=== PATIENT | female | born 1955 | race Caucasian/White ===

== ENCOUNTER → 2023-10-23 06:46 | Outpatient (REF) | payer MEDICARE, OTHER, SELFPAY ==
[2023-10-23 07:15] VITALS: BP 118/76; BP_SYST 84
[2023-10-23 08:42] VITALS: BP 129/64
[2023-10-23 09:54] LABS: Body Fluid LDH < 90 U/L; Body Fluid Protein < 2.0 g/dl
[2023-10-23 10:42] LABS: Body Fluid Mononuclear 76.2 %; Body Fluid Polymorphonuclear 23.8 %; Body Fluid WBC 492 /CUMM
[2023-10-23 10:43] LABS: Body Fluid Mononuclear 65.8 %; Body Fluid Polymorphonuclear 34.2 %; Body Fluid WBC 82 /CUMM
[2023-10-23 11:02] LABS: Body Fluid Second Tech CF
[2023-10-23 11:03] LABS: Body Fluid Second Tech CF
== END ==
LOC: RADI 06:46
PROVIDERS: ATTENDING PHYSICIAN Internal Medicine Transplant Hepatology; FAMILY PHYSICIAN Internal Medicine
DX: R18.8 Other ascites (principal); J90 Pleural effusion, not elsewhere classified
CPT/HCPCS: 32555; 49083; 71045; 83615; 84157; 87015; 87070; 87205; 89051

== ENCOUNTER → 2023-10-29 06:52 | Outpatient (REF) | payer MEDICARE, OTHER, SELFPAY ==
[2023-10-29 07:25] VITALS: BP 144/72; BP_SYST 81
[2023-10-29 08:45] VITALS: BP 125/69; BP_SYST 74
[2023-10-29 09:11] VITALS: BP 113/65
[2023-10-29 09:34] LABS: Body Fluid LDH < 90 U/L; Body Fluid Protein < 2.0 g/dl
[2023-10-29 10:15] LABS: Body Fluid Mononuclear 75.4 %; Body Fluid Polymorphonuclear 24.6 %; Body Fluid WBC 313 /CUMM
[2023-10-29 10:16] LABS: Body Fluid WBC 78 /CUMM
[2023-10-29 10:17] LABS: Body Fluid Mononuclear 65.4 %; Body Fluid Polymorphonuclear 34.6 %
[2023-10-29 10:18] LABS: Body Fluid Second Tech EM
[2023-10-29 10:18] LABS: Body Fluid Second Tech EM
== END ==
LOC: RADI 06:52
PROVIDERS: ATTENDING PHYSICIAN Internal Medicine Transplant Hepatology; FAMILY PHYSICIAN Internal Medicine
DX: R18.8 Other ascites (principal); J90 Pleural effusion, not elsewhere classified
CPT/HCPCS: 32555; 49083; 71045; 83615; 84157; 87015; 87070; 87205; 89051

== ENCOUNTER 2023-10-29 09:18 | Outpatient (RCR) | payer MEDICARE, OTHER, SELFPAY ==
[2023-10-29] MEDS: FLEXBUMIN 100 IV ×2 (09:37→11:06)
[2023-10-29 09:47] VITALS: BP 121/65
[2023-10-29 12:30] VITALS: BP 124/61
== END 2023-11-15 23:59 | disposition home or self-care (01) ==
LOC: OID 09:18
PROVIDERS: ATTENDING PHYSICIAN Internal Medicine; PRIMARYCARE PHYSICIAN Internal Medicine
DX: K74.60 Unspecified cirrhosis of liver (principal); R18.8 Other ascites; K76.0 Fatty (change of) liver, not elsewhere classified; K31.84 Gastroparesis; I81 Portal vein thrombosis; Z98.84 Bariatric surgery status
CPT/HCPCS: 32555; 49083; 71045; 83615; 84157; 87015; 87070; 87205; 89051; 96365; 96366; P9047

== ENCOUNTER → 2023-11-01 06:34 | Outpatient (REF) | payer MEDICARE, OTHER, SELFPAY ==
[2023-11-01 07:15] VITALS: BP 142/68; BP_SYST 70
[2023-11-01 08:07] VITALS: BP 134/63; BP_SYST 66
[2023-11-01 08:51] LABS: Body Fluid Mononuclear 72 %; Body Fluid Polymorphonuclear 28 %; Body Fluid WBC 75 /CUMM
[2023-11-01 08:52] LABS: Body Fluid Second Tech SD
== END ==
LOC: RADI 06:34
PROVIDERS: ATTENDING PHYSICIAN Internal Medicine Transplant Hepatology; FAMILY PHYSICIAN Internal Medicine
DX: R18.8 Other ascites (principal)
CPT/HCPCS: 49083; 87015; 87070; 87205; 89051

== ENCOUNTER → 2023-11-05 06:44 | Outpatient (REF) | payer MEDICARE, OTHER, SELFPAY ==
[2023-11-05 07:30] VITALS: BP 134/59; BP_SYST 80
[2023-11-05 08:11] VITALS: BP 124/68; BP_SYST 64
[2023-11-05 10:26] LABS: Body Fluid Mononuclear 56.4 %; Body Fluid Polymorphonuclear 43.6 %; Body Fluid WBC 117 /CUMM
[2023-11-05 10:30] LABS: Body Fluid Second Tech SD
== END ==
LOC: RADI 06:44
PROVIDERS: ATTENDING PHYSICIAN Internal Medicine Transplant Hepatology
DX: R18.8 Other ascites (principal); J90 Pleural effusion, not elsewhere classified
CPT/HCPCS: 49083; 76604; 87015; 87070; 87205; 89051

== ENCOUNTER → 2023-11-08 07:21 | Outpatient (REF) | payer MEDICARE, OTHER, SELFPAY ==
[2023-11-08 07:50] VITALS: BP 150/64; BP_SYST 88
[2023-11-08 09:50] LABS: Body Fluid Mononuclear 70.7 %; Body Fluid Polymorphonuclear 29.3 %; Body Fluid WBC 75 /CUMM
[2023-11-08 10:06] LABS: Body Fluid Second Tech EF
== END ==
LOC: RADI 07:21
PROVIDERS: ATTENDING PHYSICIAN Internal Medicine Transplant Hepatology; FAMILY PHYSICIAN Internal Medicine
DX: R18.8 Other ascites (principal)
CPT/HCPCS: 49083; 87015; 87070; 87205; 89051

== ENCOUNTER 2023-11-11 15:14 | Inpatient (IN) | payer MEDICARE, OTHER, SELFPAY ==
[2023-11-11] VITALS (7 sets, daily range): BP systolic 114–153; BP diastolic 54–88; BMI 31.4
--- NOTE | 2023-11-11 12:06 | ED.GENMED ---
History of Present Illness
General
Chief Complaint: Abdominal Symptoms
Source: patient and records
Time Seen by Provider: 11/11/23 11:42
Travel History
Have you had any contact with someone who has COVID-19?: No
Do you have any symptoms of coronavirus? Fever > 100 degrees, chills, cough, shortness of breath, sore throat, loss of taste or smell, muscle aches, or headache?: No
History of Present Illness
History of Present Illness:
67-year-old female with past medical history of Henderson, end-stage liver disease, GERD, hypertension, hyperlipidemia, A-fib, noted to get biweekly paracentesis presenting to the emergency department for evaluation of increased abdominal pain in the
epigastrium, yesterday had a few episodes of vomiting and today still has some mild nausea and abdominal discomfort prompting her to come in for further evaluation. She has a scheduled appointment tomorrow for a paracentesis and thoracentesis as
well as seeing her liver specialist, Dr. Bradley as well as her GI team tomorrow. Patient denies any fevers, chills, rigors. She has been taking her lactulose as prescribed but still notes tremors that are more pronounced with her arms extended.
notes no change in mental status. There are no reported fevers, chills, rigors.
Past History
Past History
ED Past Medical History: Arrthythmia (Paroxysmal atrial fibrillation), Fibromyalgia, GERD, HTN, Hypercholesterolemia, NIDDM, Hypothyroidism, Psychiatric (Anxiety), Other (Gastroparesis, chronic gastritis, HENDERSON, esophageal dysmotility/achalasia,
Ulcerative colitis, Migraines, neck pain, IBS, anemia, Dizziness Hepatic encephalopathy. Cirrhosis of the liver, IBS, ) and Other (Portal vein thrombosis); Negative CAD
ED Past Surgical History: Appendectomy, Bowel resection, Cholecystectomy, Gynecological (Total Hysterectomy, Oophorectomy), Orthopedic (right wrist surgery, Left ankle surgery) and Other (Meckel's diverticulum, gastric bypass Jun 27, 2021,
cataracts,)
Patient has exhibited threatening behavior?: No
PSI?: No
Social History
Tobacco: Former smoker
Alcohol: None
Drug: None
Personal:
Living: with family
Employment: Retired
Family History
Family History: Other ([place])
Review of Systems
Review of Systems
All Other Systems: ROS reviewed and negative except as documented in HPI and ROS
Phy Exam
Physical Exam
Physical Exam:
GENERAL: Alert , in no apparent distress
EYE: Clear conjunctiva
NECK: Supple
ENT: o/p clr, mmm.
CARDIAC: Regular rate and rhythm .
LUNGS: Diminished lung sounds at the right base, no acute respiratory distress, no wheezes/rales/rhonchi
ABDOMEN: Soft, distended with ascites, hepatomegaly appreciated. There is small ecchymosis along the right lateral flank that appears older in nature, tenderness within the epigastrium, normoactive bowel sounds
NEUROLOGICAL: Alert and oriented, pronounced tremor with arms extended, asterixis noted to the wrists
SKIN: Warm and dry, skin intact.
MUSCULOSKELETAL: Trace ankle edema on the left, well perfused.
PSYCH: Normal and appropriate interaction.
Scores
Heart Failure Risk
Heart Failure Risk Score: Not Applicable
Heart Score for Chest Pain Patients
STEMI patient?: Not applicable
Withdrawal Assessment of Alcohol
Withdrawal Assessment Completed?: Not applicable
Course
Orders/Labs/Results
Orders:
Orders
11/11/23 11:47
Urinalysis Reflex To Culture Urgent
Famotidine [Pepcid] 20 mg IV NOW STA
Mag Hydrox/Al Hydrox/Simeth [Maalox] 30 ml Phenobarb/Hyoscy/Atropine/Scop [] 10 ml Viscous Lidocaine 2% [Xylocaine Viscous Cup] 10 ml PO NOW
Ondansetron Injectable [Zofran] 4 mg IV NOW STA
11/11/23 11:48
Electrocardiogram (*1) Urgent
Reason for Study: Abdominal Pain
EKG- Treatment ONCE
11/11/23 12:22
Phenobarb/Hyoscy/Atropine/Scop [] 10 ml .ROUTE .STK-MED ONE
11/11/23 12:23
Mag Hydrox/Al Hydrox/Simeth [Maalox] 30 ml .ROUTE .STK-MED ONE
Viscous Lidocaine 2% [Xylocaine Viscous Cup] 15 ml .ROUTE .STK-MED ONE
11/11/23 12:26
Ammonia Urgent
Complete Blood Count/With Diff Urgent
Comprehensive Metabolic Panel Urgent
Lipase Urgent
PTT Urgent
Prothrombin Time Urgent
Troponin I Urgent
Abnormal Lab Results
11/11/23
12:26
WBC 4.0 L 10^3/uL
(4.8-10.8)
RBC 2.89 L 10^6/uL
(4.20-5.40)
Hgb 9.4 L g/dL
(12.0-16.0)
Hct 26.4 L %
(37.0-47.0)
MCH 32.5 H pg
(27.0-31.0)
RDW 16.2 H %
(11.5-14.5)
Plt Count 63 L 10^3/uL
(130-400)
MPV 12.4 H fL
(7.4-10.4)
Absolute Lymphs (auto) 0.8 L 10^3/uL
(1.2-3.4)
Lymphocytes % 18.9 L %
(20.5-51.1)
Monocytes % 11.9 H %
(1.7-9.3)
PT 19.0 H Sec
(11.4-14.6)
Sodium 132 L mmol/L
(135-145)
BUN 21 H mg/dl
(7-17)
Creatinine 1.9 H mg/dL
(0.6-1.0)
Glucose 125 H mg/dl
(70-99)
Total Bilirubin 1.9 H mg/dl
(0.2-1.3)
AST 60 H U/L
(14-36)
Alkaline Phosphatase 137 H U/L
(38-126)
Ammonia 86 H umol/L
(9-30)
Total Protein 6.0 L g/dl
(6.3-8.2)
Albumin 2.7 L g/dl
(3.5-5.0)
11/11/23 12:26
11/11/23 12:26
Vital Signs
Initial and Last Documented VS:
Initial Vital Signs
Temp Pulse Resp BP Pulse Ox
98.6 F 96 16 150/87 98
11/11/23 11:08 11/11/23 11:08 11/11/23 11:08 11/11/23 11:08 11/11/23 11:08
Last Documented Vital Signs
Temp Pulse Resp BP Pulse Ox
98.6 F 96 16 150/87 98
11/11/23 11:08 11/11/23 11:08 11/11/23 11:08 11/11/23 11:08 11/11/23 11:08
MDM/Problems Addressed
Differential Diagnosis Includes:
Worsening liver failure, patient not exhibiting any signs of metabolic encephalopathy, no fevers or infectious symptoms to be consistent with SBP
MDM/Problems Addressed:
67-year-old female present emergency department for abdominal pain, nausea and vomiting yesterday, no further episodes of vomiting today but remains with the pain. Possible GERD, gastritis, pancreatitis. Will check labs. Treatment with Pepcid,
Zofran and green grabber. Reassessment following. Patient does have planned follow-up already arranged for tomorrow with interventional radiology and her liver specialist.
Chronic conditions affecting care: Other (Chronic liver disease)
Acute Exacerbation and/or Progression of Chronic Illness: Other (Ascites/liver failure)
*Pulse Oximetry
Patient hypoxic: no
*Critical Care Note
Total Time (30-74mins, 75-104mins- exclusive of procedures): Not Applicable
Data Reviewed
Review of Other/Old Records Reveals: Labs, Records and Testing
Source: patient and records
Patient Management
Discussion with other providers: Hospitalist and Retail Shift Supervisor
Escalation/DeEscalation of care consider admission/obs:
I spoke to patient's on-call GI physician, Dr. Delacruz, who states that patient unable to tolerate her lactulose she may require admission with concern for worsening of her liver disease. She is also requesting to have us reach out to interventional
radiology to see if paracentesis could be done today. I spoke to IR who had already left for the day given her leukocytosis where a little less concern for SBP but that if they needed to return today for any reason that patient would be taken to IR
for paracentesis as well. Their plan will be to perform paracentesis first thing tomorrow morning. Patients ammonia level is elevated past her baseline around 86. Combined with her chronic medical condition as well as today's presenting symptoms
I do feel it be best for patient to be admitted and monitored. Hospitalist is aware and accepts patient for continued evaluation and treatment
ED Attending Note
-
Portions of this chart may have been created with voice recognition software.� Occasional wrong word or��sound alike� substitutions may have occurred due to the inherent limitations of voice recognition software.
Discharge Plan
Departure
Patient Disposition: Admit
Date of Disposition: 11/11/23
Time of Disposition: 13:14
Presentation/result/management discussed w/ accepting MD/DO: Hospitalist
Discharge Problem:
Abdominal ascites, Chronic liver failure
Prescriptions:
No Action
atorvastatin 20 mg tablet
20 mg PO DAILY
levothyroxine 25 mcg tablet
25 mcg PO DAILY
Patient Comments:
08/28/2023, called patient's [facility] pharmacy ([facility] [address] [address]) to confirm this medication[address] [facility] states that patient last filled this medication in April of 2023 for a 90-day supply.
pantoprazole [Protonix] 40 mg Tablet,Delayed Release (Dr/Ec)
40 mg PO BID
prednisone 5 mg tablet
5 mg PO DAILY
Patient Comments:
08/28/2023, patient's spouse cannot remember whether patient takes this medication in the morning or in the evening every day. Patient only takes this medication once a day.
ondansetron HCl 8 mg tablet
8 mg PO TIDPRN PRN (Reason: nausea)
quetiapine [Seroquel] 25 mg Tablet
25 mg PO HS
hydroxyzine HCl 25 mg Tablet
25 mg PO HS PRN (Reason: panic attack)
buspirone 15 mg Tablet
15 mg PO TID
ferrous sulfate [FeroSul] 325 mg (65 mg iron) tablet
325 mg PO HS
lactulose 10 gram/15 mL Solution
20 g PO TID 30 Days Qty: 2700 0RF
zinc sulfate 50 mg zinc (220 mg) Tablet
50 mg PO DAILY
metoclopramide HCl 10 mg Tablet
10 mg PO ACHS
memantine 5 mg Tablet
5 mg PO BID
rifaximin 550 mg Tablet
550 mg PO BID
oxycodone 10 mg tablet
5 mg PO TIDPRN PRN (Reason: severe pain ) Qty: 0 0RF
Patient Comments:
10/01/2023: per PDMP, patient filled this medication on 08/27/2023 for 90 tablets.
sucralfate 1 gram Tablet
1 g PO ACHS
furosemide 20 mg Tablet
20 mg PO DAILY
spironolactone 50 mg Tablet
50 mg PO DAILY
Referrals:
Malu Wilson, DO [Family Provider] -
Interventions
Interventions:
ED- Fall Risk Assessment Last Done: 11/11/23 12:05
*ED COVID-19 Vaccine History Last Done: 11/11/23 11:08
WH-Dfrdly-Rwvokicfhm Assessment Last Done: 11/11/23 12:04
[2023-11-11] MEDS: MAALOX 50 PO (12:24)
[2023-11-11] MEDS: PEPCID 20 MG IV (12:28)
[2023-11-11] MEDS: ZOFRAN 4 MG IV ×2 (12:28→16:46)
[2023-11-11 12:34] LABS: % Basophils 0.7 % (0-2); % Immature Granulocytes 0.2 % (0-0.5); % Lymphocytes 18.9 % (20.5-51.1); % Monocytes 11.9 % (1.7-9.3); % Neutrophils 65.3 % (42.2-75.2); Absolute Eosinophils 0.1 10^3/uL (0-0.7); Absolute Lymphocytes 0.8 10^3/uL (1.2-3.4); Absolute Monocytes 0.5 10^3/uL (0.1-0.6); Absolute Neutrophils 2.6 10^3/uL (1.4-6.5); Hematocrit 26.4 % (37.0-47.0); Hemoglobin 9.4 g/dL (12.0-16.0); Mean Corp Hgb Conc. 35.6 g/dL (33.0-37.0); Mean Corpuscular Hgb 32.5 pg (27.0-31.0); Mean Corpuscular Volume 91.3 fL (81.0-99.0); Mean Platelet Volume 12.4 fL (7.4-10.4); Nucleated Red Blood Cells % 0 %; Platelet Count 63 10^3/uL (130-400); Red Blood Cell Count 2.89 10^6/uL (4.20-5.40); Red Cell Dist. Width 16.2 % (11.5-14.5)
[2023-11-11 12:44] LABS: INR 1.61
[2023-11-11 12:45] LABS: APTT 33.4 Sec (23.4-35.0)
[2023-11-11 12:47] LABS: ALT (SGPT) 32 U/L (0-35); AST (SGOT) 60 U/L (14-36); Albumin 2.7 g/dl (3.5-5.0); Alkaline Phosphatase 137 U/L (38-126); Blood Urea Nitrogen 21 mg/dl (7-17); Calcium 8.5 mg/dl (8.4-10.2); Carbon Dioxide 25 mmol/L (22-30); Chloride 106 mmol/L (98-107); Glucose 125 mg/dl (70-99); Lipase 77 U/L (23-300); Potassium 4.7 mmol/L (3.5-5.1); Sodium 132 mmol/L (135-145); Total Bilirubin 1.9 mg/dl (0.2-1.3); eGFR 28.76
[2023-11-11 12:48] LABS: Ammonia 86 umol/L (9-30)
[2023-11-11 12:59] LABS: Troponin I 0.018 ng/ml
--- NOTE | 2023-11-11 14:59 | HPS.HSE ---
Family Physician
-
Family Physician: Malu Wilson
Chief Complaint
-
Nausea and abdominal distention
History of Present Illness
Pleasant 67-year-old female with history of nonalcoholic liver cirrhosis, A-fib anticoagulated, mood disorder. Paracentesis every other week but not for the last 4-week because she did not need it. Presented to the hospital complaining of present
marginal distention of the abdomen associated with nausea and couple episodes of nonbloody vomiting, therefore she was not able to take her lactulose daily yesterday afternoon and this morning.
Denies any changes stool or urine color.
No fever or chills or cough or congestion.
Not have some generalized abdominal pain and discomfort for, worse when she goes around.
Also have worsening lower extremity edema.
Denies any headache or vision change or any weakness or numbness in extremities.
She takes lactulose 3 times a day but she moves her bowels 6-7 times daily she looks dry and dehydrated.
Workup in the ER show evidence of worsening ascites and worsening renal function.
She is awake, alert and oriented x 3 hold appropriate conversations.
GI and IR contacted by the ER physician, look like the collective decision has no need for urgent paracentesis
Medical History
Past Medical History
Past Medical History: Reports Other
Additional Past Medical History:
Past medical history reviewed:
Alcoholic liver cirrhosis
Mood disorder
For myalgia
Chronic disease stage II-III
Gastroparesis
Dyslipidemia
A-fib not anticoagulated because of the risks of bleeding and requiring recurrent paracentesis.
History of C. difficile infection
Hypothyroidism
Site of colitis
Chronic lower extremity edema
Hepatic encephalopathy
Panic attack.
Surgical history: Recurrent paracentesis
Thoracocentesis
Hysterectomy
Appendectomy
Cholecystectomy
Splenectomy
Right arm surgery
Deep line and port placement
Bowel resection
Maureen Y gastric bypass
Bilateral carotic surgery
ORIF left ankle
EGD
Social history: Lives with the family, does not smoke and quit alcohol in her 20s, otherwise she is independent.
Family history: Reviewed and noncontributory
Past Surgical History: Reports Other
Social History
Alcohol: Other
Family History
Family History: Other
Allergies / Home Medications
Allergies reflects when Allergies were last updated in [employer].
Home Medications with original date entered in [employer]
Allergy/Medication List:
Allergies
Allergy/AdvReac Type Severity Reaction Status Date / Time
adhesive Allergy Rash Verified 11/11/23 11:09
ampicillin Allergy Anaphylaxis Verified 11/11/23 11:09
bee pollen Allergy Swelling Verified 11/11/23 11:09
Cephalosporins Allergy Swelling Verified 11/11/23 11:09
diphenhydramine Allergy HYPERACTIVI Verified 11/11/23 11:09
[From Benadryl] TY
honey Allergy Swelling Verified 11/11/23 11:09
Iodinated Contrast Media Allergy FLUSHING Verified 11/11/23 11:09
latex Allergy HIVES AND Verified 11/11/23 11:09
SWELLS UP
penicillin G Allergy Anaphylaxis Verified 11/11/23 11:09
Penicillins Allergy Anaphylaxis Verified 11/11/23 11:09
prochlorperazine Allergy Unknown Verified 11/11/23 11:09
[From Compazine]
promethazine HCl Allergy THROAT Verified 11/11/23 11:09
[From Phenergan] SWELLING/PANIC
ATTACKS
Sulfa (Sulfonamide Allergy Swelling Verified 11/11/23 11:09
Antibiotics)
sulfisoxazole Allergy Swelling Verified 11/11/23 11:09
trimethobenzamide Allergy Unknown Verified 11/11/23 11:09
venom-honey bee Allergy BEE Verified 11/11/23 11:09
STING/SWELLING
Home Medications
atorvastatin 20 mg tablet 20 mg PO DAILY High cholesterol 06/14/22
levothyroxine 25 mcg tablet 25 mcg PO DAILY Thyroid 06/14/22
pantoprazole 40 mg tablet,delayed release (Protonix) 40 mg PO BID Gastrointestinal issue 12/09/22
prednisone 5 mg tablet 5 mg PO DAILY Anti-Inflammatory 06/05/23
ondansetron HCl 8 mg tablet 8 mg PO TIDPRN PRN nausea 06/25/23
quetiapine 25 mg tablet (Seroquel) 25 mg PO HS mental health/sleep 07/15/23
buspirone 15 mg tablet 15 mg PO TID Mental Health 08/28/23
ferrous sulfate 325 mg (65 mg iron) tablet (FeroSul) 325 mg PO HS Supplement 08/28/23
hydroxyzine HCl 25 mg tablet 25 mg PO HS PRN panic attack 08/28/23
lactulose 10 gram/15 mL oral solution 20 g (30 mL) PO TID Gastrointestinal Issue 30 days #2,700 mL 09/05/23
memantine 5 mg tablet 5 mg PO BID Neurological Condition 10/01/23
metoclopramide HCl 10 mg tablet 10 mg PO ACHS Gastrointestinal Issue 10/01/23
rifaximin 550 mg tablet 550 mg PO BID Gastrointestinal Issue 10/01/23
zinc sulfate 50 mg zinc (220 mg) tablet 50 mg PO DAILY supplement 10/01/23
oxycodone 10 mg tablet 5 mg PO TIDPRN PRN severe pain #0 tabs 10/03/23
furosemide 20 mg tablet 20 mg PO DAILY 10/23/23
spironolactone 50 mg tablet 50 mg PO DAILY 10/23/23
sucralfate 1 gram tablet 1 g PO ACHS 10/23/23
Review of Systems
-
A 12 point ROS was completed and negative except as noted: Yes
Physical Exam
Vital Signs
Vital Signs
Temp Pulse Resp BP Pulse Ox
98.6 F 94 18 153/63 98
11/11/23 11:08 11/11/23 13:51 11/11/23 13:51 11/11/23 13:51 11/11/23 13:51
physical exam:
General: Pale looking, awake, alert and oriented x3, not in distress and holds appropriate conversation.
HEENT: No active discharge, ecchymosis or bruising, moist lips, tongue and mucous membrane.
Eyes: No discharge or red conjunctiva, no nystagmus, pupils are reactive and equal
Neck:Supple, no JVD no bruit no goiter.
Respiratory: Normal AP contour and diameter, normal chest wall movement, normal respiratory effort, no respiratory distress, port in the right side of the chest
Lungs: Good air entry bilaterally, no wheezing or rhonchi, no rales or crackles,
Heart: S1, S2 regular, normal rate, no added sound., Moderate lower extremities edema
Gastrointestinal: Gross distention of the abdomen, with mild generalized tenderness without any guarding or rigidity this, positive bowel sounds, soft,
Musculoskeletal: , no chest wall abnormality or tenderness. All joints and extremities have good range of motion, no muscle tenderness or any joint swelling or tenderness.
Extremities: Moderate lower extremity pitting edema, good peripheral pulses, good range of motion
Skin: Warm and dry, no ulceration, normal color.
Neurological: Awake, alert and oriented x3, cranial nerve II-XII grossly intact, speech clear and comprehensive, good muscle tone, normal sensory and motor function
Psychiatric: Normal mood, normal thought and judgment, normal affect,
Physical Exam
General: Other
Laboratory Results
-
11/11/23 12:26
11/11/23 12:
Laboratory Results
PT 19.0 Sec (11.4-14.6) H 11/11/23 12:
INR 1.61 11/11/23 12:
APTT 33.4 Sec (23.4-35.0) 11/11/23 12:
Total Bilirubin 1.9 mg/dl (0.2-1.3) H 11/11/23 12:
AST 60 U/L (14-36) H 11/11/23 12:
ALT 32 U/L (0-35) 11/11/23 12:
Alkaline Phosphatase 137 U/L (38-126) H 11/11/23 12:
Troponin I 0.018 ng/ml 11/11/23 12:
Lipase 77 U/L (23-300) 11/11/23 12:
EKG showed normal sinus rhythm rate around 69, UT 128, QTc 437, slow progression of the or in anterior leads otherwise no acute abnormality
Data Reviewed
-
Medical Tests (Nuc Med, Echo, EKG etc): Image Personally Visualized and interpreted
Lab Data: Labs Reviewed by me and Discussed with Patient
Old Records: Reviewed
Impression/Plan
-
IMPRESSION:
Pleasant 67-year-old female with history of narcotic liver cirrhosis and gets paracentesis every other week, which she did have a drop for last 4 weeks she did not need it now she has been having recollection of the ascites and increased abdominal
girth and some tenderness, doubted subacute bacterial peritonitis at the pain is mild but is no fever and leukocytosis.
Recurrent ascites, secondary to alcoholic liver cirrhosis, did not do paracentesis in the last 4 weeks
Alcoholic liver cirrhosis
Acute on chronic renal failure
Hyponatremia
Dehydration
Mild to moderate protein caloric malnutrition
History of A-fib, in sinus rhythm on anticoagulation because of recurrent prostatitis with history of bleeding.
Hypothyroidism
PLAN:
The patient will follow, diet and advance as tolerated to the nausea
Give a dose of lactulose rectally
Then see if she could able to tolerate it orally from midnight if not we may try to do her rectally, may need to reduce the dose of the lactulose that she is if she moves her bowel protein is 6-7 times a day
GI consult
IR for paracentesis tomorrow
Hold oral oxycodone and add morphine as needed
Nausea medication
Hold her vitamin and statin for now.
Monitor vital sign.
Recheck lab
She looks dry we will give a bag of D5 Ringer's lactate for now on monitor electrolyte and renal function as her baseline creatinine around 1.3-1.4 today is 1.9.
Continue levothyroxine
All discussed with the patient in detail expressed understanding
CODE STATUS full code
DVT prophylaxis SCD
[2023-11-11] MEDS: CARAFATE 1 GRAM PO ×2 (16:45→22:40)
[2023-11-11] MEDS: BUSPAR 15 MG PO ×2 (16:45→22:40)
[2023-11-11] MEDS: MORPHINE SULFATE 2 MG IV ×2 (16:46→21:38)
[2023-11-11] MEDS: REGLAN 10 MG PO ×2 (16:46→21:17)
--- NOTE | 2023-11-11 17:05 | CON.GI ---
Consultation
-
Date/Time Consultation Requested: 11/11/23
Date/Time Consultation Performed: 11/11/23
Requesting Provider: ER
Performing Provider: Dr. Delacruz
Reason for Consultation: confusion, burning abdominal pain
Medical History
Chief Complaint / HPI
Chief Complaint: Hepatic encephalopathy, abdominal discomfort
History of Present Illness:
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
for recurrent pleural effusion� (follows with Dr. Bradley), renal insufficiency, Hepatic encephalopathy on Xifaxan/lactulose, hx of SBP on chronic ciprofloxacin(prior non compliance but recently taking as directed), PVT, paroxysmal afib (off AC due to
risk of bleeding), gastroparesis, esophageal dysmotility s/p RYGB, HLD, hypothyroidism, chronic GERD on PPI/H2B returns to ER with recurrent admission with cloudiness with slow speech and abdominal pain. � Pt admits she was last admitted to
[facility] at the end of August with fever + influenza A and confusion.� She was better on discharge but noted last few day fogginess. � On admission noted with ammonia 108 and asked to evaluate.� Other� labs notable for with hbg 9.4, platelets
63,000, INR 1.6, total bilirubin 1.9, albumin 2.7, creatinine 1.9 with a meld 3.0: 26 (11/11/23). Her renal function generally is around 1.2. She has been taking her Lasix and Aldactone.
Last scopes EGD 10/2022- bypass with small pouch healthy anastomosis bx chronic inflammation, 2018 colonoscopy with hemorrhoids, diverticulosis, TA, HP polyps.
Past Medical History
Past Medical History: Other (Arrhythmias (afib ), Fibromyalgia, HTN, Hypercholesterolemia and Other (ZAVALETA cirrhosis with ascites/HE on OLT list at [facility], CKD3, PVT not on AC, chronic anemia, esophageal dysmotility on chronic reglan, hx SBP on
prophylaxis with ciprofloxacin,pleural effusion with prior thoracentesis))
Past Surgical History: Other (Appendectomy, Bowel Resection (Meckel's diverticulum, LUMA with SB resection), Cholecystectomy, , Gynecological (SIMONA) and Other (Kevin-en-Y gastric bypass))
Social History
Tobacco: Former Smoker
Alcohol: None
Drug: None
Personal:
Family History
Family History: Other ((no family hx colon ca, liver issues or liver CA, granddaugher with lupus))
Allergies / Home Medications
Allergy/AdvReac Type Severity Reaction Status Date / Time
adhesive Allergy Rash Verified 11/11/23 11:09
ampicillin Allergy Anaphylaxis Verified 11/11/23 11:09
bee pollen Allergy Swelling Verified 11/11/23 11:09
Cephalosporins Allergy Swelling Verified 11/11/23 11:09
diphenhydramine Allergy HYPERACTIVI Verified 11/11/23 11:09
[From Benadryl] TY
honey Allergy Swelling Verified 11/11/23 11:09
Iodinated Contrast Media Allergy FLUSHING Verified 11/11/23 11:09
latex Allergy HIVES AND Verified 11/11/23 11:09
SWELLS UP
penicillin G Allergy Anaphylaxis Verified 11/11/23 11:09
Penicillins Allergy Anaphylaxis Verified 11/11/23 11:09
prochlorperazine Allergy Unknown Verified 11/11/23 11:09
[From Compazine]
promethazine HCl Allergy THROAT Verified 11/11/23 11:09
[From Phenergan] SWELLING/PANIC
ATTACKS
Sulfa (Sulfonamide Allergy Swelling Verified 11/11/23 11:09
Antibiotics)
sulfisoxazole Allergy Swelling Verified 11/11/23 11:09
trimethobenzamide Allergy Unknown Verified 11/11/23 11:09
venom-honey bee Allergy BEE Verified 11/11/23 11:09
STING/SWELLING
Medication Instructions Recorded
atorvastatin 20 mg tablet 20 mg PO DAILY High cholesterol 06/14/22
levothyroxine 25 mcg tablet 25 mcg PO DAILY Thyroid 06/14/22
pantoprazole 40 mg tablet,delayed 40 mg PO BID Gastrointestinal issue 12/09/22
release (Protonix)
prednisone 5 mg tablet 5 mg PO DAILY Anti-Inflammatory 06/05/23
ondansetron HCl 8 mg tablet 8 mg PO TIDPRN PRN nausea 06/25/23
quetiapine 25 mg tablet (Seroquel) 25 mg PO HS mental health/sleep 07/15/23
buspirone 15 mg tablet 15 mg PO TID Mental Health 08/28/23
ferrous sulfate 325 mg (65 mg 325 mg PO HS Supplement 08/28/23
iron) tablet (FeroSul)
hydroxyzine HCl 25 mg tablet 25 mg PO HS PRN panic attack 08/28/23
lactulose 10 gram/15 mL oral 20 g (30 mL) PO TID 09/05/23
solution Gastrointestinal Issue 30 days
#2,700 mL
memantine 5 mg tablet 5 mg PO BID Neurological Condition 10/01/23
metoclopramide HCl 10 mg tablet 10 mg PO ACHS Gastrointestinal 10/01/23
Issue
rifaximin 550 mg tablet 550 mg PO BID Gastrointestinal 10/01/23
Issue
zinc sulfate 50 mg zinc (220 mg) 50 mg PO DAILY supplement 10/01/23
tablet
oxycodone 10 mg tablet 5 mg PO TIDPRN PRN severe pain #0 10/03/23
tabs
furosemide 20 mg tablet 20 mg PO DAILY 10/23/23
spironolactone 50 mg tablet 50 mg PO DAILY 10/23/23
sucralfate 1 gram tablet 1 g PO ACHS 10/23/23
Review of Systems
-
History Source: Patient
Vital Signs
Temp Pulse Resp BP Pulse Ox
98.2 F 91 18 131/88 98
11/11/23 16:15 11/11/23 16:15 11/11/23 16:15 11/11/23 16:15 11/11/23 16:15
Physical Exam
Results
WBC 4.0 10^3/uL (4.8-10.8) L 11/11/23 12:
Hgb 9.4 g/dL (12.0-16.0) L 11/11/23 12:
Hct 26.4 % (37.0-47.0) L 11/11/23 12:
MCV 91.3 fL (81.0-99.0) 11/11/23 12:
Plt Count 63 10^3/uL (130-400) L 11/11/23 12:
Absolute Neuts (auto) 2.6 10^3/uL (1.4-6.5) 11/11/23 12:
PT 19.0 Sec (11.4-14.6) H 11/11/23 12:
INR 1.61 11/11/23 12:
APTT 33.4 Sec (23.4-35.0) 11/11/23 12:
Sodium 132 mmol/L (135-145) L 11/11/23 12:
Potassium 4.7 mmol/L (3.5-5.1) 11/11/23 12:
Chloride 106 mmol/L (98-107) 11/11/23 12:
Carbon Dioxide 25 mmol/L (22-30) 11/11/23 12:
BUN 21 mg/dl (7-17) H 11/11/23 12:
Creatinine 1.9 mg/dL (0.6-1.0) H 11/11/23 12:
Calcium 8.5 mg/dl (8.4-10.2) 11/11/23 12:
Total Bilirubin 1.9 mg/dl (0.2-1.3) H 11/11/23 12:
AST 60 U/L (14-36) H 11/11/23 12:
ALT 32 U/L (0-35) 11/11/23 12:26
Alkaline Phosphatase 137 U/L (38-126) H 11/11/23 12:26
Lipase 77 U/L (23-300) 11/11/23 12:26
Diagnostic Image Results:�
10/01 CXR pending
09/30 US abdomen pending
09/27 -CXR No pneumothorax post right thoracentesis.
08/28/23 HCT
There are no focal or acute intracranial abnormalities.
There is mild diffuse cortical and cerebellar atrophy.
08/24/23 US doppler
Markedly limited evaluation of the abdomen, as detailed above with prior cholecystectomy noted, particularly significantly limited evaluation of the liver, common bile duct, pancreas, IVC and abdominal aorta.
Mild splenomegaly.
Ascites.
Markedly limited abdominal Doppler with hepatic artery not visualized, possibly site of blood flow in the right and main portal veins as well as normal directional blood flow and velocity within the main portal vein.
08/14/23 �CT Abd/pel Without Iv Or Oral
Large amount of ascites, increased compared to the prior CT. No discrete mass or mass effect. Increased stranding in the peritoneum, consistent with metastatic disease.
No findings to suggest bowel obstruction. Moderate stool in the colon.
Increased bilateral pleural effusions right greater than left.
Prior GI Procedures:�
EGD:� 11/16/22 Dr. Bunny Foss: No gross lesions in the entire esophagus. Gastric bypass with a small-sized pouch and intact staple line. Gastrojejunal anastomosis characterized by healthy appearing mucosa. Normal examined jejunum. Biopsies were
taken with a cold forceps for evaluation of eosinophilic esophagitis. bx showing mild chronic inflammation, otherwise negative.
Colonoscopy:� 03/2018 - [facility]: Hemorrhoids found on perianal exam. Non-bleeding external and internal hemorrhoids. Erythematous mucosa in the rectum. Biopsied. Diverticulosis in the left colon. Four small polyps in the sigmoid colon, in the descending
colon and in the ascending colon, removed with a jumbo cold forceps. Resected and retrieved. Biopsies were taken with a cold forceps for histology in the sigmoid colon, in the descending colon and in the transverse colon. Path showing AC TA polyp,
DC hyperplastic polyp, SC hyperplastic polyp, random bx colon negative. Rectal bx showing colorectal mucosa with nodular submucosal lymphoid aggregate and mild crypt architectural distortion, negative for active colitis.
Assessment / Plan
-
#JEREMY cirrhosis, actively listed for transplant at [facility]
MELD 3.0 on today to 11/11/23: 26 -driven by renal function with a creatinine of 1.1 and total bilirubin 1.9 with a sodium of 132
-- She has an appointment tomorrow with Dr. Bradley in our office at 1 PM. It would be ideal if we could tune her up and get her to that appointment
-- Will need to discuss with Dr. Bradley if he wants her to update her colonoscopy since she is listed
#HE - grade 1; described as grade 2 in the emergency room with asterixis
--- 30 mL of lactulose 3 times daily
--- Possibly exacerbated by slight bump in creatinine
--- For paracentesis both diagnostic and therapeutic in the morning
--- Multiple hospitalizations for hepatic encephalopathy
#SARI -any slight bump in renal function in a cirrhotic is important
Stop diuretics
Give 50 g of albumin tonight especially since she will likely have a large-volume paracentesis tomorrow and will need albumin post paracentesis
# Ascites with history of SBP -was previously on Cipro for secondary prophylaxis
-- 2 g sodium diet, daily weights
-- Patient has been getting about 10 L off a week with twice weekly paracentesis -I reviewed her last 5+
# Burning epigastric pain -this is a different quality of pain for her. Possibly possibly from the abdominal wall considering how tight she is from the ascites
-- Already on a significant GI regimen with PPIs, sucralfate
# Nausea chronic -on Reglan
No vomiting
# Portal vein thrombosis -nonocclusive off anticoagulation -Doppler ultrasound done in August was limited 'The hepatic artery, left hepatic vein as well as right and left portal veins are not visualized. Pulsatile blood flow is seen in the right
and main hepatic veins. Normal directional blood flow is seen in the main portal vein with velocity greater than 15 cm/s.'
Data Reviewed
-
Radiology: Report Reviewed by me
Ultrasound: Report Reviewed by me
Old Records: Reviewed
-
-
Thank you for consultation and allowing me to participate in the patient's care. Please call the educational program director GI physician during the after hours with any questions or concerns.
[2023-11-11] MEDS: DUPHALAC/CHRONULAC 20 GRAMS PO ×2 (17:21→22:41)
[2023-11-11] MEDS: FLEXBUMIN 100 IV ×2 (18:11→19:54)
[2023-11-11] MEDS: FLUSH (NSS) 1 FLUSH IV ×2 (18:12→19:53)
[2023-11-11] MEDS: PROTONIX 40 MG PO (20:19)
[2023-11-11] MEDS: XIFAXAN 550 MG PO (20:19)
[2023-11-11] MEDS: NAMENDA 5 MG PO (20:20)
[2023-11-11] MEDS: SEROQUEL 25 MG PO (22:40)
[2023-11-12] VITALS (7 sets, daily range): BP systolic 65–141; BP diastolic 46–67; BMI 31.9
--- NOTE | 2023-11-12 03:17 | PTCARENOTE ---
2310: Pt walking halls- stating feels dizzy, assisted to bed. BP 129/78 HR 100-110 97 RA. House NETWORK SECURITY ARCHITECT notified, no new orders. Pt educated to ring for assistance.
0300: Pt assisted to bathroom- still states dizziness at times.
[2023-11-12 05:16] LABS: Hematocrit 22.9 % (37.0-47.0); Hemoglobin 7.9 g/dL (12.0-16.0); Mean Corp Hgb Conc. 34.5 g/dL (33.0-37.0); Mean Corpuscular Hgb 31.2 pg (27.0-31.0); Mean Corpuscular Volume 90.5 fL (81.0-99.0); Mean Platelet Volume 12.2 fL (7.4-10.4); Platelet Count 51 10^3/uL (130-400); Red Blood Cell Count 2.53 10^6/uL (4.20-5.40); Red Cell Dist. Width 15.9 % (11.5-14.5)
[2023-11-12 05:42] LABS: White Blood Cell Count 2.3 10^3/uL (4.8-10.8)
--- NOTE | 2023-11-12 05:45 | PTCARENOTE ---
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
[2023-11-12 05:49] LABS: Blood Urea Nitrogen 23 mg/dl (7-17); Calcium 8.8 mg/dl (8.4-10.2); Carbon Dioxide 28 mmol/L (22-30); Chloride 106 mmol/L (98-107); Estimated Creatinine Clearance 31 ml/min; Glucose 102 mg/dl (70-99); Magnesium 2.6 mg/dl (1.6-2.3); Potassium 4.6 mmol/L (3.5-5.1); Sodium 137 mmol/L (135-145); eGFR 30.69
[2023-11-12] MEDS: SYNTHROID 25 MCG PO (06:08)
--- NOTE | 2023-11-12 09:29 | W.PN.HOSP.TC ---
Today's Communication/Plan
-
Cleared by GI for discharge today
Assessment / Plan
Assessment / Plan
HPI: 67 yo female well known to our group with a complex PMH significant for decompensated ZAVALETA cirrhosis actively listed for transplant at [facility] with ascites and HE requiring twice weekly paracentesis and recently occasional thoracentesis for
recurrent pleural effusion� (follows with Dr. Bradley), renal insufficiency, Hepatic encephalopathy on Xifaxan/lactulose, hx of SBP on chronic ciprofloxacin(prior non compliance but recently taking as directed), PVT, paroxysmal afib (off AC due to risk
of bleeding), gastroparesis, esophageal dysmotility s/p RYGB, HLD, hypothyroidism, chronic GERD on PPI/H2B returns to ER with recurrent admission with cloudiness with slow speech and abdominal pain.�
Acute on Chronic Hepatic Encephalopathy
�-Resolving, ammonia is 33 today, improved from 86 upon admission
�-Continue current lactulose and Xifaxan
-Medically stable and cleared by GI for discharge
ZAVALETA Cirrhosis
Chronic Recurrent Ascites secondary to the above
�-Abdominal pain and decompensated encephalopathy without other clear trigger.� Mental status now back to baseline
�-Appreciate GI input, status post paracentesis 11/12 draining 4600 of clear yellow ascitic fluid, negative for SBP
-GI ordered albumin, can be discharged after she receives her albumin
-She is to keep her appointment with Dr. Bradley today at 2 PM for her liver transplant
Chronic Pancytopenia
�- Secondary to cirrhosis
CKD III
�- Stable.� Renal function is at / near known baseline.
�- Follow for any changes.
DM-II
�- History of DM, but most recent A1C was 5.5%.
Hypothyroidism
�- Stable.� Continue T4 supplementation.
GERD
Chronic Gastroparesis
�- Stable.� Continue acid-suppression with BID PPI for now.
�- Continue Reglan for motility.
Anxiety / Depression
�- Continue buspirone for now
Chronic Pain Syndrome / Opioid Dependence
�- Continue PRN oxycodone.
�- Certainly sedating meds have some contribution to her confusion.
DVT Prophylaxis:� SCDs
Code Status:� DNR
Physical Exam
General: No acute distress
HEENT: Normocephalic, Atraumatic, EOMI, MMM
Respiratory: Clear to Auscultation bilaterally
Cardiac: Normal S1/S2, Regular Rate and Rhythm
GI: Soft, distended, ascites noted, mildly tender
Anticipated Discharge: Today
Subjective/Interval History
-
Date of Service: November 12, 2023
Patient is oriented x 3. Confusion seems to improve dramatically. Has chronic abdominal pain.
Objective Data
-
Labs:
Laboratory Results
11/12/23
04:21
WBC 2.3 L*
Hgb 7.9 L
Hct 22.9 L
Plt Count 51 L
Sodium 137
Potassium 4.6
Chloride 106
Carbon Dioxide 28
BUN 23 H
Creatinine 1.8 H
Glucose 102 H
Calcium 8.8
Vital Signs:
Vital Signs
Temp Pulse Resp BP Pulse Ox
98.5 F 70 14 110/51 95
11/12/23 07:45 11/12/23 09:12 11/12/23 09:12 11/12/23 09:12 11/12/23 08:41
I&O
11/11/23 11/12/23 11/13/23
06:59 06:59 06:59
Intake Total 580 / 580
Balance 580 / 580
[2023-11-12 09:31] LABS: Body Fluid Albumin < 1.0 g/dl
--- NOTE | 2023-11-12 09:56 | W.PN.GI.CBS2 ---
Today's Communication / Plan
-
Await fluid cell count from para
Continue meds (Lactulose/Xifaxan to be given)
Infuse albumin
Assessment / Plan
-
#JEREMY cirrhosis, actively listed for transplant at [facility]
MELD 3.0 on 11/11/23: 26 -driven by renal function with a creatinine of 1.1 and total bilirubin 1.9 with a sodium of 132. Now BUN 1.8 and NA 137 today. LFTs not performed.
-- She has an appointment today 11/12/[address] Bradley in our office at 2 PM. It would be ideal if we could get her to that appointment
-- Will need to discuss with Dr. Bradley if he wants her to update her colonoscopy since she is listed
#HE - grade 1; described as grade 2 in the emergency room with asterixis
--- 30 mL of lactulose 3 times daily. Xifaxan BID. Patient is AAO x 3 at current time. Ammonia 33 (down from 86)
--- Possibly exacerbated by slight bump in creatinine
--- Patient s/p paracentesis this am. To get albumin 50 gm IV now.
--- Multiple hospitalizations for hepatic encephalopathy
#SARI -any slight bump in renal function in a cirrhotic is important
--Stop diuretics
--Patient given 50g of albumin on 11/11/23 evening. Now to have another 50 gm post paracentesis.
# Ascites with history of SBP -was previously on Cipro for secondary prophylaxis
-- 2 g sodium diet, daily weights
-- Patient has been getting about 10 L off a week with twice weekly paracentesis -I reviewed her last 5+
--Patient s/p paracentesis this am. Awaiting report for volume and cell count.
# Burning epigastric pain -this is a different quality of pain for her. Possibly possibly from the abdominal wall considering how tight she is from the ascites
-- Already on a significant GI regimen with PPIs, sucralfate. Continue. Improved post paracentesis.
# Nausea chronic -on Reglan
--No vomiting, wants to eat. Placed on 2gm Na diet.
# Portal vein thrombosis -nonocclusive off anticoagulation -Doppler ultrasound done in August was limited 'The hepatic artery, left hepatic vein as well as right and left portal veins are not visualized. Pulsatile blood flow is seen in the right
and main hepatic veins. Normal directional blood flow is seen in the main portal vein with velocity greater than 15 cm/s.'
Subjective
Subjective
Date of Service: November 12, 2023
Patient s/p paracentesis this am. Tolerated well. Patient to get albumin infusion now. Patient is AAA x 3. Patient on Lactulose TID and Xifaxan BID. She has appt with Dr. Bradley at our office today.
Objective
Data Reviewed
Laboratory Data:
Laboratory Results
11/12/23 04:21
11/12/23 04:21
Laboratory Results
PT 19.0 Sec (11.4-14.6) H 11/11/23 12:26
INR 1.61 11/11/23 12:26
APTT 33.4 Sec (23.4-35.0) 11/11/23 12:26
Magnesium 2.6 mg/dl (1.6-2.3) H 11/12/23 04:21
Total Bilirubin 1.9 mg/dl (0.2-1.3) H 11/11/23 12:26
AST 60 U/L (14-36) H 11/11/23 12:26
ALT 32 U/L (0-35) 11/11/23 12:26
Alkaline Phosphatase 137 U/L (38-126) H 11/11/23 12:26
Lipase 77 U/L (23-300) 11/11/23 12:26
Vital Signs and I&O:
Vital Signs
Temp Pulse Resp BP Pulse Ox
98.5 F 70 14 110/51 95
11/12/23 07:45 11/12/23 09:12 11/12/23 09:12 11/12/23 09:12 11/12/23 08:41
I&O
11/11/23 11/12/23 11/13/23
06:59 06:59 06:59
Intake Total 580 / 580
Balance 580 / 580
Physical Exam
Physical Exam
HEENT: Anicteric
Cardiology: Normal Sinus Rhythm
Pulmonary: Clear (anterior)
GI: Soft, Distended (slighly), Non Tender and Normal Bowel Sounds
Extremities: Edema (+1 B/L) and Other (no true asterixis)
Neuro: Non Focal (patient AAO x 3)
[2023-11-12] MEDS: REGLAN 10 MG PO (10:19)
[2023-11-12] MEDS: DUPHALAC/CHRONULAC 20 GRAMS PO (10:19)
[2023-11-12 10:20] LABS: Ammonia 33 umol/L (9-30)
[2023-11-12] MEDS: NAMENDA 5 MG PO (10:20)
[2023-11-12] MEDS: DELTASONE 5 MG PO (10:20)
[2023-11-12] MEDS: BUSPAR 15 MG PO (10:22)
[2023-11-12 10:23] LABS: Body Fluid Mononuclear 73.2 %; Body Fluid Polymorphonuclear 26.8 %; Body Fluid WBC 71 /CUMM
[2023-11-12] MEDS: CARAFATE 1 GRAM PO (10:23)
[2023-11-12] MEDS: FLEXBUMIN 100 IV ×2 (10:24→11:22)
[2023-11-12 10:32] LABS: Body Fluid Second Tech AMA
[2023-11-12] MEDS: XIFAXAN 550 MG PO (10:32)
[2023-11-12] MEDS: PROTONIX 40 MG PO (10:32)
--- NOTE | 2023-11-12 10:38 | CM ---
Addendum entered by Simran Barbour 11/12/23 10:43:
Hallie
[phone]

Original Note:
manager system reviewed patient's chart and met with patient and patient reports that she lives with her spouse and mother in law, in a 2 story home, patient is independent with adl's and ambulation, no dme, patient has a prescription plan and
patient uses [facility].
PCP; Malu Wilson
Plan; Home with [facility] visiting nurses. Referral sent to [facility].
--- NOTE | 2023-11-12 11:40 | W.DCSUMMARY ---
Discharge Summary
Discharge Data
Date of Admission: 11/11/23
Date of Discharge: 11/12/23
-
Pending Results: No
Hospital Course
Discharge diagnoses:
Acute on chronic encephalopathy
End-stage liver cirrhosis on the transplant list
Chronic ascites
Chronic pancytopenia
Stage III chronic kidney disease
Type 2 diabetes
Hypothyroidism
Gastroesophageal reflux disease
Anxiety/depression
Chronic pain syndrome with opioid dependency
Consults: GI
Hospital course:
67-year-old female with a past medical history of [place] cirrhosis, pancytopenia, CKD, diabetes mellitus, hypothyroidism, GERD, anxiety, depression, chronic pain syndrome, and opiate dependence was admitted for acute on chronic hepatic
encephalopathy.� Patient's ammonia level was greater than 86 on admission which later improved to 33 with lactulose and Xifaxan.� Patient also required paracentesis, and her studies did not show any signs of SBP. Patient is medically stable and
cleared by GI for discharge. She has been instructed to keep her appointment with Dr. Bradley on 11/12/2023 for her liver transplant. She has also been instructed to follow-up with her primary care doctor 1 week, as well as her usual GI doctor.
Disposition: Home self-care
Discharge planning: Required 35 minutes
Discharge Plan
-
Patient Disposition: Home (Routine Discharge)
Discharge Diagnosis/Procedures: Hepatic encephalopathy, decompensated liver cirrhosis, ascites requiring paracentesis, chronic kidney disease
Condition: Fair
Diet: Low Sodium and Restrict fluids to 48 oz
Activity: As tolerated
Driving Restrictions: As prior to admission
Activity Restrictions/Additional Instructions:
Please keep your appointment with Dr. Bradley at 2 PM today.
Follow-up with your primary care doctor in 1 week.
Referrals:
Malu Wilson, DO [Family Provider] - in one week
Prescriptions:
Continued
atorvastatin 20 mg tablet
20 mg PO DAILY
levothyroxine 25 mcg tablet
25 mcg PO DAILY
Patient Comments:
08/28/2023, called patient's [facility] pharmacy ([facility] [address] [address]) to confirm this medication. [facility] states that patient last filled this medication in April of 2023 for a 90-day supply.
pantoprazole [Protonix] 40 mg Tablet,Delayed Release (Dr/Ec)
40 mg PO BID
prednisone 5 mg tablet
5 mg PO DAILY
Patient Comments:
08/28/2023, patient's spouse cannot remember whether patient takes this medication in the morning or in the evening every day. Patient only takes this medication once a day.
ondansetron HCl 8 mg tablet
8 mg PO TIDPRN PRN (Reason: nausea)
quetiapine [Seroquel] 25 mg Tablet
25 mg PO HS
hydroxyzine HCl 25 mg Tablet
25 mg PO HS PRN (Reason: panic attack)
buspirone 15 mg Tablet
15 mg PO TID
ferrous sulfate [FeroSul] 325 mg (65 mg iron) tablet
325 mg PO HS
lactulose 10 gram/15 mL Solution
20 g PO TID 30 Days Qty: 2700 0RF
zinc sulfate 50 mg zinc (220 mg) Tablet
50 mg PO DAILY
metoclopramide HCl 10 mg Tablet
10 mg PO ACHS
memantine 5 mg Tablet
5 mg PO BID
rifaximin 550 mg Tablet
550 mg PO BID
oxycodone 10 mg tablet
5 mg PO TIDPRN PRN (Reason: severe pain ) Qty: 0 0RF
Patient Comments:
10/01/2023: per PDMP, patient filled this medication on 08/27/2023 for 90 tablets.
sucralfate 1 gram Tablet
1 g PO ACHS
furosemide 20 mg Tablet
20 mg PO DAILY
spironolactone 50 mg Tablet
50 mg PO DAILY
Discharge Orders:
Discharge Patient (As Directed); Ordered 11/12/23
Ordered By: Miguel Pa
Discharge Date and Time
Discharge Date/Time: 11/12/23 13:50
[2023-11-12] MEDS: CARAFATE PO (12:10)
[2023-11-12] MEDS: REGLAN PO (12:10)
== END 2023-11-12 13:50 | disposition home or self-care (01) | DRG 432 ==
LOC: 4 EAST ACU 15:14
PROVIDERS: Physician Assistant Medical; Radiology Vascular & Interventional Radiology; ADMITTING PHYSICIAN Internal Medicine; ATTENDING PHYSICIAN Family Medicine; CONSULT PHYSICIAN Internal Medicine; EMERGENCY PHYSICIAN Student in an Organized Health Care Education/Training Program; FAMILY PHYSICIAN Internal Medicine
PROC: 0W9G3ZX Drainage of Peritoneal Cavity, Percutaneous Approach, Diagnostic (ICD-10-PCS; 2023-11-12)
DX: K74.69 Other cirrhosis of liver (principal); I81 Portal vein thrombosis; E44.0 Moderate protein-calorie malnutrition; E87.1 Hypo-osmolality and hyponatremia; K51.90 Ulcerative colitis, unspecified, without complications; N17.9 Acute kidney failure, unspecified; J90 Pleural effusion, not elsewhere classified; R18.8 Other ascites; D61.818 Other pancytopenia; F11.20 Opioid dependence, uncomplicated; K75.81 Nonalcoholic steatohepatitis (NASH); K21.9 Gastro-esophageal reflux disease without esophagitis; I12.9 Hypertensive chronic kidney disease with stage 1 through stage 4 chronic kidney disease, or unspecified chronic kidney disease; E78.00 Pure hypercholesterolemia, unspecified; I48.0 Paroxysmal atrial fibrillation; F41.0 Panic disorder [episodic paroxysmal anxiety]; G43.909 Migraine, unspecified, not intractable, without status migrainosus; K22.4 Dyskinesia of esophagus; K31.84 Gastroparesis; M79.7 Fibromyalgia; N18.30 Chronic kidney disease, stage 3 unspecified; K29.50 Unspecified chronic gastritis without bleeding; E03.9 Hypothyroidism, unspecified; E11.22 Type 2 diabetes mellitus with diabetic chronic kidney disease; E11.36 Type 2 diabetes mellitus with diabetic cataract; E11.43 Type 2 diabetes mellitus with diabetic autonomic (poly)neuropathy; F32.A Depression, unspecified; E86.0 Dehydration; K76.82 Hepatic encephalopathy; G89.4 Chronic pain syndrome; K72.10 Chronic hepatic failure without coma; Z87.891 Personal history of nicotine dependence; Z79.890 Hormone replacement therapy; Z90.81 Acquired absence of spleen; Z88.0 Allergy status to penicillin; Z88.2 Allergy status to sulfonamides; Z88.1 Allergy status to other antibiotic agents; Z91.030 Bee allergy status; Z91.041 Radiographic dye allergy status; Z91.040 Latex allergy status; Z98.84 Bariatric surgery status; Z91.199 Patient's noncompliance with other medical treatment and regimen due to unspecified reason; Z76.82 Awaiting organ transplant status; Z66 Do not resuscitate
CPT/HCPCS: 49083; 80048; 80053; 82042; 82140; 83690; 83735; 84484; 85025; 85027; 85610; 85730; 87015; 87070; 87205; 89051; 93005; 96374; 96375; 99285; P9047

== ENCOUNTER → 2023-11-15 06:41 | Outpatient (REF) | payer MEDICARE, OTHER, SELFPAY ==
[2023-11-15 07:41] VITALS: BP 144/79; BP_SYST 83
[2023-11-15 08:24] VITALS: BP 142/82
[2023-11-15 09:09] LABS: Body Fluid Mononuclear 76 %; Body Fluid Polymorphonuclear 24 %; Body Fluid WBC 100 /CUMM
[2023-11-15 09:10] LABS: Body Fluid Second Tech SD
== END ==
LOC: RADI 06:41
PROVIDERS: ATTENDING PHYSICIAN Internal Medicine Transplant Hepatology; FAMILY PHYSICIAN Internal Medicine
DX: R18.8 Other ascites (principal)
CPT/HCPCS: 49083; 87015; 87070; 87205; 89051

== ENCOUNTER 2023-11-18 20:07 | Emergency (ER) | payer MEDICARE, OTHER, SELFPAY ==
[2023-11-18 20:10] VITALS: BP 152/80
--- NOTE | 2023-11-18 22:02 | ED.GENMED ---
History of Present Illness
General
Chief Complaint: Swelling
Source: patient
Exam Limitations: none
Time Seen by Provider: 11/18/23 21:11
Travel History
Have you had any contact with someone who has COVID-19?: No
Do you have any symptoms of coronavirus? Fever > 100 degrees, chills, cough, shortness of breath, sore throat, loss of taste or smell, muscle aches, or headache?: No
History of Present Illness
History of Present Illness:
This is a 68 year old female that comes in with c/o feet swelling and tonight she felt like her toes were turning purple. States that he legs started to swell yesterday and today she felt that her toes were purple tonight. States that she has been
taking Lasix and Spironolactone and this is not working. States that she has a low grade fever of 99.0. States that she has abd pain, nausea, diarrhea. Denies any chills chest pain, SOB, vomiting, headache, dizziness, urinary burning.
Past History
Past History
ED Past Medical History: Arrthythmia (Paroxysmal atrial fibrillation), Fibromyalgia, GERD, HTN, Hypercholesterolemia, NIDDM, Hypothyroidism, Psychiatric (Anxiety), Other (Gastroparesis, chronic gastritis, ZAVALETA, esophageal dysmotility/achalasia,
Ulcerative colitis, Migraines, neck pain, IBS, anemia, Dizziness Hepatic encephalopathy. Cirrhosis of the liver, IBS, ) and Other (Portal vein thrombosis); Negative CAD
ED Past Surgical History: Appendectomy, Bowel resection, Cholecystectomy, Gynecological (Total Hysterectomy, Oophorectomy), Orthopedic (right wrist surgery, Left ankle surgery) and Other (Meckel's diverticulum, gastric bypass Jun 27, 2021,
cataracts,)
Patient has exhibited threatening behavior?: No
PSI?: No
Social History
Tobacco: Former smoker
Alcohol: None
Drug: None
Personal:
Living: with family
Employment: Retired
Family History
Family History: Other ([place])
Review of Systems
Review of Systems
All Other Systems: ROS reviewed and negative except as documented in HPI and ROS
Constitutional: Reports fever (lOW GRADE)
EENT: Reports no symptoms
Respiratory: Denies cough or trouble breathing
Cardiac: Reports no symptoms; Denies chest pain
ABD/GI: Reports abdominal pain, nausea and diarrhea; Denies vomiting
: Reports no symptoms; Denies dysuria, frequency or urgency
Musculoskeletal: Reports no symptoms
Skin: Reports no symptoms
Neurological: Reports no symptoms; Denies dizzy or headache
Psychiatric: Reports no symptoms
Phy Exam
General Physical Exam
General Presentation: no apparent distress
General age: appears stated age
General Skin: warm and dry
General Habitus: elderly
General Mental: alert
General Hydration: appears well hydrated
ENT Exam
ENT Exam: TM's normal, pharynx normal and neck supple
Eye Exam
Eye Exam: EOMI
Cardiovascular Exam
Cardiovascular Exam: regular rate/rhythm and normal peripheral pulses
Pulmonary Exam
Pulmonary Exam: lungs clear, no respiratory distress, no rales, chest non tender, no crackles, no rhonchi, no wheezing and no cough
Gastrointestinal Exam
Gastrointestinal Exam: normal bowel sounds, soft, no organomegaly, no pulsatile mass, ascites and tender (Generalized tenderness with palpation)
Musculoskeletal Exam
Musculoskeletal Exam: full ROM and edema (Pitting edema of lower legs. L>R, Contusion noted on the base of the right second and third toe and the left 5th toes. Brisk capillary refill. warm to touch)
Skin Exam
Skin Exam: normal color, warm/dry, no rash and no petechia
Psychiatric Exam
Psychiatric Exam: normal mood/affect
Scores
Heart Failure Risk
Heart Failure Risk Score: Not Applicable
Course
Orders/Labs/Results
Orders:
Orders
11/18/23 21:23
US Abdomen Limited Urgent
Comment:
Reason For Exam: Ascites check
11/18/23 22:38
CMP [Comprehensive Metabolic Panel] Urgent
Complete Blood Count/With Diff Urgent
NT-proBNP Urgent
Prothrombin Time Urgent
Troponin I Urgent
Abnormal Lab Results
11/18/23
22:38
WBC 4.1 L 10^3/uL
(4.8-10.8)
RBC 2.75 L 10^6/uL
(4.20-5.40)
Hgb 8.7 L g/dL
(12.0-16.0)
Hct 24.6 L %
(37.0-47.0)
MCH 31.6 H pg
(27.0-31.0)
RDW 16.3 H %
(11.5-14.5)
Plt Count 69 L D 10^3/uL
(130-400)
MPV 11.6 H fL
(7.4-10.4)
Absolute Lymphs (auto) 0.8 L 10^3/uL
(1.2-3.4)
Absolute Monos (auto) 0.7 H 10^3/uL
(0.1-0.6)
Lymphocytes % 19.3 L %
(20.5-51.1)
Monocytes % 16.6 H %
(1.7-9.3)
PT 20.8 H Sec
(11.4-14.6)
Sodium 134 L mmol/L
(135-145)
Chloride 109 H mmol/L
(98-107)
BUN 20 H mg/dl
(7-17)
Creatinine 1.7 H mg/dL
(0.6-1.0)
Total Bilirubin 1.8 H mg/dl
(0.2-1.3)
AST 50 H U/L
(14-36)
Alkaline Phosphatase 145 H U/L
(38-126)
Total Protein 5.9 L g/dl
(6.3-8.2)
Albumin 2.9 L g/dl
(3.5-5.0)
11/18/23 22:38
11/18/23 22:38
WBC slightly low. H/H low but consistent with prior labs, Thrombocytopenia, PT 20.8 with INR 1.81, Troponin 0.012, Pro-BNP 506, Chloride slightly elevated. Chronic renal insufficiency, Total yenny elevation Chronic, AST elevation. Alk phos elevation.
Total protein slightly low. Albumin low.
Vital Signs
Initial and Last Documented VS:
Initial Vital Signs
Temp Pulse Resp BP Pulse Ox
99 F 74 24 152/80 100
11/18/23 20:10 11/18/23 20:10 11/18/23 20:10 11/18/23 20:10 11/18/23 20:10
Last Documented Vital Signs
Temp Pulse Resp BP Pulse Ox
99 F 88 15 123/72 100
11/18/23 20:10 11/18/23 23:00 11/18/23 23:00 11/18/23 23:00 11/18/23 20:10
MDM/Problems Addressed
Differential Diagnosis Includes:
Ascites, Contusion on toes,
MDM/Problems Addressed:
This is a 68 year old female that comes in with c/o swelling in her legs and feels that her toes are turning purple. States that the swelling has gotten worse and the purple color just started tonight.
Will get labs and US abd. Explained to patient that this looks more like a bruise on the toes then discoloration. There is brisk refill and good pulses.
Back into see patient. Explained that her US shows moderate amount os ascites. Patient is due to have a Paracentesis tomorrow. Labs consistent with prior labs. Explained that this looks more like a bruise on her feet then discoloration. Will
discharge patient home.
Chronic conditions affecting care: Other (Cirrhosis, ZAVALETA, )
Acute Exacerbation and/or Progression of Chronic Illness:
Ascites,
*Radiology
Radiology exam reviewed: radiology read reviewed (US-Moderate abdominal ascites. Mildly progressed from previous exam)
*Pulse Oximetry
Patient hypoxic: no
*EKG
Interpreted by ED Provider?: NA
Rate: EKG- N/A
*Chief Dog License Inspector Interpretation
Rate: Chief Dog License Inspector- N/A
*Critical Care Note
Total Time (30-74mins, 75-104mins- exclusive of procedures): Not Applicable
ED Attending Note
-
Portions of this chart may have been created with voice recognition software.� Occasional wrong word or��sound alike� substitutions may have occurred due to the inherent limitations of voice recognition software.
Discharge Plan
Departure
Patient Disposition: Home (Routine Discharge)
Date of Disposition: 11/18/23
Time of Disposition: 23:48
Patient with high blood pressure during this ER visit?: Yes
Condition: Good
Covid-19: Not Applicable
Discharge Problem:
Contusion, Leg edema
Instructions: Dependent Edema (DC), Contusion (DC)
Prescriptions:
No Action
atorvastatin 20 mg tablet
20 mg PO DAILY
levothyroxine 25 mcg tablet
25 mcg PO DAILY
Patient Comments:
08/28/2023, called patient's [facility] pharmacy ([facility] [address] [place] [id number]) to confirm this medication. [facility] states that patient last filled this medication in April of 2023 for a 90-day supply.
pantoprazole [Protonix] 40 mg Tablet,Delayed Release (Dr/Ec)
40 mg PO BID
prednisone 5 mg tablet
5 mg PO DAILY
Patient Comments:
08/28/2023, patient's spouse cannot remember whether patient takes this medication in the morning or in the evening every day. Patient only takes this medication once a day.
ondansetron HCl 8 mg tablet
8 mg PO TIDPRN PRN (Reason: nausea)
quetiapine [Seroquel] 25 mg Tablet
25 mg PO HS
hydroxyzine HCl 25 mg Tablet
25 mg PO HS PRN (Reason: panic attack)
buspirone 15 mg Tablet
15 mg PO TID
ferrous sulfate [FeroSul] 325 mg (65 mg iron) tablet
325 mg PO HS
lactulose 10 gram/15 mL Solution
20 g PO TID 30 Days Qty: 2700 0RF
zinc sulfate 50 mg zinc (220 mg) Tablet
50 mg PO DAILY
metoclopramide HCl 10 mg Tablet
10 mg PO ACHS
memantine 5 mg Tablet
5 mg PO BID
rifaximin 550 mg Tablet
550 mg PO BID
oxycodone 10 mg tablet
5 mg PO TIDPRN PRN (Reason: severe pain ) Qty: 0 0RF
Patient Comments:
10/01/2023: per PDMP, patient filled this medication on 08/27/2023 for 90 tablets.
sucralfate 1 gram Tablet
1 g PO ACHS
Referrals:
Malu Wilson, DO [Family Provider] - Follow up in 2-3 days
Activity Restrictions/Additional Instructions:
As discussed, your blood work shows that your Hgb is low but this is consistent with prior labs. Your Plt are also low but improved from prior labs. Your Pro-BNP which is a marker for fluid over load is low. Please follow up for your Paracentesis
tomorrow and doctor can adjust your diuretics as needed. IF YOU HAVE ANY OTHER CONCERNS PLEASE RETURN TO THE EMERGENCY ROOM.
Interventions
Interventions:
*Risk Screen - Suicide Last Done: 11/18/23 20:10
*General Assessment Last Done: 11/18/23 22:25
*Neglect/Abuse Screening Last Done: 11/18/23 20:10
*ED COVID-19 Vaccine History Last Done: 11/18/23 22:22
ED- Cardiac Assessment Last Done: 11/18/23 22:27
ED- Pulmonary Assessment Last Done: 11/18/23 22:27
ED-Skin Assessment Last Done: 11/18/23 22:27
[2023-11-18 22:23] VITALS: BMI 32.9
[2023-11-18 22:26] VITALS: BP 144/63
[2023-11-18 22:57] LABS: % Basophils 0.7 % (0-2); % Eosinophils 2.4 % (0-6); % Immature Granulocytes 0.5 % (0-0.5); % Lymphocytes 19.3 % (20.5-51.1); % Monocytes 16.6 % (1.7-9.3); % Neutrophils 60.5 % (42.2-75.2); Absolute Eosinophils 0.1 10^3/uL (0-0.7); Absolute Lymphocytes 0.8 10^3/uL (1.2-3.4); Absolute Monocytes 0.7 10^3/uL (0.1-0.6); Absolute Neutrophils 2.5 10^3/uL (1.4-6.5); Hematocrit 24.6 % (37.0-47.0); Hemoglobin 8.7 g/dL (12.0-16.0); Mean Corp Hgb Conc. 35.4 g/dL (33.0-37.0); Mean Corpuscular Hgb 31.6 pg (27.0-31.0); Mean Corpuscular Volume 89.5 fL (81.0-99.0); Mean Platelet Volume 11.6 fL (7.4-10.4); Nucleated Red Blood Cells % 0 %; Platelet Count 69 10^3/uL (130-400); Red Blood Cell Count 2.75 10^6/uL (4.20-5.40); Red Cell Dist. Width 16.3 % (11.5-14.5); White Blood Cell Count 4.1 10^3/uL (4.8-10.8)
[2023-11-18 23:00] VITALS: BP 123/72
[2023-11-18 23:02] LABS: INR 1.81; PT 20.8 Sec (11.4-14.6)
[2023-11-18 23:10] LABS: ALT (SGPT) 26 U/L (0-35); AST (SGOT) 50 U/L (14-36); Albumin 2.9 g/dl (3.5-5.0); Alkaline Phosphatase 145 U/L (38-126); Blood Urea Nitrogen 20 mg/dl (7-17); Calcium 8.4 mg/dl (8.4-10.2); Carbon Dioxide 22 mmol/L (22-30); Chloride 109 mmol/L (98-107); Estimated Creatinine Clearance 33 ml/min; Glucose 95 mg/dl (70-99); Potassium 3.7 mmol/L (3.5-5.1); Sodium 134 mmol/L (135-145); Total Bilirubin 1.8 mg/dl (0.2-1.3); Total Protein 5.9 g/dl (6.3-8.2); eGFR 32.66
[2023-11-18 23:19] LABS: NT-proBNP 506 pg/ml; Troponin I 0.012 ng/ml
--- NOTE | 2023-11-18 23:38 | EDRN ---
B Ayesha CLAIMS ANALYST said pt will be discharged home - VAT called to de-access port
--- NOTE | 2023-11-18 23:59 | EDRN ---
Pt given discharge instructions. Waiting for VAT member to de-access pt's port
== END 2023-11-19 00:11 | disposition home or self-care (01) ==
LOC: EMR 20:07
PROVIDERS: Clinical Nurse Specialist Family Health; Emergency Medicine; EMERGENCY PHYSICIAN Emergency Medicine; FAMILY PHYSICIAN Internal Medicine
DX: R22.43 Localized swelling, mass and lump, lower limb, bilateral (principal); S90.121A Contusion of right lesser toe(s) without damage to nail, initial encounter; S90.122A Contusion of left lesser toe(s) without damage to nail, initial encounter; X58.XXXA Exposure to other specified factors, initial encounter; K74.60 Unspecified cirrhosis of liver; I10 Essential (primary) hypertension; Z87.891 Personal history of nicotine dependence
CPT/HCPCS: 99284; 76705; 80053; 83880; 84484; 85025; 85610

== ENCOUNTER → 2023-11-19 06:57 | Outpatient (REF) | payer MEDICARE, OTHER, SELFPAY ==
[2023-11-19 07:24] VITALS: BP 138/63; BP_SYST 81
[2023-11-19 08:28] VITALS: BP 142/71
[2023-11-19 12:55] LABS: Body Fluid WBC 113 /CUMM
[2023-11-19 13:33] LABS: Body Fluid Second Tech EM
== END ==
LOC: RADI 06:57
PROVIDERS: ATTENDING PHYSICIAN Internal Medicine Transplant Hepatology; FAMILY PHYSICIAN Internal Medicine
DX: R18.8 Other ascites (principal); J90 Pleural effusion, not elsewhere classified
CPT/HCPCS: 49083; 76604; 87015; 87070; 87205; 89051

== ENCOUNTER 2023-11-20 20:28 | Observation (INO) | payer MEDICARE, OTHER, SELFPAY ==
[2023-11-20] VITALS (11 sets, daily range): BP systolic 103–139; BP diastolic 60–99; BMI 31.2
[2023-11-20 15:09] LABS: Glucose - Point of Care 149 mg/dl (70-99)
--- NOTE | 2023-11-20 15:27 | ED.GENMED ---
History of Present Illness
General
Chief Complaint: Fainting/Passed Out
Source: patient
Exam Limitations: none
Time Seen by Provider: 11/20/23 15:13
Nursing documentation reviewed up to this point in time: agreed with
Travel History
Have you had any contact with someone who has COVID-19?: No
Do you have any symptoms of coronavirus? Fever > 100 degrees, chills, cough, shortness of breath, sore throat, loss of taste or smell, muscle aches, or headache?: No
History of Present Illness
History of Present Illness:
68-year-old female presents the emergency department after a syncope episode. She has had nausea vomiting and diarrhea for the past 2 days, and had a paracentesis 2 days ago for her cirrhosis. She was at the GI waiting area, and went to tell them
that she was not feeling well. She then passed out and fell on the ground. She complains of head pain neck pain.
Past History
Past History
ED Past Medical History: Arrthythmia (Paroxysmal atrial fibrillation), Fibromyalgia, GERD, HTN, Hypercholesterolemia, NIDDM, Hypothyroidism, Psychiatric (Anxiety), Other (Gastroparesis, chronic gastritis, ZAVALETA, esophageal dysmotility/achalasia,
Ulcerative colitis, Migraines, neck pain, IBS, anemia, Dizziness Hepatic encephalopathy. Cirrhosis of the liver, IBS, ) and Other (Portal vein thrombosis); Negative CAD
ED Past Surgical History: Appendectomy, Bowel resection, Cholecystectomy, Gynecological (Total Hysterectomy, Oophorectomy), Orthopedic (right wrist surgery, Left ankle surgery) and Other (Meckel's diverticulum, gastric bypass Jun 27, 2021,
cataracts,)
Patient has exhibited threatening behavior?: No
PSI?: No
Social History
Tobacco: Former smoker
Alcohol: None
Drug: None
Personal:
Living: with family
Employment: Retired
Family History
Family History: Other ([place])
Review of Systems
Review of Systems
Allergies reviewed?: Yes
All Other Systems: Not applicable
Constitutional: Reports no symptoms
EENT: Reports no symptoms
Respiratory: Reports no symptoms
Cardiac: Reports syncope
ABD/GI: Reports nausea, vomiting and diarrhea; Denies abdominal pain
: Reports no symptoms
Musculoskeletal: Reports neck pain and back pain
Skin: Reports no symptoms
Neurological: Reports headache
Endocrine: Reports no symptoms
Hematologic/Lymphatic: Reports no symptoms
Psychiatric: Reports no symptoms
Phy Exam
Physical Exam
Physical Exam:
Physical Exam
General: no apparent distress, not acutely ill
Neck: supple. no meningeal signs. normal posterior pharynx
Heart: s1/s2 regular rate and rhythm, no murmur. equal radial
pulses.
HEENT: Pupils equal round reactive to light, EOMI
Lungs: no acute respiratory distress. clear bilaterally
Abdomen: normal bowel sounds. not tender. no CVAT, right lower abdominal lateral paracentesis puncture wound with glue over it, no drainage or tenderness
Neuro: alert and oriented. no focal neurological deficits cranial nerves II through XII intact
Skin: no rash
Psychiatric: well kept. interactive and cooperative
Extremities: no edema. no calf tenderness. negative homans. good distal pulses
Course
Orders/Labs/Results
Orders:
Orders
11/20/23 Lunch
Sodium, 2 Gram
At Your Request: Full Participation
11/20/23 15:13
Electrocardiogram (*1) Urgent
Reason for Study: Syncope
EKG- Treatment ONCE
11/20/23 15:26
CT Cervical Spine W/o Iv Contr Urgent
Comment:
Reason For Exam: syncope, fall, neck pain
CT Head W/o Iv Contrast Urgent
Comment:
Reason For Exam: syncope, fall
IV Insert/Care/Rem.- Treatment PRN
11/20/23 15:27
Complete Blood Count/With Diff Urgent
Comprehensive Metabolic Panel Urgent
PTT Urgent
Prothrombin Time Urgent
11/20/23 16:21
Oxycodone [Roxicodone] 5 mg PO NOW STA
11/20/23 16:58
Ondansetron Injectable [Zofran] 4 mg IV NOW STA
11/20/23 19:31
Admit/Transfer Patient As Directed
Co-Sign Provider:
Level of Care: Observation services
Assign to:: Telemetry
Physician / Group: Gabby Cottrell
Diagnosis: Syncope likely vasovagal
Reason for Telemetry: Syncope
Date to Stop Telemetry: 11/22/23
Time to Stop Telemetry: 11:00
11/20/23 19:40
Code Status As Directed
Resuscitation Status: Full Code
11/20/23 22:00
Acetaminophen [Tylenol] 650 mg PO Q6HPRN PRN
Buspirone [BuSPAR] 15 mg PO TID
Famotidine [Pepcid] 20 mg PO HS
Ferrous Sulfate [Feosol] 325 mg PO HS
HydrOXYZINE [Atarax] 25 mg PO Q4HPRN PRN
Lactulose [Duphalac/Chronulac] 20 grams PO TID
Memantine HCl [Namenda] 5 mg PO BID
Metoclopramide [Reglan] 10 mg PO ACHS
Pantoprazole [Protonix] 40 mg PO BID
Quetiapine Fumarate [Seroquel] 25 mg PO HS
Rifaximin [Xifaxan] 550 mg PO BID
Sucralfate [Carafate] 1 gram PO ACHS
11/20/23 22:00
Echo 2D MMode Color/Doppler Routine
Reason for Study: systolic murmur syncope
Activity As Directed
Activity Level: With Assistance
Intake/ Output As Directed
Frequency: Per unit guidelines
Pneumatic Compression Sleeves As Directed
Type: Knee high
Precautions As Directed
Type of Precautions: Other
Comment: Fall Precautions
Vital Signs As Directed
Frequency: Per unit guidelines
Weight As Directed
Frequency: Daily
DX Deep Vein Thrombosis Video Routine
11/20/23 22:19
Ondansetron HCl [Zofran] 8 mg PO TIDPRN PRN
11/20/23 22:29
Oxycodone [Roxicodone] 5 mg PO TIDPRN PRN
11/21/23 06:00
Complete Blood Count/No Diff IN AM
Comprehensive Metabolic Panel IN AM
Magnesium IN AM
Phos [Phosphorus] IN AM
TSH Reflex To Free T4 IN AM
11/21/23 07:00
Levothyroxine [Synthroid] 25 mcg PO DAILY AT 0700
11/21/23 08:00
Atorvastatin [Lipitor] 20 mg PO DAILY
Ciprofloxacin HCl [Cipro] 500 mg PO DAILY
Furosemide [Lasix] 20 mg PO DAILY
Prednisone [Deltasone] 5 mg PO DAILY
Spironolactone [Aldactone] 25 mg PO DAILY
Zinc Sulfate 220 mg PO DAILY
11/21/23 10:00
Orthostatic Vital Signs DAILY
Orthostatic VS Frequency: Daily
11/22/23 06:00
Complete Blood Count/No Diff IN AM
Comprehensive Metabolic Panel IN AM
Magnesium IN AM
Phos [Phosphorus] IN AM
11/22/23 11:00
DC Protocol for Telemetry ONCE
11/23/23 06:00
Complete Blood Count/No Diff IN AM
Comprehensive Metabolic Panel IN AM
Magnesium IN AM
Phos [Phosphorus] IN AM
11/24/23 06:00
Complete Blood Count/No Diff IN AM
Comprehensive Metabolic Panel IN AM
Magnesium IN AM
Phos [Phosphorus] IN AM
11/25/23 06:00
Complete Blood Count/No Diff IN AM
Comprehensive Metabolic Panel IN AM
Magnesium IN AM
Phos [Phosphorus] IN AM
11/26/23 06:00
Complete Blood Count/No Diff IN AM
Comprehensive Metabolic Panel IN AM
Magnesium IN AM
Phos [Phosphorus] IN AM
11/27/23 06:00
Complete Blood Count/No Diff IN AM
Comprehensive Metabolic Panel IN AM
Magnesium IN AM
Phos [Phosphorus] IN AM
Abnormal Lab Results
11/20/23 11/20/23
15:07 15:27
WBC 3.1 L 10^3/uL
(4.8-10.8)
RBC 2.97 L 10^6/uL
(4.20-5.40)
Hgb 9.2 L g/dL
(12.0-16.0)
Hct 26.2 L %
(37.0-47.0)
RDW 16.2 H %
(11.5-14.5)
Plt Count 79 L 10^3/uL
(130-400)
MPV 11.6 H fL
(7.4-10.4)
Absolute Lymphs (auto) 0.6 L 10^3/uL
(1.2-3.4)
Lymphocytes % 19.4 L %
(20.5-51.1)
Monocytes % 12.6 H %
(1.7-9.3)
PT 21.1 H Sec
(11.4-14.6)
APTT 78.5 H Sec
(23.4-35.0)
Sodium 134 L mmol/L
(135-145)
BUN 21 H mg/dl
(7-17)
Creatinine 1.3 H mg/dL
(0.6-1.0)
Glucose 155 H mg/dl
(70-99)
Total Bilirubin 2.7 H mg/dl
(0.2-1.3)
AST 57 H U/L
(14-36)
Total Protein 5.8 L g/dl
(6.3-8.2)
Albumin 2.8 L g/dl
(3.5-5.0)
POC Glucose 149 H mg/dl
(70-99)
11/20/23 15:27
11/20/23 15:27
Vital Signs
Initial and Last Documented VS:
Initial Vital Signs
Temp Pulse Resp BP Pulse Ox
99 F 81 18 139/90 99
11/20/23 15:05 11/20/23 15:05 11/20/23 15:05 11/20/23 15:05 11/20/23 15:05
Last Documented Vital Signs
Temp Pulse Resp BP Pulse Ox
98.4 F 90 18 131/99 98
11/20/23 22:11 11/20/23 22:11 11/20/23 22:11 11/20/23 22:11 11/20/23 22:11
MDM/Problems Addressed
Differential Diagnosis Includes:
Syncope, dysrhythmia
MDM/Problems Addressed:
68-year-old female with syncope episode, cirrhosis and liver failure. Admit to hospitalist.
Chronic conditions affecting care: Other (Cirrhosis)
Acute Exacerbation and/or Progression of Chronic Illness: Other (Cirrhosis)
*Radiology
Radiology exam reviewed: radiology read reviewed (CT head and cervical spine no acute findings)
*Pulse Oximetry
Patient hypoxic: no
*EKG
Interpreted by ED Provider?: Yes
EKG Intrepretation Date: 11/20/23
EKG Intrepretation Time: 15:17
Interpretation: abnormal
Comparison EKG: no changes
Heart Rate: 68
Rate: normal
Rhythm: sinus and sinus arrhythmia
[employer]: normal axis
Interval: normal interval
QRS Pattern: normal QRS
Ischemia: no ischemia
*Strategic Manager Interpretation
Rate: normal
Interpretation: normal
Heart Rate: 90
Rhythm: sinus
*Critical Care Note
Total Time (30-74mins, 75-104mins- exclusive of procedures): Not Applicable
Data Reviewed
Review of Other/Old Records Reveals: Labs
Patient Management
Social determinants of health affecting care: Living situation
Discussion with other providers: Hospitalist
Escalation/DeEscalation of care consider admission/obs:
Admit indicated
ED Attending Note
-
Portions of this chart may have been created with voice recognition software.� Occasional wrong word or��sound alike� substitutions may have occurred due to the inherent limitations of voice recognition software.
Discharge Plan
Departure
Patient Disposition: Admit
Date of Disposition: 11/20/23
Time of Disposition: 16:51
Admit to: Telemetry
Presentation/result/management discussed w/ accepting MD/DO: Hospitalist
Patient with high blood pressure during this ER visit?: Yes
Condition: Fair
Discharge Problem:
Syncope, Vomiting, Liver cirrhosis secondary to ZAVALETA (nonalcoholic steatohepatitis), Chronic liver failure, Thrombocytopenia
Interventions
Interventions:
*Risk Screen - Suicide Last Done: 11/20/23 15:05
*General Assessment Last Done: 11/20/23 15:05
*Neglect/Abuse Screening Last Done: 11/20/23 15:05
ED- Fall Risk Assessment Last Done: 11/20/23 15:14
*ED COVID-19 Vaccine History Last Done: 11/20/23 15:14
*Nursing Disposition Last Done: 11/20/23 21:50
ED- Cardiac Assessment Last Done: 11/20/23 15:14
ED- Neurological Assessment Last Done: 11/20/23 15:14
Discharge Date and Time
Discharge Date/Time: 11/20/23 22:00
[2023-11-20 15:41] LABS: % Basophils 1.3 % (0-2); % Eosinophils 1.6 % (0-6); % Immature Granulocytes 0.3 % (0-0.5); % Lymphocytes 19.4 % (20.5-51.1); % Monocytes 12.6 % (1.7-9.3); % Neutrophils 64.8 % (42.2-75.2); Absolute Eosinophils 0.1 10^3/uL (0-0.7); Absolute Lymphocytes 0.6 10^3/uL (1.2-3.4); Absolute Monocytes 0.4 10^3/uL (0.1-0.6); Hematocrit 26.2 % (37.0-47.0); Hemoglobin 9.2 g/dL (12.0-16.0); Mean Corp Hgb Conc. 35.1 g/dL (33.0-37.0); Mean Corpuscular Volume 88.2 fL (81.0-99.0); Mean Platelet Volume 11.6 fL (7.4-10.4); Nucleated Red Blood Cells % 0 %; Platelet Count 79 10^3/uL (130-400); Red Blood Cell Count 2.97 10^6/uL (4.20-5.40); Red Cell Dist. Width 16.2 % (11.5-14.5); White Blood Cell Count 3.1 10^3/uL (4.8-10.8)
[2023-11-20 15:51] LABS: INR 1.84; PT 21.1 Sec (11.4-14.6)
[2023-11-20 15:53] LABS: APTT 78.5 Sec (23.4-35.0)
[2023-11-20] MEDS: ROXICODONE 5 MG PO ×2 (16:24→22:39)
[2023-11-20 16:39] LABS: ALT (SGPT) 25 U/L (0-35); AST (SGOT) 57 U/L (14-36); Albumin 2.8 g/dl (3.5-5.0); Alkaline Phosphatase 110 U/L (38-126); Blood Urea Nitrogen 21 mg/dl (7-17); Calcium 8.8 mg/dl (8.4-10.2); Carbon Dioxide 22 mmol/L (22-30); Chloride 106 mmol/L (98-107); Glucose 155 mg/dl (70-99); Sodium 134 mmol/L (135-145); Total Bilirubin 2.7 mg/dl (0.2-1.3); Total Protein 5.8 g/dl (6.3-8.2); eGFR 45.07
--- NOTE | 2023-11-20 16:56 | HPS.HSE ---
Family Physician
-
Family Physician: Malu Wilson
Chief Complaint
-
Syncope
History of Present Illness
68F ext PMHx including ZAVALETA cirrhosis ([facility] transplant candidate) ascites requiring twice weekly paracentesis CKD Hepatic Encephalopathy on Xifaxan/lactulose, chronic ciprofloxacin SBP ppx, PVT, paroxysmal afib (off AC due to risk of bleeding),
gastroparesis, esophageal dysmotility s/p RYGB, HLD, Hypothyroidism, chronic GERD on PPI/H2B presents with syncope following past few days nausea vomiting recent routine paracentesis resulted in fainting at GI clinic waiting area (patient had gone
to discuss her symptoms, general malaise). CT head/neck noted no acute abn's. VSS at rest. Labs relatively unremarkable, chronic pancytopenia CKD mild transaminitis stable in comparison to previous values. Physical exam notable for systolic
heart murmur patient notes present since she was 17. Patient also notes leg swelling lower ext's past few days despite compression stockings.
Medical History
Past Medical History
Past Medical History: Reports Other (as above)
Past Surgical History: Reports Other (as above)
Social History
Tobacco: Non-smoker
Alcohol: None
Drug: None
Personal:
Living: With Family
Family History
Family History: Not pertinent (reviewed)
Allergies / Home Medications
Allergies reflects when Allergies were last updated in [facility].
Home Medications with original date entered in [facility]
Allergy/Medication List:
Allergies
Allergy/AdvReac Type Severity Reaction Status Date / Time
adhesive Allergy Rash Verified 11/18/23 20:12
ampicillin Allergy Anaphylaxis Verified 11/18/23 20:12
bee pollen Allergy Swelling Verified 11/18/23 20:12
Cephalosporins Allergy Swelling Verified 11/18/23 20:12
diphenhydramine Allergy HYPERACTIVI Verified 11/18/23 20:12
[From Benadryl] TY
honey Allergy Swelling Verified 11/18/23 20:12
Iodinated Contrast Media Allergy FLUSHING Verified 11/18/23 20:12
latex Allergy HIVES AND Verified 11/18/23 20:12
SWELLS UP
penicillin G Allergy Anaphylaxis Verified 11/18/23 20:12
Penicillins Allergy Anaphylaxis Verified 11/18/23 20:12
prochlorperazine Allergy Unknown Verified 11/18/23 20:12
[From Compazine]
promethazine HCl Allergy THROAT Verified 11/18/23 20:12
[From Phenergan] SWELLING/PANIC
ATTACKS
Sulfa (Sulfonamide Allergy Swelling Verified 11/18/23 20:12
Antibiotics)
sulfisoxazole Allergy Swelling Verified 11/18/23 20:12
trimethobenzamide Allergy Unknown Verified 11/18/23 20:12
venom-honey bee Allergy BEE Verified 11/18/23 20:12
STING/SWELLING
Home Medications
atorvastatin 20 mg tablet 20 mg PO DAILY High cholesterol 06/14/22
levothyroxine 25 mcg tablet 25 mcg PO DAILY Thyroid 06/14/22
pantoprazole 40 mg tablet,delayed release (Protonix) 40 mg PO BID Gastrointestinal issue 12/09/22
prednisone 5 mg tablet 5 mg PO DAILY Anti-Inflammatory 06/05/23
ondansetron HCl 8 mg tablet 8 mg PO TIDPRN PRN nausea 06/25/23
quetiapine 25 mg tablet (Seroquel) 25 mg PO HS mental health/sleep 07/15/23
buspirone 15 mg tablet 15 mg PO TID Mental Health 08/28/23
ferrous sulfate 325 mg (65 mg iron) tablet (FeroSul) 325 mg PO HS Supplement 08/28/23
hydroxyzine HCl 25 mg tablet 25 mg PO Q4HPRN PRN panic attack 08/28/23
lactulose 10 gram/15 mL oral solution 20 g (30 mL) PO TID Gastrointestinal Issue 30 days #2,700 mL 09/05/23
memantine 5 mg tablet 5 mg PO BID Neurological Condition 10/01/23
metoclopramide HCl 10 mg tablet 10 mg PO ACHS Gastrointestinal Issue 10/01/23
rifaximin 550 mg tablet 550 mg PO BID Gastrointestinal Issue 10/01/23
zinc sulfate 50 mg zinc (220 mg) tablet 50 mg PO DAILY supplement 10/01/23
oxycodone 10 mg tablet 5 mg PO TIDPRN PRN severe pain #0 tabs 10/03/23
sucralfate 1 gram tablet 1 g PO ACHS Gastrointestinal Issue 10/23/23
furosemide 20 mg tablet 20 mg PO DAILY 11/19/23
spironolactone 50 mg tablet 25 mg PO DAILY 11/19/23
ciprofloxacin HCl 500 mg tablet 500 mg PO DAILY skilled nursing 11/20/23
famotidine 40 mg tablet (Pepcid) 40 mg PO HS 11/20/23
Review of Systems
-
A 12 point ROS was completed and negative except as noted: Yes
Constitutional: Reports Other (as below)
Physical Exam
Vital Signs
Vital Signs
Temp Pulse Resp BP Pulse Ox
99 F 75 15 123/63 70
11/20/23 15:05 11/20/23 16:30 11/20/23 16:30 11/20/23 16:06 11/20/23 15:34
Physical Exam
General: Other (as below)
Laboratory Results
-
11/20/23 15:27
11/20/23 15:27
Laboratory Results
PT 21.1 Sec (11.4-14.6) H 11/20/23 15:27
INR 1.84 11/20/23 15:27
APTT 78.5 Sec (23.4-35.0) H 11/20/23 15:27
Total Bilirubin 2.7 mg/dl (0.2-1.3) H 11/20/23 15:27
AST 57 U/L (14-36) H 11/20/23 15:27
ALT 25 U/L (0-35) 11/20/23 15:27
Alkaline Phosphatase 110 U/L (38-126) 11/20/23 15:27
Impression/Plan
-
ROS
General: Denies fever chills night sweats unexpected weight loss reports general malaise
Neuro: Denies seizure shaking reports loss of consciousness lightheadedness
Psych: denies depression hallucinations confusion manic episodes
Endocrine: Denies polyuria polydipsia polyphagia heat/cold intolerance
HEENT: Denies blindness visual disturbances epistaxis
Pulmonary: denies coughing hemoptysis sneezing sob dyspnea on exertion
Cardiovascular: denies chest pain palpitations leg swelling
Hematology: denies signs symptoms of anemia easy bruising/bleeding
Gastrointestinal: reports intermittent nausea vomiting
Genito-Urinary: denies retention incontinence dysuria
Musculoskeletal: denies joint pain weakness
Dermatology: denies rash laceration bruising
Physical Exam
General: No pallor, cyanosis, or jaundice.
HEENT: Throat clear. PERRLA Normocephalic atraumatic
NECK: Supple. No JVD Carotid Bruits
RESPIRATORY: Lungs clear to auscultation. No crackles wheezes stridor
CVS: S1, S2 normal. RRR. Systolic murmur 3/6
ABDOMEN: Soft, non-tender. Distended. BS+/normal.
EXTREMITIES: No peripheral cyanosis, swollen lower ext's compression stockings in place
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
IMPRESSION:
68F ext PMHx including ZAVALETA cirrhosis ([place] transplant candidate) ascites requiring twice weekly paracentesis CKD Hepatic Encephalopathy on Xifaxan/lactulose, chronic ciprofloxacin SBP ppx, PVT, paroxysmal afib (off AC due to risk of bleeding),
gastroparesis, esophageal dysmotility s/p RYGB, HLD, Hypothyroidism, chronic GERD on PPI/H2B presents with syncope following past few days nausea vomiting recent routine paracentesis resulted in fainting at GI clinic waiting area (patient had gone
to discuss her symptoms, general malaise). CT head/neck noted no acute abn's. VSS at rest. Labs relatively unremarkable, chronic pancytopenia CKD mild transaminitis stable in comparison to previous values. Physical exam notable for systolic
heart murmur patient notes present since she was 17. Patient also notes leg swelling lower ext's past few days despite compression stockings.
PLAN:
Syncope likely vasovagal hypovolemia
-obs telemetry
-resume diet sodium restricted
-Check ECHO
-monitor orthostatic vitals
ZAVALETA Cirrhosis
Chronic Recurrent Ascites secondary to the above
Hx Hepatic Encephalopathy
-cont rifaximin Lactulose
-cont routine twice a week paracentesis
-cont home spironolactone with holding parameters
Chronic Pancytopenia
- Secondary to cirrhosis
-stable WBC Hgb Plt in comparison with past values
CKD III
�- Stable.� Renal function baseline
�- monitor
Hx DM-II since resolved Prediabetes
-no need for routine FS at this time
Hypothyroidism
�- cont home synthroid
-follow up TSH reflex T4 in AM
GERD
Chronic Gastroparesis
�- Continue home PPI Reglan Sucralfate
Anxiety / Depression
�- Continue home buspirone seroquel, prn hydroxyzine
Chronic Pain Syndrome / Opioid Dependence
�- Continue PRN oxycodone.
DVT Prophylaxis:� SCDs
Code Status:� Full Code
I spent a total of 78 minutes with the patient or on the floor. More than 50% of this time involved counseling and coordination of care.
[2023-11-20] MEDS: ZOFRAN 4 MG IV (17:01)
[2023-11-20] MEDS: PEPCID 20 MG PO (22:38)
[2023-11-20] MEDS: FEOSOL 325 MG PO (22:38)
[2023-11-20] MEDS: REGLAN 10 MG PO (22:38)
[2023-11-20] MEDS: PROTONIX 40 MG PO (22:38)
[2023-11-20] MEDS: NAMENDA 5 MG PO (22:38)
[2023-11-20] MEDS: CARAFATE 1 GRAM PO (22:38)
[2023-11-20] MEDS: SEROQUEL 25 MG PO (22:38)
[2023-11-20] MEDS: ZOFRAN 8 MG PO (22:39)
[2023-11-20] MEDS: DUPHALAC/CHRONULAC 20 GRAMS PO (22:39)
[2023-11-20] MEDS: XIFAXAN 550 MG PO (22:39)
--- NOTE | 2023-11-20 22:50 | PTCARENOTE ---
Patient received in bed from ED @ 2200. AAOx3, Pt ambulated from stretcher to bed. Pt complains of back pain and nausea, PRN medications given. Oriented to room and call lay.
[2023-11-21] VITALS (12 sets, daily range): BP systolic 68–149; BP diastolic 61–81; PULSE 77–98; BMI 30.6
[2023-11-21] MEDS: SYNTHROID 25 MCG PO (05:32)
[2023-11-21 06:11] LABS: Hematocrit 23.5 % (37.0-47.0); Hemoglobin 8.3 g/dL (12.0-16.0); Mean Corp Hgb Conc. 35.3 g/dL (33.0-37.0); Mean Corpuscular Hgb 31.2 pg (27.0-31.0); Mean Corpuscular Volume 88.3 fL (81.0-99.0); Mean Platelet Volume 12.1 fL (7.4-10.4); Platelet Count 64 10^3/uL (130-400); Red Blood Cell Count 2.66 10^6/uL (4.20-5.40); Red Cell Dist. Width 16.1 % (11.5-14.5); White Blood Cell Count 2.5 10^3/uL (4.8-10.8)
[2023-11-21 06:18] LABS: ALT (SGPT) 24 U/L (0-35); AST (SGOT) 51 U/L (14-36); Albumin 2.4 g/dl (3.5-5.0); Alkaline Phosphatase 103 U/L (38-126); Blood Urea Nitrogen 21 mg/dl (7-17); Calcium 8.1 mg/dl (8.4-10.2); Carbon Dioxide 22 mmol/L (22-30); Chloride 111 mmol/L (98-107); Estimated Creatinine Clearance 39 ml/min; Glucose 93 mg/dl (70-99); Magnesium 2.2 mg/dl (1.6-2.3); Phosphorus 3.7 mg/dl (2.5-4.5); Potassium 3.5 mmol/L (3.5-5.1); Sodium 135 mmol/L (135-145); Total Bilirubin 1.7 mg/dl (0.2-1.3); Total Protein 5.3 g/dl (6.3-8.2); eGFR 41.24
[2023-11-21 06:49] LABS: TSH Reflex To Free T4 3.81 uIU/ml (0.47-4.68)
--- NOTE | 2023-11-21 08:07 | W.PN.HOSP.TC ---
Today's Communication/Plan
-
Diet Albumin infusion as per GI
planned for inpt colonoscopy Sunday
cont rifaximin lactulose
pain control
antiemetic prn
Assessment / Plan
Assessment / Plan
Physical Exam
General: No pallor, cyanosis, or jaundice.
HEENT: Throat clear. PERRLA Normocephalic atraumatic
NECK: Supple. No JVD Carotid Bruits
RESPIRATORY: Lungs clear to auscultation. No crackles wheezes stridor
CVS: S1, S2 normal. RRR.� Systolic murmur 3/6 (given ECHO results likely d/t anemia)
ABDOMEN: Soft, mild tenderness. Distended. BS+/normal.
EXTREMITIES: No peripheral cyanosis, swollen lower ext's compression stockings in place
FILER FINISH: AOx3
IMPRESSION:
68F ext PMHx including ZAVALETA cirrhosis ([facility] transplant candidate) ascites requiring twice weekly paracentesis CKD Hepatic Encephalopathy on Xifaxan/lactulose, chronic ciprofloxacin SBP ppx, PVT, paroxysmal afib (off AC due to risk of bleeding),
gastroparesis, esophageal dysmotility s/p RYGB, HLD, Hypothyroidism, chronic GERD on PPI/H2B presents with syncope following past few days nausea vomiting recent routine paracentesis resulted in fainting at GI clinic waiting area (patient had gone
to discuss her symptoms, general malaise).� CT head/neck noted no acute abn's.� VSS at rest.� Labs relatively unremarkable, chronic pancytopenia CKD mild transaminitis stable in comparison to previous values.� Physical exam notable for systolic
heart murmur patient notes present since she was 17.� Patient also notes leg swelling lower ext's past few days despite compression stockings.
PLAN:
Syncope likely vasovagal hypovolemia
-cont diet sodium restricted
-ECHO appreciated preserved EF no acute changes from prior ECHO 2020
-negative orthostatic vitals
ZAVALETA Cirrhosis [facility] Transplant Candidate
Chronic Recurrent Ascites secondary to the above, on routine twice a week paracentesis outpatient
Hx Hepatic Encephalopathy
-cont rifaximin Lactulose
-cont home spironolactone with holding parameters
-symptomatic discomfort distended IR eval appreciated paracentesis performed 11/20 4-5L removed, albumin infusion provided as per GI
-GI eval appreciated planned �ongoing anemia and report of some rectal bleeding pt is due for colonoscopy which will be difficulty as OP as multiple issues with nausea, gastroparesis, planned for inpt Colonoscopy Wednesday 11/22 Clear Liquid diet bowel
prep 11/21
Chronic Pancytopenia
- Secondary to cirrhosis
-stable WBC Hgb Plt in comparison with past values
-cont to monitor
CKD III
�- Stable.� Renal function baseline
�- monitor
Hx DM-II since resolved Prediabetes
-no need for routine FS at this time
Hypothyroidism
�- cont home synthroid
�-follow up TSH reflex T4 in AM
GERD
Chronic Gastroparesis
�- Continue home PPI Reglan Sucralfate
Anxiety / Depression
�- Continue home buspirone seroquel, prn hydroxyzine
Chronic Pain Syndrome / Opioid Dependence
�- Continue PRN oxycodone.
DVT Prophylaxis:� SCDs
Code Status:� Full Code
I spent a total of � 55 � minutes with the patient or on the floor. More than 50% of this time involved counseling and coordination of care.
Anticipated Discharge: > 48 hours
Subjective/Interval History
-
Date of Service: November 21, 2023
no acute distress resting comfortably in bed. Reports abd discomfort distension nausea vomiting.
Objective Data
-
Labs:
Laboratory Results
11/21/23
05:35
WBC 2.5 L
Hgb 8.3 L
Hct 23.5 L
Plt Count 64 L
Sodium 135
Potassium 3.5
Chloride 111 H
Carbon Dioxide 22
BUN 21 H
Creatinine 1.4 H
Glucose 93
Calcium 8.1 L
Total Bilirubin 1.7 H D
AST 51 H
ALT 24
Alkaline Phosphatase 103
Vital Signs:
Vital Signs
Temp Pulse Resp BP Pulse Ox
98 F 89 22 145/78 97
11/21/23 04:51 11/21/23 04:51 11/21/23 04:51 11/21/23 04:51 11/21/23 04:51
I&O
11/20/23 11/21/23 11/22/23
06:59 06:59 06:59
Intake Total 480 / 480
Balance 480 / 480
[2023-11-21] MEDS: LASIX 20 MG PO (08:44)
[2023-11-21] MEDS: ZINC SULFATE 220 MG PO (08:45)
[2023-11-21] MEDS: CIPRO 500 MG PO (08:45)
[2023-11-21] MEDS: XIFAXAN 550 MG PO ×2 (08:45→19:48)
[2023-11-21] MEDS: NAMENDA 5 MG PO ×2 (08:45→19:48)
[2023-11-21] MEDS: REGLAN 10 MG PO ×4 (08:47→21:44)
[2023-11-21] MEDS: PROTONIX 40 MG PO ×2 (08:47→19:48)
[2023-11-21] MEDS: LIPITOR 20 MG PO (08:47)
[2023-11-21] MEDS: CARAFATE 1 GRAM PO ×4 (08:48→21:43)
[2023-11-21] MEDS: ALDACTONE 25 MG PO (08:48)
[2023-11-21] MEDS: DELTASONE 5 MG PO (08:48)
[2023-11-21] MEDS: DUPHALAC/CHRONULAC PO (08:49)
[2023-11-21] MEDS: ROXICODONE 5 MG PO ×2 (10:28→19:48)
--- NOTE | 2023-11-21 12:15 | CON.GI ---
Addendum entered and electronically signed by Archana Yanez MD 11/21/23 15:50:
I saw and examined the patient.
The EXECUTIVE COMMUNICATIONS MANAGER's note was reviewed and I agree with the note.
Comment: This is a 67-year-old female who has a history of MASH cirrhosis with recurrent refractory ascites currently getting paracenteses twice a week sees Dr. Greenfield and Dr. Delacruz. History of SBP on chronic prophylaxis ciprofloxacin 500 mg daily who
had a syncopal episode in GI office yesterday and was sent to the emergency room and it was thought to be related to hypovolemia from paracenteses. She currently feels well and denies any dizziness no abdominal pain no fevers or chills.
Assessment and plan 1 MASH cirrhosis decompensated with prior history of HE continue lactulose and Xifaxan, recurrent refractory ascites getting biweekly paracenteses and on lasix and aldactone, SBP on ciprofloxacin 500 mg daily for prophylaxis and
listed for transplant at [place] and sees Dr. Greenfield and Dr. Delacruz. 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
2 syncope most likely related to dehydration on diuretics and biweekly paracenteses receiving albumin now
3. GERD and gastroparesis is on Reglan and PPI, status post Kevin-en-Y gastric bypass
4. History of colon polyps and has chronic anemia and intermittent rectal bleeding given her multiple comorbidities especially with underlying gastroparesis, gastric bypass and chronic nausea will be difficult to prep her as outpatient so will be
scheduled for colonoscopy as inpatient on Sunday with bowel prep tomorrow.
Original Note:
Consultation
-
Date/Time Consultation Requested: 11/21/23 1015
Date/Time Consultation Performed: 11/21/23 1215
Requesting Provider: Nadege lee MD
Performing Provider: DIALLO Pineda, Archana Yanez MD
Reason for Consultation: cirrhosis , fall
Medical History
Chief Complaint / HPI
Chief Complaint: weakness
History of Present Illness:
Pt is a 67 yo female well known to our group with a complex PMH significant for decompensated ZAVALETA cirrhosis actively listed for transplant at [place] with ascites and HE requiring twice weekly paracentesis and thoracentesis for recurrent pleural
effusion� (follows with Dr. Greenfield), renal insufficiency, Hepatic encephalopathy on Xifaxan/lactulose, hx of SBP on chronic ciprofloxacin(prior non compliance but recently taking as directed), PVT, paroxysmal afib (off AC due to risk of bleeding),
gastroparesis, esophageal dysmotility s/p RYGB, HLD, hypothyroidism, chronic GERD on PPI/H2B returns to ER after syncopal episode in GI office when due to routine follow up with concern for hypovolemia with recent change to para to twice weekly. On
admission she was noted with stable labs with chronic thrombocytopenia platelets 79, creat 1.3, bili 2.7, AST 57, ALT 25, alk phos 110, INR 1,84. BP was stable 130-150's. Pt states she was also in ER within last week with increase fluid in lower
extremities with restart of diuretics.
Pt current admits to continued chronic issues with GERD, nausea, vomiting, abdominal pain on chronic narcotics, diarrhea and occasional rectal bleeding but pt states symptoms are worsening over time.
Last scopes EGD 10/2022- bypass with small pouch healthy anastomosis bx chronic inflammation, 2018 colonoscopy with hemorrhoids, diverticulosis, TA, HP polyps.
Past Medical History
Past Medical History: Other (Arrhythmias (afib ), Fibromyalgia, HTN, Hypercholesterolemia and Other (ZAVALETA cirrhosis with ascites/HE on OLT list at [place], CKD3, PVT not on AC, chronic anemia, esophageal dysmotility on chronic reglan, hx SBP on
prophylaxis with ciprofloxacin,pleural effusion with prior thoracentesis))
Past Surgical History: Other (Appendectomy, Bowel Resection (Meckel's diverticulum, LUMA with SB resection), Cholecystectomy, , Gynecological ([facility]) and Other (Kevin-en-Y gastric bypass))
Social History
Tobacco: Former Smoker
Alcohol: None
Drug: None
Personal:
Living: With Family
Employment: Retired
Family History
Family History: Other ((no family hx colon ca, liver issues or liver CA, granddaugher with lupus ,mother wtih breast Ca, grandmother with ulcerative colitis)
Allergies / Home Medications
Allergy/AdvReac Type Severity Reaction Status Date / Time
adhesive Allergy Rash Verified 11/18/23 20:12
ampicillin Allergy Anaphylaxis Verified 11/18/23 20:12
bee pollen Allergy Swelling Verified 11/18/23 20:12
Cephalosporins Allergy Swelling Verified 11/18/23 20:12
diphenhydramine Allergy HYPERACTIVI Verified 11/18/23 20:12
[From Benadryl] TY
honey Allergy Swelling Verified 11/18/23 20:12
Iodinated Contrast Media Allergy FLUSHING Verified 11/18/23 20:12
latex Allergy HIVES AND Verified 11/18/23 20:12
SWELLS UP
penicillin G Allergy Anaphylaxis Verified 11/18/23 20:12
Penicillins Allergy Anaphylaxis Verified 11/18/23 20:12
prochlorperazine Allergy Unknown Verified 11/18/23 20:12
[From Compazine]
promethazine HCl Allergy THROAT Verified 11/18/23 20:12
[From Phenergan] SWELLING/PANIC
ATTACKS
Sulfa (Sulfonamide Allergy Swelling Verified 11/18/23 20:12
Antibiotics)
sulfisoxazole Allergy Swelling Verified 11/18/23 20:12
trimethobenzamide Allergy Unknown Verified 11/18/23 20:12
venom-honey bee Allergy BEE Verified 11/18/23 20:12
STING/SWELLING
Medication Instructions Recorded
atorvastatin 20 mg tablet 20 mg PO DAILY High cholesterol 06/14/22
levothyroxine 25 mcg tablet 25 mcg PO DAILY Thyroid 06/14/22
pantoprazole 40 mg tablet,delayed 40 mg PO BID Gastrointestinal issue 12/09/22
release (Protonix)
prednisone 5 mg tablet 5 mg PO DAILY Anti-Inflammatory 06/05/23
ondansetron HCl 8 mg tablet 8 mg PO TIDPRN PRN nausea 06/25/23
quetiapine 25 mg tablet (Seroquel) 25 mg PO HS mental health/sleep 07/15/23
buspirone 15 mg tablet 15 mg PO TID Mental Health 08/28/23
ferrous sulfate 325 mg (65 mg 325 mg PO HS Supplement 08/28/23
iron) tablet (FeroSul)
hydroxyzine HCl 25 mg tablet 25 mg PO Q4HPRN PRN panic attack 08/28/23
lactulose 10 gram/15 mL oral 20 g (30 mL) PO TID 09/05/23
solution Gastrointestinal Issue 30 days
#2,700 mL
memantine 5 mg tablet 5 mg PO BID Neurological Condition 10/01/23
metoclopramide HCl 10 mg tablet 10 mg PO ACHS Gastrointestinal 10/01/23
Issue
rifaximin 550 mg tablet 550 mg PO BID Gastrointestinal 10/01/23
Issue
zinc sulfate 50 mg zinc (220 mg) 50 mg PO DAILY supplement 10/01/23
tablet
oxycodone 10 mg tablet 5 mg PO TIDPRN PRN severe pain #0 10/03/23
tabs
sucralfate 1 gram tablet 1 g PO ACHS Gastrointestinal Issue 10/23/23
furosemide 20 mg tablet 20 mg PO DAILY Fluid 11/19/23
Retention/Swelling
spironolactone 50 mg tablet 25 mg PO DAILY Fluid 11/19/23
Retention/Swelling
ciprofloxacin HCl 500 mg tablet 500 mg PO DAILY intermission coordinator 11/20/23
famotidine 40 mg tablet (Pepcid) 40 mg PO HS Gastrointestinal Issue 11/20/23
Review of Systems
-
History Source: Patient
Constitutional: Reports Other (weight up and down with fluid retention )
EENT: Reports No Symptoms
Respiratory: Reports No Symptoms
Cardiac: Reports No Symptoms
Abdomen/GI: Reports Abdominal Pain, Nausea, Vomiting, Diarrhea and Bloody Stools
: Reports No Symptoms
Musculoskeletal: Reports No Symptoms
Neurological: Reports Dizzy and Weakness
Endocrine: Reports No Symptoms
Hematologic/Lymphatic: Reports Bleeding
Vital Signs
Temp Pulse Resp BP Pulse Ox
98.2 F 68 16 117/81 100
11/21/23 10:50 11/21/23 11:56 11/21/23 11:56 11/21/23 11:56 11/21/23 11:56
Physical Exam
Exam
General: Well Developed, Well Nourished, No Apparent Distress and Other (slight jaundice )
HEENT: Normocephalic and Anicteric
Respiratory: Clear
Cardiac: Regular Rhythm
GI: Soft, Tender (mild ) and Distended (diffuse mild)
Genito-urinary: No Costovertebral Tender
Musculoskeletal: No Clubbing and No Cyanosis
Skin: Warm and Dry
Neuro: Awake, Alert and AO x 3
Psych: Calm
Results
WBC 2.5 10^3/uL (4.8-10.8) L 11/21/23 05:35
Hgb 8.3 g/dL (12.0-16.0) L 11/21/23 05:35
Hct 23.5 % (37.0-47.0) L 11/21/23 05:35
MCV 88.3 fL (81.0-99.0) 11/21/23 05:35
Plt Count 64 10^3/uL (130-400) L 11/21/23 05:35
Absolute Neuts (auto) 2.0 10^3/uL (1.4-6.5) 11/20/23 15:27
PT 21.1 Sec (11.4-14.6) H 11/20/23 15:27
INR 1.84 11/20/23 15:27
APTT 78.5 Sec (23.4-35.0) H 11/20/23 15:27
Sodium 135 mmol/L (135-145) 11/21/23 05:35
Potassium 3.5 mmol/L (3.5-5.1) 11/21/23 05:35
Chloride 111 mmol/L (98-107) H 11/21/23 05:35
Carbon Dioxide 22 mmol/L (22-30) 11/21/23 05:35
BUN 21 mg/dl (7-17) H 11/21/23 05:35
Creatinine 1.4 mg/dL (0.6-1.0) H 11/21/23 05:35
Calcium 8.1 mg/dl (8.4-10.2) L 11/21/23 05:35
Total Bilirubin 1.7 mg/dl (0.2-1.3) H D 11/21/23 05:35
AST 51 U/L (14-36) H 11/21/23 05:35
ALT 24 U/L (0-35) 11/21/23 05:35
Alkaline Phosphatase 103 U/L (38-126) 11/21/23 05:35
Diagnostic Image Results:
11/20 para 4700
11/19 HCT no acute intracranial abnormality
11/19 cervical spine no fx Degenerative changes
11/18 para 4800
11/[address] small amount fluid
06/26/23 US abdomen
IMPRESSION: Approximate moderate volume ascites.No demonstrable blood flow in the main portal vein.Prior cholecystectomy.Mild splenomegaly.Majority of pancreas as well as abdominal aorta and IVC significantly obscured, most likely by overlying bowel
gas.
Prior GI Procedures:
Last scopes EGD 10/2022- bypass with small pouch healthy anastomosis bx chronic inflammation, 2018 colonoscopy with hemorrhoids, diverticulosis, TA, HP polyps.
Assessment / Plan
-
Pt is a 67 yo female well known to our group with a complex PMH significant for decompensated ZAVALETA cirrhosis actively listed for transplant at [place] with ascites and HE requiring twice weekly paracentesis and thoracentesis for recurrent pleural
effusion� (follows with Dr. Mirna), renal insufficiency, Hepatic encephalopathy on Xifaxan/lactulose, hx of SBP on chronic ciprofloxacin(prior non compliance but recently taking as directed), PVT, paroxysmal afib (off AC due to risk of bleeding),
gastroparesis, esophageal dysmotility s/p RYGB, HLD, hypothyroidism, chronic GERD on PPI/H2B returns to ER after syncopal episode in GI office when due to routine follow up with concern for hypovolemia with recent change to para to twice weekly. On
admission she was noted with stable labs with chronic thrombocytopenia platelets 79, creat 1.3, bili 2.7, AST 57, ALT 25, alk phos 110, INR 1,84. BP was stable in ER.
-syncope
-decompensated MASH cirrhosis with HE/ascites on OLT list at [place]- MELD 3.0 23 based on 11/19 admission labs
-chronic renal insufficiency
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
-intractable ascites with biweekly paracentesis
-hx SBP February 2023, on chronic ciprofloxacin outpatient
-chronic abdominal pain on Oxycodone
-chronic pancytopenia 2/2 cirrhosis
-coagulopathy with chronic liver disease
-gastroparesis
-RYGB for esophageal dysmotility
-flu with [facility] admission in August
Plan:
Etiology fall with concern for hypovolemia with now on twice weekly tap without albumin needed due to volume and restart of diuretics, vs chronic narcotic use with liver disease, vs other etiology
pt also noted with chronic anemia and reports some small amount of rectal bleeding
s/p para completed today will give albumin replacement with concern for hypovolemia leading to syncope
pt currently on Lasix 20mg and Aldactone 25mg prior to admission
cont lactulose TID and Xifaxan BID with hx HE
cont cipro with hx prior SBP
hbg 8.2 today drop from 9.2 on admission with baseline 7-9
MELD 3.0 23 on admission 23
s/p para 10/01 for 2200ml neg SBP
cont 2 gram na diet
reviewed with Dr. Delacruz(OP GI )with ongoing anemia and report of some rectal bleeding pt is due for colonoscopy which will be difficulty as OP as multiple issues with nausea, gastroparesis may be beneficial to complete inpatient -- pt agreeable to
proceed
will add miralax dose today then clears in AM
pt continued to remain on transplant list and follow with Dr. greenfield at [place]
will need reschedule follow up with Dr. Delacruz as missed appt yesterday
-
-
Thank you for consultation and allowing me to participate in the patient's care. Please call the quality control microbiology supervisor GI physician during the after hours with any questions or concerns.
[2023-11-21 12:32] LABS: Body Fluid Polymorphonuclear 15.1 %; Body Fluid WBC 53 /CUMM
[2023-11-21 12:33] LABS: Body Fluid Mononuclear 84.9 %
[2023-11-21 12:39] LABS: Body Fluid Second Tech SD
[2023-11-21 12:59] LABS: Body Fluid Albumin < 1.0 g/dl; Body Fluid Amylase < 30 U/L; Body Fluid LDH < 90 U/L; Body Fluid Protein < 2.0 g/dl
[2023-11-21] MEDS: FLEXBUMIN 100 IV (14:01)
--- NOTE | 2023-11-21 15:30 | CM ---
Patient seen bedside, initial assessment completed. Patient reports she lives with her spouse and mother in law in a multiple story home, one step to enter. Patient reports her mother in law has dementia and she is the caregiver for her. Patient
denies DME, reports history with [facility], denies DME. Patient confirms PCP Dr. Wilosn, [facility]. [facility] letter reviewed, signed, placed in patients chart. CM will continue to follow for discharge planning needs.
Plan; home no needs vs home with [facility] restart of care when stable.
[2023-11-21] MEDS: DUPHALAC/CHRONULAC 20 GRAMS PO ×2 (15:31→21:44)
[2023-11-21] MEDS: FLUSH (NSS) 1 FLUSH IV (15:36)
[2023-11-21] MEDS: MEPHYTON 10 MG PO (16:25)
[2023-11-21] MEDS: SEROQUEL 25 MG PO (21:44)
[2023-11-21] MEDS: FEOSOL 325 MG PO (21:44)
[2023-11-21] MEDS: PEPCID 20 MG PO (21:44)
[2023-11-22 03:47] VITALS: BP 130/63
[2023-11-22] MEDS: SYNTHROID 25 MCG PO (05:37)
[2023-11-22 05:43] VITALS: BMI 29.0
[2023-11-22 06:39] LABS: INR 1.89; PT 21.9 Sec (11.4-14.6)
[2023-11-22 06:44] LABS: Hemoglobin 8.2 g/dL (12.0-16.0); Mean Corp Hgb Conc. 35.7 g/dL (33.0-37.0); Mean Corpuscular Hgb 31.4 pg (27.0-31.0); Mean Corpuscular Volume 88.1 fL (81.0-99.0); Platelet Count 61 10^3/uL (130-400); Red Blood Cell Count 2.61 10^6/uL (4.20-5.40); Red Cell Dist. Width 16.1 % (11.5-14.5)
[2023-11-22 06:47] LABS: White Blood Cell Count 2.2 10^3/uL (4.8-10.8)
[2023-11-22 07:00] VITALS: BP 125/58
[2023-11-22 07:03] LABS: ALT (SGPT) 21 U/L (0-35); AST (SGOT) 46 U/L (14-36); Albumin 2.6 g/dl (3.5-5.0); Alkaline Phosphatase 91 U/L (38-126); Blood Urea Nitrogen 23 mg/dl (7-17); Calcium 8.4 mg/dl (8.4-10.2); Carbon Dioxide 22 mmol/L (22-30); Chloride 106 mmol/L (98-107); Estimated Creatinine Clearance 38 ml/min; Glucose 96 mg/dl (70-99); Magnesium 2.2 mg/dl (1.6-2.3); Phosphorus 3.4 mg/dl (2.5-4.5); Potassium 3.6 mmol/L (3.5-5.1); Sodium 135 mmol/L (135-145); Total Bilirubin 2.1 mg/dl (0.2-1.3); Total Protein 5.4 g/dl (6.3-8.2); eGFR 41.24
--- NOTE | 2023-11-22 07:15 | W.PN.HOSP.TC ---
Today's Communication/Plan
-
Diet Bowel Prep as per GI
EGD Colonoscopy tomorrow Sunday
cont rifaximin lactulose
pain control
antiemetic prn
Assessment / Plan
Assessment / Plan
Physical Exam
General: No pallor, cyanosis, or jaundice.
HEENT: Throat clear. PERRLA Normocephalic atraumatic
NECK: Supple. No JVD Carotid Bruits
RESPIRATORY: Lungs clear to auscultation. No crackles wheezes stridor
CVS: S1, S2 normal. RRR.� Systolic murmur / (given ECHO results likely d/t anemia)
ABDOMEN: Soft, mild tenderness. Distended. BS+/normal.
EXTREMITIES: No peripheral cyanosis, swollen lower ext's compression stockings in place
BUDGET CLERK: AOx3
IMPRESSION:
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
gastroparesis, esophageal dysmotility s/p RYGB, HLD, Hypothyroidism, chronic GERD on PPI/H2B presents with syncope following past few days nausea vomiting recent routine paracentesis resulted in fainting at GI clinic waiting area (patient had gone
to discuss her symptoms, general malaise).� CT head/neck noted no acute abn's.� VSS at rest.� Labs relatively unremarkable, chronic pancytopenia CKD mild transaminitis stable in comparison to previous values.� Physical exam notable for systolic
heart murmur patient notes present since she was 17.� Patient also notes leg swelling lower ext's past few days despite compression stockings.
PLAN:
Syncope likely vasovagal hypovolemia resolved
-cont diet sodium restricted
-ECHO appreciated preserved EF no acute changes from prior ECHO 2020
-negative orthostatic vitals
ZAVALETA Cirrhosis [place] Transplant Candidate
Chronic Recurrent Ascites secondary to the above, on routine twice a week paracentesis outpatient
Hx Hepatic Encephalopathy
-cont rifaximin Lactulose
-cont home spironolactone with holding parameters
-symptomatic discomfort distended IR eval appreciated paracentesis performed 11/20 4-5L removed, albumin infusion provided as per GI
-GI eval appreciated ongoing anemia and report of some rectal bleeding pt is due for EGD/colonoscopy which will be difficulty as OP, multiple issues with nausea, gastroparesis
-Clear Liquid diet bowel prep 11/21 npo after midnight for egd colonoscopy 11/22 as per GI
Chronic Pancytopenia
- Secondary to cirrhosis
-stable WBC Hgb Plt in comparison with past values
-cont to monitor
CKD III
�- Stable.� Renal function baseline
�- monitor
Hx DM-II since resolved Prediabetes
-no need for routine FS at this time
Hypothyroidism
�- cont home synthroid
�-TSH wnl
GERD
Chronic Gastroparesis
�- Continue home PPI Reglan Sucralfate
Anxiety / Depression
�- Continue home buspirone seroquel, prn hydroxyzine
Chronic Pain Syndrome / Opioid Dependence
�- Continue PRN oxycodone.
DVT Prophylaxis:� SCDs
Code Status:� Full Code
I spent a total of � 54 � minutes with the patient or on the floor. More than 50% of this time involved counseling and coordination of care.
Anticipated Discharge: 24 - 48 hours
Subjective/Interval History
-
Date of Service: November 22, 2023
Appears well at this time, denies vomiting this morning. sitting up comfortably in bed, watching [place] movie on personal electronic device, no acute distress.
Objective Data
-
Labs:
Laboratory Results
11/22/23
05:57
WBC 2.2 L*
Hgb 8.2 L
Hct 23.0 L
Plt Count 61 L
PT 21.9 H
INR 1.89
Sodium 135
Potassium 3.6
Chloride 106
Carbon Dioxide 22
BUN 23 H
Creatinine 1.4 H
Glucose 96
Calcium 8.4
Total Bilirubin 2.1 H
AST 46 H
ALT 21
Alkaline Phosphatase 91
Vital Signs:
Vital Signs
Temp Pulse Resp BP Pulse Ox
98.4 F 68 16 130/63 98
11/22/23 03:47 11/22/23 03:47 11/22/23 03:47 11/22/23 03:47 11/22/23 03:47
I&O
11/21/23 11/22/23 11/23/23
06:59 06:59 06:59
Intake Total 480 / 480 1740 / 1740
Balance 480 / 480 1740 / 1740
[2023-11-22] MEDS: CIPRO 500 MG PO (08:31)
[2023-11-22] MEDS: XIFAXAN 550 MG PO ×2 (08:31→19:33)
[2023-11-22] MEDS: CARAFATE 1 GRAM PO ×4 (08:31→21:49)
[2023-11-22] MEDS: PROTONIX 40 MG PO ×2 (08:32→19:33)
[2023-11-22] MEDS: LASIX 20 MG PO (08:32)
[2023-11-22] MEDS: ZINC SULFATE 220 MG PO (08:32)
[2023-11-22] MEDS: DELTASONE 5 MG PO (08:33)
[2023-11-22] MEDS: ALDACTONE 25 MG PO (08:34)
[2023-11-22] MEDS: NAMENDA 5 MG PO ×2 (08:34→19:33)
[2023-11-22] MEDS: DUPHALAC/CHRONULAC 20 GRAMS PO ×2 (08:35→22:17)
[2023-11-22] MEDS: LIPITOR 20 MG PO (08:35)
[2023-11-22] MEDS: REGLAN 10 MG PO ×4 (08:35→21:49)
[2023-11-22] MEDS: MIRALAX 34 GRAMS PO (08:36)
--- NOTE | 2023-11-22 12:27 | W.PN.GI.CBS2 ---
Addendum entered and electronically signed by DIALLO Hwang 11/22/23 12:59:
reviewed with Dr. Delacruz(OP GI) with anemia and recurrent HE pt is also due for follow up EGD for variceal screening will add to colon tomorrow
Original Note:
Today's Communication / Plan
-
colo in AM
Assessment / Plan
-
Pt is a 67 yo female well known to our group with a complex PMH significant for decompensated ZAVALETA cirrhosis actively listed for transplant at [facility] with ascites and HE requiring twice weekly paracentesis and thoracentesis for recurrent pleural
effusion� (follows with Dr. Greenfield), renal insufficiency, Hepatic encephalopathy on Xifaxan/lactulose, hx of SBP on chronic ciprofloxacin(prior non compliance but recently taking as directed), PVT, paroxysmal afib (off AC due to risk of bleeding),
gastroparesis, esophageal dysmotility s/p RYGB, HLD, hypothyroidism, chronic GERD on PPI/H2B returns to ER after syncopal episode in GI office when due to routine follow up with concern for hypovolemia with recent change to para to twice weekly. On
admission she was noted with stable labs with chronic thrombocytopenia platelets 79, creat 1.3, bili 2.7, AST 57, ALT 25, alk phos 110, INR 1,84. BP was stable in ER.
-syncope
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
-chronic renal insufficiency
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
-intractable ascites with biweekly paracentesis
-hx SBP February 2023, on chronic ciprofloxacin outpatient
-chronic abdominal pain on Oxycodone
-chronic pancytopenia 2/2 cirrhosis
-coagulopathy with chronic liver disease
-gastroparesis
-RYGB for esophageal dysmotility
-flu with [facility] admission in August
Plan:
Etiology fall with concern for hypovolemia with now on twice weekly tap without albumin needed due to volume and restart of diuretics, vs chronic narcotic use with liver disease, vs other etiology
pt also noted with chronic anemia and reports some small amount of rectal bleeding
s/p para 3/6 with albumin replacement with concern for hypovolemia leading to syncope
pt currently on Lasix 20mg and Aldactone 25mg prior to admission
cont lactulose TID and Xifaxan BID with hx HE
cont cipro with hx prior SBP
hbg 8.2 today drop from 9.2 on admission with baseline 7-9
MELD 3.0 23 on admission 23
s/p para 10/01 for 2200ml neg SBP
cont 2 gram na diet
reviewed with Dr. Delacruz(OP GI )with ongoing anemia and report of some rectal bleeding pt is due for colonoscopy which will be difficulty as OP as multiple issues with nausea, gastroparesis may be beneficial to complete inpatient -- pt agreeable to
proceed
Patient does not think she will be able to drink GoLytely given her gastroparesis and gastric bypass will give her a MiraLAX bowel prep with Dulcolax. Her prior endoscopy in 2022 did not reveal any evidence of esophageal varices.
pt continued to remain on transplant list and follow with Dr. greenfield at [facility]
will need reschedule follow up with Dr. Delacruz as missed appt 11/19
Subjective
Subjective
Date of Service: November 22, 2023
Patient looks comfortable no rectal bleeding or melena no nausea or vomiting.
Objective
Data Reviewed
Laboratory Data:
Laboratory Results
11/22/23 05:57
11/22/23 05:57
Laboratory Results
PT 21.9 Sec (11.4-14.6) H 11/22/23 05:57
INR 1.89 11/22/23 05:57
APTT 78.5 Sec (23.4-35.0) H 11/20/23 15:27
Phosphorus 3.4 mg/dl (2.5-4.5) 11/22/23 05:57
Magnesium 2.2 mg/dl (1.6-2.3) 11/22/23 05:57
Total Bilirubin 2.1 mg/dl (0.2-1.3) H 11/22/23 05:57
AST 46 U/L (14-36) H 11/22/23 05:57
ALT 21 U/L (0-35) 11/22/23 05:57
Alkaline Phosphatase 91 U/L (38-126) 11/22/23 05:57
Vital Signs and I&O:
Vital Signs
Temp Pulse Resp BP Pulse Ox
98.2 F 70 18 125/58 98
11/22/23 07:00 11/22/23 07:00 11/22/23 07:00 11/22/23 07:00 11/22/23 07:00
I&O
11/21/23 11/22/23 11/23/23
06:59 06:59 06:59
Intake Total 480 / 480 1740 / 1740
Balance 480 / 480 1740 / 1740
Physical Exam
Physical Exam
Cardiology: Normal Sinus Rhythm
Pulmonary: Clear
GI: Soft, Distended, Non Tender and Normal Bowel Sounds
[2023-11-22] MEDS: ROXICODONE 5 MG PO ×2 (12:53→19:37)
[2023-11-22] MEDS: DULCOLAX 10 MG PO (12:53)
[2023-11-22 15:00] VITALS: BP 132/68
[2023-11-22] MEDS: GAVILAX 238 GM PO (15:22)
[2023-11-22] MEDS: DUPHALAC/CHRONULAC PO ×2 (16:04→21:52)
[2023-11-22 19:15] VITALS: BP 145/82
[2023-11-22] MEDS: SEROQUEL 25 MG PO (21:49)
[2023-11-22] MEDS: PEPCID 20 MG PO (21:49)
[2023-11-22] MEDS: FEOSOL 325 MG PO (21:49)
[2023-11-22 22:51] VITALS: BP 167/72
[2023-11-23] VITALS (8 sets, daily range): BP systolic 65–154; BP diastolic 62–85; BMI 29.2
[2023-11-23] MEDS: SYNTHROID 25 MCG PO (05:36)
[2023-11-23 06:28] LABS: Hematocrit 27.5 % (37.0-47.0); Hemoglobin 9.8 g/dL (12.0-16.0); Mean Corp Hgb Conc. 35.6 g/dL (33.0-37.0); Mean Corpuscular Hgb 31.5 pg (27.0-31.0); Mean Corpuscular Volume 88.4 fL (81.0-99.0); Mean Platelet Volume 11.9 fL (7.4-10.4); Platelet Count 83 10^3/uL (130-400); Red Blood Cell Count 3.11 10^6/uL (4.20-5.40); White Blood Cell Count 4.4 10^3/uL (4.8-10.8)
[2023-11-23 06:55] LABS: ALT (SGPT) 25 U/L (0-35); AST (SGOT) 47 U/L (14-36); Alkaline Phosphatase 111 U/L (38-126); Blood Urea Nitrogen 19 mg/dl (7-17); Calcium 8.8 mg/dl (8.4-10.2); Carbon Dioxide 21 mmol/L (22-30); Chloride 106 mmol/L (98-107); Estimated Creatinine Clearance 38 ml/min; Glucose 97 mg/dl (70-99); Magnesium 2.1 mg/dl (1.6-2.3); Phosphorus 3.6 mg/dl (2.5-4.5); Potassium 3.4 mmol/L (3.5-5.1); Sodium 136 mmol/L (135-145); Total Bilirubin 2.4 mg/dl (0.2-1.3); Total Protein 6.1 g/dl (6.3-8.2); eGFR 41.24
--- NOTE | 2023-11-23 07:15 | W.PN.HOSP.TC ---
Today's Communication/Plan
-
cont rifaximin lactulose
pain control
antiemetic prn
likely discharge tomorrow if remains stable/continues to improve
Assessment / Plan
Assessment / Plan
Physical Exam
General: No pallor, cyanosis, or jaundice.
HEENT: Throat clear. PERRLA Normocephalic atraumatic
NECK: Supple. No JVD Carotid Bruits
RESPIRATORY: Lungs clear to auscultation. No crackles wheezes stridor
CVS: S1, S2 normal. RRR.� Systolic murmur 3/6 (given ECHO results likely d/t anemia)
ABDOMEN: Soft, mild tenderness. Distended. BS+/normal.
EXTREMITIES: No peripheral cyanosis, swollen lower ext's compression stockings in place
CONSTRUCTION COORDINATOR: AOx3
IMPRESSION:
68F ext PMHx including ZAVALETA cirrhosis ([place] transplant candidate) ascites requiring twice weekly paracentesis CKD Hepatic Encephalopathy on Xifaxan/lactulose, chronic ciprofloxacin SBP ppx, PVT, paroxysmal afib (off AC due to risk of bleeding),
gastroparesis, esophageal dysmotility s/p RYGB, HLD, Hypothyroidism, chronic GERD on PPI/H2B presents with syncope following past few days nausea vomiting recent routine paracentesis resulted in fainting at GI clinic waiting area (patient had gone
to discuss her symptoms, general malaise).� CT head/neck noted no acute abn's.� VSS at rest.� Labs relatively unremarkable, chronic pancytopenia CKD mild transaminitis stable in comparison to previous values.� Physical exam notable for systolic
heart murmur patient notes present since she was 17.� Patient also notes leg swelling lower ext's past few days despite compression stockings.
PLAN:
Syncope likely vasovagal hypovolemia resolved
-cont diet sodium restricted
-ECHO appreciated preserved EF no acute changes from prior ECHO 2020
-negative orthostatic vitals
ZAVALETA Cirrhosis [place] Transplant Candidate
Chronic Recurrent Ascites secondary to the above, on routine twice a week paracentesis outpatient
Hx Hepatic Encephalopathy
-cont rifaximin Lactulose
-cont home spironolactone with holding parameters
-symptomatic discomfort distended IR eval appreciated paracentesis performed 11/20 4-5L removed, albumin infusion provided as per GI
-GI eval appreciated ongoing anemia and report of some rectal bleeding pt is due for EGD/colonoscopy which will be difficulty as OP, multiple issues with nausea, gastroparesis
-Clear Liquid diet bowel prep 11/21 egd/colonoscopy performed 11/22 as per GI
-repeat therapeutic paracentesis performed 11/23 3-4L removed, albumin infusion provided
EGD Appreciated
-no acute abn's, no biopsies collected, follow up repeat in 1-2y recommended
Colonoscopy Appreciated
-hemorrhoids, diverticulosis, erythema descending transverse colon biopsied, internal hemorrhoids
-High fiber diet recommended
Chronic Pancytopenia
- Secondary to cirrhosis
-stable WBC Hgb Plt in comparison with past values
-cont to monitor
CKD III
�- Stable.� Renal function baseline
�- monitor
Hx DM-II since resolved Prediabetes
-no need for routine FS at this time
Hypothyroidism
�- cont home synthroid
�-TSH wnl
GERD
Chronic Gastroparesis
�- Continue home PPI Reglan Sucralfate
Anxiety / Depression
�- Continue home buspirone seroquel, prn hydroxyzine
Chronic Pain Syndrome / Opioid Dependence
�- Continue PRN oxycodone.
DVT Prophylaxis:� SCDs
Code Status:� Full Code
I spent a total of � 52 � minutes with the patient or on the floor. More than 50% of this time involved counseling and coordination of care.
Anticipated Discharge: Within 24 hours
Subjective/Interval History
-
Date of Service: November 23, 2023
No acute distress. reports significant abd distension discomfort was associate nausea.
Objective Data
-
Labs:
Laboratory Results
11/23/23
06:06
WBC 4.4 L
Hgb 9.8 L
Hct 27.5 L
Plt Count 83 L D
Sodium 136
Potassium 3.4 L
Chloride 106
Carbon Dioxide 21 L
BUN 19 H
Creatinine 1.4 H
Glucose 97
Calcium 8.8
Total Bilirubin 2.4 H
AST 47 H
ALT 25
Alkaline Phosphatase 111
Vital Signs:
Vital Signs
Temp Pulse Resp BP Pulse Ox
97.9 F 74 16 117/69 100
11/23/23 02:29 11/23/23 02:29 11/23/23 02:29 11/23/23 02:29 11/23/23 02:29
I&O
11/22/23 11/23/23 11/24/23
06:59 06:59 06:59
Intake Total 1740 / 1740
Balance 1740 / 1740
[2023-11-23] MEDS: ROXICODONE 5 MG PO ×3 (10:40→23:38)
[2023-11-23] MEDS: NAMENDA 5 MG PO ×2 (10:41→21:38)
[2023-11-23] MEDS: DELTASONE 5 MG PO (10:41)
[2023-11-23] MEDS: PROTONIX 40 MG PO ×2 (10:41→21:33)
[2023-11-23] MEDS: REGLAN 10 MG PO ×3 (10:41→21:34)
[2023-11-23] MEDS: LASIX 20 MG PO (10:42)
[2023-11-23] MEDS: XIFAXAN 550 MG PO ×2 (10:43→21:40)
[2023-11-23] MEDS: CARAFATE 1 GRAM PO ×3 (10:43→21:33)
[2023-11-23] MEDS: ZINC SULFATE 220 MG PO (10:43)
[2023-11-23] MEDS: LIPITOR 20 MG PO (10:43)
[2023-11-23] MEDS: CIPRO 500 MG PO (10:43)
[2023-11-23] MEDS: ALDACTONE 25 MG PO (10:43)
[2023-11-23] MEDS: MIRALAX PO (10:44)
[2023-11-23] MEDS: DUPHALAC/CHRONULAC PO (10:44)
[2023-11-23] MEDS: CARAFATE PO (11:04)
[2023-11-23] MEDS: REGLAN PO (11:04)
[2023-11-23] MEDS: KCL ELIXIR 40 MEQ PO (11:07)
[2023-11-23 14:13] LABS: Body Fluid Mononuclear 78.4 %; Body Fluid Polymorphonuclear 21.6 %; Body Fluid WBC 60 /CUMM
[2023-11-23 14:16] LABS: Body Fluid Second Tech AMA
--- NOTE | 2023-11-23 15:20 | CM ---
CM reviewed chart. Patient for EGD colonoscopy today. CM updated Marika from [facility] on patients discharge status. CM will continue to follow for discharge planning needs.
Plan; home with [facility].
[2023-11-23] MEDS: FLEXBUMIN 100 IV (15:50)
[2023-11-23] MEDS: DUPHALAC/CHRONULAC 20 GRAMS PO ×2 (15:52→21:33)
[2023-11-23] MEDS: FEOSOL 325 MG PO (21:33)
[2023-11-23] MEDS: SEROQUEL 25 MG PO (21:34)
[2023-11-23] MEDS: PEPCID 20 MG PO (21:34)
[2023-11-24 03:00] VITALS: BP 103/49
[2023-11-24] MEDS: SYNTHROID 25 MCG PO (05:01)
[2023-11-24 05:44] VITALS: BMI 28.0
--- NOTE | 2023-11-24 08:00 | W.PN.HOSP.TC ---
Today's Communication/Plan
-
discharge
Assessment / Plan
Assessment / Plan
Physical Exam
General: No pallor, cyanosis, or jaundice.
HEENT: Throat clear. PERRLA Normocephalic atraumatic
NECK: Supple. No JVD Carotid Bruits
RESPIRATORY: Lungs clear to auscultation. No crackles wheezes stridor
CVS: S1, S2 normal. RRR.� Systolic murmur 3/6 (given ECHO results likely d/t anemia)
ABDOMEN: Soft, mild tenderness. Distended. BS+/normal.
EXTREMITIES: No peripheral cyanosis, swollen lower ext's compression stockings in place
CORE CLEANER: AOx3
IMPRESSION:
68F ext PMHx including ZAVALETA cirrhosis ([place] transplant candidate) ascites requiring twice weekly paracentesis CKD Hepatic Encephalopathy on Xifaxan/lactulose, chronic ciprofloxacin SBP ppx, PVT, paroxysmal afib (off AC due to risk of bleeding),
gastroparesis, esophageal dysmotility s/p RYGB, HLD, Hypothyroidism, chronic GERD on PPI/H2B presents with syncope following past few days nausea vomiting recent routine paracentesis resulted in fainting at GI clinic waiting area (patient had gone
to discuss her symptoms, general malaise).� CT head/neck noted no acute abn's.� VSS at rest.� Labs relatively unremarkable, chronic pancytopenia CKD mild transaminitis stable in comparison to previous values.� Physical exam notable for systolic
heart murmur patient notes present since she was 17.� Patient also notes leg swelling lower ext's past few days despite compression stockings.
PLAN:
Syncope likely vasovagal hypovolemia resolved
-cont diet sodium restricted
-ECHO appreciated preserved EF no acute changes from prior ECHO 2020
-negative orthostatic vitals
ZAVALETA Cirrhosis [facility] Transplant Candidate
Chronic Recurrent Ascites secondary to the above, on routine twice a week paracentesis outpatient
Hx Hepatic Encephalopathy
-cont rifaximin Lactulose
-cont home spironolactone with holding parameters
-symptomatic discomfort distended IR eval appreciated paracentesis performed 11/20 4-5L removed, albumin infusion provided as per GI
-GI eval appreciated ongoing anemia and report of some rectal bleeding pt is due for EGD/colonoscopy which will be difficulty as OP, multiple issues with nausea, gastroparesis
-Clear Liquid diet bowel prep 11/21 egd/colonoscopy performed 11/22 as per GI
-repeat therapeutic paracentesis performed 11/23 3-4L removed, albumin infusion provided
EGD Appreciated
-no acute abn's, no biopsies collected, follow up repeat in 1-2y recommended
Colonoscopy Appreciated
-hemorrhoids, diverticulosis, erythema descending transverse colon biopsied, internal hemorrhoids
-High fiber diet recommended
Chronic Pancytopenia
- Secondary to cirrhosis
-stable WBC Hgb Plt in comparison with past values
-cont to monitor
CKD III
�- Stable.� Renal function baseline
�- monitor
Hx DM-II since resolved Prediabetes
-no need for routine FS at this time
Hypothyroidism
�- cont home synthroid
�-TSH wnl
GERD
Chronic Gastroparesis
�- Continue home PPI Reglan Sucralfate
Anxiety / Depression
�- Continue home buspirone seroquel, prn hydroxyzine
Chronic Pain Syndrome / Opioid Dependence
�- Continue PRN oxycodone.
DVT Prophylaxis:� SCDs
Code Status:� Full Code
Medically stable for discharge home with home services and outpatient follow up recommendations
I spent a total of 45 minutes with the patient or on the floor. More than 50% of this time involved counseling and coordination of care.
Anticipated Discharge: Today
Subjective/Interval History
-
Date of Service: November 24, 2023
no acute distress reports feeling well. eager to go home.
Objective Data
-
Vital Signs:
Vital Signs
Temp Pulse Resp BP Pulse Ox
97.9 F 63 16 103/49 98
03/09/24 03:00 11/24/23 03:00 11/24/23 03:00 11/24/23 03:00 11/24/23 03:00
I&O
11/23/23 11/24/23 11/25/23
06:59 06:59 07:59
Intake Total 360 / 360
Balance 360 / 360
[2023-11-24 08:06] VITALS: BP 130/85
[2023-11-24] MEDS: ZINC SULFATE 220 MG PO (08:23)
[2023-11-24] MEDS: DUPHALAC/CHRONULAC 20 GRAMS PO (08:23)
[2023-11-24] MEDS: XIFAXAN 550 MG PO (08:23)
[2023-11-24] MEDS: DELTASONE 5 MG PO (08:24)
[2023-11-24] MEDS: NAMENDA 5 MG PO (08:24)
[2023-11-24] MEDS: ALDACTONE 25 MG PO (08:24)
[2023-11-24] MEDS: CARAFATE 1 GRAM PO ×2 (08:24→11:33)
[2023-11-24] MEDS: REGLAN 10 MG PO ×2 (08:24→11:33)
[2023-11-24] MEDS: CIPRO 500 MG PO (08:25)
[2023-11-24] MEDS: LIPITOR 20 MG PO (08:25)
[2023-11-24] MEDS: MIRALAX PO (08:25)
[2023-11-24] MEDS: PROTONIX 40 MG PO (08:25)
[2023-11-24] MEDS: LASIX 20 MG PO (08:25)
[2023-11-24 11:41] VITALS: BP 128/68
--- NOTE | 2023-11-24 13:08 | W.DCSUMMARY ---
Discharge Summary
Discharge Data
Date of Admission: 11/20/23
Date of Discharge: 11/24/23
-
Pending Results: Yes
Additional Pending Results:
pathology results
Hospital Course
68F ext PMHx including ZAVALETA cirrhosis ([place] transplant candidate) ascites requiring twice weekly paracentesis CKD Hepatic Encephalopathy on Xifaxan/lactulose, chronic ciprofloxacin SBP ppx, PVT, paroxysmal afib (off AC due to risk of bleeding),
gastroparesis, esophageal dysmotility s/p RYGB, HLD, Hypothyroidism, chronic GERD on PPI/H2B presents with syncope following past few days nausea vomiting recent routine paracentesis resulted in fainting at GI clinic waiting area (patient had gone
to discuss her symptoms, general malaise).� CT head/neck noted no acute abn's.� VSS at rest.� Labs relatively unremarkable, chronic pancytopenia CKD mild transaminitis stable in comparison to previous values.� Physical exam notable for systolic
heart murmur patient notes present since she was 17.� Patient also noted leg swelling lower ext's past few days despite compression stockings. Syncope likely vasovagal hypovolemia resolved, sodium restricted diet continued. ECHO appreciated
preserved EF no acute changes from prior ECHO 2020, negative orthostatic vitals. ZAVALETA Cirrhosis [place] Transplant Candidate, Chronic Recurrent Ascites secondary to the above, on routine twice a week paracentesis outpatient, Hx Hepatic
Encephalopathy, home rifaximin and Lactulose were continued. Home spironolactone was continued with holding parameters. Symptomatic discomfort distended IR eval appreciated paracentesis performed 11/20 4-5L removed, albumin infusion provided as
per GI. GI eval appreciated ongoing anemia and report of some rectal bleeding. Pt due for EGD/colonoscopy which would be difficult as OP, multiple issues with nausea, gastroparesis. Clear Liquid diet bowel prep 11/21 egd/colonoscopy performed
11/22 as per GI. Repeat therapeutic paracentesis performed 11/23 3-4L removed, albumin infusion provided. EGD Appreciated, no acute abn's, no biopsies collected, follow up repeat in 1-2y recommended. Colonoscopy appreciated hemorrhoids,
diverticulosis, erythema descending transverse colon biopsied, internal hemorrhoids, high fiber diet recommended. Chronic Pancytopenia, Secondary to cirrhosis, stable WBC Hgb Plt in comparison with past values. CKD III stable, renal function
baseline. Medically stabilized, patient was discharged home with outpatient follow up recommendations.
Discharge Plan
-
Patient Disposition: Home with Home Care
Discharge Diagnosis/Procedures: Syncope likely vasovagal hypovolemia resolved
ZAVALETA Cirrhosis [facility] Transplant Candidate
Chronic Recurrent Ascites
History Hepatic Encephalopathy
esophagogastroduodenoscopy performed
Colonoscopy Performed
hemorrhoids, diverticulosis, internal hemorrhoids
Chronic Pancytopenia Secondary to cirrhosis
Chronic Kidney Disease Stage III
Prediabetes
Hypothyroidism
GERD
Chronic Gastroparesis
Anxiety / Depression
Chronic Pain Syndrome / Opioid Dependence
Condition: Fair
Diet: 2 Gram Sodium
Activity: As tolerated
Driving Restrictions: Not until seen by your Dr
Bathing Restrictions: None
Other Services: VN
Activity Restrictions/Additional Instructions:
Please follow up with your primary care provider in 1 week of discharge and continue with your prior arranged follow up with other healthcare providers involved in your care, including GI.
Please follow up with vascular in two weeks of discharge regarding concerns possible peripheral vascular disease.
Referrals:
Malu Wilson DO [Family Provider] - in one week
Chris Soliman MD [Active] - in two weeks
Prescriptions:
Continued
atorvastatin 20 mg tablet
20 mg PO DAILY
levothyroxine 25 mcg tablet
25 mcg PO DAILY
Patient Comments:
08/28/2023, called patient's [facility] pharmacy ([facility] [address] [address]) to confirm this medication. [facility] states that patient last filled this medication in April of 2023 for a 90-day supply.
pantoprazole [Protonix] 40 mg Tablet,Delayed Release (Dr/Ec)
40 mg PO BID
prednisone 5 mg tablet
5 mg PO DAILY
Patient Comments:
08/28/2023, patient's spouse cannot remember whether patient takes this medication in the morning or in the evening every day. Patient only takes this medication once a day.
ondansetron HCl 8 mg tablet
8 mg PO TIDPRN PRN (Reason: nausea)
quetiapine [Seroquel] 25 mg Tablet
25 mg PO HS
hydroxyzine HCl 25 mg Tablet
25 mg PO Q4HPRN PRN (Reason: panic attack)
buspirone 15 mg Tablet
15 mg PO TID
ferrous sulfate [FeroSul] 325 mg (65 mg iron) tablet
325 mg PO HS
lactulose 10 gram/15 mL Solution
20 g PO TID 30 Days Qty: 2700 0RF
zinc sulfate 50 mg zinc (220 mg) Tablet
50 mg PO DAILY
metoclopramide HCl 10 mg Tablet
10 mg PO ACHS
memantine 5 mg Tablet
5 mg PO BID
rifaximin 550 mg Tablet
550 mg PO BID
oxycodone 10 mg tablet
5 mg PO TIDPRN PRN (Reason: severe pain ) Qty: 0 0RF
Patient Comments:
10/01/2023: per PDMP, patient filled this medication on 08/27/2023 for 90 tablets.
sucralfate 1 gram Tablet
1 g PO ACHS
furosemide 20 mg Tablet
20 mg PO DAILY
spironolactone 50 mg Tablet
25 mg PO DAILY
famotidine [Pepcid] 40 mg Tablet
40 mg PO HS
ciprofloxacin HCl 500 mg Tablet
500 mg PO DAILY
Discharge Orders:
Discharge Patient (As Directed); Ordered 11/24/23
Ordered By: Gabby Cottrell
Discharge Date and Time
Discharge Date/Time: 11/24/23 14:08
--- NOTE | 2023-11-24 13:18 | CM ---
Pt for dc to home today.
Referral sent to [facility] for VN services.
No further needs identified.
--- NOTE | 2023-11-24 13:21 | W.PN.GI.CBS2 ---
Today's Communication / Plan
-
ok for d/c home
Assessment / Plan
-
Pt is a 67 yo female well known to our group with a complex PMH significant for decompensated ZAVALETA cirrhosis actively listed for transplant at [facility] with ascites and HE requiring twice weekly paracentesis and thoracentesis for recurrent pleural
effusion� (follows with Dr. Bradley), renal insufficiency, Hepatic encephalopathy on Xifaxan/lactulose, hx of SBP on chronic ciprofloxacin(prior non compliance but recently taking as directed), PVT, paroxysmal afib (off AC due to risk of bleeding),
gastroparesis, esophageal dysmotility s/p RYGB, HLD, hypothyroidism, chronic GERD on PPI/H2B returns to ER after syncopal episode in GI office when due to routine follow up with concern for hypovolemia with recent change to para to twice weekly. On
admission she was noted with stable labs with chronic thrombocytopenia platelets 79, creat 1.3, bili 2.7, AST 57, ALT 25, alk phos 110, INR 1,84. BP was stable in ER.
EGD/colonoscopy performed, no EV or marginal ulcer seen on EGD, colonoscopy showed scattered erythema (bx) and diverticulosis, otherwise unremarkable. Pt ok for d/c today.
Total Time Spent with Patient (in minutes): 35
Subjective
Subjective
Date of Service: November 24, 2023
No events o/n.
Objective
Data Reviewed
Laboratory Data:
Laboratory Results
11/23/23 06:06
11/23/23 06:06
Laboratory Results
PT 21.9 Sec (11.4-14.6) H 11/22/23 05:57
INR 1.89 11/22/23 05:57
APTT 78.5 Sec (23.4-35.0) H 11/20/23 15:27
Phosphorus 3.6 mg/dl (2.5-4.5) 11/23/23 06:06
Magnesium 2.1 mg/dl (1.6-2.3) 11/23/23 06:06
Total Bilirubin 2.4 mg/dl (0.2-1.3) H 11/23/23 06:06
AST 47 U/L (14-36) H 11/23/23 06:06
ALT 25 U/L (0-35) 11/23/23 06:06
Alkaline Phosphatase 111 U/L (38-126) 11/23/23 06:06
Vital Signs and I&O:
Vital Signs
Temp Pulse Resp BP Pulse Ox
97.9 F 77 18 128/68 100
11/24/23 11:41 11/24/23 11:41 11/24/23 08:06 11/24/23 11:41 11/24/23 11:41
I&O
11/23/23 11/24/23 11/25/23
06:59 06:59 07:59
Intake Total 360 / 360
Balance 360 / 360
== END 2023-11-24 14:08 | disposition home health service (06) ==
LOC: 4 WEST ACU 20:28
PROVIDERS: Emergency Medicine; Nurse Practitioner Adult Health; Radiology Vascular & Interventional Radiology; ADMITTING PHYSICIAN Internal Medicine; CONSULT PHYSICIAN Internal Medicine Gastroenterology; EMERGENCY PHYSICIAN Emergency Medicine; FAMILY PHYSICIAN Internal Medicine
DX: R55 Syncope and collapse (principal); R18.8 Other ascites; I48.0 Paroxysmal atrial fibrillation; M79.7 Fibromyalgia; E11.22 Type 2 diabetes mellitus with diabetic chronic kidney disease; K21.9 Gastro-esophageal reflux disease without esophagitis; I12.9 Hypertensive chronic kidney disease with stage 1 through stage 4 chronic kidney disease, or unspecified chronic kidney disease; D61.818 Other pancytopenia; E78.00 Pure hypercholesterolemia, unspecified; E03.9 Hypothyroidism, unspecified; F41.9 Anxiety disorder, unspecified; E11.43 Type 2 diabetes mellitus with diabetic autonomic (poly)neuropathy; R01.1 Cardiac murmur, unspecified; N18.30 Chronic kidney disease, stage 3 unspecified; K31.84 Gastroparesis; K29.50 Unspecified chronic gastritis without bleeding; K75.81 Nonalcoholic steatohepatitis (NASH); K74.60 Unspecified cirrhosis of liver; K51.90 Ulcerative colitis, unspecified, without complications; F32.A Depression, unspecified; F11.20 Opioid dependence, uncomplicated; G89.4 Chronic pain syndrome; K64.8 Other hemorrhoids; I85.10 Secondary esophageal varices without bleeding; K57.30 Diverticulosis of large intestine without perforation or abscess without bleeding; D50.9 Iron deficiency anemia, unspecified; Z79.52 Long term (current) use of systemic steroids; Z79.899 Other long term (current) drug therapy; Z86.010 Personal history of colon polyps; Z87.891 Personal history of nicotine dependence; Z90.49 Acquired absence of other specified parts of digestive tract; Z98.84 Bariatric surgery status
CPT/HCPCS: 45378; 43235; 88305; 49083; 70450; 72125; 80053; 82042; 82150; 82962; 83615; 83735; 84100; 84157; 84443; 85025; 85027; 85610; 85730; 87015; 87070; 87205; 88112; 88341; 88342; 89051; 93005; 93306; 96374; 99285; G0378; P9047

== ENCOUNTER → 2023-11-26 06:53 | Outpatient (REF) | payer MEDICARE, OTHER, SELFPAY ==
[2023-11-26 07:25] VITALS: BP 145/68; BP_SYST 90
[2023-11-26 08:24] VITALS: BP 142/73
[2023-11-26 09:03] LABS: Body Fluid Mononuclear 66.1 %; Body Fluid Polymorphonuclear 33.9 %; Body Fluid WBC 106 /CUMM
[2023-11-26 09:06] LABS: Body Fluid Second Tech SD
== END ==
LOC: RADI 06:53
PROVIDERS: ATTENDING PHYSICIAN Internal Medicine; REFERRING PHYSICIAN Internal Medicine Transplant Hepatology
DX: R18.8 Other ascites (principal); J90 Pleural effusion, not elsewhere classified
CPT/HCPCS: 49083; 76604; 87015; 87070; 87205; 89051

== ENCOUNTER → 2023-11-30 08:59 | Outpatient (REF) | payer MEDICARE, OTHER, SELFPAY ==
[2023-11-30 09:10] VITALS: BP 151/59; BP_SYST 77
[2023-11-30 10:00] VITALS: BP 138/69; BP_SYST 77
[2023-11-30 10:27] VITALS: BP 138/69
[2023-11-30 12:33] LABS: Body Fluid Mononuclear 66.7 %; Body Fluid Polymorphonuclear 33.3 %; Body Fluid WBC 156 /CUMM
[2023-11-30 12:34] LABS: Body Fluid Second Tech LD
== END ==
LOC: RADI 08:59
PROVIDERS: ATTENDING PHYSICIAN Internal Medicine; REFERRING PHYSICIAN Internal Medicine Transplant Hepatology
DX: R18.8 Other ascites (principal)
CPT/HCPCS: 49083; 87015; 87070; 87205; 89051

== ENCOUNTER → 2023-12-10 06:45 | Outpatient (REF) | payer MEDICARE, OTHER, SELFPAY ==
[2023-12-10 07:15] VITALS: BP 157/70; BP_SYST 68
[2023-12-10 11:09] LABS: Body Fluid WBC 75 /CUMM
[2023-12-10 11:10] LABS: Body Fluid Second Tech EM
== END ==
LOC: RADI 06:45
PROVIDERS: ATTENDING PHYSICIAN Internal Medicine Transplant Hepatology; REFERRING PHYSICIAN Internal Medicine
DX: R18.8 Other ascites (principal)
CPT/HCPCS: 49083; 89051

== ENCOUNTER → 2023-12-13 07:01 | Outpatient (REF) | payer MEDICARE, OTHER, SELFPAY ==
[2023-12-13 07:21] VITALS: BP 135/68; BP_SYST 77
[2023-12-13 08:37] LABS: Body Fluid Mononuclear 66.7 %; Body Fluid Polymorphonuclear 33.3 %; Body Fluid WBC 72 /CUMM
[2023-12-13 08:45] LABS: Body Fluid Second Tech SS
== END ==
LOC: RADI 07:01
PROVIDERS: ATTENDING PHYSICIAN Internal Medicine; FAMILY PHYSICIAN Internal Medicine
DX: R18.8 Other ascites (principal)
CPT/HCPCS: 49083; 87015; 87070; 87205; 89051

== ENCOUNTER 2023-12-13 08:10 | Outpatient (RCR) | payer MEDICARE, OTHER, SELFPAY ==
[2023-11-24 09:03] VITALS: BP 142/61
[2023-11-26] MEDS: FLEXBUMIN 50 IV (09:05)
[2023-11-26 09:12] VITALS: BP 142/61
[2023-11-26 10:00] VITALS: BP 138/61
[2023-11-30] MEDS: FLEXBUMIN 50 IV (11:30)
[2023-11-30 11:31] VITALS: BP 141/57
[2023-11-30 12:20] VITALS: BP 129/50
[2023-12-10 10:00] VITALS: BP 130/62
[2023-12-10] MEDS: FLEXBUMIN 50 IV (10:21)
[2023-12-10 10:23] VITALS: BP 130/62
[2023-12-10 11:12] VITALS: BP 130/62
[2023-12-13] MEDS: FLEXBUMIN 50 IV (08:30)
[2023-12-13 08:32] VITALS: BP 144/63
[2023-12-13 09:17] VITALS: BP 115/66
== END 2023-12-14 09:23 | disposition home or self-care (01) ==
LOC: OID 08:10
PROVIDERS: ATTENDING PHYSICIAN Internal Medicine; PRIMARYCARE PHYSICIAN Internal Medicine
DX: K74.60 Unspecified cirrhosis of liver (principal); R18.8 Other ascites; K76.0 Fatty (change of) liver, not elsewhere classified; K31.84 Gastroparesis; I81 Portal vein thrombosis; Z98.84 Bariatric surgery status
CPT/HCPCS: 49083; 76604; 87015; 87070; 87205; 89051; 96365; P9047

== ENCOUNTER → 2023-12-17 06:50 | Outpatient (REF) | payer MEDICARE, OTHER, SELFPAY ==
[2023-12-17 07:30] VITALS: BP 123/57; BP_SYST 76
[2023-12-17 08:12] VITALS: BP 128/59
[2023-12-17 09:27] LABS: Body Fluid Mononuclear 69.2 %; Body Fluid Polymorphonuclear 30.8 %; Body Fluid WBC 81 /CUMM
[2023-12-17 09:28] LABS: Body Fluid Second Tech EM
== END ==
LOC: RADI 06:50
PROVIDERS: ATTENDING PHYSICIAN Internal Medicine
DX: R18.8 Other ascites (principal)
CPT/HCPCS: 49083; 87015; 87070; 87205; 89051

== ENCOUNTER → 2023-12-20 08:50 | Outpatient (REF) | payer MEDICARE, OTHER, SELFPAY ==
[2023-12-20 09:00] VITALS: BP 118/75; BP_SYST 88
[2023-12-20 10:08] LABS: Body Fluid Polymorphonuclear 36.9 %; Body Fluid WBC 76 /CUMM
[2023-12-20 10:09] LABS: Body Fluid Mononuclear 63.1 %
[2023-12-20 10:18] LABS: Body Fluid Second Tech SS
[2023-12-20 10:20] VITALS: BP 113/74
== END ==
LOC: RADI 08:50
PROVIDERS: ATTENDING PHYSICIAN Internal Medicine; FAMILY PHYSICIAN Internal Medicine
DX: R18.8 Other ascites (principal)
CPT/HCPCS: 49083; 89051

== ENCOUNTER → 2023-12-24 06:36 | Outpatient (REF) | payer MEDICARE, OTHER, SELFPAY ==
[2023-12-24 07:20] VITALS: BP 153/74; BP_SYST 80
[2023-12-24 08:20] VITALS: BP 141/72; BP_SYST 76
[2023-12-24 08:30] VITALS: BP 141/72
[2023-12-24 10:00] LABS: Body Fluid Mononuclear 46.7 %; Body Fluid Polymorphonuclear 53.3 %; Body Fluid WBC 122 /CUMM
[2023-12-24 10:22] LABS: Body Fluid Second Tech EM
== END ==
LOC: RADI 06:36
PROVIDERS: ATTENDING PHYSICIAN Internal Medicine; FAMILY PHYSICIAN Internal Medicine
DX: R18.8 Other ascites (principal)
CPT/HCPCS: 49083; 89051

== ENCOUNTER 2023-12-26 06:06 | Emergency (ER) | payer MEDICARE, OTHER, SELFPAY ==
[2023-12-26 06:09] VITALS: BP 145/71
--- NOTE | 2023-12-26 07:17 | ED.GENMED ---
History of Present Illness
General
Chief Complaint: Change in Mental Status
Source: patient
Exam Limitations: none
Time Seen by Provider: 12/26/23 07:05
Nursing documentation reviewed up to this point in time: agreed with
Travel History
Have you had any contact with someone who has COVID-19?: No
Do you have any symptoms of coronavirus? Fever > 100 degrees, chills, cough, shortness of breath, sore throat, loss of taste or smell, muscle aches, or headache?: No
History of Present Illness
History of Present Illness:
68-year-old female past medical history of cirrhosis/end-stage liver failure, renal failure diabetes hypothyroidism A-fib hypertension hyperlipidemia chronic pancytopenia secondary to cirrhosis, history of hepatic encephalopathy chronic kidney
disease stage IIIb prediabetes GERD gastroparesis chronic pain syndrome .patient is a ZAVALETA cirrhosis Bobby transplant candidate presents to the ER for evaluation of confusion. Patient reports that she noticed that she was feeling confused
starting yesterday. Patient is on rifaximin and lactulose she does report she took an extra lactulose. She describes this as having some confusion doing simple tasks such as walking her phone. She denies any associated fever chills abdominal
pain. She does get paracentesis done twice a week Tuesdays and did go yesterday. She is followed by Dr Delacruz and Dr Bradley.
Past History
Past History
ED Past Medical History: Arrthythmia (Paroxysmal atrial fibrillation), Fibromyalgia, GERD, HTN, Hypercholesterolemia, NIDDM, Hypothyroidism, Psychiatric (Anxiety), Other (Gastroparesis, chronic gastritis, ZAVALETA, esophageal dysmotility/achalasia,
Ulcerative colitis, Migraines, neck pain, IBS, anemia, Dizziness Hepatic encephalopathy. Cirrhosis of the liver, IBS, ) and Other (Portal vein thrombosis); Negative CAD
ED Past Surgical History: Appendectomy, Bowel resection, Cholecystectomy, Gynecological (Total Hysterectomy, Oophorectomy), Orthopedic (right wrist surgery, Left ankle surgery) and Other (Meckel's diverticulum, gastric bypass Jun 27, 2021,
cataracts,)
Patient has exhibited threatening behavior?: No
PSI?: No
Social History
Tobacco: Former smoker
Alcohol: None
Drug: None
Personal:
Living: with family
Employment: Retired
Family History
Family History: Other ([place])
Review of Systems
Review of Systems
Allergies reviewed?: Yes
All Other Systems: ROS reviewed and negative except as documented in HPI and ROS
Constitutional: Reports no symptoms; Denies fever, fatigue or chills
Respiratory: Reports no symptoms
Cardiac: Reports no symptoms
ABD/GI: Reports no symptoms
Musculoskeletal: Reports no symptoms
Skin: Reports no symptoms
Neurological: Reports other (confusion)
Psychiatric: Reports no symptoms
Phy Exam
General Physical Exam
General Presentation: no apparent distress
General age: appears stated age
General Skin: warm and dry
General Habitus: normal
General Mental: alert
General Hydration: appears well hydrated
Cardiovascular Exam
Cardiovascular Exam: regular rate/rhythm, normal peripheral pulses and systolic murmur
Pulmonary Exam
Pulmonary Exam: lungs clear and no respiratory distress
Gastrointestinal Exam
Gastrointestinal Exam: non tender, soft and other (brown stool heme neg )
Neurological Exam
Neurological Exam: alert and oriented x3
Musculoskeletal Exam
Musculoskeletal Exam: full ROM
Skin Exam
Skin Exam: normal color and warm/dry
Psychiatric Exam
Psychiatric Exam: normal mood/affect
Course
Orders/Labs/Results
Orders:
Orders
12/26/23 07:17
Cardiac Monitoring- Treatment ONCE
IV Insert/Care/Rem.- Treatment PRN
12/26/23 07:18
Electrocardiogram (*1) Stat
Reason for Study: Abdominal Pain
EKG- Treatment ONCE
12/26/23 08:02
Ammonia Urgent
Complete Blood Count/With Diff Urgent
Comprehensive Metabolic Panel Urgent
Lipase Urgent
PTT Urgent
Prothrombin Time Urgent
12/26/23 08:23
Venous Doppler Lwr Ext Left [US Periph Venous LOWER Ext LT] Urgent
Comment:
Reason For Exam: lle swelling
12/26/23 08:50
CT Head W/o Iv Contrast Urgent
Comment:
Reason For Exam: change in ms
12/26/23 09:53
Consult Interventional Radiology [IRAD CONSULT] Urgent
Consulting Provider: Cuauhtemoc Beck
Was physician already notified: Yes
Reason for consult: paracentesis
12/26/23 10:30
Urinalysis Reflex To Culture Urgent
Date Specimen was Collected: 12/26/23
Time Specimen was Collected: 09:56
Urine Microscopic Reflex Cult Urgent
Urine Culture Urgent
SHAUNA Source: U
Specimen Description:
Date Specimen was Collected: 12/26/23
Time Specimen was Collected: 09:56
12/26/23 11:47
Cell Count (Body Fluid) [Body Fluid Cell Count] Routine
What is the Body Fluid: peritoneal
Date Specimen was Collected: 12/26/23
Time Specimen was Collected: 11:30
Fluid Culture with Gram Stain Routine
SHAUNA Source: Peritoneal Fluid
Specimen Description:
Date Specimen was Collected: 12/26/23
Time Specimen was Collected: 11:30
Abnormal Lab Results
12/26/23 12/26/23
08:02 10:30
WBC 2.4 L* 10^3/uL
(4.8-10.8)
RBC 2.56 L 10^6/uL
(4.20-5.40)
Hgb 7.9 L g/dL
(12.0-16.0)
Hct 23.0 L %
(37.0-47.0)
RDW 19.0 H %
(11.5-14.5)
Plt Count 65 L 10^3/uL
(130-400)
MPV 11.7 H fL
(7.4-10.4)
Absolute Lymphs (auto) 0.6 L 10^3/uL
(1.2-3.4)
Monocytes % 15.7 H %
(1.7-9.3)
PT 21.7 H Sec
(11.4-14.6)
APTT 39.2 H Sec
(23.4-35.0)
Sodium 134 L mmol/L
(135-145)
BUN 23 H mg/dl
(7-17)
Creatinine 1.9 H mg/dL
(0.6-1.0)
Glucose 106 H mg/dl
(70-99)
Total Bilirubin 2.5 H mg/dl
(0.2-1.3)
AST 41 H U/L
(14-36)
Total Protein 5.6 L g/dl
(6.3-8.2)
Albumin 2.9 L g/dl
(3.5-5.0)
Urine Ketones Trace A
(Negative)
Leukocyte Esterase Rfl 1+ A
(Negative)
Urine Bacteria (Reflex) Few A
(Negative)
12/26/23 08:02
12/26/23 08:02
Vital Signs
Initial and Last Documented VS:
Initial Vital Signs
Temp Pulse Resp BP Pulse Ox
97.9 F 93 19 145/71 99
12/26/23 06:09 12/26/23 06:09 12/26/23 06:09 12/26/23 06:09 12/26/23 06:09
Last Documented Vital Signs
Temp Pulse Resp BP Pulse Ox
97.9 F 93 19 145/71 99
12/26/23 06:09 12/26/23 06:09 12/26/23 06:09 12/26/23 06:09 12/26/23 06:09
Operations Systems Specialist consulted with Physician
Operations Systems Specialist consulted with physician?: Yes
Name of Physician Consulted: gale
MDM/Problems Addressed
Differential Diagnosis Includes:
Not limited to encephalopathy, elevated ammonia, less likely intracranial hemorrhage, infection
MDM/Problems Addressed:
Patient is a 68-year-old female with end-stage liver disease requiring chronic paracentesis twice weekly on transplant list presents to the ER with increasing confusion. She does report she took an extra lactulose. She denies any recent fever or
chills. She presents afebrile with a low white count. Patient has chronic pancytopenia. Her white count today is 2.4 anemic with a hemoglobin of 7.9 and platelets of 65,000. denies black/dark stools. REctal exam heme neg Patient has chronic
renal disease and her creatinine today is 1.9 however has been elevated this high in the past. Her ammonia today is nml at 26. On exam patient has slight left lower extremity swelling ultrasound is done and negative. CT head negative.
Patient is awake alert oriented here. She is answering questions she does not appear to be confused. She drove herself to the ER she is very well-kept.
Patient was sent for paracentesis for 850 mL of peritoneal fluid fluid white blood cells and fluid 164. Patient continues to be well-appearing
As discussed above patient increase her lactulose as previously recommended as needed. She is to follow-up with her GI specialist. Discharge
Chronic conditions affecting care:
End-stage liver disease
*Radiology
Radiology exam reviewed: radiology read reviewed
*Critical Care Note
Total Time (30-74mins, 75-104mins- exclusive of procedures): Not Applicable
ED Attending Note
-
Portions of this chart may have been created with voice recognition software.� Occasional wrong word or��sound alike� substitutions may have occurred due to the inherent limitations of voice recognition software.
Discharge Plan
Departure
Patient Disposition: Home (Routine Discharge)
Date of Disposition: 12/26/23
Time of Disposition: 13:14
Patient with high blood pressure during this ER visit?: Yes
Covid-19: Not Applicable
Discharge Problem:
End-stage liver disease, ZAVALETA (nonalcoholic steatohepatitis)
Instructions: BLOOD PRESSURE
Prescriptions:
No Action
atorvastatin 20 mg tablet
20 mg PO DAILY
levothyroxine 25 mcg tablet
12.5 mcg PO DAILY
Patient Comments:
12/26/2023, called patient's [facility] pharmacy ([facility] [address] [place] [id number]) to confirm this medication. [facility] states that patient last filled this medication in April of 2023 for a 90-day supply.
pantoprazole [Protonix] 40 mg Tablet,Delayed Release (Dr/Ec)
40 mg PO BID
prednisone 5 mg tablet
5 mg PO DAILY
ondansetron HCl 8 mg tablet
8 mg PO TIDPRN PRN (Reason: nausea)
quetiapine [Seroquel] 25 mg Tablet
25 mg PO HS
buspirone 15 mg Tablet
15 mg PO TID
lactulose 10 gram/15 mL Solution
20 g PO TID 30 Days Qty: 2700 0RF
zinc sulfate 50 mg zinc (220 mg) Tablet
50 mg PO DAILY
metoclopramide HCl 10 mg Tablet
10 mg PO ACHS
rifaximin 550 mg Tablet
550 mg PO BID
Patient Comments:
12-26-2023-buying from [facility]
oxycodone 10 mg tablet
5 mg PO TIDPRN PRN (Reason: severe pain ) Qty: 0 0RF
Patient Comments:
10/01/2023: per PDMP, patient filled this medication on 08/27/2023 for 90 tablets.
sucralfate 1 gram Tablet
1 g PO ACHS
furosemide 20 mg Tablet
20 mg PO DAILY
spironolactone 50 mg Tablet
50 mg PO DAILY
famotidine [Pepcid] 40 mg Tablet
40 mg PO HS
memantine 5 mg Tablet
5 mg PO HS
Referrals:
Malu Wilson DO [Family Provider] -
Dilia Delarcuz DO [Active] -
Activity Restrictions/Additional Instructions:
As discussed you were seen for increased confusion. You may increase your lactulose as previously recommended. Follow-up with your GI specialist as discussed return if any worsening of symptoms.
Interventions
Interventions:
*Risk Screen - Suicide Last Done: 12/26/23 06:09
*General Assessment Last Done: 12/26/23 06:09
*Neglect/Abuse Screening Last Done: 12/26/23 06:09
*ED COVID-19 Vaccine History Last Done: 12/26/23 06:09
Discharge Date and Time
Print Language: TURKISH
[2023-12-26 08:00] VITALS: BP 119/63
[2023-12-26 08:18] LABS: % Basophils 1.2 % (0-2); % Eosinophils 2.5 % (0-6); % Immature Granulocytes 0.4 % (0-0.5); % Monocytes 15.7 % (1.7-9.3); % Neutrophils 56.2 % (42.2-75.2); Absolute Eosinophils 0.1 10^3/uL (0-0.7); Absolute Lymphocytes 0.6 10^3/uL (1.2-3.4); Absolute Monocytes 0.4 10^3/uL (0.1-0.6); Absolute Neutrophils 1.4 10^3/uL (1.4-6.5); Hemoglobin 7.9 g/dL (12.0-16.0); Mean Corp Hgb Conc. 34.3 g/dL (33.0-37.0); Mean Corpuscular Hgb 30.9 pg (27.0-31.0); Mean Corpuscular Volume 89.8 fL (81.0-99.0); Mean Platelet Volume 11.7 fL (7.4-10.4); Nucleated Red Blood Cells % 0 %; Platelet Count 65 10^3/uL (130-400); Red Blood Cell Count 2.56 10^6/uL (4.20-5.40)
[2023-12-26 08:20] LABS: White Blood Cell Count 2.4 10^3/uL (4.8-10.8)
[2023-12-26 08:29] LABS: APTT 39.2 Sec (23.4-35.0); Ammonia 26 umol/L (9-30); INR 1.87; PT 21.7 Sec (11.4-14.6)
[2023-12-26 08:30] LABS: ALT (SGPT) 21 U/L (0-35); AST (SGOT) 41 U/L (14-36); Albumin 2.9 g/dl (3.5-5.0); Alkaline Phosphatase 97 U/L (38-126); Blood Urea Nitrogen 23 mg/dl (7-17); Calcium 8.9 mg/dl (8.4-10.2); Carbon Dioxide 24 mmol/L (22-30); Chloride 107 mmol/L (98-107); Glucose 106 mg/dl (70-99); Lipase 50 U/L (23-300); Potassium 4.4 mmol/L (3.5-5.1); Sodium 134 mmol/L (135-145); Total Bilirubin 2.5 mg/dl (0.2-1.3); Total Protein 5.6 g/dl (6.3-8.2); eGFR 28.58
[2023-12-26 10:00] VITALS: BP 137/77
[2023-12-26 10:46] LABS: Urine Albumin Negative (Neg - Trace); Urine Bilirubin Negative (Negative); Urine Character Clear (Clear); Urine Color Yellow; Urine Glucose Negative (Negative); Urine Ketone Trace (Negative); Urine Leukocyte 1+ (Negative); Urine Nitrite Negative (Negative); Urine Occult Blood Negative (Negative); Urine Urobilinogen Negative (Neg - 1+)
[2023-12-26 11:14] LABS: Urine Squamous Cell >30 /LPF (Few)
[2023-12-26 11:15] LABS: Urine Bacteria Few (Negative); Urine Red Blood Cell 0-2 /HPF (0-2)
[2023-12-26 12:07] LABS: Body Fluid Mononuclear 81.1 %; Body Fluid Polymorphonuclear 18.9 %; Body Fluid WBC 164 /CUMM
[2023-12-26 12:30] VITALS: BP 129/85
[2023-12-26 13:14] LABS: Body Fluid Second Tech BP
[2023-12-26 14:05] VITALS: BP 157/73
== END 2023-12-26 14:15 | disposition home or self-care (01) ==
LOC: EMR 06:06
PROVIDERS: Nurse Practitioner; CONSULT PHYSICIAN Radiology Diagnostic Radiology; EMERGENCY PHYSICIAN Emergency Medicine; FAMILY PHYSICIAN Internal Medicine
DX: K75.81 Nonalcoholic steatohepatitis (NASH) (principal); N18.6 End stage renal disease; R22.42 Localized swelling, mass and lump, left lower limb; Z87.891 Personal history of nicotine dependence; E11.22 Type 2 diabetes mellitus with diabetic chronic kidney disease; E03.9 Hypothyroidism, unspecified; I12.0 Hypertensive chronic kidney disease with stage 5 chronic kidney disease or end stage renal disease; K21.9 Gastro-esophageal reflux disease without esophagitis; K31.84 Gastroparesis
CPT/HCPCS: 99285; 49083; 70450; 80053; 81003; 81015; 82140; 83690; 85025; 85610; 85730; 87015; 87070; 87086; 87205; 89051; 93005; 93971

== ENCOUNTER → 2024-01-03 06:54 | Outpatient (REF) | payer MEDICARE, OTHER, SELFPAY ==
[2024-01-03 07:20] VITALS: BP 143/67; BP_SYST 101
[2024-01-03 08:09] VITALS: BP 128/59
[2024-01-03 08:46] LABS: Body Fluid WBC 176 /CUMM
[2024-01-03 08:48] LABS: Body Fluid Second Tech LD
== END ==
LOC: RADI 06:54
PROVIDERS: ATTENDING PHYSICIAN Internal Medicine
DX: R18.8 Other ascites (principal)
CPT/HCPCS: 49083; 87015; 87070; 87205; 89051

== ENCOUNTER 2024-01-03 08:27 | Outpatient (RCR) | payer MEDICARE, OTHER, SELFPAY ==
[2023-12-17] MEDS: FLEXBUMIN 50 IV (08:49)
[2023-12-17 08:50] VITALS: BP 131/63
[2023-12-17 09:36] VITALS: BP 123/61
[2023-12-17] MEDS: FLEXBUMIN 100 IV (09:36)
[2023-12-17 11:06] VITALS: BP 126/60
[2023-12-20] MEDS: FLEXBUMIN 50 IV (10:38)
[2023-12-20 10:43] VITALS: BP 147/77
[2023-12-20 10:44] VITALS: BP 147/77
[2023-12-20] MEDS: FLEXBUMIN 100 IV (11:26)
[2023-12-20 11:29] VITALS: BP 117/65
[2023-12-20 12:54] VITALS: BP 123/59
[2023-12-24 08:40] VITALS: BP 136/56
[2023-12-24 08:41] VITALS: BP 136/56
[2023-12-24] MEDS: FLEXBUMIN 100 IV (08:41)
[2024-01-03 08:30] VITALS: BP 134/69
[2024-01-03] MEDS: FLEXBUMIN 50 IV (08:50)
[2024-01-03 08:54] VITALS: BP 134/69
[2024-01-03 09:39] VITALS: BP 132/69
[2024-01-03] MEDS: FLEXBUMIN 100 IV (09:39)
[2024-01-03 11:04] VITALS: BP 119/48
== END 2024-01-14 08:20 | disposition home or self-care (01) ==
LOC: OID 08:27
PROVIDERS: ATTENDING PHYSICIAN Internal Medicine; PRIMARYCARE PHYSICIAN Internal Medicine
DX: K74.60 Unspecified cirrhosis of liver (principal); R18.8 Other ascites; K76.0 Fatty (change of) liver, not elsewhere classified; K31.84 Gastroparesis; I81 Portal vein thrombosis; Z98.84 Bariatric surgery status
CPT/HCPCS: 96365; 96366; P9047

== ENCOUNTER → 2024-01-11 09:59 | Outpatient (REF) | payer MEDICARE, OTHER, SELFPAY ==
[2024-01-11 11:46] LABS: ALT (SGPT) 31 U/L (0-35); AST (SGOT) 66 U/L (14-36); Albumin 3.2 g/dl (3.5-5.0); Alkaline Phosphatase 135 U/L (38-126); Blood Urea Nitrogen 25 mg/dl (7-17); Carbon Dioxide 23 mmol/L (22-30); Chloride 103 mmol/L (98-107); Glucose 218 mg/dl (70-99); Sodium 131 mmol/L (135-145); Total Bilirubin 1.5 mg/dl (0.2-1.3); Total Protein 6.4 g/dl (6.3-8.2); eGFR 26.88
== END ==
LOC: REG 09:59
PROVIDERS: ATTENDING PHYSICIAN Internal Medicine; FAMILY PHYSICIAN Internal Medicine
DX: K75.81 Nonalcoholic steatohepatitis (NASH) (principal)
CPT/HCPCS: 36415; 80053

== ENCOUNTER 2024-01-21 14:08 | Inpatient (IN) | payer MEDICARE, OTHER, SELFPAY ==
[2024-01-21] VITALS (8 sets, daily range): BP systolic 101–158; BP diastolic 42–99; BMI 31.8
[2024-01-21] MEDS: NSS 500 IV (09:29)
[2024-01-21 09:34] LABS: % Basophils 0.9 % (0-2); % Eosinophils 2.1 % (0-6); % Immature Granulocytes 0.6 % (0-0.5); % Monocytes 10.4 % (1.7-9.3); Absolute Eosinophils 0.1 10^3/uL (0-0.7); Absolute Lymphocytes 0.4 10^3/uL (1.2-3.4); Absolute Monocytes 0.3 10^3/uL (0.1-0.6); Absolute Neutrophils 2.4 10^3/uL (1.4-6.5); Hematocrit 24.1 % (37.0-47.0); Hemoglobin 8.5 g/dL (12.0-16.0); Mean Corp Hgb Conc. 35.3 g/dL (33.0-37.0); Mean Corpuscular Hgb 31.3 pg (27.0-31.0); Mean Corpuscular Volume 88.6 fL (81.0-99.0); Mean Platelet Volume 12.2 fL (7.4-10.4); Nucleated Red Blood Cells % 0 %; Platelet Count 59 10^3/uL (130-400); Red Blood Cell Count 2.72 10^6/uL (4.20-5.40); Red Cell Dist. Width 19.2 % (11.5-14.5); White Blood Cell Count 3.3 10^3/uL (4.8-10.8)
[2024-01-21 09:47] LABS: Ammonia 343 umol/L (9-30)
[2024-01-21 09:55] LABS: ALT (SGPT) 42 U/L (0-35); AST (SGOT) 65 U/L (14-36); Albumin 2.8 g/dl (3.5-5.0); Alkaline Phosphatase 148 U/L (38-126); Blood Urea Nitrogen 36 mg/dl (7-17); Calcium 8.7 mg/dl (8.4-10.2); Carbon Dioxide 20 mmol/L (22-30); Chloride 111 mmol/L (98-107); Glucose 171 mg/dl (70-99); Potassium 5.8 mmol/L (3.5-5.1); Sodium 132 mmol/L (135-145); Total Bilirubin 1.5 mg/dl (0.2-1.3); Total Protein 6.1 g/dl (6.3-8.2); eGFR 26.88
--- NOTE | 2024-01-21 10:43 | ED.GENMED ---
History of Present Illness
<Jennifer Aguilar EVENT SALES REPRESENTATIVE - Last Filed: 01/22/24 08:09>
General
Chief Complaint: Change in Mental Status
Source: patient and spouse
Exam Limitations: none
Time Seen by Provider: 01/21/24 09:11
Nursing documentation reviewed up to this point in time: agreed with
Travel History
Have you had any contact with someone who has COVID-19?: No
Do you have any symptoms of coronavirus? Fever > 100 degrees, chills, cough, shortness of breath, sore throat, loss of taste or smell, muscle aches, or headache?: No
History of Present Illness
History of Present Illness:
68 yo female w h/o NIDDM, HTN, HLD, CKD, ZAVALETA on liver transplant list presents with change in mental state (more confused) from IR where she had ascites 3400 fluid drained.
She admits to feeling confused, agrees and states she gets like this when her ammonia level is high. Pt denies CP, SOB, headache, visual disturbance. Has chronic abd pain, nothing new.
Past History
<Jennifer Aguilar EVENT SALES REPRESENTATIVE - Last Filed: 01/22/24 08:09>
Past History
ED Past Medical History: Arrthythmia (Paroxysmal atrial fibrillation), Fibromyalgia, GERD, HTN, Hypercholesterolemia, NIDDM, Hypothyroidism, Psychiatric (Anxiety), Other (Gastroparesis, chronic gastritis, ZAVALETA, esophageal dysmotility/achalasia,
Ulcerative colitis, Migraines, neck pain, IBS, anemia, Dizziness Hepatic encephalopathy. Cirrhosis of the liver, IBS, ) and Other (Portal vein thrombosis); Negative CAD
ED Past Surgical History: Appendectomy, Bowel resection, Cholecystectomy, Gynecological (Total Hysterectomy, Oophorectomy), Orthopedic (right wrist surgery, Left ankle surgery) and Other (Meckel's diverticulum, gastric bypass Jun 27, 2021,
cataracts,)
Patient has exhibited threatening behavior?: No
PSI?: No
Social History
Tobacco: Former smoker
Alcohol: None
Drug: None
Personal:
Living: with family
Employment: Retired
Family History
Family History: Other ([place])
Review of Systems
<Jennifer Aguilar EVENT SALES REPRESENTATIVE - Last Filed: 01/22/24 08:09>
Review of Systems
Allergies reviewed?: Yes
All Other Systems: ROS reviewed and negative except as documented in HPI and ROS
Constitutional: Reports fatigue; Denies fever
Respiratory: Denies trouble breathing
Cardiac: Denies chest pain or syncope
ABD/GI: Reports abdominal pain (chronic) and diarrhea (due to Lactulose); Denies nausea, vomiting, bloody stools, black stools or anorexia
: Denies dysuria or difficulty voiding
Musculoskeletal: Reports edema (chronic, mild presently)
Skin: Reports no symptoms
Neurological: Denies dizzy or headache
Phy Exam
<Jennifer Aguilar, EVENT SALES REPRESENTATIVE - Last Filed: 01/22/24 08:09>
Physical Exam
Physical Exam:
GENERAL: No acute distress. Unable to state where she is or that she is in the hospital, states 'I do not know.' 'I am confused.'
CONSTITUTIONAL: Afebrile.
EYES: PERRL, conjunctivae normal
Neck: Supple
ENMT: moist mucus membranes, Pharynx nl
RESPIRATORY: Regular respirations, nonlabored, lungs clear.
CARDIOVASCULAR: Regular rate and rhythm, no murmurs, no rubs.
GI: Soft, mildly generally tender,, normal BS
MUSCULOSKELETAL: Moves with ease. Well perfused.
SKIN: Warm, dry, pink
PSYCH: Depressed mood and affect. Well kept, interactive and appropriate
NEUROLOGIC: Awake, alert oriented to name, follows commands, speech is clear but she is unable to answer questions stating frequently 'I do not know.'. Chronic generalized tremors.
Course
<Jennifer V. Day, EVENT SALES REPRESENTATIVE - Last Filed: 01/22/24 08:09>
Orders/Labs/Results
Orders:
Orders
01/21/24 Breakfast
2000 calorie (17 carb) Diabetic
At Your Request: Full Participation
Fluid Restriction: 1200 mL/day (40 oz)
Diabetic Diet: Potassium, 2 Gram
01/21/24 09:18
0.9% Sodium Chloride 1000 ml [Nss] 1,000 ml IV BOLUS
01/21/24 09:19
0.9% Sodium Chloride 500 ml [Nss] 500 ml IV BOLUS
01/21/24 09:24
Ammonia Urgent
Complete Blood Count/With Diff Urgent
Comprehensive Metabolic Panel Urgent
01/21/24 11:21
Lactulose [Duphalac/Chronulac] 20 grams PO NOW STA
01/21/24 11:37
CT Head W/o Iv Contrast Urgent
Comment:
Reason For Exam: change in ms
01/21/24 12:00
Lactic Acid Q4H
Comment: CANCEL 2nd LACTIC ACID IF 1st LACTIC ACID IS LESS THAN 2
PTT Urgent
Prothrombin Time Urgent
Blood Culture Q30M
SHAUNA Source: Blood/Venous
Specimen Description:
Blood Culture Q30M
SHAUNA Source: Blood/Venous
Specimen Description:
01/21/24 12:21
Rifaximin [Xifaxan] 550 mg PO NOW STA
01/21/24 12:22
Urinalysis Reflex To Culture Urgent
Date Specimen was Collected: 01/21/24
Time Specimen was Collected: 12:04
01/21/24 12:[address] Non Medication Order As Directed
Physician Order: please don't admit upstairs until head CT results
Above order entered?: Yes
01/21/24 12:46
Furosemide [Lasix] 20 mg IV NOW STA
01/21/24 12:47
CR Chest - 2 Views Urgent
Comment:
Reason For Exam: hepatic encephalopathy, JVP on exam
01/21/24 12:48
EKG [Electrocardiogram (*1)] Urgent
Reason for Study: Heart Failure, Left
01/21/24 12:49
Admit/Transfer Patient As Directed
Co-Sign Provider:
Level of Care: Inpatient admission
Assign to:: Telemetry
Physician / Group: bronwyn colin
Diagnosis: hepatic encephalopathy
Reason for Telemetry: Other
Other Reason for Telemetry: confusion
Date to Stop Telemetry: 01/23/24
Time to Stop Telemetry: 11:00
Reason for Hospitalization: hepatic encephalopathy
Expected length of stay greater than two midnights?: Yes
ELOS- Estimated Length of Stay in days: 3
I certify the patient meets the requirements for IP care: Yes
01/21/24 12:52
Code Status As Directed
Resuscitation Status: Full Code
01/21/24 13:32
Miscellaneous Order As Directed
Miscellaneous order: please do not admit upstairs until head ct results
01/21/24 14:17
Bisacodyl [Dulcolax] 10 mg RECTAL [id number] PRN
Dextrose 50%-Water [Dextrose 50% Syringe] 12.5 grams IV [id number] PRN
Docusate W/Senna [Senokot-S] 1 tablet PO BIDPRN PRN
Glucagon [GlucaGen] 1 mg IM PRN PRN
Polyethylene Glycol Powder [Miralax] 17 grams PO DAILYPRN PRN
01/21/24 14:17
GASTROINTESTINAL CONSULT Routine
Consulting Provider: Mattie Echevarria
Was physician already notified: Yes
Activity As Directed
Activity Level: As Tolerated
Bedside Glucose Monitoring As Directed
Frequency: AC&HS
Additional Instructions:: Change to q6h if pt on TPN, tube feeding or not eating
Vital Signs As Directed
Frequency: Per unit guidelines
DX Deep Vein Thrombosis Video Routine
01/21/24 16:00
Buspirone [Buspar] 15 mg PO TID
Lactulose [Duphalac/Chronulac] 30 grams PO Q2
01/21/24 16:02
COVID-19 Antigen Stat
Source: Nasal Swab
Potassium Routine
Troponin I Q6H
01/21/24 16:30
Insulin Aspart Corrective Low [Novolog Flexpen-Low Resistance] See Protocol SC AC
Metoclopramide [Reglan] 10 mg PO ACHS
Sucralfate [Carafate] 1 gram PO ACHS
01/21/24 18:00
Atorvastatin [Lipitor] 20 mg PO QPM
01/21/24 20:00
Heparin 5,000 units SC Q12
Rifaximin [Xifaxan] 550 mg PO BID
01/21/24 21:59
Troponin I Q6H
01/21/24 22:00
Famotidine [Pepcid] 40 mg PO HS
Memantine HCl [Namenda] 5 mg PO HS
Quetiapine Fumarate [Seroquel] 12.5 mg PO HS
01/22/24 00:39
Troponin I Q6H
01/22/24 05:53
Ammonia IN AM
Complete Blood Count/No Diff IN AM
Comprehensive Metabolic Panel IN AM
Glycohemoglobin (HgbA1c) IN AM
01/22/24 06:00
Levothyroxine [Synthroid] 12.5 mcg PO DAILY @ 0600
01/22/24 08:00
Furosemide [Lasix] 20 mg PO DAILY
Pantoprazole [Protonix] 40 mg PO DAILY
Prednisone [Deltasone] 5 mg PO DAILY
Spironolactone [Aldactone] 50 mg PO DAILY
01/22/24 12:00
Ciprofloxacin HCl [Cipro] 500 mg PO DAILY@1200
01/23/24 06:00
Ammonia IN AM
Complete Blood Count/No Diff IN AM
Comprehensive Metabolic Panel IN AM
01/23/24 11:00
DC Protocol for Telemetry ONCE
01/24/24 06:00
Ammonia IN AM
Complete Blood Count/No Diff IN AM
Comprehensive Metabolic Panel IN AM
01/25/24 06:00
Complete Blood Count/No Diff IN AM
Comprehensive Metabolic Panel IN AM
01/26/24 06:00
Complete Blood Count/No Diff IN AM
Comprehensive Metabolic Panel IN AM
Abnormal Lab Results
01/21/24 01/21/24
12:00
WBC 3.3 L 10^3/uL
(4.8-10.8)
RBC 2.72 L 10^6/uL
(4.20-5.40)
Hgb 8.5 L g/dL
(12.0-16.0)
Hct 24.1 L %
(37.0-47.0)
MCH 31.3 H pg
(27.0-31.0)
RDW 19.2 H %
(11.5-14.5)
Plt Count 59 L 10^3/uL
(130-400)
MPV 12.2 H fL
(7.4-10.4)
Absolute Lymphs (auto) 0.4 L 10^3/uL
(1.2-3.4)
Immature Gran % 0.6 H %
(0-0.5)
Lymphocytes % 11.0 L %
(20.5-51.1)
Monocytes % 10.4 H %
(1.7-9.3)
PT 19.2 H Sec
(11.4-14.6)
Sodium 132 L mmol/L
(135-145)
Potassium 5.8 H mmol/L
(3.5-5.1)
Chloride 111 H mmol/L
(98-107)
Carbon Dioxide 20 L mmol/L
(22-30)
BUN 36 H mg/dl
(7-17)
Creatinine 2.0 H mg/dL
(0.6-1.0)
Glucose 171 H mg/dl
(70-99)
Total Bilirubin 1.5 H mg/dl
(0.2-1.3)
AST 65 H U/L
(14-36)
ALT 42 H U/L
(0-35)
Alkaline Phosphatase 148 H U/L
(38-126)
Ammonia 343 H umol/L
(9-30)
Total Protein 6.1 L g/dl
(6.3-8.2)
Albumin 2.8 L g/dl
(3.5-5.0)
01/21/24 09:24
01/21/24 14:00
Vital Signs
Initial and Last Documented VS:
Initial Vital Signs
Temp Pulse BP Pulse Ox
97.9 F 88 140/69 99
01/21/24 09:01 01/21/24 09:01 01/21/24 09:01 01/21/24 09:01
Last Documented Vital Signs
Temp Pulse Resp BP Pulse Ox
98.6 F 51 18 128/56 98
01/22/24 07:00 01/22/24 07:00 01/22/24 07:00 01/22/24 07:00 01/22/24 07:00
<Lavonne Harrison MD - Last Filed: 01/21/24 11:01>
Orders/Labs/Results
Orders:
Orders
01/21/24 Breakfast
2000 calorie (17 carb) Diabetic
At Your Request: Full Participation
Fluid Restriction: 1200 mL/day (40 oz)
Diabetic Diet: Potassium, 2 Gram
01/21/24 09:18
0.9% Sodium Chloride 1000 ml [Nss] 1,000 ml IV BOLUS
01/21/24 09:19
0.9% Sodium Chloride 500 ml [Nss] 500 ml IV BOLUS
01/21/24 09:24
Ammonia Urgent
Complete Blood Count/With Diff Urgent
Comprehensive Metabolic Panel Urgent
01/21/24 11:21
Lactulose [Duphalac/Chronulac] 20 grams PO NOW STA
01/21/24 11:37
CT Head W/o Iv Contrast Urgent
Comment:
Reason For Exam: change in ms
01/21/24 12:00
Lactic Acid Q4H
Comment: CANCEL 2nd LACTIC ACID IF 1st LACTIC ACID IS LESS THAN 2
PTT Urgent
Prothrombin Time Urgent
Blood Culture Q30M
SHAUNA Source: Blood/Venous
Specimen Description:
Blood Culture Q30M
SHAUNA Source: Blood/Venous
Specimen Description:
01/21/24 12:21
Rifaximin [Xifaxan] 550 mg PO NOW STA
01/21/24 12:22
Urinalysis Reflex To Culture Urgent
Date Specimen was Collected: 01/21/24
Time Specimen was Collected: 12:04
01/21/24 12:[address] Non Medication Order As Directed
Physician Order: please don't admit upstairs until head CT results
Above order entered?: Yes
01/21/24 12:46
Furosemide [Lasix] 20 mg IV NOW STA
01/21/24 12:47
CR Chest - 2 Views Urgent
Comment:
Reason For Exam: hepatic encephalopathy, JVP on exam
01/21/24 12:48
EKG [Electrocardiogram (*1)] Urgent
Reason for Study: Heart Failure, Left
01/21/24 12:49
Admit/Transfer Patient As Directed
Co-Sign Provider:
Level of Care: Inpatient admission
Assign to:: Telemetry
Physician / Group: bronwyn colin
Diagnosis: hepatic encephalopathy
Reason for Telemetry: Other
Other Reason for Telemetry: confusion
Date to Stop Telemetry: 01/23/24
Time to Stop Telemetry: 11:00
Reason for Hospitalization: hepatic encephalopathy
Expected length of stay greater than two midnights?: Yes
ELOS- Estimated Length of Stay in days: 3
I certify the patient meets the requirements for IP care: Yes
01/21/24 12:52
Code Status As Directed
Resuscitation Status: Full Code
01/21/24 13:32
Miscellaneous Order As Directed
Miscellaneous order: please do not admit upstairs until head ct results
01/21/24 14:17
Bisacodyl [Dulcolax] 10 mg RECTAL [id number] PRN
Dextrose 50%-Water [Dextrose 50% Syringe] 12.5 grams IV [id number] PRN
Docusate W/Senna [Senokot-S] 1 tablet PO BIDPRN PRN
Glucagon [GlucaGen] 1 mg IM PRN PRN
Polyethylene Glycol Powder [Miralax] 17 grams PO DAILYPRN PRN
01/21/24 14:17
GASTROINTESTINAL CONSULT Routine
Consulting Provider: Mattie Echevarria
Was physician already notified: Yes
Activity As Directed
Activity Level: As Tolerated
Bedside Glucose Monitoring As Directed
Frequency: AC&HS
Additional Instructions:: Change to q6h if pt on TPN, tube feeding or not eating
Vital Signs As Directed
Frequency: Per unit guidelines
DX Deep Vein Thrombosis Video Routine
01/21/24 16:00
Buspirone [Buspar] 15 mg PO TID
Lactulose [Duphalac/Chronulac] 30 grams PO Q2
01/21/24 16:02
COVID-19 Antigen Stat
Source: Nasal Swab
Potassium Routine
Troponin I Q6H
01/21/24 16:30
Insulin Aspart Corrective Low [Novolog Flexpen-Low Resistance] See Protocol SC AC
Metoclopramide [Reglan] 10 mg PO ACHS
Sucralfate [Carafate] 1 gram PO ACHS
01/21/24 18:00
Atorvastatin [Lipitor] 20 mg PO QPM
01/21/24 20:00
Heparin 5,000 units SC Q12
Rifaximin [Xifaxan] 550 mg PO BID
01/21/24 21:59
Troponin I Q6H
01/21/24 22:00
Famotidine [Pepcid] 40 mg PO HS
Memantine HCl [Namenda] 5 mg PO HS
Quetiapine Fumarate [Seroquel] 12.5 mg PO HS
01/22/24 00:39
Troponin I Q6H
01/22/24 05:53
Ammonia IN AM
Complete Blood Count/No Diff IN AM
Comprehensive Metabolic Panel IN AM
Glycohemoglobin (HgbA1c) IN AM
01/22/24 06:00
Levothyroxine [Synthroid] 12.5 mcg PO DAILY @ 0600
01/22/24 08:00
Furosemide [Lasix] 20 mg PO DAILY
Pantoprazole [Protonix] 40 mg PO DAILY
Prednisone [Deltasone] 5 mg PO DAILY
Spironolactone [Aldactone] 50 mg PO DAILY
01/22/24 12:00
Ciprofloxacin HCl [Cipro] 500 mg PO DAILY@1200
01/23/24 06:00
Ammonia IN AM
Complete Blood Count/No Diff IN AM
Comprehensive Metabolic Panel IN AM
01/23/24 11:00
DC Protocol for Telemetry ONCE
01/24/24 06:00
Ammonia IN AM
Complete Blood Count/No Diff IN AM
Comprehensive Metabolic Panel IN AM
01/25/24 06:00
Complete Blood Count/No Diff IN AM
Comprehensive Metabolic Panel IN AM
01/26/24 06:00
Complete Blood Count/No Diff IN AM
Comprehensive Metabolic Panel IN AM
Abnormal Lab Results
01/21/24 01/21/24
12:00
WBC 3.3 L 10^3/uL
(4.8-10.8)
RBC 2.72 L 10^6/uL
(4.20-5.40)
Hgb 8.5 L g/dL
(12.0-16.0)
Hct 24.1 L %
(37.0-47.0)
MCH 31.3 H pg
(27.0-31.0)
RDW 19.2 H %
(11.5-14.5)
Plt Count 59 L 10^3/uL
(130-400)
MPV 12.2 H fL
(7.4-10.4)
Absolute Lymphs (auto) 0.4 L 10^3/uL
(1.2-3.4)
Immature Gran % 0.6 H %
(0-0.5)
Lymphocytes % 11.0 L %
(20.5-51.1)
Monocytes % 10.4 H %
(1.7-9.3)
PT 19.2 H Sec
(11.4-14.6)
Sodium 132 L mmol/L
(135-145)
Potassium 5.8 H mmol/L
(3.5-5.1)
Chloride 111 H mmol/L
(98-107)
Carbon Dioxide 20 L mmol/L
(22-30)
BUN 36 H mg/dl
(7-17)
Creatinine 2.0 H mg/dL
(0.6-1.0)
Glucose 171 H mg/dl
(70-99)
Total Bilirubin 1.5 H mg/dl
(0.2-1.3)
AST 65 H U/L
(14-36)
ALT 42 H U/L
(0-35)
Alkaline Phosphatase 148 H U/L
(38-126)
Ammonia 343 H umol/L
(9-30)
Total Protein 6.1 L g/dl
(6.3-8.2)
Albumin 2.8 L g/dl
(3.5-5.0)
01/21/24 09:24
01/21/24 14:00
Vital Signs
Initial and Last Documented VS:
Initial Vital Signs
Temp Pulse BP Pulse Ox
97.9 F 88 140/69 99
01/21/24 09:01 01/21/24 09:01 01/21/24 09:01 01/21/24 09:01
Last Documented Vital Signs
Temp Pulse Resp BP Pulse Ox
98.6 F 51 18 128/56 98
01/22/24 07:00 01/22/24 07:00 01/22/24 07:00 01/22/24 07:00 01/22/24 07:00
<Jennifer Aguilar, EVENT SALES REPRESENTATIVE - Last Filed: 01/22/24 08:09>
MDM/Problems Addressed
Differential Diagnosis Includes:
hepatic encephalopathy, hyperammonemia, GI bleed, hypoglycemia, renal failure, infection/peritonitis
MDM/Problems Addressed:
68 yo female w h/o NIDDM, HTN, HLD, CKD, ZAVALETA on liver transplant list presents with change in mental state (more confused) from IR where she had ascites 3400 fluid drained.
She admits to feeling confused, agrees and states she gets like this when her ammonia level is high. Pt denies CP, SOB, headache, visual disturbance. Has chronic abd pain, nothing new.
10:15 AM
CBC with no clinically significant abnormality, at her baseline anemia
CMP: Mild hyperkalemia with potassium 5.8
Ammonia level elevated at 343
11:[address] Harrison and to evaluate patient.
Patient's daily lactulose and rifaximin order
Hospitalist notified of admission.
Chronic conditions affecting care: DM, Arrhythmia, Neurological disorder and Other (ZAVALETA, liver failure, on liver transplant list)
<Jennifer Aguilar EVENT SALES REPRESENTATIVE - Last Filed: 01/22/24 08:09>
*Critical Care Note
Total Time (30-74mins, 75-104mins- exclusive of procedures): Not Applicable
<Jennifer Aguilar EVENT SALES REPRESENTATIVE - Last Filed: 01/22/24 08:09>
Patient Management
Social determinants of health affecting care: Strong social support
ED Attending Note
<Jennifer Aguilar EVENT SALES REPRESENTATIVE - Last Filed: 01/22/24 08:09>
-
Portions of this chart may have been created with voice recognition software.� Occasional wrong word or��sound alike� substitutions may have occurred due to the inherent limitations of voice recognition software.
<Lavonne Harrison MD - Last Filed: 01/21/24 11:01>
ED Attending Note
Patient seen and examined by attending physician: Yes
ED Attending Note:
68-year-old female who recently was at [facility] due to hepatic encephalopathy had her lactulose dose increased which she has been doing at home. She is also taking rifaximin as directed. Patient has been overall very tired and
increasing in her sleep as per who is bedside. She had a paracentesis today and when she rang her to be picked up he noted that she seemed particularly 'weak and confused' which prompted her visit here. Patient noted to have an
ammonia level that is markedly elevated. Labs otherwise at baseline. Patient on exam is extremely drowsy, maintaining airway appropriately, no new focal neurological findings noted. Will discuss with GI regarding enhance management here.
Discharge Plan
Departure
Patient Disposition: Admit
Date of Disposition: 01/21/24
Time of Disposition: 11:30
Admit to: Telemetry
Presentation/result/management discussed w/ accepting MD/DO: Hospitalist
Condition: Serious
Discharge Problem:
Acute hepatic encephalopathy
Interventions
Interventions:
*Risk Screen - Suicide Last Done: 01/21/24 09:21
*General Assessment Last Done: 01/21/24 09:21
*Neglect/Abuse Screening Last Done: 01/21/24 09:21
ED- Fall Risk Assessment Last Done: 01/21/24 17:38
*ED COVID-19 Vaccine History Last Done: 01/21/24 09:04
*Nursing Disposition Last Done: 01/21/24 17:38
ED- Neurological Assessment Last Done: 01/21/24 09:21
ED Swallowing Screen Last Done: 01/21/24 09:23
Discharge Date and Time
Discharge Date/Time: 01/21/24 17:30
--- NOTE | 2024-01-21 12:14 | HPS.HSE ---
Family Physician
-
Family Physician: Malu Wilson
Chief Complaint
-
confusion
History of Present Illness
68 yo female w h/o NIDDM, HTN, HLD, CKD, ZAVALETA on liver transplant list presents with change in mental state from IR where she had ascites 3400 fluid drained. Patient is very confused not able to provide any history. History obtained from .
Over the weekend she was sleeping more than usual. Patient gets drained twice a week. Her drove her to the IR to get drained. States she slept on her way to the IR. Lavonne was noted confused after getting drained. As per , she
gets confused when her ammonia level is high. patient gets paracentesis twice a week. Pt denies CP, SOB, headache, dizzy or syncopal episode. Patient denied dysuria hematuria.
Upon arrival her ammonia level was high. Received a dose of lactulose and rifaximin. Admitting for further management.
Medical History
Past Medical History
Past Medical History: Reports Other
Additional Past Medical History:
Nonalcoholic steatohepatitis
Ascites of liver
Paroxysmal A-fib
Gastroparesis
Hypothyroidism
Hyperlipidemia
Type 2 diabetes
Stage III chronic disease
Hypertension
Fibromyalgia
History of SBP
Past Surgical History: Reports Other
Additional Past Surgical History:
ORIF
Hysterectomy
Appendectomy
Cholecystectomy
Right arm surgery
Bowel resection
Right wrist fracture with plate insertion
Gastric bypass
Bilateral cataract surgery
Social History
Tobacco: Former Smoker
Alcohol: None
Drug: None
Personal:
Living: With Family
Family History
Family History: Not pertinent
Allergies / Home Medications
Allergies reflects when Allergies were last updated in [facility].
Home Medications with original date entered in [facility]
Allergy/Medication List:
Allergies
Allergy/AdvReac Type Severity Reaction Status Date / Time
adhesive Allergy Rash Verified 01/21/24 09:06
ampicillin Allergy Anaphylaxis Verified 01/21/24 09:06
bee pollen Allergy Swelling Verified 01/21/24 09:06
Cephalosporins Allergy Swelling Verified 01/21/24 09:06
diphenhydramine Allergy HYPERACTIVI Verified 01/21/24 09:06
[From Benadryl] TY
honey Allergy Swelling Verified 01/21/24 09:06
Iodinated Contrast Media Allergy FLUSHING Verified 01/21/24 09:06
latex Allergy HIVES AND Verified 01/21/24 09:06
SWELLS UP
penicillin G Allergy Anaphylaxis Verified 01/21/24 09:06
Penicillins Allergy Anaphylaxis Verified 01/21/24 09:06
prochlorperazine Allergy Unknown Verified 01/21/24 09:06
[From Compazine]
promethazine HCl Allergy THROAT Verified 01/21/24 09:06
[From Phenergan] SWELLING/PANIC
ATTACKS
Sulfa (Sulfonamide Allergy Swelling Verified 01/21/24 09:06
Antibiotics)
sulfisoxazole Allergy Swelling Verified 01/21/24 09:06
trimethobenzamide Allergy Unknown Verified 01/21/24 09:06
venom-honey bee Allergy BEE Verified 01/21/24 09:06
STING/SWELLING
Home Medications
atorvastatin 20 mg tablet 20 mg PO QPM High cholesterol 06/14/22
levothyroxine 25 mcg tablet 12.5 mcg PO DAILY Thyroid 06/14/22
pantoprazole 40 mg tablet,delayed release (Protonix) 40 mg PO DAILY Gastrointestinal issue 12/09/22
prednisone 5 mg tablet 5 mg PO DAILY Anti-Inflammatory 06/05/23
ondansetron HCl 8 mg tablet 8 mg PO TIDPRN PRN nausea 06/25/23
quetiapine 25 mg tablet (Seroquel) 25 mg PO HS mental health/sleep 07/15/23
buspirone 15 mg tablet 15 mg PO TID Mental Health 08/28/23
metoclopramide HCl 10 mg tablet 10 mg PO ACHS Gastrointestinal Issue 10/01/23
rifaximin 550 mg tablet 550 mg PO BID Gastrointestinal Issue 10/01/23
sucralfate 1 gram tablet 1 g PO ACHS Gastrointestinal Issue 10/23/23
furosemide 20 mg tablet 20 mg PO DAILY Fluid Retention/Swelling 11/19/23
spironolactone 50 mg tablet 50 mg PO DAILY Fluid Retention/Swelling 11/19/23
famotidine 40 mg tablet (Pepcid) 40 mg PO HS Gastrointestinal Issue 11/20/23
memantine 5 mg tablet 5 mg PO HS 12/26/23
ciprofloxacin HCl 500 mg tablet (Cipro) 500 mg PO DAILY@1200 01/21/24
lactulose 10 gram/15 mL oral solution 30 g PO TID Gastrointestinal Issue 01/21/24
oxycodone 10 mg tablet 10 mg PO TIDPRN PRN severe pain 01/21/24
Review of Systems
-
Constitutional: Reports No Symptoms
EENT: Reports No Symptoms
Respiratory: Reports No Symptoms
Cardiac: Reports No Symptoms
Abdomen/GI: Reports Abdominal Pain
: Reports No Symptoms
Musculoskeletal: Reports No Symptoms
Skin: Reports No Symptoms
Neurological: Reports No Symptoms
Endocrine: Reports No Symptoms
Hematologic/Lymphatic: Reports No Symptoms
Psych: Reports No Symptoms
Physical Exam
Vital Signs
Vital Signs
Temp Pulse Resp BP Pulse Ox
97.9 F 77 16 158/62 99
01/21/24 09:01 01/21/24 10:00 01/21/24 10:00 01/21/24 10:00 01/21/24 10:00
Physical Exam
General: Well Developed, Well Nourished and No Apparent Distress
HEENT: NormoCephalic, Moist mucous membranes and Atraumatic
Respiratory: Clear
Cardiac: S1/S2 and Regular Rhythm; No Murmur or Rub
GI: Soft, Non Tender, Normal Bowel Sounds and Distended; No Organomegaly
Rectal: Deferred by Provider
Musculoskeletal: No Clubbing, No Cyanosis and No Edema
Skin: No Rash
Neuro: AO x 3 and Nonfocal/grossly intact
Psych: Calm
Laboratory Results
-
01/21/24 09:24
01/21/24 09:24
Laboratory Results
Total Bilirubin 1.5 mg/dl (0.2-1.3) H 01/21/24 09:24
AST 65 U/L (14-36) H 01/21/24 09:24
ALT 42 U/L (0-35) H 01/21/24 09:24
Alkaline Phosphatase 148 U/L (38-126) H 01/21/24 09:24
Data Reviewed
-
Lab Data: Labs Reviewed by me
Impression/Plan
-
#hepatic encephalopathy/history of hepatic failure
# ZAVALETA cirrhosis
# History of SBP
-Ammonia 353
-Patient is on liver transplant
-IR drained 3400ml today, gets para twice a week.
-Patient received a dose of rifaximin and lactulose
-Lactulose and rifaximin continued
-Obtain CT of head
-Obtain blood cultures
-obtain chest x ray , covid
-Cipro continued prophylactically
-Lasix and spironolactone continued
-received a dose of Lasix in ER
-lactulose 30gram qid
-GI consulted
Chronic Pancytopenia
- Secondary to cirrhosis
-WBC 3.3, hemoglobin 8.5, platelets 59
-cont to monitor
CKD III/hyponatremia likely from diuretics/hyperkalemia
-Sodium 132, potassium 5.8, creatinine 2.0
�- Stable.� Renal function baseline
--received 1500ml in ER
�- monitor
#Hx DM-II since resolved Prediabetes
-Blood sugar 100s
-Sliding scale
-Carb controlled diet
# Hyperlipidemia
-Statin
#Hypothyroidism
�- cont home Synthroid
�-TSH wnl
#GERD
#Chronic Gastroparesis
�- Continue home PPI Reglan Sucralfate
#Anxiety / Depression
�- Continue home buspirone
-Seroquel 12.5at hs, hold for sedation
#Chronic Pain Syndrome / Opioid Dependence
�-hold oxy due to sedation
#DVT Prophylaxis:� SCDs
#Code Status:� Full Code
[2024-01-21 12:23] LABS: Lactic Acid 1.3 mmol/L (0.7-2.0)
[2024-01-21 12:26] LABS: INR 1.64; PT 19.2 Sec (11.4-14.6)
[2024-01-21 12:27] LABS: APTT 32.2 Sec (23.4-35.0)
[2024-01-21 12:29] LABS: Urine Albumin Negative (Neg - Trace); Urine Bilirubin Negative (Negative); Urine Character Clear (Clear); Urine Color Straw; Urine Glucose Negative (Negative); Urine Ketone Negative (Negative); Urine Leukocyte Negative (Negative); Urine Nitrite Negative (Negative); Urine Occult Blood Negative (Negative); Urine Urobilinogen Negative (Neg - 1+)
--- NOTE | 2024-01-21 12:52 | W.PN.UPDATE ---
Addendum entered and electronically signed by Beckie Leahy MD 01/21/24 13:07:
increase lactulose to q 2 hours while treating encephalopathy
-GI consult
Original Note:
Update Note
Progress Note Update
This is an addendum to H&P written by FIELD AGRONOMIST Apolonia Quijano
I saw and examined the patient.
The FIELD AGRONOMIST's note was reviewed and I agree with the note.
Comment:
Ms. Lavonne Sanchez is a 68 yo woman with hx paroxysmal afib (not on AC 2/2 bleeding risk), ZAVALETA with decompensated cirrhosis on transplant list ,ascites receiving paracentesis 2x/week, hepatic encephalopathy on Rifaximin/Lactulose, HLD,
Hypothyroidism, chronic GERD sent to ER from IR for confusion. Patient received scheduled paracentesis today with 3400mL fluid removed. Patient unable to provide history, per she has been more lethargic over weekend. She has been taking
Lactulose and going multiple times.
Triage VS: T 97.9, P 88, BP 140/69, SpO2 99%
LABS: WBC 3.3, Hg 8.5, PLT 59, Na 132, K+ 5.8, CO2 20, Cr 2.0 (baseline). T. Bili 1.5, AST 65, ALT 42, Alk Phos 148
Ammonia 343
UA: clear
On exam patient is confused, not oriented, + asterixis. She has abdominal distention and JVP. No LE swelling.
Hepatic Encephalopathy
Confusion
-no current e/o infection, cultures and covid testing pending
-obtain CXR
-continue lactulose - increase to QID
-continue PROGRESS CLERK Rifaximin
-hold sedating medications
Heart Failure preserved EF, acute exacerbation
-TTE 11/21/23 - EF 60%; mild MR and mild TR
-patient overloaded on exam, elevated JVP
-give lasix 20mg IV x 1 now and observe response
Hyperkalemia
-lasix as above - repeat at 4PM
Remainder of plan per H&P
[2024-01-21] MEDS: LASIX 20 MG IV (14:33)
[2024-01-21] MEDS: XIFAXAN 550 MG PO (14:34)
--- NOTE | 2024-01-21 15:09 | CON.GI ---
Addendum entered and electronically signed by DIALLO Ibanez 01/21/24 17:15:
Left message for patient Liver network coordinator at [facility] Kaamla Jackson [phone]. Discussed with patient as well who also called. Left my cell number and will also call again tomorrow.
Addendum entered and electronically signed by Aj Steve MD 01/21/24 16:57:
Patient seen and examined, agree with nurse practitioner. 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
transplant at [facility]. She has persistent ascites and pleural effusion requiring regular paracentesis and albumin. She has a history of encephalopathy in the past as well, now presents with confusion after paracentesis. She was found to have an
ammonia level greater than 300. Currently she is perseverating, does not answer questions. On exam she has mild ascites without any obvious focal pain or tenderness, no edema, no reports of melena. She has been taking prophylactic Cipro more
recently given history of SBP in the past. Paracentesis today was negative for SBP, though she did not get albumin yet given her change in mental status and transferred to the ER. There is a question of heart failure given JVD on exam though her
chest x-ray is negative, lungs are clear. It is unclear what caused her worsening encephalopathy, no signs of SBP on paracentesis, no signs of bleeding, no fever, and was reportedly taking medications as prescribed.
At this point we will administer her post-para albumin given her renal sufficiency which is slightly higher than her baseline. She is ordered for lactulose enemas, and if able to take oral then would continue lactulose p.o. and rifaximin. Will
continue to trend labs including creatinine, and if continues to increase then we will check urine sodium. Will hold Lasix Aldactone for now. Her MELD score is 23, the transplant team at [facility] will be updated.
Addendum entered and electronically signed by DIALLO Ibanez 01/21/24 16:45:
Patient did not have her albumin after paracentesis today. Will give Albumin(25%) 25grams IV now.
Original Note:
Consultation
-
Date/Time Consultation Requested: 01/21/241416
Date/Time Consultation Performed: 01/21/24 1445
Requesting Provider: Dr. Leahy
Performing Provider: Dr. Echevarria/DIALLO Izaguirre
Reason for Consultation: hepatic encephalopathy
Medical History
Chief Complaint / HPI
Chief Complaint: confusion
History of Present Illness:
68 yo female well known to our group with a complex PMH significant for decompensated [facility] cirrhosis actively listed for transplant at [facility] with ascites and HE requiring twice weekly paracentesis and thoracentesis for recurrent pleural
effusion�(follows with Dr. Bradley), renal insufficiency, Hepatic encephalopathy on Xifaxan/lactulose, hx of SBP on chronic ciprofloxacin(prior non compliance but recently taking as directed), PVT, paroxysmal afib (off AC due to risk of bleeding),
gastroparesis, esophageal dysmotility s/p RYGB, HLD, hypothyroidism, chronic GERD on PPI/H2B returns to ER after having outpatient paracentesis this morning with change in mental status. Per records states that she has been more lethrgic.
Currently at this time patient keeps repeating the same phrase over again. She is not oriented to person, place or time. She is awake and alert. She can follow some commands but is not completely cooperative.
Past Medical History
Past Medical History: Other (Arrhythmias (afib ), Fibromyalgia, HTN, Hypercholesterolemia and Other (ZAVALETA cirrhosis with ascites/HE on OLT list at [facility], CKD3, PVT not on AC, chronic anemia, esophageal dysmotility on chronic reglan, hx SBP on
prophylaxis with ciprofloxacin,pleural effusion with prior thoracentesis))
Past Surgical History: Other (Appendectomy, Bowel Resection (Meckel's diverticulum, LUMA with SB resection), Cholecystectomy, , Gynecological (SIMONA) and Other (Kevin-en-Y gastric bypass))
Social History
Tobacco: Former Smoker
Alcohol: None
Drug: None
Personal:
Living: With Family
Employment: Retired
Family History
Family History: Other ((no family hx colon ca, liver issues or liver CA, granddaugher with lupus ,mother wtih breast Ca, grandmother with ulcerative colitis)
Allergies / Home Medications
Allergy/AdvReac Type Severity Reaction Status Date / Time
adhesive Allergy Rash Verified 01/21/24 09:06
ampicillin Allergy Anaphylaxis Verified 01/21/24 09:06
bee pollen Allergy Swelling Verified 01/21/24 09:06
Cephalosporins Allergy Swelling Verified 01/21/24 09:06
diphenhydramine Allergy HYPERACTIVI Verified 01/21/24 09:06
[From Benadryl] TY
honey Allergy Swelling Verified 01/21/24 09:06
Iodinated Contrast Media Allergy FLUSHING Verified 01/21/24 09:06
latex Allergy HIVES AND Verified 01/21/24 09:06
SWELLS UP
penicillin G Allergy Anaphylaxis Verified 01/21/24 09:06
Penicillins Allergy Anaphylaxis Verified 01/21/24 09:06
prochlorperazine Allergy Unknown Verified 01/21/24 09:06
[From Compazine]
promethazine HCl Allergy THROAT Verified 01/21/24 09:06
[From Phenergan] SWELLING/PANIC
ATTACKS
Sulfa (Sulfonamide Allergy Swelling Verified 01/21/24 09:06
Antibiotics)
sulfisoxazole Allergy Swelling Verified 01/21/24 09:06
trimethobenzamide Allergy Unknown Verified 01/21/24 09:06
venom-honey bee Allergy BEE Verified 01/21/24 09:06
STING/SWELLING
�Medication �Instructions �Recorded
atorvastatin 20 mg tablet 20 mg PO QPM High cholesterol 06/14/22
levothyroxine 25 mcg tablet 12.5 mcg PO DAILY Thyroid 06/14/22
pantoprazole 40 mg tablet,delayed 40 mg PO DAILY Gastrointestinal 12/09/22
release (Protonix) issue
prednisone 5 mg tablet 5 mg PO DAILY Anti-Inflammatory 06/05/23
ondansetron HCl 8 mg tablet 8 mg PO TIDPRN PRN nausea 06/25/23
quetiapine 25 mg tablet (Seroquel) 25 mg PO HS mental health/sleep 07/15/23
buspirone 15 mg tablet 15 mg PO TID Mental Health 08/28/23
metoclopramide HCl 10 mg tablet 10 mg PO ACHS Gastrointestinal 10/01/23
Issue
rifaximin 550 mg tablet 550 mg PO BID Gastrointestinal 10/01/23
Issue
sucralfate 1 gram tablet 1 g PO ACHS Gastrointestinal Issue 10/23/23
furosemide 20 mg tablet 20 mg PO DAILY Fluid 11/19/23
Retention/Swelling
spironolactone 50 mg tablet 50 mg PO DAILY Fluid 11/19/23
Retention/Swelling
famotidine 40 mg tablet (Pepcid) 40 mg PO HS Gastrointestinal Issue 11/20/23
memantine 5 mg tablet 5 mg PO HS 12/26/23
ciprofloxacin HCl 500 mg tablet 500 mg PO DAILY@1200 01/21/24
(Cipro)
lactulose 10 gram/15 mL oral 30 g PO TID Gastrointestinal Issue 01/21/24
solution
oxycodone 10 mg tablet 10 mg PO TIDPRN PRN severe pain 01/21/24
Review of Systems
-
Unable to obtain full review of systems at this time due to: Other (Patient encephalopathic)
Vital Signs
Temp Pulse Resp BP Pulse Ox
97.9 F 94 15 147/60 98
01/21/24 09:01 01/21/24 12:45 01/21/24 12:45 01/21/24 12:03 01/21/24 12:45
Physical Exam
Exam
General: Well Nourished
HEENT: Anicteric
Respiratory: Clear (Anterior)
Cardiac: Regular Rhythm
GI: Soft, Non Tender, Normal Bowel Sounds and Distended (Slightly distended)
Musculoskeletal: No Edema
Skin: Warm and Dry
Neuro: Awake, Alert and Other (Patient confused, jerking movements)
Psych: Confused
Results
WBC 3.3 10^3/uL (4.8-10.8) L 01/21/24:24
Hgb 8.5 g/dL (12.0-16.0) L 01/21/24:
Hct 24.1 % (37.0-47.0) L 01/21/24:
MCV 88.6 fL (81.0-99.0) 01/21/24:
Plt Count 59 10^3/uL (130-400) L 01/21/24:
Absolute Neuts (auto) 2.4 10^3/uL (1.4-6.5) 01/21/24:
PT 19.2 Sec (11.4-14.6) H 01/21/24 12:00
INR 1.64 01/21/24 12:00
APTT 32.2 Sec (23.4-35.0) 01/21/24 12:00
Sodium 132 mmol/L (135-145) L 01/21/24:24
Potassium Cancelled 01/21/24 14:00
Chloride 111 mmol/L (98-107) H 01/21/24:
Carbon Dioxide 20 mmol/L (22-30) L 01/21/24:24
BUN 36 mg/dl (7-17) H 01/21/24:24
Creatinine 2.0 mg/dL (0.6-1.0) H 01/21/24:
Calcium 8.7 mg/dl (8.4-10.2) 01/21/24:
Total Bilirubin 1.5 mg/dl (0.2-1.3) H 01/21/24:
AST 65 U/L (14-36) H 05/06/24 09:24
ALT 42 U/L (0-35) H 01/21/24 09:24
Alkaline Phosphatase 148 U/L (38-126) H 01/21/24 09:24
Diagnostic Image Results:
Paracentesis 01/21/24: IMPRESSION: Successful ultrasound-guided paracentesis, yielding 3400 milliliters of ascitic fluid. Fluid was sent for laboratory analysis.
Head CT 01/21/24: No acute intracranial abnormality noted.
CXR 01/21/24: No acute disease of the chest.
Prior GI Procedures:�
EGD:� 11/16/22 Dr. Bunny Foss: No gross lesions in the entire esophagus. Gastric bypass with a small-sized pouch and intact staple line. Gastrojejunal anastomosis characterized by healthy appearing mucosa. Normal examined jejunum. Biopsies were
taken with a cold forceps for evaluation of eosinophilic esophagitis. bx showing mild chronic inflammation, otherwise negative.
Colonoscopy:� 03/2018 - [facility]: Hemorrhoids found on perianal exam. Non-bleeding external and internal hemorrhoids. Erythematous mucosa in the rectum. Biopsied. Diverticulosis in the left colon. Four small polyps in the sigmoid colon, in the descending
colon and in the ascending colon, removed with a jumbo cold forceps. Resected and retrieved. Biopsies were taken with a cold forceps for histology in the sigmoid colon, in the descending colon and in the transverse colon. Path showing AC TA polyp,
DC hyperplastic polyp, SC hyperplastic polyp, random bx colon negative. Rectal bx showing colorectal mucosa with nodular submucosal lymphoid aggregate and mild crypt architectural distortion, negative for active colitis.
Assessment / Plan
-
68 yo female well known to our group with a complex PMH significant for decompensated MASH cirrhosis actively listed for transplant at [facility] with ascites and HE requiring twice weekly paracentesis and thoracentesis for recurrent pleural
effusion�(follows with Dr. Bradley), renal insufficiency, Hepatic encephalopathy on Xifaxan/lactulose, hx of SBP on chronic ciprofloxacin(prior non compliance but recently taking as directed), PVT, paroxysmal afib (off AC due to risk of bleeding),
gastroparesis, esophageal dysmotility s/p RYGB, HLD, hypothyroidism, chronic GERD on PPI/H2B returns to ER after having outpatient paracentesis this morning with change in mental status. Per records states that she has been more lethrgic.
Currently at this time patient keeps repeating the same phrase over again. She is not oriented to person, place or time. She is awake and alert. She can follow some commands but is not completely cooperative. WBC 3.3, hemoglobin 8.5, hematocrit
24.1, platelets 59, PTT 32.2, sodium 132, potassium 5.8, chloride 111, CO2 20, BUN 36, creatinine 2.0, glucose 171, lactic acid 1.3, total bilirubin 1.5, AST 65, ALT 42, alk phos 148, ammonia 343, albumin 2.8, MELD 23
Impression:
-Hepatic Encephalopathy
-decompensated MASH cirrhosis with HE/ascites on OLT list at [facility]-MELD 23
-chronic renal insufficiency
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
-intractable ascites with biweekly paracentesis, last one today with 3400 out, fluid sent off.
-hx SBP February 2023, on chronic ciprofloxacin outpatient
-chronic abdominal pain on Oxycodone
-chronic pancytopenia 2/2 cirrhosis
-coagulopathy with chronic liver disease
-gastroparesis
-RYGB for esophageal dysmotility
Plan:
-Start lactulose enema
-Try lactulose orally every 2 hours until encephalopathy improves. If patient not able to take an oral will need restraints and NG tube with administration
-Await fluid studies from paracentesis this morning, check for SBP. Patient is currently on Cipro for prophylaxis.
-Await cultures, rule out infection
-Patient was given IV Lasix for JVD on presentation
-Trend labs, CBC, BMP, LFTs, PT/INR, ammonia
-Will reach out to patient's network coordinator to update.
-If with further decompensation consider [facility]
-If can still take oral medications give Xifaxan 550 p.o. twice daily
-Further recommendations to be forthcoming
Data Reviewed
-
Radiology: Report Reviewed by me
Old Records: Reviewed
-
-
Thank you for consultation and allowing me to participate in the patient's care. Please call the activities concierge GI physician during the after hours with any questions or concerns.
[2024-01-21 16:34] LABS: COVID-19 Antigen Negative (Negative)
[2024-01-21 16:36] LABS: Potassium 5.4 mmol/L (3.5-5.1)
[2024-01-21 16:48] LABS: Troponin I 0.018 ng/ml
[2024-01-21] MEDS: LACTULOSE ENEMA 300 ML RECTAL ×2 (17:03→22:12)
[2024-01-21] MEDS: DUPHALAC/CHRONULAC PO ×5 (17:06→23:33)
[2024-01-21] MEDS: BUSPAR PO ×2 (17:06→22:40)
[2024-01-21] MEDS: FLEXBUMIN 100 IV (18:11)
[2024-01-21 18:28] LABS: Glucose - Point of Care 165 mg/dl (70-99)
--- NOTE | 2024-01-21 18:30 | PTCARENOTE ---
Pt arrived on unit from ED screaming out and uncooperative. Unable to take anything by mouth. Dr. Leahy notified via TT. Pt to be moved to private room. Will continue to monitor.
[2024-01-21] MEDS: REGLAN PO ×2 (19:09→22:41)
[2024-01-21] MEDS: CARAFATE PO ×2 (19:09→22:40)
[2024-01-21] MEDS: NOVOLOG FLEXPEN-LOW RESISTANCE SC (19:09)
[2024-01-21] MEDS: LIPITOR PO (19:10)
[2024-01-21 21:59] LABS: Glucose - Point of Care 132 mg/dl (70-99)
[2024-01-21] MEDS: HEPARIN 5000 UNITS SC (22:38)
[2024-01-21] MEDS: XIFAXAN PO (22:40)
[2024-01-21] MEDS: SEROQUEL PO (22:41)
[2024-01-21] MEDS: NAMENDA PO (22:41)
--- NOTE | 2024-01-21 23:00 | PTCARENOTE ---
Troponin increased from 0.018 to 0.030. No complaints of pain. VEGETABLE LOADER MACHINE OPERATOR made aware, no new orders provided, see MAR. Will continue to monitor.
[2024-01-22] MEDS: LACTULOSE ENEMA 300 ML RECTAL ×2 (01:04→04:39)
[2024-01-22] MEDS: DUPHALAC/CHRONULAC PO ×2 (01:04→03:40)
[2024-01-22 01:27] LABS: Troponin I 0.036 ng/ml
--- NOTE | 2024-01-22 01:31 | PTCARENOTE ---
Lab informed this RN of critical troponin result, result=0.036. No complaints of pain. Pt resting comfortably in bed. MANAGER INPATIENT made aware, no new orders provided. Will continue to monitor.
[2024-01-22 02:54] VITALS: BP 144/110
[2024-01-22 03:51] VITALS: BMI 29.5
[2024-01-22 05:43] LABS: Glucose - Point of Care 111 mg/dl (70-99)
[2024-01-22] MEDS: SYNTHROID 12.5 MCG PO (05:47)
[2024-01-22] MEDS: DUPHALAC/CHRONULAC 30 GRAMS PO ×4 (05:49→22:19)
[2024-01-22] MEDS: CARAFATE 1 GRAM PO ×3 (05:50→21:26)
[2024-01-22 06:10] LABS: Hematocrit 25.2 % (37.0-47.0); Hemoglobin 8.7 g/dL (12.0-16.0); Mean Corp Hgb Conc. 34.5 g/dL (33.0-37.0); Mean Corpuscular Hgb 30.9 pg (27.0-31.0); Mean Corpuscular Volume 89.4 fL (81.0-99.0); Platelet Count 67 10^3/uL (130-400); Red Blood Cell Count 2.82 10^6/uL (4.20-5.40); White Blood Cell Count 4.2 10^3/uL (4.8-10.8)
[2024-01-22 06:15] LABS: PT 19.8 Sec (11.4-14.6)
[2024-01-22 06:21] LABS: Ammonia 36 umol/L (9-30)
[2024-01-22 06:44] LABS: ALT (SGPT) 37 U/L (0-35); AST (SGOT) 60 U/L (14-36); Albumin 2.7 g/dl (3.5-5.0); Alkaline Phosphatase 114 U/L (38-126); Blood Urea Nitrogen 37 mg/dl (7-17); Calcium 8.9 mg/dl (8.4-10.2); Carbon Dioxide 19 mmol/L (22-30); Chloride 115 mmol/L (98-107); Direct Bilirubin 0.6 mg/dl (0.0-0.4); Estimated Creatinine Clearance 27 ml/min; Glucose 94 mg/dl (70-99); Potassium 4.1 mmol/L (3.5-5.1); Sodium 137 mmol/L (135-145); Total Bilirubin 2.7 mg/dl (0.2-1.3); Total Protein 5.8 g/dl (6.3-8.2); eGFR 26.88
[2024-01-22 07:00] VITALS: BP 128/56
[2024-01-22 07:53] LABS: Glucose - Point of Care 110 mg/dl (70-99)
[2024-01-22 08:44] LABS: Glycohemoglobin (HgbA1c) 6.3 % (4.0-5.6)
[2024-01-22] MEDS: NOVOLOG FLEXPEN-LOW RESISTANCE SC ×3 (09:07→17:29)
[2024-01-22] MEDS: DELTASONE 5 MG PO (09:08)
[2024-01-22] MEDS: PROTONIX 40 MG PO (09:09)
[2024-01-22] MEDS: HEPARIN 5000 UNITS SC ×2 (09:10→21:26)
[2024-01-22] MEDS: BUSPAR 15 MG PO ×3 (09:11→21:26)
[2024-01-22] MEDS: XIFAXAN 550 MG PO ×2 (09:12→21:07)
[2024-01-22] MEDS: REGLAN 10 MG PO (09:18)
[2024-01-22] MEDS: LACTULOSE ENEMA RECTAL (09:37)
--- NOTE | 2024-01-22 09:52 | W.PN.GI.CBS2 ---
Addendum entered and electronically signed by Diane Murillo DO 01/22/24 11:27:
I saw and examined the patient.
The APICULTURIST or PA's note was reviewed and I agree with the note.
Comment: Lavonne is a 68 y.o. female w/ pmhx decompensated MASH cirrhosis c/b recurrent ascites and pleural effusions (receives twice weekly para/thoras), hx of SBP (on daily cipro for secondary prophylaxis), thrombocytopenia and hepatic
encephalopathy admitted with acute encephalopathy. She had multiple loose bowel movements overnight after lactulose enemas were administered. Encephalopathy is mildly improved, she was oriented to person only on exam today. rn mds coordinator
at [facility] was called, message left notifying them of patient's admission and clinical status. Dr. Bradley also alerted and will update him once he is available.
I suspect polypharmacy is playing a role in current decompensation. Her renal function remains unchcanged, and upon review of her labs over the last few months, this could be her new baseline vs. type 2 HRS. MELD 3.0 = 25.
-Continue to hold lasix/aldactone.
-Agree with PO lactulose TID, titrating to at least 3 loose BMs daily, Xifaxin BID.
-Avoid narcotics, sedating medications and anticholinergics.
-Abdominal US w/ dopplers pending giving rise in LFTs
-Additional recommendations pending discussion with [facility]/Dr. Bradley.
Original Note:
Today's Communication / Plan
-
US Abd dopplers
Trend labs
Assessment / Plan
-
68 yo female well known to our group with a complex PMH significant for decompensated MASH cirrhosis actively listed for transplant at [facility] with ascites and HE requiring twice weekly paracentesis and thoracentesis for recurrent pleural
effusion�(follows with Dr. Bradley), renal insufficiency, Hepatic encephalopathy on Xifaxan/lactulose, hx of SBP on chronic ciprofloxacin(prior non compliance but recently taking as directed), PVT, paroxysmal afib (off AC due to risk of bleeding),
gastroparesis, esophageal dysmotility s/p RYGB, HLD, hypothyroidism, chronic GERD on PPI/H2B returns to ER after having outpatient paracentesis this morning with change in mental status. Per records states that she has been more lethrgic.
Currently at this time patient keeps repeating the same phrase over again. She is not oriented to person, place or time. She is awake and alert. She can follow some commands but is not completely cooperative. WBC 3.3, hemoglobin 8.5, hematocrit
24.1, platelets 59, PTT 32.2, sodium 132, potassium 5.8, chloride 111, CO2 20, BUN 36, creatinine 2.0, glucose 171, lactic acid 1.3, total bilirubin 1.5, AST 65, ALT 42, alk phos 148, ammonia 343, albumin 2.8, MELD 23. 01/22/24: WBC (4.2-> normal for
her), no signs of bleeding, Hgb stable 8.7, PLT stable 67, INR slightly increased 1.7 (1.64), Creat 2.0 (stable), T Bili increasing 2.7 (1.5), direct 0.6, AST 60 (65), ALT 37 (42), Alk Phos 114 (148), Ammonia 32 (343), Trop 0.36 (0.30, 0.18), Alb
2.7, UA (WNL), Paracentesis fluid WBC 123, PMN 38.2. Negative covid. Weight is 75 kg down from 81 kg yesterday.
Impression:
-Hepatic Encephalopathy
-decompensated MASH cirrhosis with HE/ascites on OLT list at [facility]-MELD 25 (23 on 01/21/24)
-chronic renal insufficiency-> Creat 2.0 now
-hx R hydrothorax with hx multiple prior thoracentesis, CXR clear yesterday
-intractable ascites with biweekly paracentesis, last one today with 3400 out, fluid sent off no SBP
-hx SBP February 2023, on chronic ciprofloxacin outpatient
-chronic abdominal pain on Oxycodone
-chronic pancytopenia 2/2 cirrhosis
-coagulopathy with chronic liver disease
-gastroparesis-> Reglan dose reduced secondary to creat clearance now
-RYGB for esophageal dysmotility
Plan:
-Able to reduce Lactulose oral to TID now
-Continue Xifaxan BID
-Check US Abdomen with dopplers with new bili rise/HE r/o PVT
-Continue Cipro for SBP prophylaxis.
-Await blood cultures, rule out infection
-Patient was given IV Lasix for JVD on presentation. Hold Lasix and Aldactone for now
-May consider Renal consultation
-Monitor daily weights, currently 75 kg (down from 81 kg on arrival)
-Trend labs, CBC, BMP, LFTs, PT/INR, ammonia
-Will reach out to patient's documentation coordinator to update, have called x 2, left my cell. Sent text to , he is n procedures and will call me back shortly.
-If with further decompensation consider transfer to [facility]
-Further recommendations to be forthcoming
Subjective
Subjective
Date of Service: January 22, 2024
Patient with improved mentation although still not back to her baseline. Ammonia is 32. She is oriented to person, slow to respond, knows she is in the hospital. States that her liver doctor is 'Dr. Bradley'. Still with asterixis. States that she has
abdominal bloating. She did get Lactulose enemas q 4 hours with good results, now taking oral lactulose as she did not take oral meds last evening and she required this. Blood cultures x 2 pending. CXR WNL, WBC (4.2-> normal for her), no signs of
bleeding, Hgb stable 8.7, PLT stable 67, INR slightly increased 1.7 (1.64), Creat 2.0 (stable), T Bili increasing 2.7 (1.5), direct 0.6, AST 60 (65), ALT 37 (42), Alk Phos 114 (148), Ammonia 32 (343), Trop 0.36 (0.30, 0.18), Alb 2.7, UA (WNL),
Paracentesis fluid WBC 123, PMN 38.2. Negative covid. Weight is 75 kg down from 81 kg yesterday. Lasix and Aldactone on hold currently. Call placed again to patient Liver rn mds coordinator Kamala Jackson (patient is listed for Liver transplant)
[phone]. She is away today at conference per her voicemail, therefore I will reach out to Dr. Bradley to update him.
Objective
Data Reviewed
Laboratory Data:
Laboratory Results
01/22/24 05:53
01/22/24 05:53
Laboratory Results
PT 19.8 Sec (11.4-14.6) H 01/22/24 05:53
INR 1.70 01/22/24 05:53
APTT 32.2 Sec (23.4-35.0) 01/21/24 12:00
Total Bilirubin 2.7 mg/dl (0.2-1.3) H D 01/22/24 05:53
AST 60 U/L (14-36) H 01/22/24 05:53
ALT 37 U/L (0-35) H 01/22/24 05:53
Alkaline Phosphatase 114 U/L (38-126) 01/22/24 05:53
Vital Signs and I&O:
Vital Signs
Temp Pulse Resp BP Pulse Ox
98.6 F 51 18 128/56 98
01/22/24 07:00 01/22/24 07:00 01/22/24 07:00 01/22/24 07:00 01/22/24 07:00
I&O
01/21/24 01/22/24 01/23/24
06:59 06:59 06:59
Intake Total 50 / 50
Balance 50 / 50
Physical Exam
Physical Exam
HEENT: Anicteric
Cardiology: Normal Sinus Rhythm
Pulmonary: Clear
GI: Soft, Distended, Non Tender and Normal Bowel Sounds
Extremities: No Edema
Neuro: Other (AAO to person, hospital. Knows the name of her Liver doctor (Dr. Bradley ) and GI (Dr. Delacruz), still not at baseline, + asterixis)
--- NOTE | 2024-01-22 10:21 | W.PN.HOSP.TC ---
Addendum entered and electronically signed by Beckie Leahy MD 01/24/24 18:42:
Chronic HFpEF
-diuretics held while monitoring renal function
Original Note:
Today's Communication/Plan
-
see plan
Assessment / Plan
Assessment / Plan
Ms. Lavonne Sanchez is a 68 yo woman with hx paroxysmal afib (not on AC 2/2 bleeding risk), ZAVALETA with decompensated cirrhosis on transplant list ,ascites receiving paracentesis 2x/week, hepatic encephalopathy on Rifaximin/Lactulose, HLD,
Hypothyroidism, chronic GERD sent to ER from IR for confusion. Patient received scheduled paracentesis today with 3400mL fluid removed. Patient unable to provide history, per she has been more lethargic over weekend. She has been taking
Lactulose and going multiple times. She was found to have elevated ammonia levels, admitted for treatment hepatic encephalopathy.
Hepatic Encephalopathy
Confusion
-no current e/o infection; ascites fluid without e/o SBP, covid negative; cultures thus far negative
-CXR without e/o PNA
-s/p lactulose enema, now can take PO - continue
-appreciate GI consult
-continue [employer] Rifaximin
-hold sedating medications
-abdominal US with doppler per GI
Heart Failure preserved EF
-TTE 11/21/23 - EF 60%; mild MR and mild TR
-concern patient overloaded on exam on admission s/p IV lasix
-discussed with GI - hold further diuretics with creatinine at 2 - top-end of her normal j
Acute on chronic kidney disease
-creatinine baseline 1.4 in November; up to 1.9-2.0 December; now at 2
-holding diuretics per GI
-s/p albumin on 01/20
-daily BMP, may need renal consult based on BMP tomorrow
-renal US as above
Hyperkalemia
-resolved
Chronic Pancytopenia
- Secondary to cirrhosis
Hx DM-II since resolved Prediabetes
-Blood sugar 100s
-Sliding scale
-Carb controlled diet
# Hyperlipidemia
-Statin
#Hypothyroidism
�- cont home Synthroid
�-TSH wnl
#GERD
#Chronic Gastroparesis
�- Continue home PPI Reglan Sucralfate
#Anxiety / Depression
�- Continue home buspirone
-Seroquel 12.5hs hold for sedation
#Chronic Pain Syndrome / Opioid Dependence
�-hold oxy due to sedation
#DVT Prophylaxis:� SCDs
#Code Status:� Full Code
Anticipated Discharge: > 48 hours
Subjective/Interval History
-
Date of Service: January 22, 2024
less confused this morning
was eating breakfast
Objective Data
-
Labs:
Laboratory Results
01/22/24
05:53
WBC 4.2 L
Hgb 8.7 L
Hct 25.2 L
Plt Count 67 L
PT 19.8 H
INR 1.70
Sodium 137
Potassium 4.1
Chloride 115 H
Carbon Dioxide 19 L
BUN 37 H
Creatinine 2.0 H
Glucose 94
Calcium 8.9
Total Bilirubin 2.7 H D
AST 60 H
ALT 37 H
Alkaline Phosphatase 114
Vital Signs:
Vital Signs
Temp Pulse Resp BP Pulse Ox
98.6 F 51 18 128/56 98
01/22/24 07:00 01/22/24 07:00 01/22/24 07:00 01/22/24 07:00 01/22/24 07:00
I&O
01/21/24 01/22/24 01/23/24
06:59 06:59 06:59
Intake Total 50 / 50
Balance 50 / 50
Review of Systems
-
History Source: Patient
All other systems: Reviewed and negative
Physical Exam
-
General: No Apparent Distress and Other (appears mildly confused )
HEENT: PERRLA
Respiratory: Clear to Auscultation; Negative Wheezes
Cardiac: S1/S2 and JVD
GI: Distended
Musculoskeletal: Other (trace b/l edema )
Skin: Warm and Dry; Negative Rash
Neuro: Awake, Alert, Oriented (x2; thought she was in [facility] ) and Other (+ tremors, asterixis )
Psych: Confused
Data Reviewed
-
Diagnostic Radiology: Report Reviewed by me
Labs: Labs Reviewed by me
[2024-01-22 10:50] VITALS: BP 101/64
[2024-01-22 11:29] LABS: Glucose - Point of Care 226 mg/dl (70-99)
[2024-01-22] MEDS: REGLAN PO (14:22)
[2024-01-22] MEDS: CIPRO 500 MG PO (14:22)
[2024-01-22] MEDS: CARAFATE PO (14:23)
[2024-01-22 15:00] VITALS: BP 148/70
--- NOTE | 2024-01-22 15:11 | CM ---
Met with pt at bedside
Pt lives with her in a 2 story home
Independent with adl's, some assist around home
DME - rolling walker, cane, shower chair, commode
SNF - denies past hx
HH - [facility] in past
Will have ride at d/c
PCP - [facility]
Pharm - [facility]
PT/OT eval pending
Plan - anticipate home no needs vs with HH
[2024-01-22 16:55] LABS: Glucose - Point of Care 139 mg/dl (70-99)
[2024-01-22] MEDS: REGLAN 5 MG PO ×2 (17:15→21:27)
[2024-01-22] MEDS: LIPITOR 20 MG PO (17:15)
[2024-01-22 19:15] VITALS: BP 110/52
[2024-01-22] MEDS: SEROQUEL 12.5 MG PO (21:27)
[2024-01-22] MEDS: NAMENDA 5 MG PO (21:27)
[2024-01-22] MEDS: PEPCID 10 MG PO (21:27)
[2024-01-22 21:44] LABS: Glucose - Point of Care 101 mg/dl (70-99)
[2024-01-22 23:35] VITALS: BP 127/51
[2024-01-23] VITALS (8 sets, daily range): BP systolic 119–143; BP diastolic 54–63; BMI 29.5
[2024-01-23 04:59] LABS: Hematocrit 23.8 % (37.0-47.0); Hemoglobin 8.2 g/dL (12.0-16.0); Mean Corp Hgb Conc. 34.5 g/dL (33.0-37.0); Mean Corpuscular Hgb 31.3 pg (27.0-31.0); Mean Corpuscular Volume 90.8 fL (81.0-99.0); Mean Platelet Volume 12.8 fL (7.4-10.4); Platelet Count 67 10^3/uL (130-400); Red Blood Cell Count 2.62 10^6/uL (4.20-5.40); Red Cell Dist. Width 19.4 % (11.5-14.5); White Blood Cell Count 3.9 10^3/uL (4.8-10.8)
[2024-01-23 05:09] LABS: Ammonia 47 umol/L (9-30)
[2024-01-23 05:10] LABS: INR 1.78; PT 20.6 Sec (11.4-14.6)
[2024-01-23 05:26] LABS: ALT (SGPT) 29 U/L (0-35); AST (SGOT) 52 U/L (14-36); Albumin 2.4 g/dl (3.5-5.0); Alkaline Phosphatase 108 U/L (38-126); Blood Urea Nitrogen 39 mg/dl (7-17); Calcium 8.7 mg/dl (8.4-10.2); Carbon Dioxide 19 mmol/L (22-30); Chloride 114 mmol/L (98-107); Direct Bilirubin 0.6 mg/dl (0.0-0.4); Estimated Creatinine Clearance 25 ml/min; Glucose 105 mg/dl (70-99); Sodium 139 mmol/L (135-145); Total Bilirubin 2.1 mg/dl (0.2-1.3); Total Protein 5.3 g/dl (6.3-8.2); eGFR 25.35
[2024-01-23] MEDS: SYNTHROID 12.5 MCG PO (05:54)
--- NOTE | 2024-01-23 08:22 | W.PN.GI.CBS2 ---
Addendum entered and electronically signed by Diane Murillo DO 01/23/24 09:54:
The patient was seen and examined by me independently in collaboration with the nurse practitioner.
Past medical history/social history/medications/allergies/family history reviewed.
Lab data and imaging data reviewed.
Lavonne seen in follow-up today, mentation significantly improved, AAOx3 on exam. Asterban is very difficult to assess due to her known EPS 2/2 chronic Reglan use, however, she does have tongue fasciculations.
Cr. slightly increased this morning to 2.1-- her abdomen is distended, but nontender to palpation, due for regular paracentesis tomorrow. Her volume status is difficult to assess. No urine lytes collected as of yet, I spoke with nurse who will
collect today. Hopefully, this will provide some objective information with respect to volume status and how to best proceed, i.e. diuretics vs. albumin challenge. MELD 3.0 = 25.
Abdominal US w/ dopplers demonstrates elevated restrictive index in the hepatic artery-- she is not on a beta christelle, however, she is somewhat bradycardic, and I am not sure she will be able to tolerate this. Additionally, would avoid starting at
this time at risk of precipitating HRS while her kidney function is somewhat labile.
I spoke with Dr. Freeman yesterday from [facility], at this time, given improvement in mental status, will defer transfer for now unless worsening clinical status.
Original Note:
Today's Communication / Plan
-
Trend labs, as per plan
Assessment / Plan
-
68 yo female well known to our group with a complex PMH significant for decompensated MASH cirrhosis actively listed for transplant at [facility] with ascites and HE requiring twice weekly paracentesis and thoracentesis for recurrent pleural
effusion�(follows with Dr. Bradley), renal insufficiency, Hepatic encephalopathy on Xifaxan/lactulose, hx of SBP on chronic ciprofloxacin(prior non compliance but recently taking as directed), PVT, paroxysmal afib (off AC due to risk of bleeding),
gastroparesis, esophageal dysmotility s/p RYGB, HLD, hypothyroidism, chronic GERD on PPI/H2B returns to ER after having outpatient paracentesis this morning with change in mental status. Per records states that she has been more lethrgic.
Currently at this time patient keeps repeating the same phrase over again. She is not oriented to person, place or time. She is awake and alert. She can follow some commands but is not completely cooperative. WBC 3.3, hemoglobin 8.5, hematocrit
24.1, platelets 59, PTT 32.2, sodium 132, potassium 5.8, chloride 111, CO2 20, BUN 36, creatinine 2.0, glucose 171, lactic acid 1.3, total bilirubin 1.5, AST 65, ALT 42, alk phos 148, ammonia 343on arrival, albumin 2.8, MELD 23. 01/22/24: WBC (4.2->
normal for her), no signs of bleeding, Hgb stable 8.7, PLT stable 67, INR slightly increased 1.7 (1.64), Creat 2.0 (stable), T Bili increasing 2.7 (1.5), direct 0.6, AST 60 (65), ALT 37 (42), Alk Phos 114 (148), Ammonia 32 (343), Trop 0.36 (0.30,
0.18), Alb 2.7, UA (WNL), Paracentesis fluid WBC 123, PMN 38.2. Negative covid. Weight is 75 kg down from 81 kg yesterday. 01/23/24:ammonia is 47 (from 36) after changing from lactulose enemas and q 2 hr oral Lactulose to TID Lactulose for the past 24
hrs and Xifaxan BID. Asterixis is improving as well. Creat is slightly increased at 2.1 from 2.0. Bili improving and is 2.1 from 2.7, AST 52 from 60 and ALT is 29 from 37. Alk Phos 108 from 114.INR 1.78 from 1.70. MELD 3.0 today is 25. Same as
yesterday.
Us Abd with dopplers 01/22/24:
IMPRESSION: On duplex evaluation, normal appearance of the main portal vein as well as the right, middle, and left hepatic veins.
High resistive index of the hepatic artery, measuring 0.80.
Status post cholecystectomy with no significant dilation of the common bile duct.
Liver has a nodular external contour and increased echogenicity compatible with cirrhosis. No sonographic evidence for a focal hepatic mass lesion, with relatively limited visualization.
Moderate ascites in the right upper quadrant adjacent to the liver.
Splenomegaly.
The pancreas, upper abdominal aorta, and upper abdominal IVC are unable to be adequately visualized.
Impression:
-Hepatic Encephalopathy
-decompensated [facility] cirrhosis with HE/ascites on OLT list at [facility]-MELD3.0->25 (25 on 01/22/24, 23 on 01/21/24)
-chronic renal insufficiency-> Creat 2.1 now, slight increase (baseline since Oct has been around 1.4-1.9)
-hx R hydrothorax with hx multiple prior thoracentesis, CXR clear 01/21/24, lungs still clear. Last thoracentesis November.
-intractable ascites with biweekly paracentesis, last one 01/21/24 with 3400 out, fluid sent off no SBP
-hx SBP February 2023, on chronic ciprofloxacin outpatient
-chronic abdominal pain on Oxycodone, would reduce as polypharmacy likely playing role in HE
-chronic pancytopenia 2/2 cirrhosis
-coagulopathy with chronic liver disease -> stable
-gastroparesis-> Reglan dose reduced secondary to creat clearance now, currently 5 mg (reduced from 10 mg)
-RYGB for esophageal dysmotility
Plan:
-Able to reduce Lactulose oral to TID now, currently stable on that dose. Outpatient regimen was BID.
-Continue Xifaxan BID
-Continue Cipro for SBP prophylaxis.
-Await blood cultures, rule out infection, no growth in 24 hrs
-Patient was given IV Lasix for JVD on presentation. Currently holding patient Lasix and Aldactone.
-Patient usually has twice week paracentesis (Last one was 01/21/24) always with albumin to follow.
-May consider Renal consultation
-Monitor daily weights, currently 75.4 kg (75.5) (down from 81 kg on arrival, may be from ER scale and diuresis)
-Trend labs, CBC, BMP, LFTs, PT/INR
-Continue 2 gm Na diet
-Dr. Murillo spoke to [facility] Dr. Lowe to update.
-If with decompensation consider transfer to [facility], patient currently stable.
-Further recommendations to be forthcoming
Subjective
Subjective
Date of Service: January 23, 2024
Patient AAO to person and place. Cannot recall year or month. States she still feels 'cloudy'. She can recall the name of both her liver doctor ('Mirna') and GI ('N[facility]ia'). She does seem clearer today as she states that her abdomen is distended and
she thinks this is because of her 'ascites' which she could not elaborate yesterday. Weight is 75.41 from 75.5, no diuretics on board. She is on 2 gm Na diet. She is tolerating this well. She is having multiple loose brown BM and ammonia is 47 (from
36) after changing from lactulose enemas and q 2 hr oral Lactulose to TID Lactulose for the past 24 hrs and Xifaxan BID. Asterixis is improving as well. Creat is slightly increased at 2.1 from 2.0. Bili improving and is 2.1 from 2.7, AST 52 from 60
and ALT is 29 from 37. Alk Phos 108 from 114.INR 1.78 from 1.70. MELD 3.0 today is 25. Same as yesterday. US Abd with dopplers performed without any PVT.
Objective
Data Reviewed
Laboratory Data:
Laboratory Results
01/23/24 04:35
01/23/24 04:35
Laboratory Results
PT 20.6 Sec (11.4-14.6) H 01/23/24 04:35
INR 1.78 01/23/24 04:35
APTT 32.2 Sec (23.4-35.0) 01/21/24 12:00
Total Bilirubin 2.1 mg/dl (0.2-1.3) H 01/23/24 04:35
AST 52 U/L (14-36) H 01/23/24 04:35
ALT 29 U/L (0-35) 01/23/24 04:35
Alkaline Phosphatase 108 U/L (38-126) 01/23/24 04:35
Vital Signs and I&O:
Vital Signs
Temp Pulse Resp BP Pulse Ox
98.4 F 56 18 132/58 96
01/23/24 07:00 01/23/24 07:00 01/23/24 07:00 01/23/24 07:00 01/23/24 07:00
I&O
01/22/24 01/23/24 01/24/24
06:59 06:59 06:59
Intake Total 50 / 50 1050 / 1050
Balance 50 / 50 1050 / 1050
Physical Exam
Physical Exam
HEENT: Anicteric
Cardiology: Normal Sinus Rhythm
Pulmonary: Clear
GI: Soft, Distended (softly), Fluid Wave and Normal Bowel Sounds
Extremities: No Edema
Neuro: Other (AAO to person and place, She can recall the name of both her liver doctor ('Mirna') and GI ('Walp'), improved from yesterday, mild asterixis)
[2024-01-23 08:33] LABS: Glucose - Point of Care 111 mg/dl (70-99)
--- NOTE | 2024-01-23 09:01 | PN.CDI ---
CDI
- -
CDI:
Physician Documentation Request
Admit Date: 01/21/24 14:08
Dear Doctor Armond,
Please review the following and provide your response in the progress notes.
Clinical Indicators:
- 5/6 H&P 'Heart Failure preserved EF, acute exacerbation'
- 5/ PN 'Heart Failure preserved EF'
- 'hold further diuretics with creatinine at 2 - top-end of her normal'
- IV Lasix x 1
Please provide further specificity regarding the most likely acuity of CHF you are evaluating, treating or monitoring.
Acute on chronic HFpEF
Chronic HFpEF
Other
Use of terms such as suspected, likely, concern for, or probable (associated with a specific diagnosis that is being evaluated, monitored, or treated as if it exists) are acceptable and can be coded in the inpatient setting, when documented at the
time of discharge.
Thank you,
Krupa Sarabia RN
CDI Specialist
Please use your independent medical judgment in providing your response.
[2024-01-23] MEDS: REGLAN 5 MG PO ×4 (09:03→22:11)
[2024-01-23] MEDS: DUPHALAC/CHRONULAC 30 GRAMS PO ×3 (09:03→22:08)
[2024-01-23] MEDS: PROTONIX 40 MG PO (09:03)
[2024-01-23] MEDS: XIFAXAN 550 MG PO ×2 (09:03→19:41)
[2024-01-23] MEDS: HEPARIN 5000 UNITS SC ×2 (09:04→19:41)
[2024-01-23] MEDS: DELTASONE 5 MG PO (09:04)
[2024-01-23] MEDS: BUSPAR 15 MG PO ×3 (09:04→22:09)
[2024-01-23] MEDS: CARAFATE 1 GRAM PO ×4 (09:04→22:10)
[2024-01-23] MEDS: NOVOLOG FLEXPEN-LOW RESISTANCE SC ×2 (09:05→17:37)
[2024-01-23 11:34] LABS: Urine Sodium 22 mmol/L (30-90)
[2024-01-23 11:55] LABS: Glucose - Point of Care 162 mg/dl (70-99)
[2024-01-23] MEDS: CIPRO PO (12:32)
[2024-01-23] MEDS: NOVOLOG FLEXPEN-LOW RESISTANCE 1 UNITS SC (13:18)
[2024-01-23] MEDS: FLEXBUMIN 100 IV ×2 (15:02→16:51)
[2024-01-23] MEDS: LASIX 40 MG IV (15:07)
--- NOTE | 2024-01-23 16:12 | W.PN.HOSP.TC ---
Today's Communication/Plan
-
All discussed with the patient and the nurse
Assessment / Plan
Assessment / Plan
Physical exam:
General: Pale looking, awake, alert and oriented x3, not in distress and holds appropriate conversation.
HEENT: No active discharge, ecchymosis or bruising, moist lips, tongue and mucous membrane.
Eyes: No discharge or red conjunctiva, no nystagmus, pupils are reactive and equal
Neck:Supple, no JVD no bruit no goiter.
Respiratory: Normal AP contour and diameter, normal chest wall movement, normal respiratory effort, no respiratory distress,
Lungs: Good air entry bilaterally, no wheezing or rhonchi, no rales or crackles
Heart: S1, S2 regular, normal rate, no added sound.
Gastrointestinal: Increased abdominal distention and ascites palpable, positive bowel sounds, soft, nontender, no guarding or rigidity or organomegaly
Musculoskeletal: , no chest wall abnormality or tenderness. All joints and extremities have good range of motion, no muscle tenderness or any joint swelling or tenderness.
Extremities: Moderate lower EXTR pitting edema, good peripheral pulses, good range of motion
Skin: Warm and dry, no ulceration, normal color.
Neurological: Awake, alert and oriented x3, speech clear and comprehensive, good muscle tone, normal sensory and motor function
Psychiatric: Normal mood, normal thought and judgment, normal affect,
Ms. Lavonne Sanchez is a 68 yo woman with hx paroxysmal afib (not on AC 2/2 bleeding risk), ZAVALETA with decompensated cirrhosis on transplant list ,ascites receiving paracentesis 2x/week, hepatic encephalopathy on Rifaximin/Lactulose, HLD,
Hypothyroidism, chronic GERD sent to ER from IR for confusion. Patient received scheduled paracentesis today with 3400mL fluid removed. Patient unable to provide history, per she has been more lethargic over weekend. She has been taking
Lactulose and going multiple times. She was found to have elevated ammonia levels, admitted for treatment hepatic encephalopathy.
Hepatic Encephalopathy
Confusion
Mentation clearing up, awake and alert.
-no current e/o infection; ascites fluid without e/o SBP, covid negative; cultures thus far negative
-CXR without e/o PNA
-Lactulose oral- continue
-appreciate GI consult
-continue [employer] Rifaximin
-hold sedating medications
-abdominal US with doppler per GI
With worsening ascites is usually gets scheduled Sunday and so we will ask IR to evaluate for ascites today for next
Heart Failure preserved EF
-TTE 11/21/23 - EF 60%; mild MR and mild TR
-concern patient overloaded on exam on admission s/p IV lasix
-discussed with GI - hold further diuretics with creatinine at 2 - top-end of her normal j
Acute on chronic kidney disease
-creatinine baseline 1.4 in November; up to 1.9-2.0 December; now at 2
Concern for hepatorenal syndrome.
-holding diuretics per GI
-s/p albumin on 01/20
-daily BMP, may need renal consult based on BMP tomorrow
-renal US as above
Hyperkalemia
-resolved
Chronic Pancytopenia
- Secondary to cirrhosis, no evidence of bleed
Hx DM-II since resolved Prediabetes
-Blood sugar 100s
-Sliding scale
-Carb controlled diet
# Hyperlipidemia
-Statin
#Hypothyroidism
�- cont home Synthroid
�-TSH wnl
#GERD
#Chronic Gastroparesis
�- Continue home PPI Reglan Sucralfate
#Anxiety / Depression
�- Continue home buspirone
-Seroquel 12.5hs hold for sedation
#Chronic Pain Syndrome / Opioid Dependence
�-hold oxy due to sedation
#DVT Prophylaxis:� SCDs
#Code Status:� Full Code
Anticipated Discharge: 24 - 48 hours
Subjective/Interval History
-
Date of Service: January 23, 2024
Seen and examined, awake and alert, complaining of the worsening abdominal distention she gets paracentesis every Mondays and schedule, and continue to get worse according to the patient and asking for paracentesis to be done today, no
fever or chill or cough or congestion no headache or vision change, no nausea or vomiting.
Objective Data
-
Labs:
Laboratory Results
01/23/24
04:35
WBC 3.9 L
Hgb 8.2 L
Hct 23.8 L
Plt Count 67 L
PT 20.6 H
INR 1.78
Sodium 139
Potassium 4.0
Chloride 114 H
Carbon Dioxide 19 L
BUN 39 H
Creatinine 2.1 H
Glucose 105 H
Calcium 8.7
Total Bilirubin 2.1 H
AST 52 H
ALT 29
Alkaline Phosphatase 108
Vital Signs:
Vital Signs
Temp Pulse Resp BP Pulse Ox
98.0 F 63 16 125/57 96
01/23/24 15:36 01/23/24 15:36 01/23/24 15:36 01/23/24 15:36 01/23/24 15:36
I&O
01/22/24 01/23/24 01/24/24
07:59 07:59 07:59
Intake Total 50 / 50 1050 / 1050
Balance 50 / 50 1050 / 1050
Review of Systems
-
All other systems: Reviewed and negative
[2024-01-23 17:11] LABS: Glucose - Point of Care 118 mg/dl (70-99)
[2024-01-23 17:31] LABS: Blood Urea Nitrogen 40 mg/dl (7-17); Calcium 8.9 mg/dl (8.4-10.2); Carbon Dioxide 21 mmol/L (22-30); Chloride 112 mmol/L (98-107); Estimated Creatinine Clearance 25 ml/min; Glucose 109 mg/dl (70-99); Magnesium 2.4 mg/dl (1.6-2.3); Potassium 4.4 mmol/L (3.5-5.1); Sodium 138 mmol/L (135-145); eGFR 25.35
[2024-01-23] MEDS: LIPITOR 20 MG PO (17:59)
[2024-01-23] MEDS: FLEXBUMIN 50 IV (19:38)
[2024-01-23] MEDS: CIPRO 500 MG PO ×2 (19:41→22:09)
[2024-01-23 21:11] LABS: Glucose - Point of Care 101 mg/dl (70-99)
[2024-01-23] MEDS: SEROQUEL 12.5 MG PO (22:10)
[2024-01-23] MEDS: PEPCID 10 MG PO (22:10)
[2024-01-23] MEDS: NAMENDA 5 MG PO (22:10)
[2024-01-24] VITALS (11 sets, daily range): BP systolic 111–130; BP diastolic 50–77; BMI 29.0
[2024-01-24 04:37] LABS: Mean Corp Hgb Conc. 34.3 g/dL (33.0-37.0); Mean Corpuscular Hgb 31.4 pg (27.0-31.0); Mean Corpuscular Volume 91.5 fL (81.0-99.0); Mean Platelet Volume 12.6 fL (7.4-10.4); Platelet Count 52 10^3/uL (130-400); Red Blood Cell Count 2.23 10^6/uL (4.20-5.40); Red Cell Dist. Width 19.2 % (11.5-14.5); White Blood Cell Count 2.6 10^3/uL (4.8-10.8)
[2024-01-24 04:45] LABS: INR 1.85; PT 21.5 Sec (11.4-14.6)
[2024-01-24 04:57] LABS: Ammonia 84 umol/L (9-30)
[2024-01-24 05:01] LABS: ALT (SGPT) 25 U/L (0-35); AST (SGOT) 40 U/L (14-36); Albumin 2.7 g/dl (3.5-5.0); Alkaline Phosphatase 82 U/L (38-126); Blood Urea Nitrogen 42 mg/dl (7-17); Calcium 8.7 mg/dl (8.4-10.2); Carbon Dioxide 23 mmol/L (22-30); Chloride 113 mmol/L (98-107); Direct Bilirubin 0.4 mg/dl (0.0-0.4); Estimated Creatinine Clearance 28 ml/min; Glucose 110 mg/dl (70-99); Sodium 139 mmol/L (135-145); Total Bilirubin 1.6 mg/dl (0.2-1.3); Total Protein 5.3 g/dl (6.3-8.2); eGFR 28.58
[2024-01-24] MEDS: SYNTHROID 12.5 MCG PO (05:24)
[2024-01-24 07:51] LABS: Glucose - Point of Care 123 mg/dl (70-99)
[2024-01-24] MEDS: NOVOLOG FLEXPEN-LOW RESISTANCE SC (08:37)
[2024-01-24] MEDS: DUPHALAC/CHRONULAC 30 GRAMS PO ×3 (09:31→20:44)
[2024-01-24] MEDS: BUSPAR 15 MG PO ×3 (09:32→20:51)
[2024-01-24] MEDS: XIFAXAN 550 MG PO ×2 (09:32→20:48)
[2024-01-24] MEDS: PROTONIX 40 MG PO (09:32)
[2024-01-24] MEDS: DELTASONE 5 MG PO (09:32)
[2024-01-24] MEDS: REGLAN 5 MG PO ×4 (09:33→20:49)
[2024-01-24] MEDS: CARAFATE 1 GRAM PO ×4 (09:33→20:48)
[2024-01-24] MEDS: HEPARIN 5000 UNITS SC (09:33)
[2024-01-24 09:44] LABS: Body Fluid Polymorphonuclear 38.2 %; Body Fluid WBC 102 /CUMM
[2024-01-24 09:45] LABS: Body Fluid Mononuclear 61.8 %
[2024-01-24 09:58] LABS: Body Fluid Second Tech AMA
[2024-01-24 11:41] LABS: Glucose - Point of Care 163 mg/dl (70-99)
--- NOTE | 2024-01-24 12:08 | W.PN.GI.CBS2 ---
Addendum entered and electronically signed by Diane Murillo DO 01/24/24 13:49:
I saw and examined the patient.
The MAPPING SPECIALIST or PA's note was reviewed and I agree with the note.
Comment: Patient seen in follow-up today. Mentation has returned to baseline. Received 40mg IV lasix yesterday with great response, Cr. 1.9 today. She had a paracentesis this morning with removal of 3.1 L fluid, will receive albumin replacement.
Will resume diuretics and monitor kidney function, electrolytes and volume status for another day. If continues to improve, anticipate d/c tomorrow, if cleared by PT/OT. Telehealth appointment arranged with Dr. Bradley tomorrow.
Original Note:
Today's Communication / Plan
-
As per plan
Assessment / Plan
-
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
effusion�(follows with Dr. Bradley), renal insufficiency, Hepatic encephalopathy on Xifaxan/lactulose, hx of SBP on chronic ciprofloxacin(prior non compliance but recently taking as directed), PVT, paroxysmal afib (off AC due to risk of bleeding),
gastroparesis, esophageal dysmotility s/p RYGB, HLD, hypothyroidism, chronic GERD on PPI/H2B returns to ER after having outpatient paracentesis this morning with change in mental status. Per records states that she has been more lethrgic.
Currently at this time patient keeps repeating the same phrase over again. She is not oriented to person, place or time. She is awake and alert. She can follow some commands but is not completely cooperative. WBC 3.3, hemoglobin 8.5, hematocrit
24.1, platelets 59, PTT 32.2, sodium 132, potassium 5.8, chloride 111, CO2 20, BUN 36, creatinine 2.0, glucose 171, lactic acid 1.3, total bilirubin 1.5, AST 65, ALT 42, alk phos 148, ammonia 343on arrival, albumin 2.8, MELD 23. 01/22/24: WBC (4.2->
normal for her), no signs of bleeding, Hgb stable 8.7, PLT stable 67, INR slightly increased 1.7 (1.64), Creat 2.0 (stable), T Bili increasing 2.7 (1.5), direct 0.6, AST 60 (65), ALT 37 (42), Alk Phos 114 (148), Ammonia 32 (343), Trop 0.36 (0.30,
0.18), Alb 2.7, UA (WNL), Paracentesis fluid WBC 123, PMN 38.2. Negative covid. Weight is 75 kg down from 81 kg yesterday. 01/23/24:ammonia is 47 (from 36) after changing from lactulose enemas and q 2 hr oral Lactulose to TID Lactulose for the past 24
hrs and Xifaxan BID. Asterixis is improving as well. Creat is slightly increased at 2.1 from 2.0. Bili improving and is 2.1 from 2.7, AST 52 from 60 and ALT is 29 from 37. Alk Phos 108 from 114.INR 1.78 from 1.70. MELD 3.0 today is 25. Same as
yesterday. 01/24/24: MELD improved today 23, given Lasix 40 mg IV challenge yesterday with improved creatinine down to 1.9. Continues to follow 2 g sodium diet. Had paracentesis this morning with 3100 cc removed.
Us Abd with dopplers 01/22/24:
IMPRESSION: On duplex evaluation, normal appearance of the main portal vein as well as the right, middle, and left hepatic veins.
High resistive index of the hepatic artery, measuring 0.80.
Status post cholecystectomy with no significant dilation of the common bile duct.
Liver has a nodular external contour and increased echogenicity compatible with cirrhosis. No sonographic evidence for a focal hepatic mass lesion, with relatively limited visualization.
Moderate ascites in the right upper quadrant adjacent to the liver.
Splenomegaly.
The pancreas, upper abdominal aorta, and upper abdominal IVC are unable to be adequately visualized.
Impression:
-Hepatic Encephalopathy
-decompensated [facility] cirrhosis with HE/ascites on OLT list at [facility]-MELD3.0->23 (25 on01/23/24, 25-> 01/22/24, 23 on 01/21/24)
-chronic renal insufficiency-> Creat 1.9 (baseline since Oct has been around 1.4-1.9)
-hx R hydrothorax with hx multiple prior thoracentesis, CXR clear 01/21/24, lungs still clear. Last thoracentesis November.
-intractable ascites with biweekly paracentesis, last one 01/23/24 with 3100 out, fluid sent off , prior para without SBP.
-hx SBP February 2023, on chronic ciprofloxacin outpatient
-chronic abdominal pain on Oxycodone, would reduce as polypharmacy likely playing role in HE, stopped.
-chronic pancytopenia 2/2 cirrhosis
-coagulopathy with chronic liver disease -> stable
-gastroparesis-> Reglan dose reduced secondary to creat clearance now, currently 5 mg (reduced from 10 mg)
-RYGB for esophageal dysmotility
Plan:
-Continue Lactulose TID
-Continue Xifaxan BID
-Continue Cipro for SBP prophylaxis.
-Resume outpatient diuretic regimen -> Lasix 20 mg po daily and Aldactone 50 mg po daily. Will recheck CMP in the am.
-Give Albumin 25 gm now. Patient had paracentesis this am. Will then start above Lasix and Aldactone.
-Monitor daily weights, currently 74.1 ->75.4 kg ->75.5 (down from 81 kg on arrival, may be from ER scale and diuresis)
-CBC, CMP, PT/INR in am
-Continue 2 gm Na diet
-Patient has appt with Dr. Bradley tomorrow at noon, we will have her connect via telehealth. Discussed with Dr. Bradley.
-Recommend PT/OT to get patient up and ambulating.
-Further recommendations to be forthcoming
Subjective
Subjective
Date of Service: January 24, 2024
Patient is feeling little weak after having paracentesis this am. She had 3100 cc removed. She will require albumin now. MELD this morning is 23. She did have a trial of Lasix 40 mg IV yesterday with good results. Creatinine is 1.9 down from
2.1. Her weight currently today is 74.1 kg down from 75.41 kg. She continues on lactulose 3 times daily. Her mentation is back to baseline. Her hemoglobin is 7.0 however she is having yellow bowel movements. Patient is tolerating 2 g sodium
diet.
Objective
Data Reviewed
Laboratory Data:
Laboratory Results
01/24/24 04:26
01/24/24 04:26
Laboratory Results
PT 21.5 Sec (11.4-14.6) H 01/24/24 04:26
INR 1.85 01/24/24 04:26
APTT 32.2 Sec (23.4-35.0) 01/21/24 12:00
Magnesium 2.4 mg/dl (1.6-2.3) H 01/23/24 16:53
Total Bilirubin 1.6 mg/dl (0.2-1.3) H 01/24/24 04:26
AST 40 U/L (14-36) H 01/24/24 04:26
ALT 25 U/L (0-35) 01/24/24 04:26
Alkaline Phosphatase 82 U/L (38-126) 01/24/24 04:26
Vital Signs and I&O:
Vital Signs
Temp Pulse Resp BP Pulse Ox
97.8 F 60 17 130/54 99
01/24/24 11:31 01/24/24 11:31 01/24/24 11:31 01/24/24 11:31 01/24/24 11:31
I&O
01/23/24 01/24/24 01/25/24
06:59 06:59 06:59
Intake Total 1050 / 1050 780 / 780
Balance 1050 / 1050 780 / 780
Physical Exam
Physical Exam
HEENT: Anicteric
Cardiology: Normal Sinus Rhythm
Pulmonary: Clear
GI: Soft, Distended (Softly), Non Tender and Normal Bowel Sounds
Extremities: No Edema
Neuro: Non Focal (Patient awake alert and oriented x 3, back to baseline, no true asterixis but baseline extrapyramidal movements)
[2024-01-24] MEDS: NOVOLOG FLEXPEN-LOW RESISTANCE 1 UNITS SC ×2 (13:19→17:29)
[2024-01-24] MEDS: FLEXBUMIN 100 IV (14:14)
--- NOTE | 2024-01-24 14:42 | W.PN.HOSP.TC ---
Today's Communication/Plan
-
All discussed with the patient she says she update her family
Discussed with the nurse
Discussed with GI
Assessment / Plan
Assessment / Plan
Physical exam:
General: Pale looking, lethargic but oriented x3, not in distress and holds appropriate conversation.
HEENT: No active discharge, ecchymosis or bruising, moist lips, tongue and mucous membrane.
Eyes: No discharge or red conjunctiva, no nystagmus, pupils are reactive and equal
Neck:Supple, no JVD no bruit no goiter.
Respiratory: Normal AP contour and diameter, normal chest wall movement, normal respiratory effort, no respiratory distress,
Lungs: Good air entry bilaterally, no wheezing or rhonchi, no rales or crackles
Heart: S1, S2 regular, normal rate, no added sound.
Gastrointestinal: Improved abdominal distention and ascites palpable, positive bowel sounds, soft, nontender, no guarding or rigidity or organomegaly
Musculoskeletal: , no chest wall abnormality or tenderness. All joints and extremities have good range of motion, no muscle tenderness or any joint swelling or tenderness.
Extremities: Moderate lower EXTR pitting edema, good peripheral pulses, good range of motion
Skin: Warm and dry, no ulceration, normal color.
Ms. Lavonne Sanchez is a 68 yo woman with hx paroxysmal afib (not on AC 2/2 bleeding risk), ZAVALETA with decompensated cirrhosis on transplant list ,ascites receiving paracentesis 2x/week, hepatic encephalopathy on Rifaximin/Lactulose, HLD,
Hypothyroidism, chronic GERD sent to ER from IR for confusion. Patient received scheduled paracentesis today with 3400mL fluid removed. Patient unable to provide history, per she has been more lethargic over weekend. She has been taking
Lactulose and going multiple times. She was found to have elevated ammonia levels, admitted for treatment hepatic encephalopathy.
Hepatic Encephalopathy
Confusion
Mentation clearing up, awake and alert.
Improving status post paracentesis this morning 3100 cc removed
GI input appreciated
-no current e/o infection; ascites fluid without e/o SBP, covid negative; cultures thus far negative
-CXR without e/o PNA
-Lactulose oral- continue
-appreciate GI consult and discussed with GI and from the point of view to keep for another day or 2 and reassess
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
-hold sedating medications
-abdominal US with doppler per GI
-With worsening ascites is usually gets scheduled Sunday and so we will ask IR to evaluate for ascites today
Pancytopenia:
Likely secondary to longstanding liver cirrhosis, white cell count around 2.6 hemoglobin is 7 today and platelets 52
Will hold blood transfusion and check CBC later today and tomorrow
Discussed with GI.
No evidence of bleeding
Heart Failure preserved EF
-TTE 11/21/23 - EF 60%; mild MR and mild TR
-concern patient overloaded on exam on admission s/p IV Lasix
-discussed with GI - hold further diuretics with creatinine at 2 - top-end of her normal j
Acute on chronic kidney disease
-creatinine baseline 1.4 in November; up to 1.9-2.0 December; yesterday was 2.1 today is back down to 1.9
Concern for hepatorenal syndrome.
-holding diuretics per GI
-s/p albumin on 01/20 and 01/22
-daily BMP, may need renal consult based on BMP tomorrow
-renal US as above
Hyperkalemia
-resolved
Hx DM-II since resolved Prediabetes
-Blood sugar good range continue to monitor
-Sliding scale
-Carb controlled diet
# Hyperlipidemia
-Statin
#Hypothyroidism
�- cont home Synthroid
�-TSH wnl
#GERD
#Chronic Gastroparesis
�- Continue home PPI Reglan Sucralfate
#Anxiety / Depression
�- Continue home buspirone
-Seroquel 12.5hs hold for sedation
#Chronic Pain Syndrome / Opioid Dependence
�-hold oxy due to sedation
#DVT Prophylaxis:� SCDs
#Code Status:� Full Code
Anticipated Discharge: 24 - 48 hours
Subjective/Interval History
-
Date of Service: January 24, 2024
Seen and examined, after paracentesis is a 3100 cc removed, feels lousy and lethargic and tired and pressure on the low normal side, admits anytime after paracentesis she feels the same way, denies any fever or chill or cough or congestion or any
chest pain or shortness of breath. No headache or vision change.
Objective Data
-
Labs:
Laboratory Results
01/24/24
04:26
WBC 2.6 L
Hgb 7.0 L
Hct 21.0 L
Plt Count 52 L D
PT 21.5 H
INR 1.85
Sodium 139
Potassium 4.0
Chloride 113 H
Carbon Dioxide 23
BUN 42 H
Creatinine 1.9 H
Glucose 110 H
Calcium 8.7
Total Bilirubin 1.6 H
AST 40 H
ALT 25
Alkaline Phosphatase 82
Vital Signs:
Vital Signs
Temp Pulse Resp BP Pulse Ox
98.4 F 56 16 124/54 100
01/24/24 14:14 01/24/24 14:14 01/24/24 14:14 01/24/24 14:14 01/24/24 14:14
I&O
01/23/24 01/24/24 01/25/24
07:59 07:59 07:59
Intake Total 1050 / 1050 780 / 780
Balance 1050 / 1050 780 / 780
Review of Systems
-
All other systems: Reviewed and negative
--- NOTE | 2024-01-24 14:43 | CM ---
Case management following for discharge planning
Chart reviewed
Improved mental status
Had paracentesis today
PT/OT recs pending
CM will continue to follow
Plan - anticipate home no needs vs HH
[2024-01-24] MEDS: ALDACTONE 50 MG PO (16:19)
[2024-01-24] MEDS: LASIX 20 MG PO (16:19)
[2024-01-24 16:46] LABS: Glucose - Point of Care 155 mg/dl (70-99)
[2024-01-24] MEDS: LIPITOR 20 MG PO (17:29)
[2024-01-24 19:11] LABS: Hematocrit 23.3 % (37.0-47.0); Hemoglobin 7.9 g/dL (12.0-16.0); Mean Corp Hgb Conc. 33.9 g/dL (33.0-37.0); Mean Corpuscular Hgb 30.7 pg (27.0-31.0); Mean Corpuscular Volume 90.7 fL (81.0-99.0); Platelet Count 54 10^3/uL (130-400); Red Blood Cell Count 2.57 10^6/uL (4.20-5.40); Red Cell Dist. Width 19.3 % (11.5-14.5); White Blood Cell Count 2.5 10^3/uL (4.8-10.8)
[2024-01-24] MEDS: NAMENDA 5 MG PO (20:46)
[2024-01-24] MEDS: PEPCID 10 MG PO (20:46)
[2024-01-24] MEDS: SEROQUEL 12.5 MG PO (20:47)
[2024-01-24 21:04] LABS: Glucose - Point of Care 125 mg/dl (70-99)
--- NOTE | 2024-01-24 22:00 | PTCARENOTE ---
Patient c/o 04/26 diffuse abdominal pain. Patient takes Oxycodone 10mg PRN at home, put on hold r/t patient's CMS, Ammonia 343 on admission. Ammonia 84 today, AAOx3. DIALLO Calderon notified of patients pain. Oxycodone 5mg ordered. See MAR.
Care ongoing.
[2024-01-24] MEDS: ROXICODONE 5 MG PO (22:28)
[2024-01-25 03:38] VITALS: BP 132/54
[2024-01-25] MEDS: SYNTHROID 12.5 MCG PO (05:29)
[2024-01-25 06:00] VITALS: BMI 28.0
[2024-01-25 06:28] LABS: % Basophils 0.9 % (0-2); % Lymphocytes 31.3 % (20.5-51.1); % Monocytes 11.6 % (1.7-9.3); % Neutrophils 52.2 % (42.2-75.2); Absolute Eosinophils 0.1 10^3/uL (0-0.7); Absolute Lymphocytes 0.7 10^3/uL (1.2-3.4); Absolute Monocytes 0.3 10^3/uL (0.1-0.6); Absolute Neutrophils 1.2 10^3/uL (1.4-6.5); Hematocrit 22.2 % (37.0-47.0); Hemoglobin 7.5 g/dL (12.0-16.0); Mean Corp Hgb Conc. 33.8 g/dL (33.0-37.0); Mean Corpuscular Volume 91.7 fL (81.0-99.0); Mean Platelet Volume 12.4 fL (7.4-10.4); Nucleated Red Blood Cells % 0 %; Platelet Count 51 10^3/uL (130-400); Red Blood Cell Count 2.42 10^6/uL (4.20-5.40); Red Cell Dist. Width 19.2 % (11.5-14.5)
[2024-01-25 06:31] LABS: White Blood Cell Count 2.2 10^3/uL (4.8-10.8)
[2024-01-25 06:38] LABS: INR 1.79; PT 20.9 Sec (11.4-14.6)
[2024-01-25 06:40] LABS: ALT (SGPT) 24 U/L (0-35); AST (SGOT) 41 U/L (14-36); Alkaline Phosphatase 82 U/L (38-126); Blood Urea Nitrogen 38 mg/dl (7-17); Calcium 9.2 mg/dl (8.4-10.2); Carbon Dioxide 20 mmol/L (22-30); Chloride 113 mmol/L (98-107); Direct Bilirubin 0.6 mg/dl (0.0-0.4); Estimated Creatinine Clearance 30 ml/min; Glucose 100 mg/dl (70-99); Magnesium 2.3 mg/dl (1.6-2.3); Phosphorus 3.7 mg/dl (2.5-4.5); Potassium 4.8 mmol/L (3.5-5.1); Sodium 139 mmol/L (135-145); Total Bilirubin 1.8 mg/dl (0.2-1.3); Total Protein 5.6 g/dl (6.3-8.2); eGFR 32.66
[2024-01-25 07:32] VITALS: BP 125/51
[2024-01-25 07:40] LABS: Glucose - Point of Care 114 mg/dl (70-99)
[2024-01-25] MEDS: NOVOLOG FLEXPEN-LOW RESISTANCE SC ×2 (07:44→11:45)
--- NOTE | 2024-01-25 08:07 | PN.CDI ---
CDI
- -
CDI:
Physician Documentation Request
Admit Date: 01/21/24 14:08
Dear Doctor Natali,
Please review the following and provide your response in the progress notes.
Clinical Indicators:
- 01/23 PN 'Acute on chronic kidney disease'
- 'creatinine baseline 1.4 in November; up to 1.9-2.0
- 01/21 GI 'chronic renal insufficiency-> Creat 2.0 now'
- ''Her renal function remains unchcanged, and upon review of her labs over the last few months, this could be her new baseline'
Laboratory Tests
01/21/24 01/22/24 01/23/24
09:24 05:53 04:35
Creatinine 2.0 H 2.0 H 2.1 H
eGFR 26.88 26.88 25.35
01/23/24 01/24/24 01/25/24
16:53 04:26 06:14
Creatinine 2.1 H 1.9 H 1.7 H
eGFR 25.35 28.58 32.66
Please clarify which of the following accurately represents the patient's renal status:
CKD 4
SARI on CKD 3
Other
Criteria for SARI*
1 Increase in serum creatinine by > or = to 0.3 mg/dL (> or = to 26.5 micromol/L) within 48 hours, OR
2 Increase in serum creatinine to > or = to 1.5 times baseline, which is known or presumed to have occurred within 7 days, OR
3 Urine volume < 0.5 nL/kg/hour for six hours
Stages of Chronic Kidney Disease*
Level Description GFR
G1 Normal or High >90
G2 Mildly decreased 60-89
G3a Mildly to moderately decreased 45-59
G3b Moderately to severely decreased 30-44
G4 Severely decreased 15-29
G5 Kidney failure <15
Use of terms such as suspected, likely, concern for, or probable (associated with a specific diagnosis that is being evaluated, monitored, or treated as if it exists) are acceptable and can be coded in the inpatient setting, when documented at the
time of discharge.
Thank you,
Krupa Sarabia RN
CDI Specialist
Please use your independent medical judgment in providing your response.
*Source: Kidney Disease: Improving Global Outcomes (KDIGO) 2012
[2024-01-25] MEDS: DUPHALAC/CHRONULAC 30 GRAMS PO ×2 (08:26→16:16)
[2024-01-25] MEDS: BUSPAR 15 MG PO ×2 (08:26→16:16)
[2024-01-25] MEDS: PROTONIX 40 MG PO (08:26)
[2024-01-25] MEDS: REGLAN 5 MG PO ×3 (08:26→16:17)
[2024-01-25] MEDS: CARAFATE 1 GRAM PO ×3 (08:26→16:16)
[2024-01-25] MEDS: LASIX 20 MG PO (08:27)
[2024-01-25] MEDS: DELTASONE 5 MG PO (08:27)
[2024-01-25] MEDS: ALDACTONE 50 MG PO (08:27)
[2024-01-25] MEDS: XIFAXAN 550 MG PO (08:27)
[2024-01-25 11:00] VITALS: BP 144/69
[2024-01-25 11:37] LABS: Glucose - Point of Care 135 mg/dl (70-99)
[2024-01-25] MEDS: CARAFATE PO (11:44)
--- NOTE | 2024-01-25 12:20 | W.PN.HOSP.TC ---
Addendum entered and electronically signed by Rolo Hurst MD 01/25/24 17:51:
SARI on CKD stage 3
Original Note:
Today's Communication/Plan
-
Discharge if OK with PT OT
Assessment / Plan
Assessment / Plan
Ms. Lavonne Sanchez is a 68 yo woman with hx paroxysmal afib (not on AC 2/2 bleeding risk), ZAVALETA with decompensated cirrhosis on transplant list ,ascites receiving paracentesis 2x/week, hepatic encephalopathy on Rifaximin/Lactulose, HLD,
Hypothyroidism, chronic GERD sent to ER from IR for confusion. Patient received scheduled paracentesis today with 3400mL fluid removed. Patient unable to provide history, per she has been more lethargic over weekend. She has been taking
Lactulose and going multiple times. She was found to have elevated ammonia levels, admitted for treatment hepatic encephalopathy.
Feels OKAY. No pain.
Awake and alert.
She had a tele appt with today
CVS: S1-S2 normal
Chest: CTA B/L
Abdomen: Soft, NT , Mild distension, Bowel sounds present
Extremities: No edema, normal pulses
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
#Hepatic Encephalopathy
TME due to above
Mentation clearing up, awake and alert.
Improving status post paracentesis 01/24/24 with 3100 ml removed
-No current e/o infection; ascites fluid without e/o SBP, Covid negative, Cultures thus far negative
-CXR without e/o PNA
-Lactulose oral- continue
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
-Hold sedating medications
-Abdominal US with Doppler -normal-appearing portal vein and hepatic veins. Hide assistance index with hepatic artery
-With worsening ascites is usually gets scheduled Mondays and
-Patient is on transplant list at [place]. Follows with Dr. Bradley
#History of SBP on chronic ciprofloxacin-with prior noncompliance but now taking
#Pancytopenia:
-Likely secondary to longstanding liver cirrhosis, white cell count around 2.6 hemoglobin is 7.5 today and platelets 52
-No evidence of bleeding
#Heart Failure preserved EF
-TTE 11/21/23 - EF 60%; mild MR and mild TR
-Concern patient overloaded on exam on admission s/p IV Lasix
-Lasix and Aldactone started
#Acute on chronic kidney disease
-Creatinine baseline 1.4 in November; up to 1.9-2.0 December; yesterday was 2.1 today is back down to 1.7
-Concern for hepatorenal syndrome.
-Diuretics restarted
-S/P albumin on 01/20 and 01/22
-Renal US as above
#Hyperkalemia
-Resolved
#Hx DM-II since resolved Prediabetes
-Blood sugar good range continue to monitor
-Sliding scale
-Carb controlled diet
#Hyperlipidemia
-Statin
#Paroxysmal atrial fibrillation-Not seem to be on AC or rate controlling agents
#Hypothyroidism
�-Cont home Synthroid
�-TSH wnl
#GERD
#Chronic Gastroparesis
-Follows with Dr. Willis at [facility]
-Continue home PPI Reglan Sucralfate
-Also has a history of achalasia versus narrowing from a fundoplication wrap with history of EGD in dilatations
-History of robotic Heller cardiomyotomy, Sharif fundoplication and pyloroplasty at [facility] in 2017
-History of balloon dilatation of the wrap December 2018
#History of portal vein thrombosis -Not on Eliquis anymore
#CKD stage III
#Anxiety / Depression/panic attacks
�-Continue home buspirone
-Seroquel 12.5hs hold for sedation
#Chronic Pain Syndrome-Fibromyalgia / Opioid Dependence
�-Hold oxy for discharge
#History Meckel's diverticulum resection
#R Pleural effusion with hx multiple prior thoracentesis
#Obesity
#History of C. difficile
#Ex-smoker
#DVT Prophylaxis:� SCDs
#Code Status:� Full Code
D/W GI
D/W
D/W RN
will give script for labs sunday.
She is also due to para sunday
is aware re stopping narcs
Discharge if OK with PT OT
Discharge time 38 min
Anticipated Discharge: Today
Subjective/Interval History
-
Date of Service: January 25, 2024
Objective Data
-
Labs:
Laboratory Results
01/25/24
06:14
WBC 2.2 L*
Hgb 7.5 L
Hct 22.2 L
Plt Count 51 L
PT 20.9 H
INR 1.79
Sodium 139
Potassium 4.8
Chloride 113 H
Carbon Dioxide 20 L
BUN 38 H
Creatinine 1.7 H
Glucose 100 H
Calcium 9.2
Total Bilirubin 1.8 H
AST 41 H
ALT 24
Alkaline Phosphatase 82
Vital Signs:
Vital Signs
Temp Pulse Resp BP Pulse Ox
98.1 F 60 17 125/51 99
01/25/24 07:32 01/25/24 07:32 01/25/24 07:32 01/25/24 07:32 01/25/24 07:32
I&O
01/24/24 01/25/24 01/26/24
06:59 06:59 06:59
Intake Total 780 / 780 580 / 580
Balance 780 / 780 580 / 580
--- NOTE | 2024-01-25 12:21 | W.PN.GI.CBS2 ---
Today's Communication / Plan
-
Recommend PT/OT evaluation prior to discharge.
Assessment / Plan
-
68 yo female well known to our group with a complex PMH significant for decompensated MASH cirrhosis actively listed for transplant at [facility] with ascites and HE requiring twice weekly paracentesis and thoracentesis for recurrent pleural
effusion�(follows with Dr. Bradley), renal insufficiency, Hepatic encephalopathy on Xifaxan/lactulose, hx of SBP on chronic ciprofloxacin(prior non compliance but recently taking as directed), PVT, paroxysmal afib (off AC due to risk of bleeding),
gastroparesis, esophageal dysmotility s/p RYGB, HLD, hypothyroidism, chronic GERD on PPI/H2B returned to ER after having outpatient paracentesis on 01/22 due to encephalopathy, felt to be 2/2 polypharmacy.
Us Abd with dopplers 01/22/24:
IMPRESSION: On duplex evaluation, normal appearance of the main portal vein as well as the right, middle, and left hepatic veins.
High resistive index of the hepatic artery, measuring 0.80.
Status post cholecystectomy with no significant dilation of the common bile duct.
Liver has a nodular external contour and increased echogenicity compatible with cirrhosis. No sonographic evidence for a focal hepatic mass lesion, with relatively limited visualization.
Moderate ascites in the right upper quadrant adjacent to the liver.
Splenomegaly.
The pancreas, upper abdominal aorta, and upper abdominal IVC are unable to be adequately visualized.
Impression:
-Hepatic Encephalopathy
-decompensated MASH cirrhosis with HE/ascites on OLT list at [facility]-MELD3.0->23 (25 on01/23/24, 25-> 01/22/24, 23 on 01/21/24)
-chronic renal insufficiency-> Creat 1.9 (baseline since Oct has been around 1.4-1.9)
-hx R hydrothorax with hx multiple prior thoracentesis, CXR clear 01/21/24, lungs still clear. Last thoracentesis November.
-intractable ascites with biweekly paracentesis, last one 01/23/24 with 3100 out, fluid neg. for SBP
-hx SBP February 2023, on chronic ciprofloxacin outpatient
-chronic abdominal pain on Oxycodone, would reduce as polypharmacy likely playing role in HE, stopped. --> unclear who is prescribing this??
-chronic pancytopenia 2/2 cirrhosis
-coagulopathy with chronic liver disease -> stable
-gastroparesis-> Reglan dose reduced secondary to creat clearance now, currently 5 mg (reduced from 10 mg)
-RYGB for esophageal dysmotility
Plan:
-Continue Lactulose TID
-Continue Xifaxan BID
-Continue Cipro for SBP prophylaxis.
-Continue outpatient diuretic regimen -> Lasix 20 mg po daily and Aldactone 50 mg po daily. Cr. improved to 1.7 from 1.9 yesterday, which is the lowest it has been since 11/2023
-CBC, CMP, PT/INR in am
-Continue 2 gm Na diet
-Patient has appt with Dr. Bradley today (telehealth) --> will update plan if any changes in management
-Recommend PT/OT to get patient up and ambulating --> if cleared, okay for discharge from a GI perspective
Subjective
Subjective
Date of Service: January 25, 2024
Patient seen in follow-up today. Cr. improved to 1.7 following reinitiation of home diuretics. She reports feeling well, offers no complaints. Appointment with her state auditor, Dr. Bradley, was able to be converted to telehealth today.
Objective
Data Reviewed
Laboratory Data:
Laboratory Results
01/25/24 06:14
01/25/24 06:14
Laboratory Results
PT 20.9 Sec (11.4-14.6) H 01/25/24 06:14
INR 1.79 01/25/24 06:14
APTT 32.2 Sec (23.4-35.0) 01/21/24 12:00
Phosphorus 3.7 mg/dl (2.5-4.5) 01/25/24 06:14
Magnesium 2.3 mg/dl (1.6-2.3) 01/25/24 06:14
Total Bilirubin 1.8 mg/dl (0.2-1.3) H 01/25/24 06:14
AST 41 U/L (14-36) H 01/25/24 06:14
ALT 24 U/L (0-35) 01/25/24 06:14
Alkaline Phosphatase 82 U/L (38-126) 01/25/24 06:14
Vital Signs and I&O:
Vital Signs
Temp Pulse Resp BP Pulse Ox
98.1 F 60 17 125/51 99
01/25/24 07:32 01/25/24 07:32 01/25/24 07:32 01/25/24 07:32 01/25/24 07:32
I&O
01/24/24 01/25/24 01/26/24
06:59 06:59 06:59
Intake Total 780 / 780 580 / 580
Balance 780 / 780 580 / 580
Physical Exam
Physical Exam
HEENT: Anicteric
Cardiology: Normal Sinus Rhythm
Pulmonary: Clear
GI: Soft, Distended (Softly), Non Tender and Normal Bowel Sounds
Extremities: No Edema
Neuro: Non Focal (Patient awake alert and oriented x 3, back to baseline, no true asterixis but baseline extrapyramidal movements)
--- NOTE | 2024-01-25 14:21 | W.DS.TRANS ---
Addendum entered and electronically signed by Rolo Hurst MD 01/25/24 16:21:
Dictation- [id number]
Original Note:
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
-
Discharge Instructions:
Discharge Diagnosis/Procedures Hepatic encephalopathy,ZAVALETA, ascites, history of
SBP, pancytopenia, chronic heart failure,
chronic kidney disease, diabetes, high
cholesterol, atrial fibrillation, hypothyroidism
, GERD, anxiety and depression
Diet 2 Gram Sodium,Restrict fluids to 48 oz
Activity As tolerated,With assistance
Driving Restrictions No driving
Blood Work cbc with diff , bmp sunday
Other Services VN
Instructions:
Stand-Alone Forms:
Changes to Home Medications: Yes
Discharge Medications:
DC Medications w/original date entered in [facility]
atorvastatin 20 mg tablet 20 mg PO QPM High cholesterol 06/14/22
levothyroxine 25 mcg tablet 12.5 mcg PO DAILY Thyroid 06/14/22
pantoprazole 40 mg tablet,delayed release (Protonix) 40 mg PO DAILY Gastrointestinal issue 12/09/22
prednisone 5 mg tablet 5 mg PO DAILY Anti-Inflammatory 06/05/23
ondansetron HCl 8 mg tablet 8 mg PO TIDPRN PRN nausea 06/25/23
quetiapine 25 mg tablet (Seroquel) 25 mg PO HS mental health/sleep 07/15/23
buspirone 15 mg tablet 15 mg PO TID Mental Health 08/28/23
rifaximin 550 mg tablet 550 mg PO BID Liver Issues 10/01/23
sucralfate 1 gram tablet 1 g PO ACHS Gastrointestinal Issue 10/23/23
furosemide 20 mg tablet 20 mg PO DAILY Fluid Retention/Swelling 11/19/23
spironolactone 50 mg tablet 50 mg PO DAILY Fluid Retention/Swelling 11/19/23
memantine 5 mg tablet 5 mg PO HS dementia 12/26/23
ciprofloxacin HCl 500 mg tablet (Cipro) 500 mg PO DAILY@1200 Liver Issues 01/21/24
lactulose 10 gram/15 mL oral solution 30 g PO TID Liver Issues 01/21/24
famotidine 20 mg tablet 10 mg (1/2 x 20 mg) PO HS Gastrointestinal issue #30 tabs 01/25/24
metoclopramide HCl 10 mg tablet 5 mg (1/2 x 10 mg) PO ACHS Gastrointestinal Issue #0 tabs 01/25/24
Home Medication Changes
pepscid and reglan dose changed
Pending Results: No
--- NOTE | 2024-01-25 14:41 | CM ---
Pt for d/c today
Has ride home with
Discussed IMM
VN requested by physician - pt requested [facility]
Referral sent in [facility]
Plan - home with [facility]ie
F - [phone]
[2024-01-25 14:48] VITALS: BP 130/68; PULSE 67; O2SAT 100
[2024-01-25 14:50] VITALS: BP 130/68; PULSE 67; O2SAT 99
[2024-01-25 15:46] VITALS: BP 124/63
[2024-01-25 16:44] LABS: Glucose - Point of Care 174 mg/dl (70-99)
[2024-01-25] MEDS: NOVOLOG FLEXPEN-LOW RESISTANCE 1 UNITS SC (16:50)
== END 2024-01-25 18:05 | disposition home health service (06) | DRG 441 ==
LOC: 3 WEST ACU 14:08
PROVIDERS: Internal Medicine; Nurse Practitioner; Radiology Vascular & Interventional Radiology; Registered Nurse; ADMITTING PHYSICIAN Student in an Organized Health Care Education/Training Program; ATTENDING PHYSICIAN Hospitalist; EMERGENCY PHYSICIAN Emergency Medicine; FAMILY PHYSICIAN Internal Medicine; OTHER PHYSICIAN Internal Medicine Gastroenterology
PROC: 0W9G3ZZ Drainage of Peritoneal Cavity, Percutaneous Approach (ICD-10-PCS; 2024-01-24)
DX: K76.82 Hepatic encephalopathy (principal); G92.8 Other toxic encephalopathy; I81 Portal vein thrombosis; D61.818 Other pancytopenia; K51.90 Ulcerative colitis, unspecified, without complications; I13.0 Hypertensive heart and chronic kidney disease with heart failure and stage 1 through stage 4 chronic kidney disease, or unspecified chronic kidney disease; F11.20 Opioid dependence, uncomplicated; D68.9 Coagulation defect, unspecified; I50.32 Chronic diastolic (congestive) heart failure; R18.8 Other ascites; J90 Pleural effusion, not elsewhere classified; N17.9 Acute kidney failure, unspecified; K74.60 Unspecified cirrhosis of liver; N18.30 Chronic kidney disease, stage 3 unspecified; E78.00 Pure hypercholesterolemia, unspecified; K75.81 Nonalcoholic steatohepatitis (NASH); F41.9 Anxiety disorder, unspecified; K21.9 Gastro-esophageal reflux disease without esophagitis; K31.84 Gastroparesis; I48.0 Paroxysmal atrial fibrillation; M79.7 Fibromyalgia; R73.03 Prediabetes; G62.9 Polyneuropathy, unspecified; F32.A Depression, unspecified; G89.4 Chronic pain syndrome; E87.5 Hyperkalemia; K72.90 Hepatic failure, unspecified without coma; D69.6 Thrombocytopenia, unspecified; E03.9 Hypothyroidism, unspecified; Z76.82 Awaiting organ transplant status; Z87.891 Personal history of nicotine dependence; Z98.84 Bariatric surgery status; Q43.0 Meckel's diverticulum (displaced) (hypertrophic); Z88.1 Allergy status to other antibiotic agents; Z91.041 Radiographic dye allergy status; Z91.040 Latex allergy status; Z88.0 Allergy status to penicillin; Z88.2 Allergy status to sulfonamides; Z88.8 Allergy status to other drugs, medicaments and biological substances; Z91.018 Allergy to other foods; Z91.048 Other nonmedicinal substance allergy status; Z79.890 Hormone replacement therapy; Z79.52 Long term (current) use of systemic steroids; Z79.2 Long term (current) use of antibiotics; Z11.52 Encounter for screening for COVID-19; Z90.49 Acquired absence of other specified parts of digestive tract
CPT/HCPCS: 49083; 70450; 71046; 76700; 80048; 80053; 81003; 82140; 82248; 82570; 82962; 83036; 83605; 83735; 84100; 84132; 84300; 84484; 85025; 85027; 85610; 85730; 87040; 87811; 89051; 93005; 93975; 96360; 96361; 97162; 97166; 99285; P9047

== ENCOUNTER → 2024-01-28 07:03 | Outpatient (REF) | payer MEDICARE, OTHER, SELFPAY ==
[2024-01-28 07:25] VITALS: BP 140/58; BP_SYST 76
[2024-01-28 08:45] VITALS: BP 121/55
[2024-01-28 09:43] LABS: Body Fluid Mononuclear 64.7 %; Body Fluid Polymorphonuclear 35.3 %; Body Fluid WBC 136 /CUMM
[2024-01-28 10:05] LABS: Body Fluid Second Tech ASW
== END ==
LOC: RADI 07:03
PROVIDERS: ATTENDING PHYSICIAN Internal Medicine; FAMILY PHYSICIAN Internal Medicine
DX: R18.8 Other ascites (principal)
CPT/HCPCS: 49083; 87015; 87070; 87205; 89051

== ENCOUNTER → 2024-01-31 07:16 | Outpatient (REF) | payer MEDICARE, OTHER, SELFPAY ==
[2024-01-31 07:40] VITALS: BP 139/65; BP_SYST 85
[2024-01-31 08:55] VITALS: BP 126/64
[2024-01-31 10:41] LABS: Body Fluid WBC 112 /CUMM
[2024-01-31 11:07] LABS: Body Fluid Second Tech JKH
== END ==
LOC: RADI 07:16
PROVIDERS: ATTENDING PHYSICIAN Internal Medicine; FAMILY PHYSICIAN Internal Medicine
DX: R18.8 Other ascites (principal)
CPT/HCPCS: 49083; 89051

== ENCOUNTER → 2024-02-04 06:46 | Outpatient (REF) | payer MEDICARE, OTHER, SELFPAY ==
[2024-02-04 07:28] VITALS: BP 129/57; BP_SYST 80
[2024-02-04 08:18] VITALS: BP 129/68
[2024-02-04 09:24] LABS: Body Fluid Mononuclear 52.2 %; Body Fluid Polymorphonuclear 47.8 %; Body Fluid WBC 111 /CUMM
[2024-02-04 10:07] LABS: Body Fluid Second Tech AMA
== END ==
LOC: RADI 06:46
PROVIDERS: ATTENDING PHYSICIAN Internal Medicine; FAMILY PHYSICIAN Internal Medicine
DX: R18.8 Other ascites (principal)
CPT/HCPCS: 49083; 89051

== ENCOUNTER 2024-02-14 09:41 | Outpatient (RCR) | payer MEDICARE, OTHER, SELFPAY ==
[2024-01-28] MEDS: FLEXBUMIN 100 IV (09:07)
[2024-01-28 09:08] VITALS: BP 154/60
[2024-01-28 10:34] VITALS: BP 133/62
[2024-01-31] MEDS: FLEXBUMIN 100 IV (09:12)
[2024-01-31 09:13] VITALS: BP 140/45
[2024-01-31 10:35] VITALS: BP 126/43
[2024-02-04 08:41] VITALS: BP 128/50
[2024-02-04] MEDS: FLEXBUMIN 100 IV (08:57)
[2024-02-04 08:59] VITALS: BP 128/50
[2024-02-04 09:45] VITALS: BP 134/59
[2024-02-04 10:40] VITALS: BP 136/52
[2024-02-07 08:30] VITALS: BP 140/62
[2024-02-07] MEDS: FLEXBUMIN 100 IV (08:44)
[2024-02-07 08:46] VITALS: BP 140/62
[2024-02-07 10:20] VITALS: BP 127/48
[2024-02-14 10:39] VITALS: BP 120/51
[2024-02-14] MEDS: FLEXBUMIN 50 IV (10:39)
[2024-02-14 11:24] VITALS: BP 110/48
[2024-02-14 11:25] VITALS: BP 110/48
== END 2024-02-15 23:59 | disposition home or self-care (01) ==
LOC: OID 09:41
PROVIDERS: ATTENDING PHYSICIAN Internal Medicine; PRIMARYCARE PHYSICIAN Internal Medicine
DX: K74.60 Unspecified cirrhosis of liver (principal); R18.8 Other ascites; K76.0 Fatty (change of) liver, not elsewhere classified; K31.84 Gastroparesis; I81 Portal vein thrombosis; Z92.89 Personal history of other medical treatment; Z98.84 Bariatric surgery status
CPT/HCPCS: 49083; 87015; 87070; 87205; 89051; 96365; 96366; P9047

== ENCOUNTER 2024-04-18 20:02 | Inpatient (IN) | payer MEDICARE, OTHER, SELFPAY ==
[2024-04-18] VITALS (10 sets, daily range): BP systolic 78–152; BP diastolic 52–78; BMI 31.3; BMI 28.7
--- NOTE | 2024-04-18 13:53 | ED.GENMED ---
History of Present Illness
General
Chief Complaint: Abdominal Symptoms
Time Seen by Provider: 04/18/24 13:24
History of Present Illness
History of Present Illness:
Patient is with history of cirrhosis, ZAVALETA followed by Mitch, diabetes, hypertension presenting to the room with vomiting and weakness patient states for the past 3 days she has been having vomiting. Is nonbloody nonbilious. No fevers. Slight
abdominal pain. Paracentesis completed 2 days ago without any issues. It was not tested. Normal bowel movements. She is on lactulose. She has not been drinking alcohol. She does feel more confused similar to when she has an elevated ammonia
level. She does have history of SBP
Past History
Past History
ED Past Medical History: Arrthythmia (Paroxysmal atrial fibrillation), Fibromyalgia, GERD, HTN, Hypercholesterolemia, NIDDM, Hypothyroidism, Psychiatric (Anxiety), Other (Gastroparesis, chronic gastritis, ZAVALETA, esophageal dysmotility/achalasia,
Ulcerative colitis, Migraines, neck pain, IBS, anemia, Dizziness Hepatic encephalopathy. Cirrhosis of the liver, IBS, ) and Other (Portal vein thrombosis); Negative CAD
ED Past Surgical History: Appendectomy, Bowel resection, Cholecystectomy, Gynecological (Total Hysterectomy, Oophorectomy), Orthopedic (right wrist surgery, Left ankle surgery) and Other (Meckel's diverticulum, gastric bypass Jun 27, 2021,
cataracts,)
Patient has exhibited threatening behavior?: No
PSI?: No
Social History
Tobacco: Former smoker
Alcohol: None
Drug: None
Personal:
Living: with family
Employment: Retired
Family History
Family History: Other ([place])
Phy Exam
Physical Exam
Physical Exam:
GENERAL: in no acute distress
HEENT: normocephalic, extraocular movements intact, dry oral mucosa
NECK: normal inspection
RESPIRATORY: no respiratory distress, clear to auscultation bilaterally
CARDIOVASCULAR: regular rate and rhythm
ABDOMEN/: soft, distended, diffusely tender, no rebound or guarding
EXTREMITIES: non-tender, no edema/swelling
NEUROLOGIC: awake and alert, moves all extremities
SKIN: warm
Course
Orders/Labs/Results
Orders:
Orders
04/18/24 13:52
CT Abd/pelvis Wo Iv Cont Urgent
Reason For Exam: abdominal pain
Urinalysis Reflex To Culture Urgent
04/18/24 13:59
Electrocardiogram (*1) Urgent
Reason for Study: Abdominal Pain
EKG- Treatment ONCE
04/18/24 14:11
Consult Interventional Radiology [IRAD CONSULT] Urgent
Consulting Provider: Celina Moe
Was physician already notified: Yes
Reason for Consult/Procedure: r/o sbp
Acknowledgement that appropriate orders are entered: N/A
04/18/24 14:46
Ammonia Urgent
Complete Blood Count/No Diff Urgent
Comprehensive Metabolic Panel Urgent
04/18/24 15:17
Body Fluid Albumin Routine
Fluid Source: Peritoneal (Ascites)
Date Specimen was Collected: 04/18/24
Time Specimen was Collected: 15:07
Body Fluid Amylase Routine
Fluid Source: Peritoneal (Ascites)
Date Specimen was Collected: 04/18/24
Time Specimen was Collected: 15:07
Body Fluid Cell Count Routine
What is the Body Fluid: peritoneal fluid
Date Specimen was Collected: 04/18/24
Time Specimen was Collected: 15:07
Comment: post procedure
Body Fluid LDH Routine
Fluid Source: Peritoneal (Ascites)
Date Specimen was Collected: 04/18/24
Time Specimen was Collected: 15:07
Body Fluid Protein Routine
Fluid Source: Peritoneal (Ascites)
Date Specimen was Collected: 04/18/24
Time Specimen was Collected: 15:07
Fluid Culture with Gram Stain Routine
SHAUNA Source: Peritoneal Fluid
Specimen Description:
Date Specimen was Collected: 04/18/24
Time Specimen was Collected: 15:07
Comment: Post Procedure
04/18/24 16:29
PT/INR [Prothrombin Time] Routine
04/18/24 17:00
Giardia/Cryptosporidium Ag Routine
SHAUNA Source: Feces/Stool
Specimen Description:
Norovirus by PCR Routine
SHAUNA Source: Feces/Stool
Specimen Description:
STOOL [C difficile Antigen & Toxins] Routine
SHAUNA Source: Feces/Stool
Specimen Description:
Stool Culture Routine
SHAUNA Source: Feces/Stool
Specimen Description:
Stool For WBC Routine
SHAUNA Source: Feces/Stool
Specimen Description:
04/18/24 17:15
Albumin Human 25% 100 ml [Flexbumin] 25 grams in 100 ml IV TODAY
04/18/24 17:29
Consult Infectious Disease [INFECTIOUS DISEASE CONSULT] Routine
Consulting Provider: Monty Solomon
Was physician already notified: Yes
Reason for consult: +SBP (multiple allergies), pancolitis on CT
04/18/24 17:38
Blood Culture Stat
SHAUNA Source: Blood/Venous
Specimen Description:
04/18/24 17:45
Albumin Human 25% 100 ml [Flexbumin] 25 grams in 100 ml IV Q100M
Abnormal Lab Results
04/18/24 04/18/24
14:46 16:29
RBC 3.15 L 10^6/uL
(4.20-5.40)
Hgb 9.8 L g/dL
(12.0-16.0)
Hct 27.8 L %
(37.0-47.0)
MCH 31.1 H pg
(27.0-31.0)
RDW 17.2 H %
(11.5-14.5)
Plt Count 114 L 10^3/uL
(130-400)
MPV 12.3 H fL
(7.4-10.4)
PT 20.9 H Sec
(11.4-14.6)
Sodium 132 L mmol/L
(135-145)
BUN 27 H mg/dl
(7-17)
Creatinine 1.7 H mg/dL
(0.6-1.0)
Glucose 155 H mg/dl
(70-99)
Total Bilirubin 2.8 H mg/dl
(0.2-1.3)
AST 43 H U/L
(14-36)
Alkaline Phosphatase 151 H U/L
(38-126)
Total Protein 5.7 L g/dl
(6.3-8.2)
Albumin 2.6 L g/dl
(3.5-5.0)
04/18/24 14:46
04/18/24 14:46
Vital Signs
Initial and Last Documented VS:
Initial Vital Signs
Temp Pulse Resp BP Pulse Ox
98.7 F 84 16 152/78 99
04/18/24 11:32 04/18/24 11:32 04/18/24 11:32 04/18/24 11:32 04/18/24 11:32
Last Documented Vital Signs
Temp Pulse Resp BP Pulse Ox
98.1 F 79 14 114/52 99
04/18/24 16:12 04/18/24 18:00 04/18/24 18:00 04/18/24 18:00 04/18/24 18:00
MDM/Problems Addressed
Differential Diagnosis Includes:
68-year-old woman with history of cirrhosis, history of hepatic encephalopathy presenting to the emergency department with vomiting and weakness. Vitals are unremarkable and exam does show abdomen that is distended and diffusely tender. Exam is
sent with worsening ascites though patient states it is at baseline. Concern for gastroenteritis versus obstruction versus SBP versus infection. Less likely to be obstruction as she has been having normal bowel movement and abdomen is somewhat
similar to her prior examinations. Will obtain blood work urine EKG and CT scan. Will complete paracentesis
*Critical Care Note
Total Time (30-74mins, 75-104mins- exclusive of procedures): Not Applicable
Update Note
Update Note:
Blood work is notable for slightly elevated total bilirubin and alk phos. Paracentesis is consistent with SBP. GI did evaluate patient and ID consult pending at this time given patient's multiple allergies. CT scan does show pancolitis. She will
need admission for further monitoring and IV antibiotics. Discussed with hospitalist who is amenable to admission
ED Attending Note
-
Portions of this chart may have been created with voice recognition software.� Occasional wrong word or��sound alike� substitutions may have occurred due to the inherent limitations of voice recognition software.
Discharge Plan
Departure
Patient Disposition: Admit
Date of Disposition: 04/18/24
Time of Disposition: 18:20
Admit to doctor: isamar
Presentation/result/management discussed w/ accepting MD/DO: Hospitalist
Discharge Problem:
SBP (spontaneous bacterial peritonitis), Pancolitis
Prescriptions:
No Action
atorvastatin 20 mg tablet
20 mg PO QPM
levothyroxine 25 mcg tablet
12.5 mcg PO DAILY
Patient Comments:
12/26/2023, called patient's [facility] pharmacy ([facility] [address] [address]) to confirm this medication. [facility] states that patient last filled this medication in April of 2023 for a 90-day supply.
pantoprazole [Protonix] 40 mg Tablet,Delayed Release (Dr/Ec)
40 mg PO DAILY
prednisone 5 mg tablet
5 mg PO DAILY
ondansetron HCl 8 mg tablet
8 mg PO TIDPRN PRN (Reason: nausea)
quetiapine [Seroquel] 25 mg Tablet
25 mg PO HS
buspirone 15 mg Tablet
15 mg PO TID
rifaximin 550 mg Tablet
550 mg PO BID
Patient Comments:
12-26-2023-buying from [facility]
sucralfate 1 gram Tablet
1 g PO ACHS
furosemide 20 mg Tablet
40 mg PO DAILY
spironolactone 50 mg Tablet
50 mg PO DAILY
memantine 5 mg Tablet
5 mg PO HS
ciprofloxacin HCl [Cipro] 500 mg Tablet
500 mg PO DAILY@1200
lactulose 10 gram/15 mL solution
30 g PO TID
famotidine 20 mg Tablet
10 mg PO HS Qty: 30 0RF
metoclopramide HCl 10 mg Tablet
5 mg PO ACHS Qty: 0 0RF
Referrals:
Malu Wilson DO [Family Provider] -
Interventions
Interventions:
*Risk Screen - Suicide Last Done: 04/18/24 11:32
*General Assessment Last Done: 04/18/24 11:32
*Neglect/Abuse Screening Last Done: 04/18/24 11:32
*ED COVID-19 Vaccine History Last Done: 04/18/24 13:32
[facility]xhwzxd[facility] Assessment Last Done: 04/18/24 16:19
Discharge Date and Time
Print Language: [place] LEONE[place]
[2024-04-18 14:57] LABS: Hematocrit 27.8 % (37.0-47.0); Hemoglobin 9.8 g/dL (12.0-16.0); Mean Corp Hgb Conc. 35.3 g/dL (33.0-37.0); Mean Corpuscular Hgb 31.1 pg (27.0-31.0); Mean Corpuscular Volume 88.3 fL (81.0-99.0); Mean Platelet Volume 12.3 fL (7.4-10.4); Platelet Count 114 10^3/uL (130-400); Red Blood Cell Count 3.15 10^6/uL (4.20-5.40); Red Cell Dist. Width 17.2 % (11.5-14.5); White Blood Cell Count 8.1 10^3/uL (4.8-10.8)
[2024-04-18 15:07] LABS: Ammonia 25 umol/L (9-30)
[2024-04-18 15:18] LABS: ALT (SGPT) 23 U/L (0-35); AST (SGOT) 43 U/L (14-36); Albumin 2.6 g/dl (3.5-5.0); Alkaline Phosphatase 151 U/L (38-126); Blood Urea Nitrogen 27 mg/dl (7-17); Calcium 8.5 mg/dl (8.4-10.2); Carbon Dioxide 27 mmol/L (22-30); Chloride 102 mmol/L (98-107); Estimated Creatinine Clearance 32 ml/min; Glucose 155 mg/dl (70-99); Potassium 4.4 mmol/L (3.5-5.1); Sodium 132 mmol/L (135-145); Total Bilirubin 2.8 mg/dl (0.2-1.3); Total Protein 5.7 g/dl (6.3-8.2); eGFR 32.66
[2024-04-18 16:44] LABS: Body Fluid WBC 1282 /CUMM
[2024-04-18 16:47] LABS: Body Fluid Mononuclear 22.8 %; Body Fluid Polymorphonuclear 77.2 %
--- NOTE | 2024-04-18 16:48 | CON.GI ---
Addendum entered and electronically signed by Mattie Echevarria MD 04/18/24 20:05:
I saw and examined the patient.
The [employer]AR[employer]NER or PA's note was reviewed and I agree with the note.
Comment: Lavonne is a 68-year-old female well-known to my group with [facility]ensated [facility] follows with Dr. Bradley requiring paracentesis and thoracentesis, history of SBP on chronic antibiotics, hepatic encephalopathy on Xifaxan and lactulose,
who came into the office to see Dr. Bradley this morning and he found that she was encephalopathic. She was also complaining of nausea, vomiting, abdominal pain. She underwent para here and her PMN was 987. Total white blood cell count 1282, 77%
polynuclear cells. She also underwent a CAT scan as outlined below. On exam she is minimally tender with asterixis although oriented.
I discussed the case with infectious disease. Due to her allergies and Seroquel which will interact with Levaquin, decision was made to start meropenem which I ordered. We also ordered albumin 1.5 g/kg. I have also ordered lactulose and Xifaxan
which she has not gotten yet in the emergency room.
Due to her SBP, I recommend holding all diuretics.
She also has some diarrhea which could be from her lactulose. There is pancolitis on the CT although this can also occur with ascites. Stool studies have been ordered.
Her MELD today is 27 and she should get daily MELD labs with CBC, BMP, LFTs and coags.
I spoke to Dr. Bradley today who recommended transfer if needed. I think with her SBP and being on the transplant list, she would benefit from transfer. I reached out to Dr. Asutin who is on-call for [place] [facility] who recommended to initiate
transfer tomorrow unless it is emergent which it is not. I discussed with patient and she is agreeable to go down to [place] via transfer. Unclear when they would have a bed.
Original Note:
Consultation
-
Date/Time Consultation Requested: 04/18/24
Date/Time Consultation Performed: 04/18/24 @ 16:30
Performing Provider: DIALLO Pinto; Dr. Echevarria
Reason for Consultation: n/v/abdominal pain, hx decompensated MASH cirrhosis
Medical History
Chief Complaint / HPI
Chief Complaint: n/v/abdominal pain x 3 days
History of Present Illness:
The patient is a pleasant 68-year-old female with a complex past medical history as listed below but significant for decompensated MASH cirrhosis with HD, ascites, SBP, actively listed for transplant evaluation at [place] following with Dr. Bradley
requiring routine paracentesis and thoracentesis, chronic renal insufficiency, hepatic encephalopathy on Xifaxan and lactulose, history of SBP on chronic ciprofloxacin, portal vein thrombosis, paroxysmal atrial fibrillation off anticoagulation given
risk of bleeding, gastroparesis, esophageal dysmotility status post Kevin-en-Y bypass, hyperlipidemia, hypothyroidism, chronic GERD, who presented to the emergency room with complaints of nausea, vomiting, and abdominal pain for the past 3 days with
severe fatigue and altered mental status. We are being asked to evaluate for the presenting symptoms. The patient is well-known to our group, with numerous hospital admissions over the past several years, followed in the office with Dr. Delacruz. She
was in our office today to see Dr. Bradley, and had reported she had been having nausea, vomiting, and abdominal pain for the past 3 days. She notes that she had been evaluated at [facility] but 'nothing was done there.' She notes that she has been
getting her paracentesis done at [facility], and it is unclear why she had changed her care to there from here given that she follows with our doctors here. She notes that she has felt increased confusion along with chills in combination with the
above symptoms. She notes that she has been extremely fatigued and sleeping more often during the day. She notes compliance with her lactulose taking it on a daily basis and having 5-6 bowel movements a day. She notes they are loose at baseline.
She denies any melena or hematochezia. She denies any hematemesis. She otherwise denies any chest pain, shortness of breath, dizziness, syncope, or urinary symptoms. She does report an increase in abdominal pain above her baseline pain. She also
notes that her abdomen seems somewhat more distended than usual and she has had some increased swelling in the lower extremities. She reports compliance with her medications. She notes that she is only taking the ciprofloxacin once a week as
someone had advised her to change to this dosing. She denies any recent travel or recent sick contacts. She denies any changes in diet. She notes that she has been spending a lot of time outside by the pool more recently. She denies any changes
in medications
Past Medical History
Past Medical History: Arrhythmias (A-fib not on anticoagulation), Fibromyalgia, GERD, HTN, Hypercholesterolemia and Other (Decompensated MASH cirrhosis with ascites, HD on outpatient transplant list at [place] following with Dr. Bradley, chronic
kidney disease, portal vein thrombosis, chronic anemia, esophageal dysmotility, gastroparesis on chronic Reglan, history of SBP on prophylaxis with ciprofloxacin, recurrent pleur)
Past Surgical History: Appendectomy, Bowel Resection (Meckel's diverticulum with lysis of adhesions and small bowel resection), Cholecystectomy, , Gynecological (Total abdominal hysterectomy) and Other (Kevin-en-Y gastric bypass)
Social History
Tobacco: Non-Smoker
Alcohol: None
Drug: None
Personal:
Living: With Family
Family History
Family History: Reviewed & Not Pertinent
Allergies / Home Medications
Allergy/AdvReac Type Severity Reaction Status Date / Time
adhesive Allergy Rash Verified 04/18/24 11:32
ampicillin Allergy Anaphylaxis Verified 04/18/24 11:32
bee pollen Allergy Swelling Verified 04/18/24 11:32
Cephalosporins Allergy Swelling Verified 04/18/24 11:32
diphenhydramine Allergy HYPERACTIVI Verified 04/18/24 11:32
[From Benadryl] TY
honey Allergy Swelling Verified 04/18/24 11:32
latex Allergy HIVES AND Verified 04/18/24 11:32
SWELLS UP
penicillin G Allergy Anaphylaxis Verified 04/18/24 11:32
Penicillins Allergy Anaphylaxis Verified 04/18/24 11:32
prochlorperazine Allergy Unknown Verified 04/18/24 11:32
[From Compazine]
promethazine HCl Allergy THROAT Verified 04/18/24 11:32
[From Phenergan] SWELLING/PANIC
ATTACKS
Sulfa (Sulfonamide Allergy Swelling Verified 04/18/24 11:32
Antibiotics)
sulfisoxazole Allergy Swelling Verified 04/18/24 11:32
trimethobenzamide Allergy Unknown Verified 04/18/24 11:32
venom-honey bee Allergy BEE Verified 04/18/24 11:32
STING/SWELLING
�Medication �Instructions �Recorded
atorvastatin 20 mg tablet 20 mg PO QPM High cholesterol 06/14/22
levothyroxine 25 mcg tablet 12.5 mcg PO DAILY Thyroid 06/14/22
pantoprazole 40 mg tablet,delayed 40 mg PO DAILY Gastrointestinal 12/09/22
release (Protonix) issue
prednisone 5 mg tablet 5 mg PO DAILY Anti-Inflammatory 06/05/23
ondansetron HCl 8 mg tablet 8 mg PO TIDPRN PRN nausea 06/25/23
quetiapine 25 mg tablet (Seroquel) 25 mg PO HS mental health/sleep 07/15/23
buspirone 15 mg tablet 15 mg PO TID Mental Health 08/28/23
rifaximin 550 mg tablet 550 mg PO BID Liver Issues 10/01/23
sucralfate 1 gram tablet 1 g PO ACHS Gastrointestinal Issue 10/23/23
furosemide 20 mg tablet 40 mg PO DAILY Fluid 11/19/23
Retention/Swelling
spironolactone 50 mg tablet 50 mg PO DAILY Fluid 11/19/23
Retention/Swelling
memantine 5 mg tablet 5 mg PO HS dementia 12/26/23
ciprofloxacin HCl 500 mg tablet 500 mg PO DAILY@1200 Liver Issues 01/21/24
(Cipro)
lactulose 10 gram/15 mL oral 30 g PO TID Liver Issues 01/21/24
solution
famotidine 20 mg tablet 10 mg (1/2 x 20 mg) PO HS 01/25/24
Gastrointestinal issue #30 tabs
metoclopramide HCl 10 mg tablet 5 mg (1/2 x 10 mg) PO ACHS 01/25/24
Gastrointestinal Issue #0 tabs
Review of Systems
-
History Source: Patient
Constitutional: Reports Fatigue
EENT: Reports No Symptoms
Respiratory: Reports No Symptoms
Cardiac: Reports No Symptoms
Abdomen/GI: Reports Abdominal Pain, Nausea and Vomiting
: Reports No Symptoms
Musculoskeletal: Reports No Symptoms
Skin: Reports No Symptoms
Neurological: Reports Dizzy and Weakness
Endocrine: Reports No Symptoms
Hematologic/Lymphatic: Reports No Symptoms
Vital Signs
Temp Pulse Resp BP Pulse Ox
98.1 F 77 16 135/61 98
04/18/24 16:12 04/18/24 16:12 04/18/24 16:12 04/18/24 16:12 04/18/24 16:12
Physical Exam
Exam
General: Well Nourished, No Apparent Distress and Comfortable
HEENT: Normocephalic, Anicteric and Atraumatic
Respiratory: Clear
Cardiac: S1/S2 and Regular Rhythm
GI: Soft, Non Tender, Non Distended, Normal Bowel Sounds and Other (Distended but soft on exam)
Rectal: Deferred by Provider
Musculoskeletal: Edema (Bilateral lower extremity edema+1)
Skin: Warm and Dry
Neuro: Awake, Alert, Oriented and Other (+ Asterixis)
Psych: Calm
Results
WBC 8.1 10^3/uL (4.8-10.8) 04/18/24 14:46
Hgb 9.8 g/dL (12.0-16.0) L 04/18/24 14:46
Hct 27.8 % (37.0-47.0) L 08/02/24 14:46
MCV 88.3 fL (81.0-99.0) 04/18/24 14:46
Plt Count 114 10^3/uL (130-400) L 04/18/24 14:46
Sodium 132 mmol/L (135-145) L 04/18/24 14:46
Potassium 4.4 mmol/L (3.5-5.1) 04/18/24 14:46
Chloride 102 mmol/L (98-107) 04/18/24 14:46
Carbon Dioxide 27 mmol/L (22-30) 04/18/24 14:46
BUN 27 mg/dl (7-17) H 04/18/24 14:46
Creatinine 1.7 mg/dL (0.6-1.0) H 04/18/24 14:46
Calcium 8.5 mg/dl (8.4-10.2) 04/18/24 14:46
Total Bilirubin 2.8 mg/dl (0.2-1.3) H 04/18/24 14:46
AST 43 U/L (14-36) H 04/18/24 14:46
ALT 23 U/L (0-35) 04/18/24 14:46
Alkaline Phosphatase 151 U/L (38-126) H 04/18/24 14:46
Diagnostic Image Results:
04/18/24 paracentesis: 3850mL fluid removed; fluid cell counts pending
04/18/24 CT A/P w/o contrast: IMPRESSION: Findings suggesting moderate pancolitis. New. Findings suggesting mild fluid overload with mild abdominopelvic ascites and edematous mesentery. Improved.
Findings consistent with cirrhosis. Stable. Moderate splenomegaly. Stable. Small right pleural effusion. Mildly improved. Minimal right lower lobe consolidation likely atelectasis. Progressed. Small hiatal hernia. Stable. Postsurgical change.
Stable. Water containing umbilical hernia. This can be seen incarceration/strangulation. Clinical correlation recommended. Stable. Large right paracentral disc herniation at L3/L4. Progressed. See above
Prior GI Procedures:
Prior GI Procedures:�
EGD:� 11/16/22 Dr. Bunny Foss: No gross lesions in the entire esophagus. Gastric bypass with a small-sized pouch and intact staple line. Gastrojejunal anastomosis characterized by healthy appearing mucosa. Normal examined jejunum. Biopsies were
taken with a cold forceps for evaluation of eosinophilic esophagitis. bx showing mild chronic inflammation, otherwise negative.
Colonoscopy:� 03/2018 - [facility]: Hemorrhoids found on perianal exam. Non-bleeding external and internal hemorrhoids. Erythematous mucosa in the rectum. Biopsied. Diverticulosis in the left colon. Four small polyps in the sigmoid colon, in the descending
colon and in the ascending colon, removed with a jumbo cold forceps. Resected and retrieved. Biopsies were taken with a cold forceps for histology in the sigmoid colon, in the descending colon and in the transverse colon. Path showing AC TA polyp,
DC hyperplastic polyp, SC hyperplastic polyp, random bx colon negative. Rectal bx showing colorectal mucosa with nodular submucosal lymphoid aggregate and mild crypt architectural distortion, negative for active colitis.
Assessment / Plan
-
The patient is a pleasant 68-year-old female with a complex past medical history as listed below but significant for decompensated MASH cirrhosis with HD, ascites, SBP, actively listed for transplant evaluation at [place] following with Dr. Bradley
requiring routine paracentesis and thoracentesis, chronic renal insufficiency, hepatic encephalopathy on Xifaxan and lactulose, history of SBP on chronic ciprofloxacin, portal vein thrombosis, paroxysmal atrial fibrillation off anticoagulation given
risk of bleeding, gastroparesis, esophageal dysmotility status post Kevin-en-Y bypass, hyperlipidemia, hypothyroidism, chronic GERD, who presented to the emergency room with complaints of nausea, vomiting, and abdominal pain for the past 3 days with
severe fatigue and altered mental status, found to have findings of moderate pancolitis on CT imaging. She denies fevers but does complain of chills. She notes she has been spending a lot of time outside by the pool and has not been well-hydrated.
She does endorse worsening abdominal pain above baseline but she has no guarding on exam. She appears dehydrated based on her current labs and baseline labs. 3850mL removed on paracentesis, fluid cell counts are pending. She has no signs of
bleeding. She was previously following here for paracentesis but changed to [facility] as this was closer to her house(I do not have records but she possibly had SBP at [facility] recently).
04/18/24 CT A/P w/o contrast: IMPRESSION: Findings suggesting moderate pancolitis. New. Findings suggesting mild fluid overload with mild abdominopelvic ascites and edematous mesentery. Improved. Findings consistent with cirrhosis. Stable. Moderate
splenomegaly. Stable. Small right pleural effusion. Mildly improved. Minimal right lower lobe consolidation likely atelectasis. Progressed. Small hiatal hernia. Stable. Postsurgical change. Stable. Water containing umbilical hernia. This can be seen
incarceration/strangulation. Clinical correlation recommended. Stable. Large right paracentral disc herniation at L3/L4. Progressed.
Problem list:
-Nausea, vomiting
-acute on chronic abdominal pain
-CT imaging showing findings consistent with moderate pancolitis
-[facility] with HD and ascites on [facility] transplant list at [place], MELD 3.0-27
-Positive SBP, hx SBP February 2023, on chronic ciprofloxacin outpatient (non-compliant)
-Chronic pancytopenia
-CKD
-Hyponatremia
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
-intractable ascites with weekly paracentesis (had been going to [facility] recently for paracentesis)
-chronic abdominal pain on Oxycodone
-coagulopathy with chronic liver disease
-gastroparesis
-RYGB for esophageal dysmotility
Recommendations:
-Etiology of current symptoms possibly infectious given findings on CT consistent with moderate pancolitis. Also +SBP based on fluid cell counts. I also feel that she is somewhat on the chip drier side given her labs are much different compared to her
baseline (higher WBC, hemoglobin, and platelets). Cr is at baseline from our prior labs.
-Fluid cell count positive for SBP (fluid WBC 1282, PMNs 77.2); it sounds as though she was not compliant with her SBP prophylaxis only taking her Cipro once weekly
-Will place consult to infectious disease given her multiple antibiotic allergies and recurrent SBP along with pancolitis on CT
-Will order albumin per SBP protocol 1.5 g/kg on day 1 and 1 g/kg on day 3
-Obtain blood cultures, follow ascitic fluid cultures
-Will check infectious stool studies given her pancolitis on CT
-Will hold her diuretics for now with SBP and likely dehydration. Spoke with Dr. Bradley (if needed can transfer to [place] over the weekend)
-Continue lactulose (titrate to 2-3 BM daily) and Xifaxan 550mg BID for HE
-Daily MELD labs
-Avoid sedating medications
-PRN antiemetics (QTc normal)
-Further management pending above
Data Reviewed
-
CT Scan: Report Reviewed by me and Discussed with Physician
Old Records: Reviewed
-
-
Thank you for consultation and allowing me to participate in the patient's care. Please call the wedding transportation driver GI physician during the after hours with any questions or concerns.
[2024-04-18 16:54] LABS: INR 1.82; PT 20.9 Sec (11.4-14.6)
[2024-04-18 16:57] LABS: Body Fluid Albumin < 1.0 g/dl; Body Fluid Amylase < 30 U/L; Body Fluid LDH < 90 U/L; Body Fluid Protein < 2.0 g/dl
[2024-04-18 17:12] LABS: Body Fluid Second Tech JKH
--- NOTE | 2024-04-18 17:17 | EDRN ---
Called pharmacy for albumin
[2024-04-18] MEDS: FLEXBUMIN 100 IV ×4 (18:00→22:23)
--- NOTE | 2024-04-18 19:20 | EDRN ---
Called pharmacy for second albumin infusion
--- NOTE | 2024-04-18 19:32 | HPS.HSE ---
Family Physician
-
Family Physician: Malu Wilson
Chief Complaint
-
diarrhea
History of Present Illness
68-year-old female past medical history of hepatic encephalopathy, nonalcoholic steatohepatitis, spontaneous bacterial peritonitis, pancytopenia, heart failure, CKD, diabetes, hypercholesterolemia, paroxysmal atrial fibrillation, hypothyroidism,
GERD, anxiety/depression, presenting for multiple episodes of diarrhea for the past 3 days, diffuse abdominal pain and distention and chills as well as multiple episodes of vomiting. No blood in the stool or vomit. No chest pain or shortness of
breath.
She does not smoke or use alcohol.
Medical History
Past Medical History
Past Medical History: Reports Other (hepatic encephalopathy, nonalcoholic steatohepatitis, spontaneous bacterial peritonitis, pancytopenia, heart failure, CKD, diabetes, hypercholesterolemia, paroxysmal atrial fibrillation, hypothyroidism, GERD,
anxiety/depression)
Past Surgical History: Reports Other (Appendectomy, Bowel resection, Cholecystectomy, Gynecological (Total Hysterectomy, Oophorectomy), Orthopedic (right wrist surgery, Left ankle surgery) and Other (Meckel's diverticulum, gastric bypass Jun 27,
2020, cataracts,))
Social History
Tobacco: Non-smoker
Alcohol: None
Drug: None
Family History
Family History: Not pertinent
Allergies / Home Medications
Allergies reflects when Allergies were last updated in [facility].
Home Medications with original date entered in [facility]
Allergy/Medication List:
Allergies
Allergy/AdvReac Type Severity Reaction Status Date / Time
adhesive Allergy Rash Verified 04/18/24 11:32
ampicillin Allergy Anaphylaxis Verified 04/18/24 11:32
bee pollen Allergy Swelling Verified 04/18/24 11:32
Cephalosporins Allergy Swelling Verified 04/18/24 11:32
diphenhydramine Allergy HYPERACTIVI Verified 04/18/24 11:32
[From Benadryl] TY
honey Allergy Swelling Verified 04/18/24 11:32
latex Allergy HIVES AND Verified 04/18/24 11:32
SWELLS UP
penicillin G Allergy Anaphylaxis Verified 04/18/24 11:32
Penicillins Allergy Anaphylaxis Verified 04/18/24 11:32
prochlorperazine Allergy Unknown Verified 04/18/24 11:32
[From Compazine]
promethazine HCl Allergy THROAT Verified 04/18/24 11:32
[From Phenergan] SWELLING/PANIC
ATTACKS
Sulfa (Sulfonamide Allergy Swelling Verified 04/18/24 11:32
Antibiotics)
sulfisoxazole Allergy Swelling Verified 04/18/24 11:32
trimethobenzamide Allergy Unknown Verified 04/18/24 11:32
venom-honey bee Allergy BEE Verified 04/18/24 11:32
STING/SWELLING
Home Medications
atorvastatin 20 mg tablet 20 mg PO QPM High cholesterol 06/14/22
levothyroxine 25 mcg tablet 25 mcg PO DAILY Thyroid 06/14/22
pantoprazole 40 mg tablet,delayed release (Protonix) 40 mg PO DAILY Gastrointestinal issue 12/09/22
prednisone 5 mg tablet 5 mg PO DAILY Anti-Inflammatory 06/05/23
ondansetron HCl 8 mg tablet 8 mg PO TIDPRN PRN nausea 06/25/23
quetiapine 25 mg tablet (Seroquel) 25 mg PO HS mental health/sleep 07/15/23
rifaximin 550 mg tablet 550 mg PO BID Liver Issues 10/01/23
sucralfate 1 gram tablet 1 g PO ACHS Gastrointestinal Issue 10/23/23
spironolactone 50 mg tablet 50 mg PO DAILY Fluid Retention/Swelling 11/19/23
memantine 5 mg tablet 5 mg PO HS dementia 12/26/23
ciprofloxacin HCl 500 mg tablet (Cipro) 500 mg PO TU Liver Issues 01/21/24
lactulose 10 gram/15 mL oral solution 30 g PO TID Liver Issues 01/21/24
buspirone 10 mg tablet 10 mg PO TID 04/18/24
ergocalciferol (vitamin D2) 1,250 mcg (50,000 unit) capsule 1,250 mcg PO WE 04/18/24
famotidine 40 mg tablet 40 mg PO HS 04/18/24
furosemide 40 mg tablet 40 mg PO DAILY 04/18/24
metoclopramide HCl 5 mg tablet 5 mg PO ACHS 04/18/24
oxycodone 10 mg tablet 10 mg PO TIDPRN PRN severe pain 04/18/24
torsemide 20 mg tablet 20 mg PO DAILY 04/18/24
Review of Systems
-
History Source: Patient
A 12 point ROS was completed and negative except as noted: Yes
Constitutional: Reports No Symptoms
EENT: Reports No Symptoms
Respiratory: Reports No Symptoms
Cardiac: Reports No Symptoms
Abdomen/GI: Reports No Symptoms
: Reports No Symptoms
Musculoskeletal: Reports No Symptoms
Skin: Reports No Symptoms
Neurological: Reports No Symptoms
Endocrine: Reports No Symptoms
Hematologic/Lymphatic: Reports No Symptoms
Psych: Reports No Symptoms
Physical Exam
Vital Signs
Vital Signs
Temp Pulse Resp BP Pulse Ox
98.1 F 79 14 114/52 99
04/18/24 16:12 04/18/24 18:00 04/18/24 18:00 04/18/24 18:00 04/18/24 18:00
Physical Exam
General: Well Developed, Well Nourished and No Apparent Distress
HEENT: NormoCephalic, Moist mucous membranes and Atraumatic
Respiratory: Clear
Cardiac: S1/S2 and Regular Rhythm; No Murmur or Rub
GI: Soft, Non Distended, Normal Bowel Sounds and Tender; No Organomegaly
Rectal: Deferred by Provider
Musculoskeletal: No Clubbing, No Cyanosis and No Edema
Skin: No Rash
Neuro: Nonfocal/grossly intact
Laboratory Results
-
04/18/24 14:46
04/18/24 14:46
Laboratory Results
PT 20.9 Sec (11.4-14.6) H 04/18/24 16:29
INR 1.82 04/18/24 16:29
Total Bilirubin 2.8 mg/dl (0.2-1.3) H 04/18/24 14:46
AST 43 U/L (14-36) H 04/18/24 14:46
ALT 23 U/L (0-35) 04/18/24 14:46
Alkaline Phosphatase 151 U/L (38-126) H 04/18/24 14:46
Data Reviewed
-
Lab Data: Labs Reviewed by me
Old Records: Reviewed
Impression/Plan
-
IMPRESSION:
PLAN:
#Pancolitis
-Check stool studies, C. difficile, norovirus
-Meropenem given allergies
-N.p.o.
#Recurrent SBP
#History of decompensated ZAVALETA cirrhosis
# History of hepatic encephalopathy
-Status post paracentesis 385 0 cc of yellow ascitic fluid with elevated white blood cell count of 1280
-CT abdomen pelvis shows moderate pancolitis, mild abdominal pelvic ascites and edematous mesentery improved, moderate splenomegaly, small right pleural effusion,
-Blood cultures
-Meropenem given allergies
-Hold diuretics including torsemide, spironolactone
-Continue lactulose, Xifaxan
-Albumin ordered
-GI following
-ID consulted
Pancytopenia
-Hemoglobin stable
-Platelets, white blood cell count improved
Chronic HFpEF
-Hold Lasix
CKD 3
-Renal function at baseline
Type 2 diabetes
-Insulin sign scale
Hypercholesterolemia
-Continue statin
Paroxysmal atrial fibrillation
-Not on anticoagulation due to bleeding risk
Hypothyroidism
-Continue levothyroxine
GERD
-Continue famotidine, Protonix, sucralfate
Esophageal dysmotility status post Kevin-en-Y bypass
Chronic gastroparesis
History of portal vein thrombosis
History of C. difficile
Anxiety/depression
-Continue buspirone
-Continue Seroquel
Chronic pain syndrome/fibromyalgia/opiate dependence
-Continue oxycodone
History of Meckel's diverticulum resection
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
Obesity
Dementia
-Continue memantine
Full code
DVT prophylaxis- SCDs
N.p.o.
[2024-04-18] MEDS: STERILE WATER FOR INJECTION 10 ML IV (19:34)
[2024-04-18] MEDS: MERREM 500 MG IV (19:34)
--- NOTE | 2024-04-18 20:04 | EDRN ---
Called pharmacy for rifaximin
[2024-04-18] MEDS: XIFAXAN 550 MG PO (20:16)
[2024-04-18] MEDS: DUPHALAC/CHRONULAC 20 GRAMS PO (20:17)
[2024-04-18 22:04] LABS: Glucose - Point of Care 171 mg/dl (70-99)
[2024-04-18] MEDS: SEROQUEL 25 MG PO (22:09)
[2024-04-18] MEDS: BUSPAR 10 MG PO (22:09)
[2024-04-18] MEDS: CARAFATE 1 GRAM PO (22:10)
[2024-04-18] MEDS: PEPCID 20 MG PO (22:10)
[2024-04-18] MEDS: NAMENDA 5 MG PO (22:10)
[2024-04-18] MEDS: MERREM 1000 MG IV (22:11)
[2024-04-18] MEDS: ROXICODONE 10 MG PO (22:11)
[2024-04-18] MEDS: DUPHALAC/CHRONULAC 30 GRAMS PO (22:11)
[2024-04-18] MEDS: REGLAN 5 MG PO (22:17)
[2024-04-19] MEDS: STERILE WATER FOR INJECTION 10 ML IV ×4 (01:49→14:24)
[2024-04-19] MEDS: MERREM 500 MG IV ×4 (01:49→14:24)
[2024-04-19 06:00] VITALS: BMI 28.7
[2024-04-19 07:07] LABS: Glucose - Point of Care 115 mg/dl (70-99)
[2024-04-19 07:40] VITALS: BP 114/51
--- NOTE | 2024-04-19 08:20 | W.PN.HOSP.TC ---
Addendum entered and electronically signed by Neno Koroma MD 04/19/24 21:38:
Attending Addendum:
I saw and evaluated the patient. I reviewed the resident�s note and agree with findings and plan as documented in the resident�s note. Sub: complains severe pain in abdomen. Full 12 point ROS reviewed and negative except as documented Exam: Vitals
reviewed in chart GEN-mod distress due to pain heart RRR lungs clear abd distended pos fluid wve diffusely TTP pos rebound and guarding
#Recurrent SBP
#History of decompensated ZAVALETA cirrhosis
# History of hepatic encephalopathy
-Status post paracentesis 385 0 cc of yellow ascitic fluid with elevated PMN > 250
-CT abdomen pelvis shows moderate pancolitis, mild abdominal pelvic ascites and edematous mesentery improved, moderate splenomegaly, small right pleural effusion,
-Blood cultures
-Meropenem given allergies
-Hold diuretics including torsemide, spironolactone
-Continue lactulose, Xifaxan
-Albumin ordered
*TRANSFER TO [facility]*
Time spent coordinating care, Transfer planning, review of transfer plan of care with resident, transition of care, review of records, med rec, consults, notes, d/w consultants, nursing, family, and CM� 40 mins
Original Note:
Today's Communication/Plan
-
.
Assessment / Plan
Assessment / Plan
68-year-old female with recurrent SBP secondary to history of decompensated Zavaleta cirrhosis/hepatic encephalopathy with multiple episodes of diarrhea for 3 days, abdominal pain and vomiting.
1. Pancolitis
-CT scan showed moderate pancolitis
-History of C. difficile, chronic gastroparesis
-Meropenem given allergies
-2 mg low-sodium diet per GI rec
2. Recurrent SBP secondary to hx of decompensated ZAVALETA cirrhosis/ hepatic encephalopathy
-Status post paracentesis 3850 cc of cloudy yellow ascitic fluid with elevated white blood cell count of 1280
-CT abdomen pelvis shows moderate pancolitis, mild abdominal pelvic ascites and edematous mesentery improved, moderate splenomegaly, small right pleural effusion,
-Blood cultures
-Meropenem given allergies
-Hold diuretics including torsemide, spironolactone
-Continue lactulose, Xifaxan
-Albumin ordered
-GI onboard. Input appreciated. Per GI and conversation with Dr. Austin at [facility], patient likely to benefit from transfer to [facility] due to SBP and being on the transplant list. Likely to initiate transfer today 04/19.
-ID consulted. Patient started on meropenem and albumin 1.5 g/kg. 4 bags administered (25gx4)
-GI ordered lactulose and Xifaxan.
-MELD today is 27. Daily MELD labs with CBC BMP LFTs and coag.
3. Pancytopenia
-Hemoglobin stable
-Platelets, white blood cell count improved
4.Chronic HFpEF
-Hold Lasix
5.CKD 3
-Renal function at baseline
6. Type 2 diabetes
-Insulin sliding scale
7. Hypercholesterolemia
-Continue statin
8. Paroxysmal atrial fibrillation
-Not on anticoagulation due to bleeding risk
9. Hypothyroidism
-Continue levothyroxine
10. GERD
-Continue famotidine, Protonix, sucralfate
- Esophageal dysmotility status post Kevin-en-Y bypass
11. Anxiety/depression
-Continue buspirone
-Continue Seroquel
12. Chronic pain syndrome/fibromyalgia/opiate dependence
-Continue oxycodone
13. Dementia
-Continue memantine
History of Meckel's diverticulum resection
History of portal vein thrombosis
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
Obesity
Transfer to [facility] today
Full code
DVT prophylaxis- SCDs
Anticipated Discharge: Today
Subjective/Interval History
-
Date of Service: April 19, 2024
Patient reports feeling okay today. She has had 4 episodes of clear liquid diarrhea this morning. She reports diffuse lower abdominal pain and distention. She had prior nausea and vomiting, no recent episodes. She reports no shortness of breath,
chest pain, headaches, nausea, vomiting, numbness or tingling in extremities.
Objective Data
-
Labs:
Laboratory Results
04/19/24
07:45
WBC Pending
Hgb Pending
Hct Pending
Plt Count Pending
Sodium Pending
Potassium Pending
Chloride Pending
Carbon Dioxide Pending
BUN Pending
Creatinine Pending
Glucose Pending
Calcium Pending
Total Bilirubin Pending
AST Pending
ALT Pending
Alkaline Phosphatase Pending
Vital Signs:
Vital Signs
Temp Pulse Resp BP Pulse Ox
98.4 F 74 18 112/53 96
04/18/24 23:05 04/18/24 23:05 04/18/24 23:05 04/18/24 23:05 04/18/24 23:05
Review of Systems
-
History Source: Patient
Constitutional: Reports Fatigue
EENT: Reports No Symptoms Reported
Respiratory: Reports No Symptoms
Cardiac: Reports No Symptoms
Abdomen/GI: Reports Abdominal Pain, Nausea (Prior to admission), Vomiting (Prior to admission) and Diarrhea
Genitourinary: Reports No Symptoms
Musculoskeletal: Reports No Symptoms
Skin: Reports No Symptoms
Neuro: Reports No Symptoms
Physical Exam
-
General: Well Developed, Well Nourished and Appears in Distress (Mild)
HEENT: Normocephalic, Atraumatic and Moist Mucous Membranes
Respiratory: Clear to Auscultation
Cardiac: Murmur
GI: Tender and Distended
Musculoskeletal: No Clubbing, No Cyanosis and No Edema
Skin: Warm, Dry and Jaundice
Neuro: AO x 3 and Other (Asterixis)
Psych: Calm
Data Reviewed
-
Total Time Spent with Patient (in minutes): 30
CT Scan: Report Reviewed by me and Discussed with Physician
Medical Tests (Nuc Med, Echo etc): Report Reviewed by me and Discussed with Physician
Labs: Labs Reviewed by me and Discussed with Physician
Old Records: Reviewed
[2024-04-19 08:25] LABS: ALT (SGPT) 15 U/L (0-35); AST (SGOT) 29 U/L (14-36); Albumin 2.8 g/dl (3.5-5.0); Alkaline Phosphatase 99 U/L (38-126); Blood Urea Nitrogen 27 mg/dl (7-17); Calcium 8.8 mg/dl (8.4-10.2); Carbon Dioxide 28 mmol/L (22-30); Chloride 105 mmol/L (98-107); Estimated Creatinine Clearance 35 ml/min; Glucose 101 mg/dl (70-99); Sodium 136 mmol/L (135-145); Total Bilirubin 2.3 mg/dl (0.2-1.3); Total Protein 5.3 g/dl (6.3-8.2); eGFR 37.96
--- NOTE | 2024-04-19 08:56 | W.PN.GI.CBS2 ---
Addendum entered and electronically signed by Mattie Echevarria MD 04/19/24 09:08:
would check hepatic function panel/liver function test and bmp rather than cmp in future so can get direct bili
Original Note:
Today's Communication / Plan
-
antibiotics, lactulose/xifaxan, transfer to [place]
Assessment / Plan
-
Lavonne is a 68-year-old female well-known to my group with decompensated [facility] cirrhosis follows with Dr. Bradley requiring paracentesis and thoracentesis, history of SBP on chronic antibiotics, hepatic encephalopathy on Xifaxan and lactulose, who came
into the office to see Dr. Bradley this morning and he found that she was encephalopathic. She was also complaining of nausea, vomiting, abdominal pain. She underwent para here and her PMN was 987. Total white blood cell count 1282, 77% polynuclear
cells. She also underwent a CAT scan as outlined below. On exam she is minimally tender with asterixis although oriented.
I discussed the case with infectious disease last night. Due to her allergies and Seroquel which will interact with Levaquin, decision was made to start meropenem. We also ordered albumin 1.5 g/kg yesterday.
Due to her SBP, I recommend holding all diuretics.
For her PSE, she is on lactulose (titrate to 3-4 BM/day) and xifaxan.
She also has some diarrhea which could be from her lactulose. There is pancolitis on the CT although this can also occur with ascites. Stool studies have been ordered.
There was also a comment about her hernia - this is soft, not tender and reducible no concern for incarceration or strangulation.
Her MELD yesterday is 27 and she should get daily MELD labs with CBC, BMP, LFTs and coags (coags were not ordered today).
From my perspective, patient can be on 2g Na diet.
I called and discussed case with Dr. Austin and attempting to reach transfer center. Patient needs COVID from this admission for [facility] transfer (concern with their patients immunosuppressed) which has been ordered and RN udpated about need.
D/w resident as well.
Subjective
Subjective
Date of Service: April 19, 2024
no events overnight
Objective
Data Reviewed
Laboratory Data:
Laboratory Results
04/19/24 07:45
Laboratory Results
PT 20.9 Sec (11.4-14.6) H 04/18/24 16:29
INR 1.82 04/18/24 16:29
Total Bilirubin 2.3 mg/dl (0.2-1.3) H 04/19/24 07:45
AST 29 U/L (14-36) 04/19/24 07:45
ALT 15 U/L (0-35) 04/19/24 07:45
Alkaline Phosphatase 99 U/L (38-126) 04/19/24 07:45
Vital Signs and I&O:
Vital Signs
Temp Pulse Resp BP Pulse Ox
98.4 F 54 17 114/51 98
04/19/24 07:40 04/19/24 07:40 04/19/24 07:40 04/19/24 07:40 04/19/24 07:40
Physical Exam
Physical Exam
Cardiology: Normal Sinus Rhythm
Pulmonary: Clear
GI: Non Distended and Non Tender
Neuro: Other (aaox3 some mild asterixis)
[2024-04-19] MEDS: DUPHALAC/CHRONULAC 20 GRAMS PO (08:59)
[2024-04-19] MEDS: XIFAXAN 550 MG PO (09:00)
[2024-04-19] MEDS: DELTASONE 5 MG PO (09:00)
[2024-04-19] MEDS: PROTONIX 40 MG PO (09:00)
[2024-04-19] MEDS: BUSPAR 10 MG PO ×2 (09:00→16:27)
[2024-04-19] MEDS: SYNTHROID 25 MCG PO (09:00)
[2024-04-19] MEDS: REGLAN 5 MG PO ×2 (09:00→14:23)
[2024-04-19] MEDS: CARAFATE 1 GRAM PO ×2 (09:01→14:23)
[2024-04-19] MEDS: NOVOLOG FLEXPEN-LOW RESISTANCE SC (09:01)
[2024-04-19 09:09] LABS: % Eosinophils 1.4 % (0-6); % Immature Granulocytes 0.7 % (0-0.5); % Lymphocytes 24.3 % (20.5-51.1); % Monocytes 14.4 % (1.7-9.3); % Neutrophils 58.2 % (42.2-75.2); Absolute Lymphocytes 0.7 10^3/uL (1.2-3.4); Absolute Monocytes 0.4 10^3/uL (0.1-0.6); Absolute Neutrophils 1.7 10^3/uL (1.4-6.5); Hematocrit 22.7 % (37.0-47.0); Hemoglobin 7.7 g/dL (12.0-16.0); Mean Corp Hgb Conc. 33.9 g/dL (33.0-37.0); Mean Corpuscular Volume 88.3 fL (81.0-99.0); Mean Platelet Volume 11.7 fL (7.4-10.4); Nucleated Red Blood Cells % 0 %; Platelet Count 85 10^3/uL (130-400); Red Blood Cell Count 2.57 10^6/uL (4.20-5.40); Red Cell Dist. Width 17.2 % (11.5-14.5); White Blood Cell Count 2.9 10^3/uL (4.8-10.8)
[2024-04-19 09:21] LABS: COVID-19 Antigen Negative (Negative)
--- NOTE | 2024-04-19 10:10 | W.PN.UPDATE ---
Update Note
Progress Note Update
I s/w ID - will hold off on consult for now as pt being transferred to [facility]. Appreciate their input re: martha.
I cancelled consult.
I s/w [facility] - transfer being worked on.
[2024-04-19 11:38] LABS: Glucose - Point of Care 328 mg/dl (70-99)
[2024-04-19 14:18] LABS: Glucose - Point of Care 209 mg/dl (70-99)
[2024-04-19] MEDS: NOVOLOG FLEXPEN-LOW RESISTANCE 2 UNITS SC (14:28)
--- NOTE | 2024-04-19 15:17 | CM ---
development manager reviewed patient's chart and met with patient and patient lives with spouse in a 2 story home, patient has cane walker and commode in home, per physician patient has been accepted at [facility] and plan is to transfer today.
Pharmacy; [facility]
PCP: Malu Wilson
Plan; Patint to transfer to [facility], patient's transplant team are at [facility].
[2024-04-19 15:41] LABS: Glycohemoglobin (HgbA1c) 6.3 % (4.0-5.6)
[2024-04-19 16:00] VITALS: BP 114/50
--- NOTE | 2024-04-19 16:09 | SUR.OPER ---
[facility] accepted patient to [facility], room # 938. Detailed report given to KOKI Alvarado at [phone]. senior technical support analyst time, any minute now.
[2024-04-19] MEDS: CARAFATE PO (16:17)
[2024-04-19] MEDS: REGLAN PO (16:17)
[2024-04-19] MEDS: ROXICODONE 10 MG PO (16:25)
[2024-04-19] MEDS: DUPHALAC/CHRONULAC PO (16:49)
--- NOTE | 2024-04-19 16:57 | W.DCSUMMARY ---
Addendum entered and electronically signed by Neno Koroma MD 04/19/24 21:34:
Read, reviewed, and agree. See same day progress note for additional details. Transfer to [place]. Dr. Austin accepting physician.
Rajeev Koroma MD
Original Note:
Documented by User: Cyndie Barron DO, Resident 04/19/24 17:08
Discharge Summary
Discharge Data
Date of Admission: 04/18/24
Date of Discharge: 04/19/24
Total time spent discharging patient (in min): 30
-
Pending Results: No
Hospital Course
68-year-old female with past medical history of pancytopenia, heart failure, CKD, diabetes, hypercholesterolemia, PAF, hypothyroidism, GERD, anxiety, recurrent SBP secondary to history of decompensated M[facility] cirrhosis/hepatic encephalopathy with
multiple episodes of diarrhea for 3 days, abdominal pain and vomiting. Diuretics held including Lasix, torsemide and spironolactone. All other home meds continued. CT abdomen pelvis showed moderate pancolitis, mild abdominal pelvic ascites and
edematous mesentery improved, moderate splenomegaly, small right pleural effusion. Patient underwent paracentesis with removal of 385 0 cc of cloudy yellow ascitic fluid with elevated white count cell count of 1280 with over 250 PMNs, confirming
SBP. Patient given meropenem given significant allergies. 4 bags of albumin 1.5 g/kg given per GI recommendations. Lactulose and Xifaxan ordered. Per GI conversation with Dr. Austin at [facility], recommendation made to transfer patient due to
SBP and being on the transplant list.
1. Pancolitis
-CT scan showed moderate pancolitis
-History of C. difficile, chronic gastroparesis
-Meropenem given allergies
-2 mg low-sodium diet per GI rec
2. Recurrent SBP secondary to hx of decompensated ZAVALETA cirrhosis/ hepatic encephalopathy
-Hold diuretics including torsemide, spironolactone
-Continue lactulose, Xifaxan
- Per GI and conversation with Dr. Austin at [facility], patient likely to benefit from transfer to [facility] due to SBP and being on the transplant list. Likely to initiate transfer today 04/19. Patient started on meropenem and albumin 1.5 g/kg. 4
bags administered
3. Pancytopenia
-Hemoglobin stable
-Platelets, white blood cell count improved
4.Chronic HFpEF
-Hold Lasix
5.CKD 3
-Renal function at baseline
6. Type 2 diabetes
-Insulin sliding scale
7. Hypercholesterolemia
-Continue statin
8. Paroxysmal atrial fibrillation
-Not on anticoagulation due to bleeding risk
9. Hypothyroidism
-Continue levothyroxine
10. GERD
-Continue famotidine, Protonix, sucralfate
- Esophageal dysmotility status post Keivn-en-Y bypass
11. Anxiety/depression
-Continue buspirone, Seroquel
12. Chronic pain syndrome/fibromyalgia/opiate dependence
-Continue oxycodone
13. Dementia
-Continue memantine
History of Meckel's diverticulum resection
History of portal vein thrombosis
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
Obesity
Discharge Plan
-
Patient Disposition: Acute Care Hospital
Condition: Serious
Discharge Orders:
Discharge Patient (As Directed); Ordered 04/19/24
Ordered By: Cyndie Barron
Discharge Date and Time
Discharge Date/Time: 04/19/24 16:29
Print Language: MALTESE

Documented by User: Neno Koroma MD 04/19/24 21:33
Discharge Summary
Discharge Data
Date of Admission: 04/18/24
Date of Discharge: 04/19/24
Discharge Plan
-
Patient Disposition: Acute Care Hospital
Condition: Serious
Discharge Orders:
Discharge Patient (As Directed); Ordered 04/19/24
Ordered By: Cyndie Barron
Discharge Date and Time
Discharge Date/Time: 04/19/24 16:29
Print Language: MALTESE
== END 2024-04-19 16:29 | disposition short-term general hospital (02) | DRG 392 ==
LOC: 4 WEST ACU 20:02
PROVIDERS: Nurse Practitioner Family; Radiology Vascular & Interventional Radiology; ADMITTING PHYSICIAN Hospitalist; ATTENDING PHYSICIAN Family Medicine; EMERGENCY PHYSICIAN Student in an Organized Health Care Education/Training Program; FAMILY PHYSICIAN Internal Medicine; OTHER PHYSICIAN Internal Medicine Gastroenterology
PROC: 0W9G3ZZ Drainage of Peritoneal Cavity, Percutaneous Approach (ICD-10-PCS; 2024-04-18)
DX: K52.9 Noninfective gastroenteritis and colitis, unspecified (principal); R18.8 Other ascites; D61.818 Other pancytopenia; I50.32 Chronic diastolic (congestive) heart failure; I13.0 Hypertensive heart and chronic kidney disease with heart failure and stage 1 through stage 4 chronic kidney disease, or unspecified chronic kidney disease; F03.94 Unspecified dementia, unspecified severity, with anxiety; F03.93 Unspecified dementia, unspecified severity, with mood disturbance; F11.20 Opioid dependence, uncomplicated; N18.30 Chronic kidney disease, stage 3 unspecified; E78.00 Pure hypercholesterolemia, unspecified; I48.0 Paroxysmal atrial fibrillation; E03.9 Hypothyroidism, unspecified; K21.9 Gastro-esophageal reflux disease without esophagitis; K22.4 Dyskinesia of esophagus; Z98.84 Bariatric surgery status; F32.A Depression, unspecified; G89.4 Chronic pain syndrome; M79.7 Fibromyalgia; E66.9 Obesity, unspecified; Z68.28 Body mass index [BMI] 28.0-28.9, adult; Z11.52 Encounter for screening for COVID-19
CPT/HCPCS: 49083; 74176; 80053; 82042; 82140; 82150; 82962; 83036; 83615; 84157; 85025; 85027; 85610; 87015; 87040; 87070; 87205; 87811; 89051; 93005; 99285; J2185; P9047

== ENCOUNTER 2024-04-30 04:36 | Emergency (ER) | payer MEDICARE, OTHER, SELFPAY ==
[2024-04-30 04:39] VITALS: BP 115/58
[2024-04-30 05:00] VITALS: BMI 30.8
[2024-04-30 05:19] LABS: % Basophils 1.3 % (0-2); % Eosinophils 1.9 % (0-6); % Immature Granulocytes 0.3 % (0-0.5); % Lymphocytes 20.8 % (20.5-51.1); % Monocytes 10.7 % (1.7-9.3); Absolute Eosinophils 0.1 10^3/uL (0-0.7); Absolute Lymphocytes 0.6 10^3/uL (1.2-3.4); Absolute Monocytes 0.3 10^3/uL (0.1-0.6); Hemoglobin 7.7 g/dL (12.0-16.0); Mean Corpuscular Hgb 30.9 pg (27.0-31.0); Mean Corpuscular Volume 88.4 fL (81.0-99.0); Mean Platelet Volume 11.4 fL (7.4-10.4); Nucleated Red Blood Cells % 0 %; Platelet Count 86 10^3/uL (130-400); Red Blood Cell Count 2.49 10^6/uL (4.20-5.40); Red Cell Dist. Width 19.2 % (11.5-14.5); White Blood Cell Count 3.1 10^3/uL (4.8-10.8)
[2024-04-30 05:44] LABS: ALT (SGPT) 24 U/L (0-35); AST (SGOT) 57 U/L (14-36); Albumin 2.8 g/dl (3.5-5.0); Alkaline Phosphatase 92 U/L (38-126); Blood Urea Nitrogen 35 mg/dl (7-17); Carbon Dioxide 28 mmol/L (22-30); Chloride 103 mmol/L (98-107); Estimated Creatinine Clearance 30 ml/min; Glucose 148 mg/dl (70-99); Lipase 177 U/L (23-300); Potassium 4.4 mmol/L (3.5-5.1); Sodium 136 mmol/L (135-145); Total Bilirubin 1.7 mg/dl (0.2-1.3); Total Protein 5.3 g/dl (6.3-8.2)
--- NOTE | 2024-04-30 07:08 | ED.GENMED ---
History of Present Illness
General
Chief Complaint: Breathing Problem
Source: patient
Exam Limitations: none
Time Seen by Provider: 04/30/24 06:01
History of Present Illness
History of Present Illness:
68-year-old female who presents was admitted after she was feeling short of breath. Patient states she was just last week in [facility] due to infected ascitic fluid. Patient states that she also has had leg swelling. Patient does have a
history of liver failure. She states her doctor did tell her she has some fluid in her lungs. She feels better now. No chest pain. No pleuritic pain. No hemoptysis. She states her legs are both swollen equally. No fevers. Patient reportedly
is on the transplant list
Past History
Past History
ED Past Medical History: Arrthythmia (Paroxysmal atrial fibrillation), Fibromyalgia, GERD, HTN, Hypercholesterolemia, NIDDM, Hypothyroidism, Psychiatric (Anxiety), Other (Gastroparesis, chronic gastritis, ZAVALETA, esophageal dysmotility/achalasia,
Ulcerative colitis, Migraines, neck pain, IBS, anemia, Dizziness Hepatic encephalopathy. Cirrhosis of the liver, IBS, ) and Other (Portal vein thrombosis); Negative CAD
ED Past Surgical History: Appendectomy, Bowel resection, Cholecystectomy, Gynecological (Total Hysterectomy, Oophorectomy), Orthopedic (right wrist surgery, Left ankle surgery) and Other (Meckel's diverticulum, gastric bypass Jun 27, 2021,
cataracts,)
Patient has exhibited threatening behavior?: No
PSI?: No
Social History
Tobacco: Former smoker
Alcohol: None
Drug: None
Personal:
Living: with family
Employment: Retired
Family History
Family History: Other ([place])
Phy Exam
Physical Exam
Physical Exam:
CONSTITUTIONAL Patient alert and oriented to person, place and time. Well-appearing. Vital signs reviewed.
HEAD atraumatic, normocephalic.
EYES eyelids normal to inspection, Pupils equally round and reactive to light, Extraocular muscles intact, Conjunctiva normal, Sclera normal.
NECK normal range of motion, Trachea midline, no jugular venous distention.
RESPIRATORY CHEST No respiratory distress noted, Chest expansion equal, Bilateral breath sounds clear.
CARDIOVASCULAR regular rate and rhythm, Heart sounds normal.
ABDOMEN no tenderness. Ascites noted
BACK normal inspection, no obvious deformities
UPPER EXTREMITY range of motion normal, Motor strength normal, no cyanosis, no edema.
LOWER EXTREMITY range of motion normal, Motor strength normal, no cyanosis, no palpable cords. Bilateral edema noted.
NEURO Speech normal, No focal motor deficits, Shahida coma scale 15, Memory normal, Cranial Nerves intact to screening exam.
SKIN skin warm, dry, and normal in color.
PSYCHIATRIC patient oriented to person place and time, Normal affect.
Scores
Heart Failure Risk
Heart Failure Risk Score: Not Applicable
Course
Orders/Labs/Results
Orders:
Orders
04/30/24 04:43
Electrocardiogram (*1) Urgent
Reason for Study: Shortness of Breath
EKG- Treatment ONCE
04/30/24 05:10
Complete Blood Count/With Diff Urgent
Comprehensive Metabolic Panel Urgent
Lipase Urgent
04/30/24 06:02
CR Chest - 2 Views Urgent
Comment:
Reason For Exam: sob
04/30/24 06:36
Furosemide [Lasix] 40 mg IV NOW STA
04/30/24 07:44
Urinalysis Reflex To Culture Urgent
Date Specimen was Collected: 04/30/24
Time Specimen was Collected: 07:43
Urine Microscopic Reflex Cult Urgent
04/30/24 08:30
Heparin Pf [Heparin Lock Flush] 500 unit IV PER PROTOCOL
Abnormal Lab Results
04/30/24 04/30/24
05:10 07:44
WBC 3.1 L 10^3/uL
(4.8-10.8)
RBC 2.49 L 10^6/uL
(4.20-5.40)
Hgb 7.7 L g/dL
(12.0-16.0)
Hct 22.0 L %
(37.0-47.0)
RDW 19.2 H %
(11.5-14.5)
Plt Count 86 L 10^3/uL
(130-400)
MPV 11.4 H fL
(7.4-10.4)
Absolute Lymphs (auto) 0.6 L 10^3/uL
(1.2-3.4)
Monocytes % 10.7 H %
(1.7-9.3)
BUN 35 H mg/dl
(7-17)
Creatinine 1.8 H mg/dL
(0.6-1.0)
Glucose 148 H mg/dl
(70-99)
Total Bilirubin 1.7 H mg/dl
(0.2-1.3)
AST 57 H U/L
(14-36)
Total Protein 5.3 L g/dl
(6.3-8.2)
Albumin 2.8 L g/dl
(3.5-5.0)
Leukocyte Esterase Rfl Trace A
(Negative)
Urine Bacteria (Reflex) Few A
(Negative)
Urine Yeast Few A
(Negative)
04/30/24 05:10
04/30/24 05:10
Vital Signs
Initial and Last Documented VS:
Initial Vital Signs
Temp Pulse Resp BP Pulse Ox
98.9 F 67 16 115/58 99
04/30/24 04:39 04/30/24 04:39 04/30/24 04:39 04/30/24 04:39 04/30/24 04:39
Last Documented Vital Signs
Temp Pulse Resp BP Pulse Ox
98.1 F 61 20 117/69 96
04/30/24 08:39 04/30/24 08:39 04/30/24 08:39 04/30/24 08:39 04/30/24 08:39
MDM/Problems Addressed
MDM/Problems Addressed:
Pleural effusion, lower extremity edema, end-stage liver disease
Chronic conditions affecting care: Other (Liver disease)
*Pulse Oximetry
Patient hypoxic: no
*EKG
Interpreted by ED Provider?: Yes
Interpretation: abnormal
Rate: normal
Rhythm: sinus and PAC's
Ischemia: non-specific ST changes
*Character Impersonator Interpretation
Rate: normal
Interpretation: normal
Rhythm: sinus
*Critical Care Note
Total Time (30-74mins, 75-104mins- exclusive of procedures): Not Applicable
Data Reviewed
Review of Other/Old Records Reveals: Discharge Summary (Discharge summary from April 19)
Source: patient
Further Testing Considered But Not Given:
Consider CTA but no clinical suspicion for PE at this time
Patient Management
Escalation/DeEscalation of care consider admission/obs:
Patient appears well. Not hypoxic. Not tachypneic. Not febrile. Labs grossly at baseline. Bedside ultrasound shows no significant pericardial effusion. Small pleural effusion, patient is comfortable going home. Given IV diuretics. Okay for
discharge and follow-up with PCP and gastroenterology
ED Attending Note
-
Portions of this chart may have been created with voice recognition software.� Occasional wrong word or��sound alike� substitutions may have occurred due to the inherent limitations of voice recognition software.
Discharge Plan
Departure
Patient Disposition: Home (Routine Discharge)
Date of Disposition: 04/30/24
Time of Disposition: 08:11
Patient with high blood pressure during this ER visit?: No
Discharge Problem:
Volume overload, Cirrhosis, Pleural effusion
Instructions: Shortness of Breath (Dyspnea) (DC), Swelling
Prescriptions:
No Action
atorvastatin 20 mg tablet
20 mg PO AMHS
levothyroxine 25 mcg tablet
25 mcg PO DAILY
pantoprazole [Protonix] 40 mg Tablet,Delayed Release (Dr/Ec)
40 mg PO BID
Rx Instructions:
Dinner and HS
prednisone 5 mg tablet
5 mg PO DAILY
Rx Instructions:
lunch time
ondansetron HCl 8 mg tablet
8 mg PO TID
quetiapine [Seroquel] 25 mg Tablet
25 mg PO HS
rifaximin 550 mg Tablet
550 mg PO BID
Rx Instructions:
Breakfast and bedtime
sucralfate 1 gram Tablet
1 g PO ACHS
spironolactone 50 mg Tablet
50 mg PO BID
memantine 5 mg Tablet
5 mg PO AMHS
ciprofloxacin HCl [Cipro] 500 mg Tablet
750 mg PO TU
Rx Instructions:
Every Sunday
lactulose 10 gram/15 mL solution
45 ml PO TID
furosemide 40 mg Tablet
40 mg PO DAILY
torsemide 20 mg Tablet
20 mg PO DAILY
famotidine 40 mg Tablet
40 mg PO BID
metoclopramide HCl 5 mg Tablet
5 mg PO ACHS
buspirone 10 mg Tablet
10 mg PO TID
Rx Instructions:
Lunch, Dinner, bedtime
ergocalciferol (vitamin D2) 1,250 mcg (50,000 unit) Capsule
1,250 mcg PO WE
oxycodone 10 mg Tablet
10 mg PO TIDPRN PRN (Reason: severe pain)
midodrine 2.5 mg Tablet
2.5 mg PO TID
Reglan
1 tab PO QID
Vitamin D (with calcium)
1 cap PO WEEKLY
Rx Instructions:
Sunday night
ferrous sulfate
325 mg PO BID
Rx Instructions:
morning and lunch
Referrals:
Malu Wilson, DO [Family Provider] -
Activity Restrictions/Additional Instructions:
Please see your doctor in the next 3 to 5 days for follow-up and reevaluation. Please continue your water pills as discussed. Return immediately for difficulty breathing, fever, abdominal pain or any other concerns.
Interventions
Interventions:
*Risk Screen - Suicide Last Done: 04/30/24 04:39
*General Assessment Last Done: 04/30/24 04:39
*Neglect/Abuse Screening Last Done: 04/30/24 04:39
ED- Fall Risk Assessment Last Done: 04/30/24 05:00
*ED COVID-19 Vaccine History Last Done: 04/30/24 05:07
*Nursing Disposition Last Done: 04/30/24 08:39
ED- Cardiac Assessment Last Done: 04/30/24 05:00
ED- Pulmonary Assessment Last Done: 04/30/24 05:22
Discharge Date and Time
Discharge Date/Time: 04/30/24 08:44
Print Language: MALAY
[2024-04-30 07:46] VITALS: BP 130/63
[2024-04-30] MEDS: LASIX 40 MG IV (07:50)
[2024-04-30 07:55] LABS: Urine Albumin Negative (Neg - Trace); Urine Bilirubin Negative (Negative); Urine Character Clear (Clear); Urine Color Yellow; Urine Glucose Negative (Negative); Urine Ketone Negative (Negative); Urine Leukocyte Trace (Negative); Urine Nitrite Negative (Negative); Urine Occult Blood Negative (Negative); Urine Specific Gravity 1.015 (<1.030); Urine Urobilinogen Negative (Neg - 1+)
[2024-04-30 08:00] VITALS: BP 117/67
[2024-04-30 08:14] LABS: Urine Red Blood Cell None Seen /HPF (0-2); Urine Squamous Cell >30 /LPF (Few); Urine White Cell 0-2 /HPF (0-5)
[2024-04-30 08:15] LABS: Urine Bacteria Few (Negative); Urine Yeast Few (Negative)
[2024-04-30 08:39] VITALS: BP 117/69
== END 2024-04-30 08:44 | disposition home or self-care (01) ==
LOC: EMR 04:36
PROVIDERS: Student in an Organized Health Care Education/Training Program; EMERGENCY PHYSICIAN Emergency Medicine; FAMILY PHYSICIAN Internal Medicine
DX: E87.70 Fluid overload, unspecified (principal); K74.60 Unspecified cirrhosis of liver; J90 Pleural effusion, not elsewhere classified; I48.0 Paroxysmal atrial fibrillation; M79.7 Fibromyalgia; K21.9 Gastro-esophageal reflux disease without esophagitis; I10 Essential (primary) hypertension; E78.00 Pure hypercholesterolemia, unspecified; E03.9 Hypothyroidism, unspecified; E11.36 Type 2 diabetes mellitus with diabetic cataract; E11.43 Type 2 diabetes mellitus with diabetic autonomic (poly)neuropathy; F41.9 Anxiety disorder, unspecified; K31.84 Gastroparesis
CPT/HCPCS: 99283; 96374; 96375; 71046; 80053; 81003; 81015; 83690; 85025; 93005

== ENCOUNTER → 2024-05-07 09:06 | Outpatient (REF) | payer MEDICARE, OTHER, SELFPAY ==
[2024-05-07 09:21] VITALS: BP 145/58; BP_SYST 76
[2024-05-07 09:47] VITALS: BP 117/77; BP_SYST 76
[2024-05-07 10:37] LABS: Body Fluid WBC 100 /CUMM
[2024-05-07 10:39] LABS: Body Fluid Second Tech AMA
== END ==
LOC: RADI 09:06
PROVIDERS: ATTENDING PHYSICIAN Internal Medicine Transplant Hepatology; FAMILY PHYSICIAN Internal Medicine
DX: R18.8 Other ascites (principal)
CPT/HCPCS: 49083; 87015; 87070; 87205; 89051

== ENCOUNTER → 2024-05-15 08:17 | Outpatient (REF) | payer MEDICARE, OTHER, SELFPAY | LOC: RADI 08:17 | PROVIDERS: ATTENDING PHYSICIAN Internal Medicine Transplant Hepatology | DX: R18.8 Other ascites (principal); Z53.8 Procedure and treatment not carried out for other reasons | CPT/HCPCS: 76705 ==

== ENCOUNTER 2024-05-19 01:21 | Inpatient (IN) | payer MEDICARE, OTHER, SELFPAY ==
[2024-05-18 21:29] VITALS: BP 130/57
[2024-05-18 21:32] VITALS: BMI 28.0
[2024-05-18 21:42] LABS: % Eosinophils 3.3 % (0-6); % Immature Granulocytes 0.3 % (0-0.5); % Lymphocytes 14.7 % (20.5-51.1); % Monocytes 15.3 % (1.7-9.3); % Neutrophils 65.4 % (42.2-75.2); Absolute Eosinophils 0.1 10^3/uL (0-0.7); Absolute Lymphocytes 0.5 10^3/uL (1.2-3.4); Absolute Monocytes 0.5 10^3/uL (0.1-0.6); Hematocrit 22.4 % (37.0-47.0); Hemoglobin 7.8 g/dL (12.0-16.0); Mean Corp Hgb Conc. 34.8 g/dL (33.0-37.0); Mean Corpuscular Hgb 31.3 pg (27.0-31.0); Mean Platelet Volume 11.2 fL (7.4-10.4); Nucleated Red Blood Cells % 0 %; Platelet Count 65 10^3/uL (130-400); Red Blood Cell Count 2.49 10^6/uL (4.20-5.40); Red Cell Dist. Width 19.9 % (11.5-14.5); White Blood Cell Count 3.1 10^3/uL (4.8-10.8)
[2024-05-18 21:52] LABS: Ammonia 88 umol/L (9-30)
[2024-05-18 21:55] LABS: INR 2.29; PT 25.1 Sec (11.4-14.6)
[2024-05-18 22:00] VITALS: BP 115/54
[2024-05-18 22:03] LABS: ALT (SGPT) 26 U/L (0-35); AST (SGOT) 71 U/L (14-36); Albumin 2.8 g/dl (3.5-5.0); Alkaline Phosphatase 117 U/L (38-126); Blood Urea Nitrogen 40 mg/dl (7-17); Carbon Dioxide 31 mmol/L (22-30); Chloride 100 mmol/L (98-107); Estimated Creatinine Clearance 19 ml/min; Glucose 139 mg/dl (70-99); Potassium 4.6 mmol/L (3.5-5.1); Sodium 136 mmol/L (135-145); Total Bilirubin 2.9 mg/dl (0.2-1.3); Total Protein 5.7 g/dl (6.3-8.2); eGFR 18.75
--- NOTE | 2024-05-18 23:21 | ED.GENMED ---
History of Present Illness
General
Chief Complaint: Change in Mental Status
Source: patient, spouse and previous hospital records (Previous overnight hospitalization earlier this month, transferred to [facility]. ED visit April 30. Most recent paracentesis May 07.)
Exam Limitations: none
Time Seen by Provider: 05/18/24 22:09
Nursing documentation reviewed up to this point in time: agreed with
History of Present Illness
History of Present Illness:
This is a 68-year-old woman with history of Zavaleta, hepatic encephalopathy, pancytopenia, SBP, CHF, chronic kidney disease, diabetes, hyperlipidemia, PAF, hypothyroidism, GERD, anxiety/depression, chronic pain syndrome�narcotic dependent. Follows
with [facility] and currently on the transplant list. Most recent hospitalization April 18 where she presented with generalized abdominal pain, several day history of nausea and vomiting, paracentesis positive for SBP and she was transferred to
[facility] the following day, April 19 where she remained for 7 days, treated for SBP and discharged to home.
She suffers of recurrent ascites and had been following with IR at [facility] but more recently has transition to [facility] IR where she underwent most recent paracentesis May 07. Ascitic fluid negative for SBP at that time.
Follow-up IR evaluation May 15, paracentesis not completed due to insufficient ascitic fluid and she is scheduled for her next paracentesis May 23.
She does have history of hepatic encephalopathy, maintained on twice daily rifaximin as well as 3 times daily lactulose.
She is brought to the ED by with concern for increased confusion, mild over the past few days but much more pronounced today and due to confusion she has been missing her medications, admits to missing her lactulose and rifaximin for at
least the past 5 to 7 days and has not taken any of her medicines for the past 2 days.
[place] 4 days ago and was noted to have a cold sore left lower lip beginning 5 days ago. Cold sore is slowly improving but now crusted and bleeding after taking a shower tonight. She has not
had a fall.
She has history of gastroparesis, maintained on ondansetron 8 mg 3 times daily. She admits to moderate nausea over the past several days, markedly decreased oral intake over the past 2 to 3 days. She vomited once, nonbloody vomitus 2 days ago.
She notes mild generalized abdominal discomfort but has had no diarrhea nor constipation. No fever nor chills, no cough nor shortness of breath but does note mild to moderate dyspnea on exertion and progressive generalized weakness, feeling
unsteady on her feet.
History of PAF, she denies palpitations. Currently not anticoagulated due to chronic coagulopathy related to liver disease.
Past History
Past History
ED Past Medical History: Arrthythmia (Paroxysmal atrial fibrillation), Fibromyalgia, GERD, HTN, Hypercholesterolemia, NIDDM, Hypothyroidism, Psychiatric (Anxiety), Other (Gastroparesis, chronic gastritis, ZAVALETA, esophageal dysmotility/achalasia,
Ulcerative colitis, Migraines, neck pain, IBS, anemia, Dizziness Hepatic encephalopathy. Cirrhosis of the liver, IBS, ) and Other (Portal vein thrombosis); Negative CAD
ED Past Surgical History: Appendectomy, Bowel resection, Cholecystectomy, Gynecological (Total Hysterectomy, Oophorectomy), Orthopedic (right wrist surgery, Left ankle surgery) and Other (Meckel's diverticulum, gastric bypass Jun 27, 2021,
cataracts,)
Patient has exhibited threatening behavior?: No
PSI?: No
Social History
Tobacco: Former smoker
Alcohol: None
Drug: None
Personal:
Living: with family
Employment: Retired
Family History
Family History: Other ([place])
Phy Exam
Physical Exam
Physical Exam:
GENERAL: 68-year-old woman appears older than stated age, moderately drowsy, oriented x 3, appears in no acute distress. is accompanying.
EYE: pupils equal and reactive. Mildly icteric.
NECK: Supple, nontender, no meningismus, no significant adenopathy.
ENT: posterior pharynx is clear, oral mucosa is moderately dry. TM clear b/l, nares patent. Crusted superficial ulcers left lower lip with crusted adherent dried blood. No surrounding erythema nor soft tissue swelling.
CARDIAC: Regular rate and rhythm. no murmur.
LUNGS: no acute respiratory distress, mildly decreased breath sounds at bases otherwise clear to auscultation.
ABDOMEN: Soft, mildly distended, mild generalized tenderness to palpation, no r/g, no cvat. normoactive BS.
NEUROLOGICAL: Moderately drowsy, oriented x 3, moderate asterixis bilateral upper extremities, no focal neuro deficits.
SKIN: Warm and dry, moderately tanned sun exposed skin, no rash.
MUSCULOSKELETAL: No clubbing or cyanosis, trace peripheral edema, peripheral pulses are full and equal b/l. No palpable tenderness.
PSYCH: Normal and appropriate interaction.
Course
Orders/Labs/Results
Orders:
Orders
05/18/24 21:27
Ammonia Urgent
Complete Blood Count/With Diff Urgent
Comprehensive Metabolic Panel Urgent
Prothrombin Time Urgent
05/18/24 22:39
Lactulose [Duphalac/Chronulac] 20 grams PO NOW STA
Ondansetron Orally Disint [Zofran Odt (Orally Disintegrating)] 8 mg PO NOW STA
05/18/24 22:47
CT Abd/pel Without Iv Or Oral Urgent
Comment:
Reason For Exam: gen abd pain, nausea, confusion
0.9% Sodium Chloride 1000 ml [Nss] 1,000 ml IV 125 mls/hr
05/18/24 23:21
Rifaximin [Xifaxan] 550 mg PO NOW STA
Abnormal Lab Results
05/18/24
21:27
WBC 3.1 L 10^3/uL
(4.8-10.8)
RBC 2.49 L 10^6/uL
(4.20-5.40)
Hgb 7.8 L g/dL
(12.0-16.0)
Hct 22.4 L %
(37.0-47.0)
MCH 31.3 H pg
(27.0-31.0)
RDW 19.9 H %
(11.5-14.5)
Plt Count 65 L 10^3/uL
(130-400)
MPV 11.2 H fL
(7.4-10.4)
Absolute Lymphs (auto) 0.5 L 10^3/uL
(1.2-3.4)
Lymphocytes % 14.7 L %
(20.5-51.1)
Monocytes % 15.3 H %
(1.7-9.3)
PT 25.1 H Sec
(11.4-14.6)
Carbon Dioxide 31 H mmol/L
(22-30)
BUN 40 H mg/dl
(7-17)
Creatinine 2.7 H mg/dL
(0.6-1.0)
Glucose 139 H mg/dl
(70-99)
Total Bilirubin 2.9 H mg/dl
(0.2-1.3)
AST 71 H U/L
(14-36)
Ammonia 88 H umol/L
(9-30)
Total Protein 5.7 L g/dl
(6.3-8.2)
Albumin 2.8 L g/dl
(3.5-5.0)
05/18/24 21:27
05/18/24 21:27
Vital Signs
Initial and Last Documented VS:
Initial Vital Signs
Temp Pulse Resp Pulse Ox
99 F 98 18 98
05/18/24 21:00 05/18/24 21:00 05/18/24 21:00 05/18/24 21:00
Last Documented Vital Signs
Temp Pulse Resp BP Pulse Ox
98.3 F 75 11 115/54 95
05/18/24 22:00 05/18/24 22:15 05/18/24 22:15 05/18/24 22:00 05/18/24 22:00
MDM/Problems Addressed
Differential Diagnosis Includes:
Concern for progression of hepatic encephalopathy, dehydration, SBP, symptomatic recurrent ascites, adrenal insufficiency..
Patient is chronically immunocompromised due to advanced liver disease, chronic maintenance with oral steroids.
Labs are remarkable for moderately elevated ammonia level of 88 which is trended up significantly compared to earlier this month.
Moderate uptrend in BUN and creatinine as well compared to previous and clinically patient appears moderately dry.
Pancytopenia is stable and unchanged from previous.
Gapped INR of 2.29 likely related to advanced liver disease.
No evidence of spontaneous bleeding on exam.
Will initiate IV fluids for gentle IV hydration.
Will give Zofran for nausea and attempt oral dose of lactulose and rifaximin.
Will check CT abdomen pelvis.
Due to moderate dehydration, hepatic encephalopathy patient will require acute hospitalization for fluid management, reassessment of labs and neurologic status.
Chronic conditions affecting care: HTN, Cardiomyopathy, Arrhythmia, Immunosuppressed, Kidney disease and Other (Nonalcoholic cirrhosis with chronic portal hypertension/ascites. Prior history of SBP)
*Pulse Oximetry
Patient hypoxic: no
*Business Continuity Specialist Interpretation
Rate: normal
Interpretation: normal
Rhythm: sinus
*Critical Care Note
Total Time (30-74mins, 75-104mins- exclusive of procedures): Not Applicable
ED Attending Note
-
Portions of this chart may have been created with voice recognition software.� Occasional wrong word or��sound alike� substitutions may have occurred due to the inherent limitations of voice recognition software.
Discharge Plan
Departure
Patient Disposition: Admit
Date of Disposition: 05/19/24
Time of Disposition: 00:17
Admit to doctor: cj
Presentation/result/management discussed w/ accepting MD/DO: Hospitalist
Condition: Fair
Discharge Problem:
exacerbation of hepatic encephalopathy, Liver cirrhosis secondary to ZAVALETA (nonalcoholic steatohepatitis), Ascites, acute on chronic kidney disease
Prescriptions:
No Action
atorvastatin 20 mg tablet
20 mg PO HS
levothyroxine 25 mcg tablet
25 mcg PO DAILY
pantoprazole [Protonix] 40 mg Tablet,Delayed Release (Dr/Ec)
40 mg PO DAILY
prednisone 5 mg tablet
5 mg PO DAILY
ondansetron HCl 8 mg tablet
8 mg PO TID
quetiapine [Seroquel] 25 mg Tablet
25 mg PO HS
rifaximin 550 mg Tablet
550 mg PO BID
spironolactone 50 mg Tablet
50 mg PO BID
memantine 5 mg Tablet
5 mg PO BID
lactulose 10 gram/15 mL solution
45 ml PO TID
buspirone 10 mg Tablet
10 mg PO TID
ergocalciferol (vitamin D2) 1,250 mcg (50,000 unit) Capsule
1,250 mcg PO WHITE
oxycodone 10 mg Tablet
10 mg PO TIDPRN PRN (Reason: severe pain)
torsemide 20 mg Tablet
20 mg PO BID
ciprofloxacin HCl 500 mg Tablet
500 mg PO QPM
famotidine 20 mg Tablet
20 mg PO DAILY
Eliquis 5 mg Tablet
5 mg PO BID
ferrous sulfate 325 mg (65 mg iron) Tablet
325 mg PO DAILY
Referrals:
Malu Wilson DO [Family Provider] -
Interventions
Interventions:
*Risk Screen - Suicide Last Done: 05/18/24 21:00
*General Assessment Last Done: 05/18/24 21:00
*Neglect/Abuse Screening Last Done: 05/18/24 21:00
ED- Fall Risk Assessment Last Done: 05/18/24 21:28
*ED COVID-19 Vaccine History Last Done: 05/18/24 21:28
ED- Neurological Assessment Last Done: 05/18/24 21:30
Discharge Date and Time
Print Language: MACEDONIAN
[2024-05-18 23:24] VITALS: BP 112/57
[2024-05-18] MEDS: NSS 1000 IV (23:25)
[2024-05-18] MEDS: ZOFRAN ODT (ORALLY DISINTEGRATING) 8 MG PO (23:25)
[2024-05-18] MEDS: DUPHALAC/CHRONULAC 20 GRAMS PO (23:25)
[2024-05-19] VITALS (9 sets, daily range): BP systolic 67–120; BP diastolic 47–70; BMI 28.3
--- NOTE | 2024-05-19 00:44 | HPS.HSE ---
Family Physician
-
Family Physician: Malu Wilson
Chief Complaint
-
Lethargy and confusion
History of Present Illness
This 68-year-old with past medical history of nonalcoholic steatohepatitis with cirrhosis complicated by ascites and hepatic encephalopathy was currently on a transplant list at [facility] and presents to the emergency department with approximately 2
days of increasing lethargy and confusion.
Patient was unable to provide much history. History provided by . reported that over the last 2 days the patient has been more lethargic. Today at the moment she sat in the car she went to sleep immediately. She has been more
difficult to arouse. She has been less interactive and has shown more confusion. Spouse reported that he noticed that she had not taken rifaximin and lactulose for the last 2 days as evidenced by a full pill box. He reports that she often forgets
to take this medication and he has to remind her. However she is getting more confused she forgets even more. As far as he knows she has not had a bowel movement until she arrived in the hospital today. Patient herself reports some vomiting and
mild abdominal pain. Has been no fevers or chills. She has a history of increased lower extremity edema recently and was placed on increased dose of torsemide. She had a scheduled paracentesis 2 days ago that was canceled due to no significant
ascites. She has not had any diarrhea, cough, fevers or chills.
Recently diagnosed with uterine prolapse about 5 days ago. No acute intervention.
In ED she was afebrile and hemodynamically stable. Pancytopenia is unchanged from prior. Chemistries notable for Cr of 2.7, up from 1.8. Ammonia level was 88. CT ABD p[kerri shows cirrhosis, moderate ascites with portal hypertension
Medical History
Past Medical History
Past Medical History: Reports CHF and Hypothyroidism
Additional Past Medical History:
paroxysmal atrial fibrillation
pancytopenia
ZAVALETA cirrhosis complicated by hepatic encephalopathy and recurrent ascites
Past Surgical History: Reports None
Social History
Unable to obtain full social history at this time due to: Acuity
Tobacco: Non-smoker
Alcohol: None
Drug: None
Personal:
Living: With Family
Employment: Not Employed
Family History
Family History: Not pertinent
Allergies / Home Medications
Allergies reflects when Allergies were last updated in [facility].
Home Medications with original date entered in [facility]
Allergy/Medication List:
Allergies
Allergy/AdvReac Type Severity Reaction Status Date / Time
adhesive Allergy Rash Verified 04/18/24 11:32
ampicillin Allergy Anaphylaxis Verified 04/18/24 11:32
bee pollen Allergy Swelling Verified 04/18/24 11:32
Cephalosporins Allergy Swelling Verified 04/18/24 11:32
diphenhydramine Allergy HYPERACTIVI Verified 04/18/24 11:32
[From Benadryl] TY
honey Allergy Swelling Verified 04/18/24 11:32
latex Allergy HIVES AND Verified 04/18/24 11:32
SWELLS UP
penicillin G Allergy Anaphylaxis Verified 04/18/24 11:32
Penicillins Allergy Anaphylaxis Verified 04/18/24 11:32
prochlorperazine Allergy Unknown Verified 04/18/24 11:32
[From Compazine]
promethazine HCl Allergy THROAT Verified 04/18/24 11:32
[From Phenergan] SWELLING/PANIC
ATTACKS
Sulfa (Sulfonamide Allergy Swelling Verified 04/18/24 11:32
Antibiotics)
sulfisoxazole Allergy Swelling Verified 04/18/24 11:32
trimethobenzamide Allergy Unknown Verified 04/18/24 11:32
venom-honey bee Allergy BEE Verified 04/18/24 11:32
STING/SWELLING
Home Medications
atorvastatin 20 mg tablet 20 mg PO HS High cholesterol 06/14/22
levothyroxine 25 mcg tablet 25 mcg PO DAILY Thyroid 06/14/22
pantoprazole 40 mg tablet,delayed release (Protonix) 40 mg PO DAILY Gastrointestinal issue 03/25/23
prednisone 5 mg tablet 5 mg PO DAILY Anti-Inflammatory 06/05/23
ondansetron HCl 8 mg tablet 8 mg PO TID 06/25/23
quetiapine 25 mg tablet (Seroquel) 25 mg PO HS mental health/sleep 07/15/23
rifaximin 550 mg tablet 550 mg PO BID Liver Issues 10/01/23
spironolactone 50 mg tablet 50 mg PO BID Fluid Retention/Swelling 11/19/23
memantine 5 mg tablet 5 mg PO BID dementia 12/26/23
lactulose 10 gram/15 mL oral solution 45 ml PO TID Liver Issues 01/21/24
buspirone 10 mg tablet 10 mg PO TID Anxiety 04/18/24
ergocalciferol (vitamin D2) 1,250 mcg (50,000 unit) capsule 1,250 mcg PO WHITE Supplement 04/18/24
oxycodone 10 mg tablet 10 mg PO TIDPRN PRN severe pain 04/18/24
apixaban 5 mg tablet (Eliquis) 5 mg PO BID 05/18/24
ciprofloxacin HCl 500 mg tablet 500 mg PO QPM 05/18/24
famotidine 20 mg tablet 20 mg PO DAILY 05/18/24
ferrous sulfate 325 mg (65 mg iron) tablet 325 mg PO DAILY 05/18/24
torsemide 20 mg tablet 20 mg PO BID 05/18/24
Review of Systems
-
History Source: Family
Constitutional: Reports Sleep Disturbance
EENT: Reports No Symptoms
Respiratory: Reports No Symptoms
Cardiac: Reports No Symptoms
Abdomen/GI: Reports Abdominal Pain
: Reports Incontinence
Musculoskeletal: Reports No Symptoms
Skin: Reports No Symptoms
Neurological: Reports No Symptoms
Endocrine: Reports No Symptoms
Hematologic/Lymphatic: Reports No Symptoms
Psych: Reports No Symptoms
Physical Exam
Vital Signs
Vital Signs
Temp Pulse Resp BP Pulse Ox
98.3 F 69 14 111/58 95
05/18/24 22:00 05/19/24 00:15 05/19/24 00:15 05/19/24 00:00 05/18/24 22:00
Physical Exam
General: Comfortable
HEENT: NormoCephalic, Anicteric, Moist mucous membranes, Atraumatic and PERRLA
Respiratory: Clear
Cardiac: S1/S2 and Regular Rhythm
Breast: Deferred by me
GI: Soft, Non Tender, Non Distended and Normal Bowel Sounds
Rectal: Deferred by Provider
Genito-urinary: Deferred by me
Musculoskeletal: No Clubbing, No Cyanosis, Edema, Left Lower Extremity and Edema, Right Lower Extremity
Skin: Warm and Dry
Neuro: Oriented (x3), Nonfocal/grossly intact, Tremors and Other (Asterixis)
Hematologic/Lymphatic: No Lymphadenopathy
Psych: Calm
Laboratory Results
-
05/18/24 21:27
05/18/24 21:27
Laboratory Results
PT 25.1 Sec (11.4-14.6) H 05/18/24 21:27
INR 2.29 05/18/24 21:27
Total Bilirubin 2.9 mg/dl (0.2-1.3) H 05/18/24 21:27
AST 71 U/L (14-36) H 05/18/24 21:27
ALT 26 U/L (0-35) 05/18/24 21:27
Alkaline Phosphatase 117 U/L (38-126) 05/18/24 21:27
Data Reviewed
-
CT Scan: Report Reviewed by me
Lab Data: Labs Reviewed by me
Old Records: Reviewed
Impression/Plan
-
IMPRESSION:
PLAN:
1. Hepatic Encephalopathy - Patient with recurent hepatic encephalopathy with confusion, elevated ammonia and slight elevation in bilirubin. No significant ascites since last imaging on May 15 when it was deemed too small for therapeutic tap.
Family reports non-compliance with meds. No obvious signs of infection or acute GI bleed to explain encephalopathy at this time. She is arousable and follows commands well and able to tolerate po.
- admit to medical floor
- lactulose 30mg q 6 hours titrated to 2 - 3 bms
- continue rifaximin
- obtain stool hemoccult ( no h/o varices or gi bleed)
- diagnostic paracentesis in AM
- GI consultation (patient was transferred to [place] on last admission)
2. SARI - SARI on CKD, patient with total body volume overload. Cannot rule out hepatorenal but patient has been on higher dose torsemide
- hold torsemide
- check u/a
- check i/o if oliguric, check urine lytes
- nephrology consultation
- hydration in ED but no further hydration overnight
3. Paroxysmal afib - rate controlled
- continue eliquis
4. CHF - Moderate total body volume overload with mild elevation in JVD and increased peripheral edema.
- continue spironolactone
5. GERD
-Continue famotidine, Protonix, sucralfate
- Esophageal dysmotility status post Kevin-en-Y bypass
6. Anxiety/depression
-Continue buspirone, Seroquel
7 Dementia
-Continue memantine
DVT PPX - on eliquis
Code Status - Full
[2024-05-19] MEDS: XIFAXAN 550 MG PO ×3 (01:13→20:55)
[2024-05-19] MEDS: DUPHALAC/CHRONULAC 20 GRAMS PO (02:59)
[2024-05-19 04:52] LABS: Ammonia 39 umol/L (9-30)
[2024-05-19 04:55] LABS: Hematocrit 20.2 % (37.0-47.0); Mean Corp Hgb Conc. 34.7 g/dL (33.0-37.0); Mean Corpuscular Hgb 31.4 pg (27.0-31.0); Mean Corpuscular Volume 90.6 fL (81.0-99.0); Mean Platelet Volume 11.4 fL (7.4-10.4); Platelet Count 57 10^3/uL (130-400); Red Blood Cell Count 2.23 10^6/uL (4.20-5.40); Red Cell Dist. Width 19.9 % (11.5-14.5); White Blood Cell Count 2.1 10^3/uL (4.8-10.8)
[2024-05-19 05:05] LABS: Blood Urea Nitrogen 37 mg/dl (7-17); Calcium 8.4 mg/dl (8.4-10.2); Carbon Dioxide 30 mmol/L (22-30); Chloride 103 mmol/L (98-107); Estimated Creatinine Clearance 22 ml/min; Glucose 95 mg/dl (70-99); Potassium 4.2 mmol/L (3.5-5.1); Sodium 139 mmol/L (135-145); eGFR 19.62
[2024-05-19] MEDS: DUPHALAC/CHRONULAC 45 GRAMS PO ×3 (06:07→17:19)
[2024-05-19] MEDS: SYNTHROID 25 MCG PO (06:07)
[2024-05-19 07:22] LABS: Glucose - Point of Care 138 mg/dl (70-99)
[2024-05-19] MEDS: DELTASONE 5 MG PO (07:56)
[2024-05-19] MEDS: ALDACTONE 50 MG PO (07:56)
[2024-05-19] MEDS: PEPCID 20 MG PO (07:56)
[2024-05-19] MEDS: ELIQUIS 5 MG PO ×2 (07:56→20:56)
[2024-05-19] MEDS: BUSPAR 10 MG PO ×3 (07:57→20:56)
[2024-05-19] MEDS: NAMENDA 5 MG PO ×2 (07:57→20:55)
[2024-05-19] MEDS: PROTONIX 40 MG PO (07:57)
[2024-05-19] MEDS: FEOSOL 325 MG PO (07:57)
[2024-05-19] MEDS: NOVOLOG FLEXPEN-LOW RESISTANCE SC (07:59)
[2024-05-19] MEDS: DESENEX/MITRAZOL/ZEASORB 1 APPLIC TOPICAL ×2 (09:03→20:57)
--- NOTE | 2024-05-19 09:55 | W.PN.HOSP.TC ---
Today's Communication/Plan
-
see plan
Assessment / Plan
Assessment / Plan
This 68-year-old with past medical history of nonalcoholic steatohepatitis with cirrhosis complicated by ascites and hepatic encephalopathy was currently on a transplant list at [facility] and presents to the emergency department with approximately 2
days of increasing lethargy and confusion.
1. Hepatic Encephalopathy - Patient with recurrent hepatic encephalopathy with confusion, elevated ammonia and slight elevation in bilirubin. No significant ascites since last imaging on May 15 when it was deemed too small for therapeutic tap.
Family reports non-compliance with meds. No obvious signs of infection or acute GI bleed to explain encephalopathy at this time. She is arousable and follows commands well and able to tolerate po.
- admit to medical floor
- lactulose 30mg q 6 hours titrated to 2 - 3 bms - patient with large BM this morning
- continue rifaximin
- obtain stool hemoccult ( no h/o varices or gi bleed)
- diagnostic paracentesis this morning
- GI consultation (patient was transferred to [facility] on last admission)
-patient was admitted 04/19/24 for SBP
2. SARI - SARI on CKD, patient with total body volume overload. Cannot rule out hepatorenal but patient has been on higher dose torsemide
-creatinine 2.7 on admit; baseline 1.5-1.7; 2.6 this AM
- hold torsemide
- check u/a
- check i/o if oliguric, check urine lytes
- nephrology consultation
- s/p hydration in ED but no further hydration overnight
Acute on chronic anemia
-add on iron studies
-likely some degree of dilution
3. Paroxysmal afib - rate controlled
- continue eliquis
4. CHF - Moderate total body volume overload with mild elevation in JVD and increased peripheral edema.
- continue spironolactone
5. GERD
-Continue famotidine, Protonix, sucralfate
- Esophageal dysmotility status post Kevin-en-Y bypass
6. Anxiety/depression
-Continue buspirone, Seroquel
7 Dementia
-Continue memantine
HSV 1
-patient has hx cold sores
-topical acyclovir and aquaphor
DVT PPX - on eliquis
Code Status - Full
Anticipated Discharge: > 48 hours
Subjective/Interval History
-
Date of Service: May 19, 2024
has cold sore lower lip
states she wasn't taking lactulose over weekend, had grandkids visiting
currently knows where she is, awake alert and playing games on phone
Objective Data
-
Labs:
Laboratory Results
05/18/24 05/19/24
21:27 04:33
WBC 2.1 L*
Hgb 7.0 L
Hct 20.2 L*
Plt Count 57 L
PT 25.1 H
INR 2.29
Sodium 136 139
Potassium 4.6 4.2
Chloride 100 103
Carbon Dioxide 31 H 30
BUN 40 H 37 H
Creatinine 2.7 H 2.6 H
Glucose 139 H 95
Calcium 9.0 8.4
Total Bilirubin 2.9 H
AST 71 H
ALT 26
Alkaline Phosphatase 117
Vital Signs:
Vital Signs
Temp Pulse Resp BP Pulse Ox
98.5 F 70 16 111/52 98
05/19/24 07:15 05/19/24 07:56 05/19/24 07:15 05/19/24 07:56 05/19/24 07:15
Review of Systems
-
History Source: Patient
All other systems: Reviewed and negative
Physical Exam
-
General: No Apparent Distress
HEENT: Normocephalic, Atraumatic, Moist Mucous Membranes and Other (lower lip with HSV lesion and bleeding)
Respiratory: Clear to Auscultation
Cardiac: Murmur
GI: Distended
Musculoskeletal: No Clubbing, No Cyanosis and No Edema
Skin: Warm, Dry and Jaundice
Neuro: AO x 3 and Other (Asterixis)
Psych: Calm
Data Reviewed
-
Diagnostic Radiology: Report Reviewed by me
Labs: Labs Reviewed by me
--- NOTE | 2024-05-19 10:18 | W.CON.NEPH ---
Consultation
-
Date/Time Consultation Requested: 05/19/2024 7:00 AM
Date/Time Consultation Performed: 05/19/2024 10:15 AM
Requesting Provider: Dr. Leahy
Performing Provider: Dr. Johnson
Reason for Consultation: Acute kidney injury
Medical History
-
Chief Complaint: Acute kidney injury
History of Present Illness:
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 She has a chronic history of anasarca from her cirrhotic liver
disease and is maintained on the combination of Aldactone and torsemide therapy. She also has a history of chronic kidney disease as noted by creatinine of 1.8 as of 04/30/2024 . She was currently on a transplant list at [place] and presents to
the emergency department with approximately 2 days of increasing lethargy and confusion. Her ammonia level on admission was 88. A few weeks prior she had been transferred to [place] in the setting of her pancytopenia and decompensated cirrhosis.
On presentation to the emergency the patient was unable to provide much history. History provided by . reported that over the last 2 days the patient has been more lethargic. She has been more difficult to arouse. She has been
less interactive and has shown more confusion. Spouse reported that he noticed that she had not taken rifaximin and lactulose for the last 2 days as evidenced by a full pill box. He reports that she often forgets to take this medication and he has
to remind her. However she is getting more confused she forgets even more. As far as he knows she has not had a bowel movement until she arrived in the hospital today. Patient herself reports some vomiting and mild abdominal pain. no fevers or
chills. She has a history of increased lower extremity edema recently and was placed on increased dose of torsemide. She had a scheduled paracentesis 2 days ago that was canceled due to no significant ascites. She has not had any diarrhea, cough,
fevers or chills.
Nephrology was consulted as her creatinine was up to 2.6 from 1.8. She has been hemodynamically stable since admission. Her weight on admission was recorded at 77 kg a weight from 04/30/2024 was 78.9.
When she was seen by myself this morning she was much more awake and coherent and able to answer all questions appropriately.
Past Medical History
CHF
Hypothyroidism
CKD 3b (1.8)
paroxysmal atrial fibrillation
pancytopenia
ZAVALETA cirrhosis complicated by hepatic encephalopathy and recurrent ascites
Social History
Tobacco: Non-Smoker
Alcohol: None
Family History
no ckd
Allergies / Home Medications
Allergy/AdvReac Type Severity Reaction Status Date / Time
adhesive Allergy Rash Verified 04/18/24 11:32
ampicillin Allergy Anaphylaxis Verified 04/18/24 11:32
bee pollen Allergy Swelling Verified 04/18/24 11:32
Cephalosporins Allergy Swelling Verified 04/18/24 11:32
diphenhydramine Allergy HYPERACTIVI Verified 04/18/24 11:32
[From Benadryl] TY
honey Allergy Swelling Verified 04/18/24 11:32
latex Allergy HIVES AND Verified 04/18/24 11:32
SWELLS UP
penicillin G Allergy Anaphylaxis Verified 04/18/24 11:32
Penicillins Allergy Anaphylaxis Verified 04/18/24 11:32
prochlorperazine Allergy Unknown Verified 04/18/24 11:32
[From Compazine]
promethazine HCl Allergy THROAT Verified 04/18/24 11:32
[From Phenergan] SWELLING/PANIC
ATTACKS
Sulfa (Sulfonamide Allergy Swelling Verified 04/18/24 11:32
Antibiotics)
sulfisoxazole Allergy Swelling Verified 04/18/24 11:32
trimethobenzamide Allergy Unknown Verified 04/18/24 11:32
venom-honey bee Allergy BEE Verified 04/18/24 11:32
STING/SWELLING
�Medication �Instructions �Recorded �Confirmed �Type
atorvastatin 20 mg tablet 20 mg PO HS High cholesterol 06/14/22 05/18/24 History
levothyroxine 25 mcg tablet 25 mcg PO DAILY Thyroid 06/14/22 05/18/24 History
pantoprazole 40 mg tablet,delayed 40 mg PO DAILY Gastrointestinal 12/09/22 05/18/24 History
release (Protonix) issue
prednisone 5 mg tablet 5 mg PO DAILY Anti-Inflammatory 06/05/23 05/18/24 History
ondansetron HCl 8 mg tablet 8 mg PO TID 06/25/23 05/18/24 History
quetiapine 25 mg tablet (Seroquel) 25 mg PO HS mental health/sleep 07/15/23 05/18/24 History
rifaximin 550 mg tablet 550 mg PO BID Liver Issues 10/01/23 05/18/24 History
spironolactone 50 mg tablet 50 mg PO BID Fluid 11/19/23 05/18/24 History
Retention/Swelling
memantine 5 mg tablet 5 mg PO BID dementia 12/26/23 05/18/24 History
lactulose 10 gram/15 mL oral 45 ml PO TID Liver Issues 01/21/24 05/18/24 History
solution
buspirone 10 mg tablet 10 mg PO TID Anxiety 04/18/24 05/18/24 History
ergocalciferol (vitamin D2) 1,250 1,250 mcg PO WHITE Supplement 04/18/24 05/18/24 History
mcg (50,000 unit) capsule
oxycodone 10 mg tablet 10 mg PO TIDPRN PRN severe pain 04/18/24 05/18/24 History
apixaban 5 mg tablet (Eliquis) 5 mg PO BID 05/18/24 05/18/24 History
ciprofloxacin HCl 500 mg tablet 500 mg PO QPM 05/18/24 05/18/24 History
famotidine 20 mg tablet 20 mg PO DAILY 05/18/24 05/18/24 History
ferrous sulfate 325 mg (65 mg 325 mg PO DAILY 05/18/24 05/18/24 History
iron) tablet
torsemide 20 mg tablet 20 mg PO BID 05/18/24 05/18/24 History
Review of Systems
-
History Source: Patient and Family
All other systems: Negative unless noted
Constitutional: Weight Gain
EENT: No Symptoms
Respiratory: No Symptoms
Cardiac: Other (increased edema)
Abdomen/GI: Other (abominal distention)
: Other (Reports decreased urination)
Neurological: Other (Appears now to be more oriented and coherent)
Physical Exam
Vital Signs
Vital Signs
Temp Pulse Resp BP Pulse Ox
98.5 F 70 16 111/52 98
05/19/24 07:15 05/19/24 07:56 05/19/24 07:15 05/19/24 07:56 05/19/24 07:15
Lab Results
05/19/24 04:33
05/19/24 04:33
WBC 2.1 10^3/uL (4.8-10.8) L* 05/19/24 04:33
RBC 2.23 10^6/uL (4.20-5.40) L 05/19/24 04:33
Hgb 7.0 g/dL (12.0-16.0) L 05/19/24 04:33
Hct 20.2 % (37.0-47.0) L* 05/19/24 04:33
Plt Count 57 10^3/uL (130-400) L 05/19/24 04:33
Sodium 139 mmol/L (135-145) 05/19/24 04:33
Potassium 4.2 mmol/L (3.5-5.1) 05/19/24 04:33
Chloride 103 mmol/L (98-107) 05/19/24 04:33
Carbon Dioxide 30 mmol/L (22-30) 05/19/24 04:33
BUN 37 mg/dl (7-17) H 05/19/24 04:33
Creatinine 2.6 mg/dL (0.6-1.0) H 05/19/24 04:33
eGFR 19.62 05/19/24 04:33
Glucose 95 mg/dl (70-99) 05/19/24 04:33
Calcium 8.4 mg/dl (8.4-10.2) 05/19/24 04:33
Albumin 2.8 g/dl (3.5-5.0) L 05/18/24 21:27
Physical Exam
General: AOx3, Nontoxic , NAD
HEENT: PERRL, EOMI, Anicteric, Conjunctivae Clear, Ear/Nose Intact, Hearing Normal, Oropharynx Clear/Moist, Dentition Intact, Facial Symmetry, Neck Supple, Neck: Trachea Midline, No JVD and No Thyromegaly, no Bruits, lip abrasion noted
Respiratory: Clear to auscultation bilaterally with normal lung excursion
Cardiac: S1/S2 and Regular Rate/Rhythm
Breast: Deferred by me
Abdomen: Soft, Nontender, distended, Normal Bowel Sounds and No Hepatosplenomegaly
Rectal: Deferred by Provider
Genito-urinary: No Costovertebral Tenderness
Extremities: No Clubbing, No Cyanosis and Noted 2 plus pitting Edema
Skin: No Rash or open lesions
Neuro: Nonfocal/Grossly Intact, CN II-XII (Intact) and Strength (Musculoskeletal exam 5 out of 5 both upper and lower extremities)
Hematologic/Lymphatic: No Cervical Lymphadenopathy, No Submandibular Lymphadenopathy and No Supraclavicular Lymphadenopathy
Psych: Mood/affect pleasant, Insight/judgement good and Appropriate
Vascular: plus 1 pedal and radial pulses
Data Reviewed
-
Radiology: Report Reviewed by me (CAT scan reviewed no evidence of obstructive uropathy)
Labs: Labs Reviewed by me (BMP CBC INR ammonia)
Old Records: Reviewed (Reviewed previous creatinine from April 2024 1.8 as of 04/30/2024)
Assessment/Plan
-
Impression:
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
History of recent SBP
Chronic kidney disease stage IIIb
Anasarca
Paroxysmal A-fib
GERD
Anxiety depression
Dementia
Pancytopenia
History of congestive heart
Coagulopathy
Plan:
SARI/CKD 3b
-No obstructive uropathy per CAT scan reviewed
-Urinalysis from 04/30/2024 :bland
-Repeat urinalysis,urine sodium, and urine creatinine
-Suspect acute kidney injury is due to prerenal stimulus in setting of decompensated cirrhosis and/or hepatorenal syndrome
-Unfortunately we do not have much to offer and suggest transfer back to [place] if in fact patient is a transplant candidate
-albumin and or midodrine if patient becomes hypotensive
-Diuretics are currently held but I do not know how long this will be possible as patient examines volume overloaded
[2024-05-19 10:29] LABS: Iron 76 ug/dl (37-170)
[2024-05-19 10:38] LABS: Percent Saturation 29 % (20-50); Total Iron Binding Capacity 258 ug/dl (265-497)
[2024-05-19 11:17] LABS: Ferritin 32.3 ng/ml (11.1-264.0)
[2024-05-19] MEDS: ZOVIRAX OINTMENT 5% 1 APPLIC TOPICAL ×5 (11:30→20:57)
[2024-05-19 12:16] LABS: Glucose - Point of Care 151 mg/dl (70-99)
[2024-05-19] MEDS: NOVOLOG FLEXPEN-LOW RESISTANCE 1 UNITS SC ×2 (13:17→17:42)
[2024-05-19 15:29] LABS: Body Fluid Albumin < 1.0 g/dl
[2024-05-19] MEDS: FLEXBUMIN 100 IV ×2 (15:35→23:03)
--- NOTE | 2024-05-19 15:37 | CON.GI ---
Consultation
-
Date/Time Consultation Requested: 05/19/2024
Date/Time Consultation Performed: 05/19/2024
Performing Provider: Bunny Foss
Reason for Consultation: AMS, lethargy/confusion
Medical History
Chief Complaint / HPI
Chief Complaint: AMS, lethargy/confusion
History of Present Illness:
The patient is a 68-year-old female well-known to my group with complex history including decompensated MASH cirrhosis requiring recurrent paracentesis and thoracentesis, history of SBP on chronic antibiotics who had recurrent episode of SBP on
04/2024 (transferred to [facility] for further care at that time), and hepatic encephalopathy on Xifaxan and lactulose who p/w lethargy and confusion. She reportedly did not take her lactulose and rifaximin for past 2 days and was noted to have increased
lethargy and confusion by her .
Past Medical History
Past Medical History: Arrhythmias, CHF, Hypothyroidism and Other
Past Surgical History: Other
Social History
Tobacco: Non-Smoker
Alcohol: None
Drug: None
Allergies / Home Medications
Allergy/AdvReac Type Severity Reaction Status Date / Time
adhesive Allergy Rash Verified 04/18/24 11:32
ampicillin Allergy Anaphylaxis Verified 04/18/24 11:32
bee pollen Allergy Swelling Verified 04/18/24 11:32
Cephalosporins Allergy Swelling Verified 04/18/24 11:32
diphenhydramine Allergy HYPERACTIVI Verified 04/18/24 11:32
[From Benadryl] TY
honey Allergy Swelling Verified 04/18/24 11:32
latex Allergy HIVES AND Verified 04/18/24 11:32
SWELLS UP
penicillin G Allergy Anaphylaxis Verified 04/18/24 11:32
Penicillins Allergy Anaphylaxis Verified 04/18/24 11:32
prochlorperazine Allergy Unknown Verified 04/18/24 11:32
[From Compazine]
promethazine HCl Allergy THROAT Verified 04/18/24 11:32
[From Phenergan] SWELLING/PANIC
ATTACKS
Sulfa (Sulfonamide Allergy Swelling Verified 04/18/24 11:32
Antibiotics)
sulfisoxazole Allergy Swelling Verified 04/18/24 11:32
trimethobenzamide Allergy Unknown Verified 04/18/24 11:32
venom-honey bee Allergy BEE Verified 04/18/24 11:32
STING/SWELLING
�Medication �Instructions �Recorded
atorvastatin 20 mg tablet 20 mg PO HS High cholesterol 06/14/22
levothyroxine 25 mcg tablet 25 mcg PO DAILY Thyroid 06/14/22
pantoprazole 40 mg tablet,delayed 40 mg PO DAILY Gastrointestinal 12/09/22
release (Protonix) issue
prednisone 5 mg tablet 5 mg PO DAILY Anti-Inflammatory 06/05/23
ondansetron HCl 8 mg tablet 8 mg PO TID 06/25/23
quetiapine 25 mg tablet (Seroquel) 25 mg PO HS mental health/sleep 07/15/23
rifaximin 550 mg tablet 550 mg PO BID Liver Issues 10/01/23
spironolactone 50 mg tablet 50 mg PO BID Fluid 11/19/23
Retention/Swelling
memantine 5 mg tablet 5 mg PO BID dementia 12/26/23
lactulose 10 gram/15 mL oral 45 ml PO TID Liver Issues 01/21/24
solution
buspirone 10 mg tablet 10 mg PO TID Anxiety 04/18/24
ergocalciferol (vitamin D2) 1,250 1,250 mcg PO WHITE Supplement 04/18/24
mcg (50,000 unit) capsule
oxycodone 10 mg tablet 10 mg PO TIDPRN PRN severe pain 04/18/24
apixaban 5 mg tablet (Eliquis) 5 mg PO BID 05/18/24
ciprofloxacin HCl 500 mg tablet 500 mg PO QPM 05/18/24
famotidine 20 mg tablet 20 mg PO DAILY 05/18/24
ferrous sulfate 325 mg (65 mg 325 mg PO DAILY 05/18/24
iron) tablet
torsemide 20 mg tablet 20 mg PO BID 05/18/24
Review of Systems
Vital Signs
Temp Pulse Resp BP Pulse Ox
98.6 F 67 16 112/60 96
05/19/24 14:09 05/19/24 14:54 05/19/24 14:54 05/19/24 14:54 05/19/24 14:54
Physical Exam
Exam
General: Well Developed and Well Nourished
HEENT: Normocephalic
Respiratory: Clear
Cardiac: S1/S2
GI: Soft, Non Tender, Non Distended, Normal Bowel Sounds and Other (mild asterixis present)
Results
WBC 2.1 10^3/uL (4.8-10.8) L* 05/19/24 04:33
Hgb 7.0 g/dL (12.0-16.0) L 05/19/24 04:33
Hct 20.2 % (37.0-47.0) L* 05/19/24 04:33
MCV 90.6 fL (81.0-99.0) 05/19/24 04:33
Plt Count 57 10^3/uL (130-400) L 05/19/24 04:33
Absolute Neuts (auto) 2.0 10^3/uL (1.4-6.5) 05/18/24 21:27
PT 25.1 Sec (11.4-14.6) H 05/18/24 21:27
INR 2.29 05/18/24 21:27
Sodium 139 mmol/L (135-145) 05/19/24 04:33
Potassium 4.2 mmol/L (3.5-5.1) 05/19/24 04:33
Chloride 103 mmol/L (98-107) 05/19/24 04:33
Carbon Dioxide 30 mmol/L (22-30) 05/19/24 04:33
BUN 37 mg/dl (7-17) H 05/19/24 04:33
Creatinine 2.6 mg/dL (0.6-1.0) H 05/19/24 04:33
Calcium 8.4 mg/dl (8.4-10.2) 05/19/24 04:33
Total Bilirubin 2.9 mg/dl (0.2-1.3) H 05/18/24 21:27
AST 71 U/L (14-36) H 05/18/24 21:27
ALT 26 U/L (0-35) 05/18/24 21:27
Alkaline Phosphatase 117 U/L (38-126) 05/18/24 21:27
Diagnostic Image Results:
Prior GI Procedures:
EGD:
Colonoscopy:
Assessment / Plan
-
68-year-old female well-known to my group with complex history including decompensated MASH cirrhosis requiring recurrent paracentesis and thoracentesis, history of SBP on chronic antibiotics who had recurrent episode of SBP on 04/2024 (transferred
to [facility] for further care at that time), and hepatic encephalopathy on Xifaxan and lactulose who p/w lethargy and confusion. She reportedly did not take her lactulose and rifaximin for past 2 days and was noted to have increased lethargy and
confusion by her .
Impression / Rec:
1. PSE -she reportedly did not take her lactulose and rifaximin for past 2 days and was found to have increasing lethargy and confusion. Ammonia levels 88 on admission. Received lactulose here and had a large BM. Today she is conversant and
answers questions. She does have mild asterixis but is awake. Continue with lactulose and rifaximin but target 3-4 daily BM.
2. SARI - her CR was 1.8 on 04/2024. On admission it was 2.7, down to 2.6 today. Nephrology on board. Suspected to be prerenal cause and/or hepatorenal syndrome. Will contact [facility] for possible transfer if cr doesn't improve further tomorrow.
3. Recurrent SBP - recently had SBP which required tx to [facility] on 04/2024. Remains on cipro for ppx. Will need to obtain records from [facility] if ppx regimen has changed. She had LVP scheduled but was canceled due to inadequate volume of ascites.
Total Time Spent with Patient (in minutes): 55
-
-
Thank you for consultation and allowing me to participate in the patient's care. Please call the transition social worker GI physician during the after hours with any questions or concerns.
[2024-05-19 15:42] LABS: Body Fluid WBC 113 /CUMM
[2024-05-19 15:43] LABS: Body Fluid Mononuclear 85 %; Body Fluid Polymorphonuclear 15 %
[2024-05-19 15:46] LABS: Body Fluid Second Tech EYM
[2024-05-19] MEDS: HYDROPHOR 1 APPLIC TOPICAL ×2 (16:12→20:57)
[2024-05-19 16:30] LABS: Glucose - Point of Care 178 mg/dl (70-99)
[2024-05-19] MEDS: CIPRO 500 MG PO (17:17)
[2024-05-19] MEDS: LIPITOR 20 MG PO (21:01)
[2024-05-19 21:13] LABS: Glucose - Point of Care 102 mg/dl (70-99)
[2024-05-19] MEDS: SEROQUEL 25 MG PO (21:31)
[2024-05-20] VITALS (11 sets, daily range): BP systolic 115–138; BP diastolic 50–79
[2024-05-20] MEDS: DUPHALAC/CHRONULAC 45 GRAMS PO ×4 (00:50→18:03)
[2024-05-20] MEDS: ROXICODONE 5 MG PO (01:14)
[2024-05-20 04:30] LABS: Urine Albumin Negative (Neg - Trace); Urine Bilirubin Negative (Negative); Urine Color Amber; Urine Glucose Negative (Negative); Urine Ketone Negative (Negative); Urine Leukocyte Negative (Negative); Urine Nitrite Negative (Negative); Urine Occult Blood Negative (Negative); Urine Specific Gravity 1.015 (<1.030); Urine Urobilinogen Negative (Neg - 1+)
[2024-05-20 04:33] LABS: Urine Character Clear (Clear)
[2024-05-20 04:58] LABS: Urine Sodium 53 mmol/L (30-90)
[2024-05-20 05:41] LABS: Hematocrit 22.4 % (37.0-47.0); Hemoglobin 7.6 g/dL (12.0-16.0); Mean Corp Hgb Conc. 33.9 g/dL (33.0-37.0); Mean Corpuscular Hgb 31.7 pg (27.0-31.0); Mean Corpuscular Volume 93.3 fL (81.0-99.0); Mean Platelet Volume 11.3 fL (7.4-10.4); Platelet Count 59 10^3/uL (130-400); Red Cell Dist. Width 20.3 % (11.5-14.5); White Blood Cell Count 1.9 10^3/uL (4.8-10.8)
[2024-05-20] MEDS: DILAUDID 0.25 MG IV ×2 (05:55→18:02)
[2024-05-20 06:03] LABS: Blood Urea Nitrogen 33 mg/dl (7-17); Calcium 8.7 mg/dl (8.4-10.2); Carbon Dioxide 29 mmol/L (22-30); Chloride 107 mmol/L (98-107); Estimated Creatinine Clearance 24 ml/min; Glucose 122 mg/dl (70-99); Potassium 3.6 mmol/L (3.5-5.1); Sodium 143 mmol/L (135-145); eGFR 22.73
[2024-05-20 06:14] LABS: Troponin I < 0.012 ng/ml
--- NOTE | 2024-05-20 06:14 | W.PN.UPDATE ---
Update Note
Progress Note Update
pt c/o chest pain 04/26- 06/26 with left sided neck pain
vital signs stable, EKG without any st changes noted.
Will check cbc, bmp, trop, give dilaudid 0.25mg iv x1, add tele monitoring
On eval pt appears comfortable in bed. Looking at phone and chatting with nurse and i about her illness. Describes pain and center of chest and left neck pain.Left neck soft and subtle. Chest pain is not reproducible.
Will await labs
[2024-05-20] MEDS: FLEXBUMIN 100 IV ×3 (06:32→18:13)
[2024-05-20] MEDS: SYNTHROID 25 MCG PO (06:33)
--- NOTE | 2024-05-20 06:40 | PTCARENOTE ---
Pt c/o CP in middle of chest. EKG SR w/ PACs. BP 133/64, HR 62, RR 20, 93% RA. Pt placed on 2L O2, saturation 100%. [employer] notified, trop ordered and IV team asked to draw all labs. Pt stated to this RN that pain in now 10/10 and in her left side of
her neck. Pt not appearing in distress, on her phone, and laughing with staff. [employer] ordered Dilaudid 0.25mg IV and up to see pt. BP 118/56, HR 55, 100% 2L O2.
Pt stated 'pain is getting better, now a 4/10'. Pt stated she does not need nitro and asked to take oxygen off. Plan of care ongoing.
[2024-05-20 08:12] LABS: Glucose - Point of Care 129 mg/dl (70-99)
[2024-05-20] MEDS: NOVOLOG FLEXPEN-LOW RESISTANCE SC ×2 (10:11→18:04)
[2024-05-20] MEDS: NAMENDA 5 MG PO ×2 (10:12→20:48)
[2024-05-20] MEDS: DELTASONE 5 MG PO (10:12)
[2024-05-20] MEDS: XIFAXAN 550 MG PO ×2 (10:13→20:48)
[2024-05-20] MEDS: ELIQUIS 5 MG PO ×2 (10:13→20:48)
[2024-05-20] MEDS: DESENEX/MITRAZOL/ZEASORB 1 APPLIC TOPICAL ×2 (10:14→20:52)
[2024-05-20] MEDS: PROTONIX 40 MG PO (10:14)
[2024-05-20] MEDS: BUSPAR 10 MG PO ×3 (10:14→21:23)
[2024-05-20] MEDS: FEOSOL 325 MG PO (10:14)
[2024-05-20] MEDS: ZOVIRAX OINTMENT 5% 1 APPLIC TOPICAL ×5 (10:15→21:23)
[2024-05-20] MEDS: HYDROPHOR 1 APPLIC TOPICAL ×3 (10:15→21:24)
--- NOTE | 2024-05-20 11:05 | W.PN.HOSP.TC ---
Today's Communication/Plan
-
see plan
Assessment / Plan
Assessment / Plan
This 68-year-old with past medical history of nonalcoholic steatohepatitis with cirrhosis complicated by ascites and hepatic encephalopathy was currently on a transplant list at [place] and presents to the emergency department with approximately 2
days of increasing lethargy and confusion.
1. Hepatic Encephalopathy - Patient with recurrent hepatic encephalopathy with confusion, elevated ammonia and slight elevation in bilirubin. No significant ascites since last imaging on May 15 when it was deemed too small for therapeutic tap.
Family reports non-compliance with meds. No obvious signs of infection or acute GI bleed to explain encephalopathy at this time. She is arousable and follows commands well and able to tolerate po.
- admit to medical floor
- lactulose 30mg q 6 hours titrated to 2 - 3 bms - patient having BM now and mentation improved
- continue rifaximin
- diagnostic paracentesis 05/19 without e/o SBP
- GI consultation (patient was transferred to [place] on last admission)
-patient was admitted 04/19/24 for SBP
2. SARI - SARI on CKD, patient with total body volume overload. Cannot rule out hepatorenal but patient has been on higher dose torsemide
-creatinine 2.7 on admit; baseline 1.5-1.7;
-s/p albumin, improved to 2.3 this morning
- hold torsemide
- nephrology consultation appreciated
Acute on chronic anemia
-add on iron studies
-likely some degree of dilution
3. Paroxysmal afib - rate controlled
- continue eliquis
4. CHF - Moderate total body volume overload with mild elevation in JVD and increased peripheral edema.
-hold spironolatone with SARI
5. GERD
-Continue famotidine, Protonix, sucralfate
- Esophageal dysmotility status post Kevin-en-Y bypass
Chest pain
-MSK versus GERD? unlikely ACS, occurred in past, not exacerbated by exertion
-will continue to trend out Troponin
-EKG NSR with PAC, no significant change from prior
-trial of pepcid; tylenol
6. Anxiety/depression
-Continue buspirone, Seroquel
7 Dementia
-Continue memantine
HSV 1
-patient has hx cold sores
-topical acyclovir and aquaphor
DVT PPX - on eliquis
Code Status - Full
51 minutes spent on patient care
Anticipated Discharge: 24 - 48 hours
Subjective/Interval History
-
Date of Service: May 20, 2024
some chest discomfort that started overnight
she had it when she was here last admission
not reproducible
abdominal discomfort relief with tap
Objective Data
-
Labs:
Laboratory Results
05/20/24
05:14
WBC 1.9 L*
Hgb 7.6 L
Hct 22.4 L
Plt Count 59 L
Sodium 143
Potassium 3.6
Chloride 107
Carbon Dioxide 29
BUN 33 H
Creatinine 2.3 H
Glucose 122 H
Calcium 8.7
Vital Signs:
Vital Signs
Temp Pulse Resp BP Pulse Ox
98.1 F 67 18 117/53 100
05/20/24 08:00 05/20/24 08:00 05/20/24 08:00 05/20/24 08:00 05/20/24 08:00
I&O
05/19/24 05/20/24 05/21/24
06:59 06:59 06:59
Intake Total 1480 / 1480
Balance 1480 / 1480
Review of Systems
-
History Source: Patient
All other systems: Reviewed and negative
Physical Exam
-
General: No Apparent Distress
HEENT: Normocephalic, Atraumatic, Moist Mucous Membranes and Other (lower lip with HSV lesion and scabbing)
Respiratory: Clear to Auscultation and Other (chest pain not reproducible )
Cardiac: Murmur
GI: Distended
Musculoskeletal: No Clubbing, No Cyanosis and No Edema
Skin: Warm, Dry and Jaundice
Neuro: AO x 3 and Other (Asterixis)
Psych: Calm
Data Reviewed
-
Diagnostic Radiology: Report Reviewed by me
Labs: Labs Reviewed by me
--- NOTE | 2024-05-20 11:37 | CM ---
Patient seen at bedside. Patient states that she lives with her in a 2 story home. Patient has no DME at home and has been at [facility] after last hospitalization. Patient stated that she has [facility] in the past but does not anticipate
needing VN at this time. Patient stated that Dr. Wilson is her PCP and she uses [facility] in [place] for pharmacy needs. CM will continue to follow for discharge planning needs.
Plan; home with no needs vs home with VN
[2024-05-20] MEDS: TYLENOL 325 MG PO (11:51)
[2024-05-20] MEDS: PEPCID 20 MG IV (11:57)
[2024-05-20 11:58] LABS: Glucose - Point of Care 154 mg/dl (70-99)
[2024-05-20] MEDS: NSS (PRESERVATIVE FREE) 8 ML IV (11:58)
--- NOTE | 2024-05-20 12:00 | W.PN.GI.CBS2 ---
Today's Communication / Plan
-
Mental status improving along with improvement of renal function with ongoing IV albumin challenge, see as outlined below.
Assessment / Plan
-
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
ppx) with recurrent SBP on 04/2024 (transferred to [facility] for further care at that time), and hepatic encephalopathy on Xifaxan and lactulose who p/w lethargy and confusion. She reportedly did not take her lactulose and rifaximin for past few days
concerning for lactulose noncompliance and found to have SARI on CKD. Infectious work-up thus far negative and [facility] improving with ongoing IV albumin challenge.
Impression/Recommendations:
#SARI on CKD- IMPROVING
Suspect secondary to pre-renal / hypovolemia in setting of encephalopathy and ongoing diuretics (on home torsemide / spironolactone) rather than HRS. Diagnostic para r/o SBP. [facility] peaked on admission of 2.7 now improving with ongoing IV albumin
challenge with [facility] -> 2.3.
- Continue IV albumin challenge, increase to 25% albumin with 25 grams every 6 hrs over next 24 hrs
- Please obtain repeat urine studies and Kadeem tomorrow after 48 hr IV albumin challenge
- Monitor I/Os, UOP, daily weights
- Continue to HOLD diuretics (previously on torsemide) until renal recovery
- Avoid all nephrotoxic agents, limit IV contrast, strict avoidance of all NSAIDs
- Nephrology following, appreciate recs
- Will hold off on transfer to [facility] at this time given improvement. Will capture MELD on admission and send to value analysis coordinator at [place]
#Recurrent Hepatic Encephalopathy
Multiple admissions in the past with recurrent HE. Most current episode and missing her lactulose/rifaximin over the past few days. Infectious w/u (-) and r/o SBP. Still with mild asterixis on exam, but AAOx3 and conversant. Having ongoing BMs
- Continue lactulose, titrate to 3-4 BMs while inpatient
- Rifaximin 550 mg BiD
- Avoid opioids/narctoics, benzos and anticholinergics as much as possible
#Recurrent Ascites
#Right-sided Hepatic Hydrothorax
Multiple thoracentesis and paracentesis in the past. CT with small right sided pleural effusion and ascites. S/p diagnostic paracentesis on 05/19 (-) 1 L and (-) for SBP.
- Diuretics on hold given tenuous renal function
- Continue IV albumin as above for volume expansion
- May benefit from repeat low volume paracentesis (< 4 L) tomorrow pending renal function if reaccumulating
- Trend daily MELD 3.0 labs- CMP and INR
- Ensure 2 gm Na+ restriction
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 Bradley)
#Recurrent SBP
Recently had SBP which required tx to [facility] on 04/2024. Remains on cipro for ppx.
- Continue oral Cipro for secondary SBP ppx
#Pancytopenia
In setting of decompensated cirrhosis. No signs of GI bleeding
- Trend with daily CBC
- Agree with repeating iron studies
GI team will continue to follow while inpatient. Please call with any questions or concerns.
Julien Gloria, DO
Department of Gastroenterology
Subjective
Subjective
Date of Service: May 20, 2024
Episode of chest pain overnight, EKG and troponins (-).
[facility] improving wtih ongoing IV albumin challange [facility] 2.7 -> 2.3. No recent MELD 3.0 labs.
Resting comfortably this afternoon, conversant and AAOx3. Reports 'getting behind' on her lactulose as she was visiting her grandchildren. Having 3 formed BMs with ongoing lactulose. No abdominal pain or bloody stools.
Objective
Data Reviewed
Laboratory Data:
Laboratory Results
05/20/24 05:14
05/20/24 05:14
Laboratory Results
PT 25.1 Sec (11.4-14.6) H 05/18/24 21:27
INR 2.29 05/18/24 21:27
Total Bilirubin 2.9 mg/dl (0.2-1.3) H 05/18/24 21:27
AST 71 U/L (14-36) H 05/18/24 21:27
ALT 26 U/L (0-35) 05/18/24 21:27
Alkaline Phosphatase 117 U/L (38-126) 05/18/24 21:27
Vital Signs and I&O:
Vital Signs
Temp Pulse Resp BP Pulse Ox
98.1 F 67 18 117/53 100
05/20/24 08:00 05/20/24 08:00 05/20/24 08:00 05/20/24 08:00 05/20/24 08:00
I&O
05/19/24 05/20/24 05/21/24
06:59 06:59 06:59
Intake Total 1480 / 1480
Balance 1480 / 1480
Physical Exam
Physical Exam
HEENT: Other (Dry mucous membranes)
Cardiology: Normal Sinus Rhythm
Pulmonary: Clear
GI: Soft, Distended and Non Tender
Extremities: Edema (Trace to 1+ pitting edema in BLE)
Neuro: Non Focal and Other (AAOx3 (to person, place and time) ; + asterixsis on exam)
[2024-05-20] MEDS: NOVOLOG FLEXPEN-LOW RESISTANCE 1 UNITS SC (13:06)
[2024-05-20 13:38] LABS: Troponin I < 0.012 ng/ml
--- NOTE | 2024-05-20 15:32 | W.PN.NEPH.PH ---
Today's Communication / Plan
-
monitor with iv alb
Assessment/Plan
-
Impression:
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
History of recent SBP
Chronic kidney disease stage IIIb
Anasarca
Paroxysmal A-fib
GERD
Anxiety depression
Dementia
Pancytopenia
History of congestive heart
Coagulopathy
Plan:
SARI/CKD 3b
-No obstructive uropathy per CAT scan reviewed
-Urinalysis is bland, FEna low at 0.7
-Suspect acute kidney injury is due to prerenal stimulus in setting of decompensated cirrhosis and/or hepatorenal syndrome
-cr is slowly improving with IV alb -cont same, GI follows
If cr increases unfortunately we do not have much to offer and suggest transfer back to [place] if in fact patient is a transplant candidate
holding Aldactone currently
may benefit from paracentesis
d/w pt
-
-
Date of Service: May 20, 2024
CC / HPI / ROS
-
Chief Complaint:
SARI
History of Present Illness:
cr improving to 2.3
Bp are stable
pancytopenia
no fever
Review of Systems:
c/o mild left CP and sob when deep breathing and thinks abd is distended -primary team aware
no n/v
Labs
-
Labs:
WBC 1.9 10^3/uL (4.8-10.8) L* 05/20/24 05:14
RBC 2.40 10^6/uL (4.20-5.40) L 05/20/24 05:14
Hgb 7.6 g/dL (12.0-16.0) L 05/20/24 05:14
Hct 22.4 % (37.0-47.0) L 05/20/24 05:14
Plt Count 59 10^3/uL (130-400) L 05/20/24 05:14
Sodium 143 mmol/L (135-145) 05/20/24 05:14
Potassium 3.6 mmol/L (3.5-5.1) 05/20/24 05:14
Chloride 107 mmol/L (98-107) 05/20/24 05:14
Carbon Dioxide 29 mmol/L (22-30) 05/20/24 05:14
BUN 33 mg/dl (7-17) H 05/20/24 05:14
Creatinine 2.3 mg/dL (0.6-1.0) H 05/20/24 05:14
eGFR 22.73 05/20/24 05:14
Glucose 122 mg/dl (70-99) H 05/20/24 05:14
Calcium 8.7 mg/dl (8.4-10.2) 05/20/24 05:14
Albumin 2.8 g/dl (3.5-5.0) L 05/18/24 21:27
Physical Exam
-
Vital Signs:
Vital Signs
Temp Pulse Resp BP Pulse Ox
97.8 F 62 18 124/50 100
05/20/24 13:35 05/20/24 13:35 05/20/24 13:35 05/20/24 13:35 05/20/24 13:35
Cardiovascular:: Regular rate and rhythm
Respiratory:: Bilateral: CTA
Lung Excursion:: Normal
Abdomen:: Nontender and Soft
Extremity Edema:: +1: Bilateral:
Harrison Catheter: No
[2024-05-20] MEDS: TYLENOL 650 MG PO (15:39)
[2024-05-20] MEDS: NITROSTAT (SUBLINGUAL) 0.4 MG SL (15:43)
--- NOTE | 2024-05-20 16:12 | W.PN.UPDATE ---
Addendum entered and electronically signed by Olman Holman MD 05/20/24 18:08:
EKG and CT chest essentially normal. Continue symptomatic care.
Original Note:
Update Note
Progress Note Update
Contacted by RN for having new sharp sternal chest pain, raidating to back. some nausea/no diaphoresis
had episode of chest pain yesterday and trop x2 has been neg
got dose of nitro and pain improved, SBP came down to 110
Ordering 0.25mg IV dilaudid x1 to help with pain
Stat EKG ordered
Due to sharp excruciating nature of sternal pain getting CT chest w/o contrat emergently. Cant do CTA or CT with IV contrast with CKD.
[2024-05-20 17:22] LABS: Glucose - Point of Care 138 mg/dl (70-99)
[2024-05-20 18:01] LABS: Troponin I < 0.012 ng/ml
[2024-05-20] MEDS: CIPRO 500 MG PO (18:02)
[2024-05-20] MEDS: SEROQUEL 25 MG PO (21:23)
[2024-05-20] MEDS: LIPITOR 20 MG PO (21:23)
[2024-05-20 21:48] LABS: Glucose - Point of Care 115 mg/dl (70-99)
[2024-05-21] VITALS (10 sets, daily range): BP systolic 48–147; BP diastolic 56–68; BMI 28.0
[2024-05-21] MEDS: FLEXBUMIN 100 IV ×2 (00:31→06:57)
[2024-05-21] MEDS: DUPHALAC/CHRONULAC 45 GRAMS PO ×5 (00:33→22:02)
[2024-05-21 05:09] LABS: Hematocrit 19.7 % (37.0-47.0); Hemoglobin 6.7 g/dL (12.0-16.0); Mean Corpuscular Hgb 31.3 pg (27.0-31.0); Mean Corpuscular Volume 92.1 fL (81.0-99.0); Mean Platelet Volume 12.1 fL (7.4-10.4); Platelet Count 53 10^3/uL (130-400); Red Blood Cell Count 2.14 10^6/uL (4.20-5.40); Red Cell Dist. Width 20.2 % (11.5-14.5); White Blood Cell Count 1.8 10^3/uL (4.8-10.8)
[2024-05-21 05:17] LABS: INR 3.24; PT 33.6 Sec (11.4-14.6)
[2024-05-21 05:31] LABS: ALT (SGPT) 17 U/L (0-35); AST (SGOT) 41 U/L (14-36); Albumin 3.4 g/dl (3.5-5.0); Alkaline Phosphatase 81 U/L (38-126); Blood Urea Nitrogen 28 mg/dl (7-17); Calcium 8.7 mg/dl (8.4-10.2); Carbon Dioxide 25 mmol/L (22-30); Chloride 109 mmol/L (98-107); Estimated Creatinine Clearance 25 ml/min; Glucose 87 mg/dl (70-99); Potassium 3.9 mmol/L (3.5-5.1); Sodium 143 mmol/L (135-145); Total Bilirubin 1.7 mg/dl (0.2-1.3); Total Protein 5.7 g/dl (6.3-8.2); eGFR 23.97
--- NOTE | 2024-05-21 06:26 | W.PN.UPDATE ---
Update Note
Progress Note Update
HH this am 6.7. Pt denies any signs of bleeding. Blood consent obtained by pt. Wll get type and screen and recheck hh for completeness. If still <7 will order one unit prbc
[2024-05-21 07:04] LABS: Hematocrit 20.6 % (37.0-47.0)
[2024-05-21] MEDS: SYNTHROID 25 MCG PO (07:06)
[2024-05-21 08:15] LABS: Glucose - Point of Care 92 mg/dl (70-99)
[2024-05-21] MEDS: NOVOLOG FLEXPEN-LOW RESISTANCE SC ×2 (08:49→17:37)
[2024-05-21] MEDS: PROTONIX 40 MG PO (09:14)
[2024-05-21] MEDS: FEOSOL 325 MG PO (09:14)
[2024-05-21] MEDS: NAMENDA 5 MG PO ×2 (09:14→20:26)
[2024-05-21] MEDS: XIFAXAN 550 MG PO ×2 (09:14→20:25)
[2024-05-21] MEDS: BUSPAR 10 MG PO ×3 (09:14→20:27)
[2024-05-21] MEDS: PEPCID 20 MG PO (09:14)
[2024-05-21] MEDS: ELIQUIS 5 MG PO ×2 (09:14→20:25)
[2024-05-21] MEDS: DELTASONE 5 MG PO (09:15)
[2024-05-21] MEDS: DESENEX/MITRAZOL/ZEASORB 1 APPLIC TOPICAL ×2 (09:15→20:30)
[2024-05-21] MEDS: HYDROPHOR 1 APPLIC TOPICAL ×3 (09:15→20:30)
[2024-05-21] MEDS: ZOVIRAX OINTMENT 5% 1 APPLIC TOPICAL ×5 (09:15→20:27)
[2024-05-21] MEDS: ZOFRAN 4 MG IV ×2 (09:16→18:00)
--- NOTE | 2024-05-21 10:12 | W.PN.HOSP.TC ---
Addendum entered and electronically signed by Beckie Leahy MD 05/21/24 12:54:
will obtain echo to continue to work up chest pain
Original Note:
Today's Communication/Plan
-
IR consult for para
IV PPI
appreciate consultants
Assessment / Plan
Assessment / Plan
This 68-year-old with past medical history of nonalcoholic steatohepatitis with cirrhosis complicated by ascites and hepatic encephalopathy was currently on a transplant list at [place] and presents to the emergency department with approximately 2
days of increasing lethargy and confusion.
1. Hepatic Encephalopathy - in setting non-compliance with medications
- lactulose 30mg q 6 hours titrated to 2 - 3 bms - patient having BM now and mentation improved
- continue rifaximin
- diagnostic paracentesis 05/19 without e/o SBP
- GI consultation appreciated
-patient was admitted 04/19/24 for SBP
2. SARI - SARI on CKD,
-creatinine 2.7 on admit; baseline 1.5-1.7;
-s/p albumin, improved to 2.2 this morning
- hold torsemide
- nephrology consultation appreciated
Acute on chronic anemia
-likely some degree of dilution (from albumin)
-s/p 1 unit PRBC this morning
Chest pain
-MSK versus GERD? unlikely ACS, occurred in past, not exacerbated by exertion; not concerned for PE as patient has been on Eliquis
-EKG NSR with PAC, no significant change from prior
-Troponin negative x 3
-trial of pepcid; tylenol
-may be related to abdominal distension/positioning --> IR consult for repeat para today
3. Paroxysmal afib - rate controlled
- continue eliquis
4. CHF - Moderate total body volume overload with mild elevation in JVD and increased peripheral edema.
-hold spironolatone with SARI
5. GERD
-Continue famotidine, Protonix, sucralfate
- Esophageal dysmotility status post Kevin-en-Y bypass
6. Anxiety/depression
-Continue buspirone, Seroquel
7 Dementia
-Continue memantine
HSV 1
-patient has hx cold sores
-topical acyclovir and aquaphor
DVT PPX - on eliquis
Code Status - Full
51 minutes spent on patient care
Anticipated Discharge: 24 - 48 hours
Subjective/Interval History
-
Date of Service: May 21, 2024
continues to have epigastric/chest pain worse with deep breaths
awoken from sleep, resting comfortably
Objective Data
-
Labs:
Laboratory Results
05/21/24 05/21/24
04:34 06:27
WBC 1.8 L*
Hgb 6.7 L* 7.0 L
Hct 19.7 L* 20.6 L*
Plt Count 53 L
PT 33.6 H
INR 3.24
Sodium 143
Potassium 3.9
Chloride 109 H
Carbon Dioxide 25
BUN 28 H
Creatinine 2.2 H
Glucose 87
Calcium 8.7
Total Bilirubin 1.7 H D
AST 41 H
ALT 17
Alkaline Phosphatase 81
Vital Signs:
Vital Signs
Temp Pulse Resp BP Pulse Ox
98.1 F 57 16 136/56 98
05/21/24 09:28 05/21/24 09:28 05/21/24 09:28 05/21/24 09:28 05/21/24 07:00
I&O
05/20/24 05/21/24 05/22/24
06:59 06:59 06:59
Intake Total 1480 / 1480 720 / 720 120 / 120
Balance 1480 / 1480 720 / 720 120 / 120
Review of Systems
-
History Source: Patient
All other systems: Reviewed and negative
Physical Exam
-
General: No Apparent Distress
HEENT: Normocephalic, Atraumatic, Moist Mucous Membranes and Other (lower lip with HSV lesion and scabbing)
Respiratory: Clear to Auscultation and Other (chest pain not reproducible )
Cardiac: Murmur
GI: Distended
Musculoskeletal: No Clubbing, No Cyanosis and No Edema
Skin: Warm, Dry and Jaundice
Neuro: AO x 3 and Other (Asterixis)
Psych: Calm
Data Reviewed
-
Diagnostic Radiology: Report Reviewed by me
Labs: Labs Reviewed by me
--- NOTE | 2024-05-21 11:20 | W.PN.UPDATE ---
Update Note
Progress Note Update
updated labs sent to [facility]
--- NOTE | 2024-05-21 11:31 | W.PN.GI.CBS2 ---
Today's Communication / Plan
-
Renal function improving, slight drift in Hgb but without signs of GI blood loss. Recommend IR consult for low volume paracentesis (< 4 L) as suspect this is contributing to patient's discomfort. See problem based plan and recommendations as below.
Assessment / Plan
-
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
ppx) with recurrent SBP on 04/2024 (transferred to [facility] for further care at that time), and hepatic encephalopathy on Xifaxan and lactulose who p/w lethargy and confusion. She reportedly did not take her lactulose and rifaximin for past few days
concerning for lactulose noncompliance and found to have SARI on CKD. Infectious work-up thus far negative and [employer] improving with ongoing IV albumin challenge.
Impression/Recommendations:
#SARI on CKD- IMPROVING
Suspect secondary to pre-renal / hypovolemia in setting of encephalopathy and ongoing diuretics (on home torsemide / spironolactone) rather than HRS. Diagnostic para r/o SBP. [employer] peaked on admission of 2.7 now improving with ongoing IV albumin
challenge with [employer] -> 2.6 -> 2.2.
- Continue IV albumin challenge for additional 24 hrs with 25 grams every 6 hrs
- Monitor I/Os, UOP, daily weights
- Continue to HOLD diuretics (previously on torsemide) until renal recovery
- Recommend repeat paracentesis today with IR on 05/21/24
- Avoid all nephrotoxic agents, limit IV contrast, strict avoidance of all NSAIDs
- Nephrology following, appreciate recs
- Will hold off on transfer to [facility] at this time given improvement. Will capture MELD on admission and send to backup administrative coordinator at [place] this afternoon
#Recurrent Hepatic Encephalopathy
Multiple admissions in the past with recurrent HE. Most current episode and missing her lactulose/rifaximin over the past few days consistent with noncompliance. Infectious w/u (-) and r/o SBP. Still with mild asterixis on exam, but AAOx3 and
conversant. Having ongoing BMs
- Continue lactulose, titrate to 3-4 BMs while inpatient
- Rifaximin 550 mg BiD
- Avoid opioids/narctoics, benzos and anticholinergics as much as possible
#Recurrent Ascites
#Right-sided Hepatic Hydrothorax
Multiple thoracentesis and paracentesis in the past. CT with small right sided pleural effusion and ascites. S/p diagnostic paracentesis on 05/19 (-) 1 L and (-) for SBP.
- Diuretics on hold given tenuous renal function
- Continue IV albumin as above for volume expansion
- Would benefit from repeat paracentesis with IR today, 05/21/24
- Trend daily MELD 3.0 labs- CMP and INR
- Ensure 2 gm Na+ restriction
- Needs close f/u with [facility] with patient's transplant label machine operator (f/w Dr. Bradley). Have sent updated MELD 3.0 labs from admission to backup administrative coordinator on 05/20
#Acute Chest Pain
Previous w/u with serial troponins and EKGs (-) for ACS. CT Chest on 05/20 grossly unremarkable. Suspect musculoskeletal from diaphragmatic compression due to ascites and possible component of GERD and/or esophagitis. Prior EGD 11/2023 grossly
unremarkable with evidence of healthy appearing RYGB.
- Serial troponins (-) without ischemic changes on EKGs
- Optimize antacid regiment with IV PPI 40 mg BiD and Pepcid 40 mg qhs
- Consult IR for paracentesis for low volume paracentesis
- If symptoms persist and/or signs of overt GI bleeding, will consider endoscopic evaluation
- Avoidance of all NSAIDs
#Pancytopenia
#Acute on Chronic Anemia
In setting of decompensated cirrhosis. No signs of GI bleeding. Hgb drop from 7s to 6s without signs of GI blood loss, suspect secondary to IV albumin challenge for intravascular expansion. S/p 1 uPRBC on 05/21/2024
- Trend with daily CBC, transfuse for goal Hgb > 7.0
- If Hgb continues to drift, would consider holding a/c but reasonable to continue Eliquis
#Recurrent SBP
Recently had SBP which required tx to [facility] on 04/2024. Remains on cipro for ppx.
- Continue oral Cipro for secondary SBP ppx
Discussed with primary medicine team this AM.
GI team will continue to follow while inpatient. Please call with any questions or concerns.
Julien Gloria, DO
Department of Gastroenterology
Subjective
Subjective
Date of Service: May 21, 2024
Worsening chest pain yesterday afternoon/evening on 05/20/2024. CT Chest grossly unremarkable, only noting small-trace right and left pleural effusions (R > L), moderate HH (similar to prior) and cirrhotic morphology with perihepatic free fluid
Hgb dropped from 7.6 -> 6.7 without signs of GI bleeding. [employer] still trending down with ongoing IV albumin with [employer] 2.6 -> 2.2.
This morning more comfortable but still with chest discomfort that she describes as substernal in nature associated with reflux, nausea, and heartburn. No nausea or vomiting. Denies any abdominal pain, but notes worsening distension.
Objective
Data Reviewed
Laboratory Data:
Laboratory Results
05/21/24 06:27
05/21/24 04:34
Laboratory Results
PT 33.6 Sec (11.4-14.6) H 05/21/24 04:34
INR 3.24 05/21/24 04:34
Total Bilirubin 1.7 mg/dl (0.2-1.3) H D 05/21/24 04:34
AST 41 U/L (14-36) H 05/21/24 04:34
ALT 17 U/L (0-35) 05/21/24 04:34
Alkaline Phosphatase 81 U/L (38-126) 05/21/24 04:34
Vital Signs and I&O:
Vital Signs
Temp Pulse Resp BP Pulse Ox
98.1 F 57 16 136/56 98
05/21/24 09:28 05/21/24 09:28 05/21/24 09:28 05/21/24 09:28 05/21/24 07:00
I&O
05/20/24 05/21/24 05/22/24
06:59 06:59 06:59
Intake Total 1480 / 1480 720 / 720 120 / 120
Balance 1480 / 1480 720 / 720 120 / 120
Physical Exam
Physical Exam
HEENT: Moist mucous membranes
Cardiology: Normal Sinus Rhythm and Other (Chest pain not reproducible on palpation)
Pulmonary: Clear
GI: Soft, Distended and Non Tender
Extremities: No Edema
Neuro: Non Focal and Other
+ Asterixis; otherwise AAOx3 (to person, place and time)
--- NOTE | 2024-05-21 11:52 | W.PN.NEPH.PH ---
Today's Communication / Plan
-
paracentesis
Assessment/Plan
-
Impression:
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
History of recent SBP
Chronic kidney disease stage IIIb
Anasarca
Paroxysmal A-fib
GERD
Anxiety depression
Dementia
Pancytopenia
History of congestive heart
Coagulopathy
Plan:
follow BMP
paracentesis
transfuse PRN
-
-
Date of Service: May 21, 2024
CC / HPI / ROS
-
Chief Complaint:
SARI
History of Present Illness:
cr improving to 2.2
BP stable
pancytopenia still
s/p PRBC this am for Hgb 7.0
no fever
Review of Systems:
c/o mild left CP parasternal, intercostal
no n/v
Labs
-
Labs:
WBC 1.8 10^3/uL (4.8-10.8) L* 05/21/24 04:34
RBC 2.14 10^6/uL (4.20-5.40) L 05/21/24 04:34
Hgb 7.0 g/dL (12.0-16.0) L 05/21/24 06:27
Hct 20.6 % (37.0-47.0) L* 05/21/24 06:27
Plt Count 53 10^3/uL (130-400) L 05/21/24 04:34
Sodium 143 mmol/L (135-145) 05/21/24 04:34
Potassium 3.9 mmol/L (3.5-5.1) 05/21/24 04:34
Chloride 109 mmol/L (98-107) H 05/21/24 04:34
Carbon Dioxide 25 mmol/L (22-30) 05/21/24 04:34
BUN 28 mg/dl (7-17) H 05/21/24 04:34
Creatinine 2.2 mg/dL (0.6-1.0) H 05/21/24 04:34
eGFR 23.97 05/21/24 04:34
Glucose 87 mg/dl (70-99) 05/21/24 04:34
Calcium 8.7 mg/dl (8.4-10.2) 05/21/24 04:34
Albumin 3.4 g/dl (3.5-5.0) L 05/21/24 04:34
Physical Exam
-
Vital Signs:
Vital Signs
Temp Pulse Resp BP Pulse Ox
98.1 F 57 16 136/56 98
05/21/24 09:28 05/21/24 09:28 05/21/24 09:28 05/21/24 09:28 05/21/24 07:00
Cardiovascular:: Regular rate and rhythm
Respiratory:: Bilateral: CTA
Lung Excursion:: Normal
Abdomen:: Distended and Nontender
Bowel Sounds:: Normal
Extremity Edema:: None: Bilateral:
[2024-05-21] MEDS: ROXICODONE 5 MG PO ×2 (11:55→17:38)
--- NOTE | 2024-05-21 12:21 | PN.CDI ---
CDI
- -
CDI:
Physician Documentation Request
Admit Date: 05/19/24 01:21
Dear Doctor Armond,
Clinical Indicators:
Patient admitted with hepatic encephalopathy.
11/21/2023 Echo Report, 'LV ejection fraction is 60%'
05/18 H & P, 'CHF - Moderate total body volume overload with mild elevation in JVD and increased peripheral edema.'
05/19 Renal Consult, 'Diuretics are currently held but I do not know how long this will be possible as patient examines volume overloaded'
Please provide further specificity regarding the most likely type and acuity of CHF you are evaluating, treating or monitoring.
Acute on chronic HFpEF
Chronic HFpEF
Other, please specify
Use of terms such as suspected, likely, concern for, or probable (associated with a specific diagnosis that is being evaluated, monitored, or treated as if it exists) are acceptable and can be coded in the inpatient setting, when documented at the
time of discharge.
Thank you,
Charu Yadav RN BSN
CDI Specialist
available via tiger text
Please use your independent medical judgment in providing your response.
--- NOTE | 2024-05-21 12:31 | PN.CDI ---
CDI
- -
CDI:
Physician Documentation Request
Admit Date: 05/19/24 01:21
Dear Doctor Armond,
Clinical Indicators:
The diagnosis of narcotic dependence was documented on 05/18, but is not consistently noted in subsequent documentation.
05/18 ED report, ' 68-year-old woman with history of...chronic pain syndrome�narcotic dependent.'
Home medications include: Oxycodone 10 mg tablet 10 mg PO TID PRN severe pain
Please clarify the following:
Opioid dependence is a current diagnosis
History of opioid dependence only
Other, please specify
Use of terms such as suspected, likely, concern for, or probable (associated with a specific diagnosis that is being evaluated, monitored, or treated as if it exists) are acceptable and can be coded in the inpatient setting, when documented at the
time of discharge.
Thank you,
Charu Yadav RN BSN
CDI Specialist
available via tiger text
Please use your independent medical judgment in providing your response.
[2024-05-21 12:33] LABS: Glucose - Point of Care 187 mg/dl (70-99)
--- NOTE | 2024-05-21 13:52 | CM ---
Patient seen at bedside, patient states that she is not feeling better, but had no questions about discharge planning at this time. Patient plan continues to be going home with no needs. CM will continue to follow for discharge planning needs.
Plan; home with no needs anticipated at this time; watch for VN needs
--- NOTE | 2024-05-21 15:17 | CARDSERVDEF ---
Echocardiogram with [facility] completed after protocol screening completed. Allergies verified.
Patent IV site: Right forearm inserted by IV team
IV site flushed with 0.9% NaCl pre and post administration.
Diluted bolus method utilized to enhance visualization of ventricular albert.
Total volume given: __3__ mL
Patient tolerated all procedures well without complications.
[2024-05-21 17:16] LABS: Glucose - Point of Care 365 mg/dl (70-99)
[2024-05-21] MEDS: NOVOLOG FLEXPEN-LOW RESISTANCE 5 UNITS SC (17:40)
[2024-05-21] MEDS: CIPRO 500 MG PO (17:40)
[2024-05-21] MEDS: LIPITOR 20 MG PO (20:27)
[2024-05-21] MEDS: PROTONIX IV 40 MG IV (20:28)
[2024-05-21] MEDS: NSS (PRESERVATIVE FREE) 10 ML IV (20:28)
[2024-05-21 21:35] LABS: Glucose - Point of Care 67 mg/dl (70-99)
[2024-05-21 21:49] LABS: Glucose - Point of Care 60 mg/dl (70-99)
[2024-05-21] MEDS: SEROQUEL 25 MG PO (22:02)
[2024-05-21 22:09] LABS: Glucose - Point of Care 103 mg/dl (70-99)
[2024-05-22 00:22] LABS: Glucose - Point of Care 87 mg/dl (70-99)
[2024-05-22 03:00] VITALS: BP 130/60
[2024-05-22 03:09] LABS: Glucose - Point of Care 85 mg/dl (70-99)
[2024-05-22 05:45] LABS: Hematocrit 24.3 % (37.0-47.0); Hemoglobin 8.2 g/dL (12.0-16.0); Mean Corp Hgb Conc. 33.7 g/dL (33.0-37.0); Mean Corpuscular Hgb 31.2 pg (27.0-31.0); Mean Corpuscular Volume 92.4 fL (81.0-99.0); Mean Platelet Volume 12.5 fL (7.4-10.4); Platelet Count 54 10^3/uL (130-400); Red Blood Cell Count 2.63 10^6/uL (4.20-5.40); Red Cell Dist. Width 20.1 % (11.5-14.5); White Blood Cell Count 2.2 10^3/uL (4.8-10.8)
[2024-05-22 05:52] LABS: INR 3.07; PT 32.1 Sec (11.4-14.6)
[2024-05-22 06:00] VITALS: BMI 28.4
[2024-05-22 06:11] LABS: ALT (SGPT) 16 U/L (0-35); AST (SGOT) 37 U/L (14-36); Albumin 3.1 g/dl (3.5-5.0); Alkaline Phosphatase 85 U/L (38-126); Blood Urea Nitrogen 27 mg/dl (7-17); Calcium 8.9 mg/dl (8.4-10.2); Carbon Dioxide 22 mmol/L (22-30); Chloride 111 mmol/L (98-107); Estimated Creatinine Clearance 31 ml/min; Glucose 82 mg/dl (70-99); Potassium 4.4 mmol/L (3.5-5.1); Sodium 143 mmol/L (135-145); Total Bilirubin 2.1 mg/dl (0.2-1.3); Total Protein 5.4 g/dl (6.3-8.2)
[2024-05-22] MEDS: SYNTHROID 25 MCG PO (06:28)
[2024-05-22] MEDS: DUPHALAC/CHRONULAC 45 GRAMS PO ×3 (06:29→23:36)
[2024-05-22 07:30] VITALS: BP 128/62
[2024-05-22 07:39] LABS: Glucose - Point of Care 98 mg/dl (70-99)
[2024-05-22] MEDS: NOVOLOG FLEXPEN-LOW RESISTANCE SC ×2 (08:29→16:51)
[2024-05-22] MEDS: NSS (PRESERVATIVE FREE) 10 ML IV ×2 (08:30→20:11)
[2024-05-22] MEDS: NAMENDA 5 MG PO ×2 (08:30→20:10)
[2024-05-22] MEDS: FEOSOL 325 MG PO (08:30)
[2024-05-22] MEDS: PROTONIX IV 40 MG IV ×2 (08:30→20:11)
[2024-05-22] MEDS: DESENEX/MITRAZOL/ZEASORB 1 APPLIC TOPICAL ×2 (08:31→20:10)
[2024-05-22] MEDS: XIFAXAN 550 MG PO ×2 (08:31→20:10)
[2024-05-22] MEDS: BUSPAR 10 MG PO ×3 (08:31→23:23)
[2024-05-22] MEDS: ELIQUIS 5 MG PO (08:31)
[2024-05-22] MEDS: DELTASONE 5 MG PO (08:31)
[2024-05-22] MEDS: HYDROPHOR 1 APPLIC TOPICAL ×3 (08:32→23:26)
[2024-05-22] MEDS: ZOVIRAX OINTMENT 5% 1 APPLIC TOPICAL ×5 (08:32→23:25)
--- NOTE | 2024-05-22 10:06 | W.PN.GI.CBS2 ---
Today's Communication / Plan
-
Renal function improving with recovery after IV albumin for volume expansion, HE much improved, have sent updated MELD 3.0 labs to [facility]. Wish to transition patient to Coumadin given OLT. Rest of plan as outlined below
Assessment / Plan
-
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
ppx) with recurrent SBP on 04/2024 (transferred to [facility] for further care at that time), and hepatic encephalopathy on Xifaxan and lactulose who p/w lethargy and confusion. She reportedly did not take her lactulose and rifaximin for past few days
concerning for lactulose noncompliance and found to have SARI on CKD. Infectious work-up thus far negative and Hands Assembler improving with ongoing IV albumin challenge.
Impression/Recommendations:
#SARI on CKD- IMPROVING
Suspect secondary to pre-renal / hypovolemia in setting of encephalopathy and ongoing diuretics (on home torsemide / spironolactone) rather than HRS-SARI. Diagnostic para r/o SBP. Hands Assembler peaked on admission of 2.7 now improving with ongoing IV albumin
challenge with Hands Assembler -> 2.6 -> 2.2 -> 1.8
- May stop IV allbumin given renal recovery with volume expansion
- Monitor I/Os, UOP, daily weights while inpatient
- Defer diuretic management to Nephrology (prev on Torsemide / Rossiter) given her CKD stage IIIb
- Unable to perform paracentesis on 05/21, continue to monitor for reaccumulation of ascites while diuretics on hold
- Avoid all nephrotoxic agents, limit IV contrast, strict avoidance of all NSAIDs
- Nephrology following, appreciate recs
- Will hold off on transfer to [facility] at this time given improvement. However, given her MELD 3.0 of 30 on admission and have sent to visual coordinator at [facility] this afternoon
#Recurrent Hepatic Encephalopathy
Multiple admissions in the past with recurrent HE. Most current episode and missing her lactulose/rifaximin over the past few days consistent with noncompliance. Infectious w/u (-) and r/o SBP. Still with mild asterixis on exam, but AAOx3 and
conversant. Having ongoing BMs
- Continue lactulose, titrate to 3-4 BMs while inpatient, can titrate lactulose accordingly
- Rifaximin 550 mg BiD
- Avoid opioids/narctoics, benzos and anticholinergics as much as possible
#Recurrent Ascites
#Right-sided Hepatic Hydrothorax
Multiple thoracentesis and paracentesis in the past. CT with small right sided pleural effusion and ascites. S/p diagnostic paracentesis on 05/19 (-) 1 L and (-) for SBP. Given her frequent/recurrent hospitalizatons for PSE along with her TTE TIPS
would be a contraindication at this point. TTE 05/21/24: LVEF with 60-65% without RWA, stage II DD, moderate TR (previously mild), and PAP 44
- Diuretics on hold given renal function
- Trend daily MELD 3.0 labs
- Ensure 2 gm Na+ restriction
- Needs close f/u with [facility] with patient's transplant sharepoint analyst (f/w Dr. Bradley). Have sent updated MELD 3.0 labs from admission to visual coordinator on 05/20
#Acute Chest Pain
Previous w/u with serial troponins and EKGs (-) for ACS. CT Chest on 05/20 grossly unremarkable. Suspect musculoskeletal from diaphragmatic compression due to ascites and possible component of GERD and/or esophagitis. Prior EGD 11/2023 grossly
unremarkable with evidence of healthy appearing RYGB.
- Serial troponins (-) without ischemic changes on EKGs
- Optimize antacid regiment with IV PPI 40 mg BiD and Pepcid 40 mg qhs
- If symptoms persist and/or signs of overt GI bleeding, will consider endoscopic evaluation
- Avoidance of all NSAIDs
#Pancytopenia
#Acute on Chronic Anemia
In setting of decompensated cirrhosis. No signs of GI bleeding. Hgb drop from 7s to 6s without signs of GI blood loss, suspect secondary to IV albumin challenge for intravascular expansion. S/p 1 uPRBC on 05/21/2024
- Trend with daily CBC, transfuse for goal Hgb > 7.0
- If Hgb continues to drift, would consider holding a/c but reasonable to continue Eliquis
#Recurrent SBP
Recently had SBP which required tx to [facility] on 04/2024. Remains on cipro for ppx.
- Continue oral Cipro for secondary SBP ppx
#A Fib (on Eliquis)
#Coagulopathy
Previously on eliquis for pAF
- In discussion with visual coordinator along with current renal function, recommending transition to coumadin given listing for OLT
- Discussed with primary internal medicine team this AM, will reach out to her Livestock Producer
Discussed with primary medicine team this AM.
GI team will continue to follow while inpatient. Please call with any questions or concerns.
Subjective
Subjective
Date of Service: May 22, 2024
- TTE 05/21/24: LVEF with 60-65% without RWA, stage II DD, moderate TR (previously mild), and PAP 44
- Unable to perform paracentesis as without significant ascites / appreciable pocket per IR
- Otherwise, no acute events overnight
Resting comfortably in chair, feels tired and fatigued. Attributes to having too much lactulose, had four BMs already this morning. No blood or dark black stools. Still with some chest discomfort, but improving. No SOB or fevers/chills.
Objective
Data Reviewed
Laboratory Data:
Laboratory Results
05/22/24 05:28
05/22/24 05:28
Laboratory Results
PT 32.1 Sec (11.4-14.6) H 05/22/24 05:28
INR 3.07 05/22/24 05:28
Total Bilirubin 2.1 mg/dl (0.2-1.3) H 05/22/24 05:28
AST 37 U/L (14-36) H 05/22/24 05:28
ALT 16 U/L (0-35) 05/22/24 05:28
Alkaline Phosphatase 85 U/L (38-126) 05/22/24 05:28
Vital Signs and I&O:
Vital Signs
Temp Pulse Resp BP Pulse Ox
98.2 F 67 17 128/62 97
05/22/24 07:30 05/22/24 07:30 05/22/24 07:30 05/22/24 07:30 05/22/24 07:30
I&O
05/21/24 05/22/24 05/23/24
06:59 06:59 06:59
Intake Total 720 / 720 850 / 850 960 / 960
Balance 720 / 720 850 / 850 960 / 960
Physical Exam
Physical Exam
HEENT: Moist mucous membranes
Cardiology: Normal Sinus Rhythm
Pulmonary: Other (Normal WOB on room air)
GI: Soft, Distended and Non Tender
Extremities: No Edema
Neuro: Non Focal and Other (AAOx3 (to person, place and time); + subtle asterixis)
--- NOTE | 2024-05-22 10:18 | W.PN.HOSP.TC ---
Today's Communication/Plan
-
transition to coumadin tomorrow per discussion with transplant team
trial of nitropaste
appreciate consultants
Assessment / Plan
Assessment / Plan
This 68-year-old with past medical history of nonalcoholic steatohepatitis with cirrhosis complicated by ascites and hepatic encephalopathy was currently on a transplant list at [facility] and presents to the emergency department with approximately 2
days of increasing lethargy and confusion.
TTE 05/22/24
CONCLUSIONS
Left ventricle is mildly dilated. Normal left ventricular wall thickness and
systolic function. No regional wall motion abnormalities are seen. LV ejection
fraction is 60-65% by Townsend's method of discs. Stage II diastolic dysfunction
suggestive of abnormal relaxation and increased filling pressures.
Normal right ventricular size and function.
Indexed LA volume is moderately abnormal (42-48 mL/m2).
Mild mitral regurgitation.
Mild aortic stenosis. Peak/mean gradients across the aortic valve are 29/16
mmHg. Using an LVOT diameter of 1.9 cm the aortic valve by the Continuity
equation is calculated at 1.0-1.1 cm2. No aortic regurgitation is seen.
Moderate tricuspid regurgitation. Estimated pulmonary artery pressure of 44
mmHg assuming a right atrial pressure of 3 mmHg.
Compared to previous echo 11/21/23, the LV is now mildly dilated and the
tricuspid vegetation has increased from mild to moderate. Otherwise no
significant change.
1. Hepatic Encephalopathy - in setting non-compliance with medications
ZAVALETA with cirrhosis complicated by ascites
- lactulose 30mg q 6 hours titrated to 2 - 3 bms - patient having BM now and mentation improved; continues to have some asterixis on exam
- continue rifaximin
- diagnostic paracentesis 05/19 without e/o SBP; could not repeat para, not enough fluid on 05/21/24
- GI consultation appreciated
-patient was admitted 04/19/24 for SBP
-in communication with transplant team [facility]
2. SARI - SARI on CKD,
-creatinine 2.7 on admit; baseline 1.5-1.7;
-s/p albumin, and holding diuretics
-renal function improved this AM
Pleuritic Chest pain
CHF
-Troponin negative x 3; TTE without RV strain (cannot obtain CTA 2/2 renal function, and patient has been on Eliquis)
-concern related to fluid as developed when holding Torsemide
-F/U further renal recommendations
-trial of nitropaste
Acute on chronic anemia
-likely some degree of dilution (from albumin)
-s/p 1 unit PRBC morning of 05/21
Paroxysmal afib - rate controlled
- discussed with transplant team and would like to transition to coumadin
-hold Eliquis this evening, F/U AM INR and transition tomorrow
GERD
-Continue famotidine, Protonix, sucralfate
- Esophageal dysmotility status post Kevin-en-Y bypass
Anxiety/depression
-Continue buspirone, Seroquel
Dementia
-Continue memantine
HSV 1
-patient has hx cold sores
-topical acyclovir and aquaphor
DVT PPX - on eliquis --> transition to coumadin tomorrow
Code Status - Full
51 minutes spent on patient care
Anticipated Discharge: 24 - 48 hours
Subjective/Interval History
-
Date of Service: May 22, 2024
feeling ok
continuing to have pleuritic chest pain and some shortness of breath
Objective Data
-
Labs:
Laboratory Results
05/22/24
05:28
WBC 2.2 L*
Hgb 8.2 L
Hct 24.3 L
Plt Count 54 L
PT 32.1 H
INR 3.07
Sodium 143
Potassium 4.4
Chloride 111 H
Carbon Dioxide 22
BUN 27 H
Creatinine 1.8 H
Glucose 82
Calcium 8.9
Total Bilirubin 2.1 H
AST 37 H
ALT 16
Alkaline Phosphatase 85
Vital Signs:
Vital Signs
Temp Pulse Resp BP Pulse Ox
98.2 F 67 17 128/62 97
05/22/24 07:30 05/22/24 07:30 05/22/24 07:30 05/22/24 07:30 05/22/24 07:30
I&O
05/21/24 05/22/24 05/23/24
06:59 06:59 06:59
Intake Total 720 / 720 850 / 850 960 / 960
Balance 720 / 720 850 / 850 960 / 960
Review of Systems
-
History Source: Patient
All other systems: Reviewed and negative
Physical Exam
-
General: No Apparent Distress
HEENT: Normocephalic, Atraumatic, Moist Mucous Membranes and Other (lower lip with HSV lesion and scabbing)
Respiratory: Rales and Other (chest pain not reproducible )
Cardiac: S1/S2, Murmur and JVD
GI: Distended
Musculoskeletal: No Clubbing, No Cyanosis and No Edema
Skin: Warm, Dry and Jaundice
Neuro: AO x 3 and Other (Asterixis)
Psych: Calm
Data Reviewed
-
Diagnostic Radiology: Report Reviewed by me
Labs: Labs Reviewed by me
--- NOTE | 2024-05-22 11:04 | W.PN.NEPH.PH ---
Today's Communication / Plan
-
torsemide
Assessment/Plan
-
Impression:
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
History of recent SBP
Chronic kidney disease stage IIIb
Anasarca
Paroxysmal A-fib
GERD
Anxiety depression
Dementia
Pancytopenia
History of congestive heart
Coagulopathy
Plan:
follow BMP
restart torsemide 20mg daily
transfuse PRN
-
-
Date of Service: May 22, 2024
CC / HPI / ROS
-
Chief Complaint:
SARI
History of Present Illness:
cr improving to 1.8
BP stable
pancytopenia still
no fever
Review of Systems:
c/o mild left CP parasternal, intercostal still
no n/v
Labs
-
Labs:
WBC 2.2 10^3/uL (4.8-10.8) L* 05/22/24 05:28
RBC 2.63 10^6/uL (4.20-5.40) L 05/22/24 05:28
Hgb 8.2 g/dL (12.0-16.0) L 05/22/24 05:28
Hct 24.3 % (37.0-47.0) L 05/22/24 05:28
Plt Count 54 10^3/uL (130-400) L 05/22/24 05:28
Sodium 143 mmol/L (135-145) 05/22/24 05:28
Potassium 4.4 mmol/L (3.5-5.1) 05/22/24 05:28
Chloride 111 mmol/L (98-107) H 05/22/24 05:28
Carbon Dioxide 22 mmol/L (22-30) 05/22/24 05:28
BUN 27 mg/dl (7-17) H 05/22/24 05:28
Creatinine 1.8 mg/dL (0.6-1.0) H 05/22/24 05:28
eGFR 30.50 05/22/24 05:28
Glucose 82 mg/dl (70-99) 05/22/24 05:28
Calcium 8.9 mg/dl (8.4-10.2) 05/22/24 05:28
Albumin 3.1 g/dl (3.5-5.0) L 05/22/24 05:28
Physical Exam
-
Vital Signs:
Vital Signs
Temp Pulse Resp BP Pulse Ox
98.2 F 67 17 128/62 97
05/22/24 07:30 05/22/24 07:30 05/22/24 07:30 05/22/24 07:30 05/22/24 07:30
Cardiovascular:: Regular rate and rhythm
Respiratory:: Bilateral: Coarse
Lung Excursion:: Normal
Abdomen:: Nontender and Soft
Bowel Sounds:: Normal
Extremity Edema:: +1: Bilateral:
[2024-05-22 11:12] VITALS: BP 134/56
[2024-05-22 11:20] LABS: Glucose - Point of Care 171 mg/dl (70-99)
[2024-05-22] MEDS: NITRO-BID 0.5 INCH TOPICAL ×3 (11:21→23:31)
[2024-05-22] MEDS: DUPHALAC/CHRONULAC PO (11:22)
[2024-05-22] MEDS: DEMADEX 20 MG PO (11:23)
[2024-05-22] MEDS: NOVOLOG FLEXPEN-LOW RESISTANCE 1 UNITS SC (11:24)
[2024-05-22] MEDS: NITRO-BID TOPICAL (11:47)
[2024-05-22 15:12] VITALS: BP 119/50
[2024-05-22 16:46] LABS: Glucose - Point of Care 107 mg/dl (70-99)
[2024-05-22] MEDS: CIPRO 500 MG PO (17:07)
[2024-05-22 19:30] VITALS: BP 124/68
[2024-05-22] MEDS: FLUSH (NSS) 2 FLUSH IV (20:12)
[2024-05-22] MEDS: ROXICODONE 5 MG PO (20:28)
[2024-05-22 22:23] LABS: Glucose - Point of Care 106 mg/dl (70-99)
[2024-05-22] MEDS: SEROQUEL 25 MG PO (23:23)
[2024-05-22] MEDS: LIPITOR 20 MG PO (23:23)
[2024-05-22 23:43] VITALS: BP 111/50
[2024-05-23 03:26] VITALS: BP 117/54
[2024-05-23] MEDS: DUPHALAC/CHRONULAC 45 GRAMS PO ×3 (05:28→17:33)
[2024-05-23] MEDS: SYNTHROID 25 MCG PO (05:29)
[2024-05-23] MEDS: NITRO-BID 0.5 INCH TOPICAL ×3 (05:30→17:36)
[2024-05-23 06:00] VITALS: BMI 28.2
[2024-05-23 06:04] LABS: INR 2.37; PT 26.2 Sec (11.4-14.6)
[2024-05-23 06:05] LABS: Hematocrit 24.6 % (37.0-47.0); Hemoglobin 8.5 g/dL (12.0-16.0); Mean Corp Hgb Conc. 34.6 g/dL (33.0-37.0); Mean Corpuscular Hgb 32.1 pg (27.0-31.0); Mean Corpuscular Volume 92.8 fL (81.0-99.0); Platelet Count 63 10^3/uL (130-400); Red Blood Cell Count 2.65 10^6/uL (4.20-5.40); Red Cell Dist. Width 19.9 % (11.5-14.5); White Blood Cell Count 2.4 10^3/uL (4.8-10.8)
[2024-05-23 06:13] LABS: ALT (SGPT) 17 U/L (0-35); AST (SGOT) 40 U/L (14-36); Albumin 3.1 g/dl (3.5-5.0); Alkaline Phosphatase 98 U/L (38-126); Blood Urea Nitrogen 31 mg/dl (7-17); Calcium 8.9 mg/dl (8.4-10.2); Carbon Dioxide 22 mmol/L (22-30); Chloride 111 mmol/L (98-107); Estimated Creatinine Clearance 33 ml/min; Glucose 94 mg/dl (70-99); Potassium 4.2 mmol/L (3.5-5.1); Sodium 145 mmol/L (135-145); Total Bilirubin 1.6 mg/dl (0.2-1.3); Total Protein 5.5 g/dl (6.3-8.2); eGFR 32.66
[2024-05-23 07:14] LABS: Glucose - Point of Care 99 mg/dl (70-99)
[2024-05-23 07:32] VITALS: BP 115/49
--- NOTE | 2024-05-23 08:14 | W.PN.GI.CBS2 ---
Addendum entered and electronically signed by Julien Gloria DO 05/23/24 10:21:
Re-contacted by Director Of [facility] at [facility]. Given captured MELD 3.0 of 30 on admission, recommending transfer for further OLT eval / listing. Accepting physician is Transplant Hydraulic Punch Press Operator, Dr. Bradley. Discussed with internal medicine physician,
Dr. Beckie Leahy.
Original Note:
Today's Communication / Plan
-
Renal recovery, Cable Splicer Apprentice near baseline. Nehro following regarding diuretic management. PSE resolved. Recommend repeat paracentesis today prior to weekend and/or dischage. Has f/u at [facility] with Dr. Bradley (05/23/24). GI team will sign-off. See additional
recommendations as outlined below.
Assessment / Plan
-
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
ppx) with recurrent SBP on 04/2024 (transferred to [facility] for further care at that time), and hepatic encephalopathy on Xifaxan and lactulose who p/w lethargy and confusion. She reportedly did not take her lactulose and rifaximin for past few days
concerning for lactulose noncompliance and found to have SARI on CKD. Infectious work-up thus far negative and Cable Splicer Apprentice improving with ongoing IV albumin challenge.
Impression/Recommendations:
#SARI on CKD- RESOLVED
#CKD Stage IIIb
#Decompensated MASH Cirrhosis
Suspect secondary to pre-renal / hypovolemia in setting of encephalopathy and ongoing diuretics (on home torsemide / spironolactone) rather than HRS-SARI. Diagnostic para r/o SBP. Cable Splicer Apprentice peaked on admission of 2.7 now improving with ongoing IV albumin
challenge with Cable Splicer Apprentice -> 2.6 -> 2.2 -> 1.8 -> 1.7 (at baseline).
- May stop IV allbumin given renal recovery with volume expansion
- Monitor I/Os, UOP, daily weights while inpatient
- Restarted on low dose Torsemide by Nephrology, defer diuretic management to Nephro given severity of her CKD
- Recommend IR consult for repeat paracentesis today 05/23/2024 prior to weekend
- Avoid all nephrotoxic agents, limit IV contrast, strict avoidance of all NSAIDs
- Nephrology following, appreciate recs
- Will hold off on transfer to [facility] at this time given improvement. However, given her MELD 3.0 of 30 on admission and have sent to drug abuse program coordinator at [facility] this afternoon. Current MELD 24 on labs 05/23
- Has f/u appt with Dr. Bradley on 05/23/2024
#Recurrent Hepatic Encephalopathy
Multiple admissions in the past with recurrent HE. Most current episode and missing her lactulose/rifaximin over the past few days consistent with noncompliance. Infectious w/u (-) and r/o SBP. Still with mild asterixis on exam, but AAOx3 and
conversant. Having ongoing BMs
- Continue lactulose, titrate to 3-4 BMs while inpatient, can titrate lactulose accordingly
- Rifaximin 550 mg BiD
- Avoid opioids/narcotics, benzos and anticholinergics as much as possible
#Recurrent Ascites
#Right-sided Hepatic Hydrothorax
Multiple thoracentesis and paracentesis in the past. CT with small right sided pleural effusion and ascites. S/p diagnostic paracentesis on 05/19 (-) 1 L and (-) for SBP. Given her frequent/recurrent hospitalizatons for PSE along with her TTE TIPS
would be a contraindication at this point. TTE 05/21/24: LVEF with 60-65% without RWA, stage II DD, moderate TR (previously mild), and PAP 44
- Diuretics restarted on 05/22 given renal recovery
- Defer diuretic management to Nephro
- IR consult for repeat paracentesis today, 05/23/24
- Ensure 2 gm Na+ restriction
#Acute Chest Pain
Previous w/u with serial troponins and EKGs (-) for ACS. CT Chest on 05/20 grossly unremarkable. Suspect musculoskeletal from diaphragmatic compression due to ascites and possible component of GERD and/or esophagitis. Prior EGD 11/2023 grossly
unremarkable with evidence of healthy appearing RYGB.
- Serial troponins (-) without ischemic changes on EKGs
- Improving with Nitro paste, less likely reflux / GERD related
- Can de-escalate to PPI 40 mg once daily and Pepcid PRN
- Avoidance of all NSAIDs
#Pancytopenia
#Acute on Chronic Anemia
In setting of decompensated cirrhosis. No signs of GI bleeding. Hgb drop from 7s to 6s without signs of GI blood loss, suspect secondary to IV albumin challenge for intravascular expansion. S/p 1 uPRBC on 05/21/2024
- Trend with daily CBC, transfuse for goal Hgb > 7.0
- No signs of GI bleeding, being transitioned to Coumadin per transplant clinic
#Recurrent SBP
Recently had SBP which required tx to [facility] on 04/2024. Remains on cipro for ppx.
- Continue oral Cipro for secondary SBP ppx
- Low volume paracentesis (-) for SBP on 05/19
#A Fib (on Eliquis)
#Coagulopathy
Previously on eliquis for pAF
- In discussion with drug abuse program coordinator along with current renal function, recommending transition to coumadin given listing for OLT
Discussed with primary internal medicine team.
Needs very close outpatient follow-up at [facility] with Dr. Bradley (has appointment on 05/23/2024). GI team will sign-off. Please call back with any questions or concerns.
Subjective
Subjective
Date of Service: May 23, 2024
- No acute events overnight
- MELD 3.0 score with improvement from admission with current MELD 3.0 24 (labs 05/23) compared with MELD 3.0 of 30 on admission
Feeling well, resting comfortably in bed. No fevers, chills or SOB. Still with some chest discomfort, however notes nitro paste helped. Feels more distended this morning but no pain. Mentating appropriately and conversant. Has follow-up at [facility] with
the Transplant Clinic with Dr. Bradley on May 26.
Objective
Data Reviewed
Laboratory Data:
Laboratory Results
05/23/24 05:33
05/23/24 05:33
Laboratory Results
PT 26.2 Sec (11.4-14.6) H 05/23/24 05:33
INR 2.37 05/23/24 05:33
Total Bilirubin 1.6 mg/dl (0.2-1.3) H 05/23/24 05:33
AST 40 U/L (14-36) H 05/23/24 05:33
ALT 17 U/L (0-35) 05/23/24 05:33
Alkaline Phosphatase 98 U/L (38-126) 05/23/24 05:33
Vital Signs and I&O:
Vital Signs
Temp Pulse Resp BP Pulse Ox
98.8 F 62 17 115/49 93
05/23/24 07:32 05/23/24 07:32 05/23/24 07:32 05/23/24 07:32 05/23/24 07:32
I&O
05/22/24 05/23/24 05/24/24
06:59 06:59 06:59
Intake Total 850 / 850 2180 / 2180
Balance 850 / 850 2180 / 2180
Physical Exam
Physical Exam
HEENT: Anicteric and Moist mucous membranes
Cardiology: Normal Sinus Rhythm
Pulmonary: Other (Normal WOB on room air)
GI: Soft, Distended, Non Tender and Fluid Wave
Extremities: No Edema
Neuro: Non Focal and Other (AAOx3; bilateral tremor but without asterixis)
[2024-05-23] MEDS: NOVOLOG FLEXPEN-LOW RESISTANCE SC (09:25)
[2024-05-23] MEDS: DEMADEX 20 MG PO (09:28)
[2024-05-23] MEDS: BUSPAR 10 MG PO ×3 (09:28→21:31)
[2024-05-23] MEDS: NAMENDA 5 MG PO ×2 (09:28→21:30)
[2024-05-23] MEDS: PEPCID 20 MG PO (09:28)
[2024-05-23] MEDS: FEOSOL 325 MG PO (09:29)
[2024-05-23] MEDS: DESENEX/MITRAZOL/ZEASORB 1 APPLIC TOPICAL (09:29)
[2024-05-23] MEDS: DELTASONE 5 MG PO (09:29)
[2024-05-23] MEDS: XIFAXAN 550 MG PO ×2 (09:29→21:30)
[2024-05-23] MEDS: HYDROPHOR 1 APPLIC TOPICAL ×3 (09:30→21:30)
[2024-05-23] MEDS: ZOVIRAX OINTMENT 5% 1 APPLIC TOPICAL ×5 (09:30→21:31)
--- NOTE | 2024-05-23 10:00 | W.PN.UPDATE ---
Update Note
Progress Note Update
reviewed with Kamala Jackson financial aid coordinator for patient. Dr. Bradley would like her transfer to [facility]. Pt agreeable to go. Paperwork completed. coordinator would like to speak to medical team. I left message for spouse about transfer.
[2024-05-23] MEDS: PROTONIX 40 MG PO (10:08)
[2024-05-23] MEDS: NSS (PRESERVATIVE FREE) IV (10:09)
[2024-05-23] MEDS: PROTONIX IV IV (10:09)
--- NOTE | 2024-05-23 10:16 | CM ---
Patient seen at bedside. Patient for transfer to [facility] today. CM spoke with GI PA. Patient for transfer pending accepting physician. CM will continue to follow for discharge planning needs.
Plan; transfer
--- NOTE | 2024-05-23 10:25 | W.PN.HOSP.TC ---
Addendum entered and electronically signed by Beckie Leahy MD 05/24/24 09:39:
patient is not opiate dependent
acute HFpEF
in setting holding diuretics for SARI
-transfer to [facility]
Original Note:
Today's Communication/Plan
-
transfer to [facility]
Assessment / Plan
Assessment / Plan
This 68-year-old with past medical history of nonalcoholic steatohepatitis with cirrhosis complicated by ascites and hepatic encephalopathy was currently on a transplant list at [facility] and presents to the emergency department with approximately 2
days of increasing lethargy and confusion.
TTE 05/22/24
CONCLUSIONS
Left ventricle is mildly dilated. Normal left ventricular wall thickness and
systolic function. No regional wall motion abnormalities are seen. LV ejection
fraction is 60-65% by Townsend's method of discs. Stage II diastolic dysfunction
suggestive of abnormal relaxation and increased filling pressures.
Normal right ventricular size and function.
Indexed LA volume is moderately abnormal (42-48 mL/m2).
Mild mitral regurgitation.
Mild aortic stenosis. Peak/mean gradients across the aortic valve are 29/16
mmHg. Using an LVOT diameter of 1.9 cm the aortic valve by the Continuity
equation is calculated at 1.0-1.1 cm2. No aortic regurgitation is seen.
Moderate tricuspid regurgitation. Estimated pulmonary artery pressure of 44
mmHg assuming a right atrial pressure of 3 mmHg.
Compared to previous echo 11/21/23, the LV is now mildly dilated and the
tricuspid vegetation has increased from mild to moderate. Otherwise no
significant change.
1. Hepatic Encephalopathy - in setting non-compliance with medications
ZAVALETA with cirrhosis complicated by ascites
- lactulose 30mg q 6 hours titrated to 2 - 3 bms - patient having BM now and mentation improved; continues to have some asterixis on exam
- continue rifaximin
- diagnostic paracentesis 05/19 without e/o SBP; could not repeat para, not enough fluid on 05/21/24
- GI consultation appreciated
- patient was admitted 04/19/24 for SBP
- in communication with transplant team [facility] --> plan to DC down today with rising MELD score
2. SARI - SARI on CKD,
-creatinine 2.7 on admit; baseline 1.5-1.7;
-s/p albumin
-SEO EXPERT Torsemide resumed on 05/22 and creatinine 1.7 this morning
Pleuritic Chest pain
CHF
-Troponin negative x 3; TTE without RV strain (cannot obtain CTA 2/2 renal function, and patient has been on Eliquis)
-concern related to fluid as developed when holding Torsemide
-nitropaste helping
-Torsemide resumed
Acute on chronic anemia
-likely some degree of dilution (from albumin)
-s/p 1 unit PRBC morning of 05/21
-stable Hg this AM
Paroxysmal afib - rate controlled
- discussed with transplant team and would like to transition to coumadin
-hold Eliquis this evening
-INR 2.37 this morning -start coumadin 2mg qhs this evening
GERD
-Continue famotidine, Protonix, sucralfate
- Esophageal dysmotility status post Kevin-en-Y bypass
Anxiety/depression
-Continue buspirone, Seroquel
Dementia
-Continue memantine
HSV 1
-patient has hx cold sores
-topical acyclovir and aquaphor
DVT PPX - on eliquis --> transition to coumadin today
Code Status - Full
51 minutes spent on patient care
Anticipated Discharge: Within 24 hours
Subjective/Interval History
-
Date of Service: May 23, 2024
feeling well
nitro patch helping
Objective Data
-
Labs:
Laboratory Results
05/23/24
05:33
WBC 2.4 L*
Hgb 8.5 L
Hct 24.6 L
Plt Count 63 L
PT 26.2 H
INR 2.37
Sodium 145
Potassium 4.2
Chloride 111 H
Carbon Dioxide 22
BUN 31 H
Creatinine 1.7 H
Glucose 94
Calcium 8.9
Total Bilirubin 1.6 H
AST 40 H
ALT 17
Alkaline Phosphatase 98
Vital Signs:
Vital Signs
Temp Pulse Resp BP Pulse Ox
98.8 F 62 17 115/49 93
05/23/24 07:32 05/23/24 07:32 05/23/24 07:32 05/23/24 07:32 05/23/24 07:32
I&O
05/22/24 05/23/24 05/24/24
06:59 06:59 06:59
Intake Total 850 / 850 2180 / 2180
Balance 850 / 850 2180 / 2180
Review of Systems
-
History Source: Patient
All other systems: Reviewed and negative
Physical Exam
-
General: No Apparent Distress
HEENT: PERRLA
Respiratory: Clear to Auscultation; Negative Wheezes
Cardiac: S1/S2
GI: Soft and Other (mildly distended, no pain )
Skin: Warm and Dry; Negative Rash
Neuro: AO x 3
Psych: Calm
Data Reviewed
-
Diagnostic Radiology: Report Reviewed by me
Labs: Labs Reviewed by me
[2024-05-23 11:11] VITALS: BP 113/46
--- NOTE | 2024-05-23 11:12 | W.PN.NEPH.PH ---
Today's Communication / Plan
-
follow bmp
Assessment/Plan
-
Impression:
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
History of recent SBP
Chronic kidney disease stage IIIb
Anasarca
Paroxysmal A-fib
GERD
Anxiety depression
Dementia
Pancytopenia
History of congestive heart
Coagulopathy
Plan:
follow BMP,
Creatinine unchanged at baseline 1.7
Hemodynamically stable
Weight stable
Maintain torsemide 20mg daily, needs to increase free water intake as serum sodium levels rising
transfuse PRN
-
-
Date of Service: May 23, 2024
CC / HPI / ROS
-
Chief Complaint:
SARI
History of Present Illness:
cr improving to 1.7
BP stable
pancytopenia still
no fever
Review of Systems:
c/o mild left CP parasternal, intercostal still
no n/v
weights stable
Labs
-
Labs:
WBC 2.4 10^3/uL (4.8-10.8) L* 05/23/24 05:33
RBC 2.65 10^6/uL (4.20-5.40) L 05/23/24 05:33
Hgb 8.5 g/dL (12.0-16.0) L 05/23/24 05:33
Hct 24.6 % (37.0-47.0) L 05/23/24 05:33
Plt Count 63 10^3/uL (130-400) L 05/23/24 05:33
Sodium 145 mmol/L (135-145) 05/23/24 05:33
Potassium 4.2 mmol/L (3.5-5.1) 05/23/24 05:33
Chloride 111 mmol/L (98-107) H 05/23/24 05:33
Carbon Dioxide 22 mmol/L (22-30) 05/23/24 05:33
BUN 31 mg/dl (7-17) H 05/23/24 05:33
Creatinine 1.7 mg/dL (0.6-1.0) H 05/23/24 05:33
eGFR 32.66 05/23/24 05:33
Glucose 94 mg/dl (70-99) 05/23/24 05:33
Calcium 8.9 mg/dl (8.4-10.2) 05/23/24 05:33
Albumin 3.1 g/dl (3.5-5.0) L 05/23/24 05:33
Physical Exam
-
Vital Signs:
Vital Signs
Temp Pulse Resp BP Pulse Ox
98.1 F 71 16 113/46 98
05/23/24 11:11 05/23/24 11:11 05/23/24 11:11 05/23/24 11:11 05/23/24 11:11
Cardiovascular:: Regular rate and rhythm
Respiratory:: Bilateral: Coarse
Lung Excursion:: Normal
Abdomen:: Nontender and Soft
Bowel Sounds:: Normal
Extremity Edema:: +1: Bilateral: (trace)
[2024-05-23 11:47] LABS: Glucose - Point of Care 245 mg/dl (70-99)
[2024-05-23] MEDS: ALDACTONE 50 MG PO (12:27)
[2024-05-23] MEDS: NOVOLOG FLEXPEN-LOW RESISTANCE 2 UNITS SC (12:50)
[2024-05-23] MEDS: ROXICODONE 5 MG PO (14:08)
[2024-05-23 15:28] VITALS: BP 118/64
--- NOTE | 2024-05-23 15:36 | W.DCSUMMARY ---
Discharge Summary
Discharge Data
Date of Admission: 05/19/24
Date of Discharge: 05/23/24
-
Pending Results: No
Hospital Course
Discharging Physician : Dr. Beckie Leahy
Disposition : Home
Primary care physician : Dr. Malu Wilson
Principal Discharge diagnosis : Hepatic Encephalopathy, Decompensated liver failure, acute on chronic kidney disease
Hospital Course :
Ms. Lavonne Sanchez is a 68-year-old with past medical history of afib on coumadin, CKD, HF, nonalcoholic steatohepatitis with cirrhosis complicated by ascites and hepatic encephalopathy, currently on a transplant list at [facility] presents to the
emergency department with approximately 2 days of increasing lethargy and confusion. She had missed several doses of Lactulose. Triage vitals stable. Labs with stable chronic anemia 7.8, SARI with creatinine 2.7 (baseline 1.7).
She was admitted to medicine with GI and Nephrology consulting. s/p paracentesis with 1L removal and no evidence of SBP. With lactulose administration she had multiple BM and mentation improved.
She received 48 hours of IV albumin and her renal function returned to baseline. Torsemide resumed.
Patient complained of pleuritic chest pain during hospitalization with stable EKG. Troponin negative x 3. Chest CT (no contrast) with small bilateral pleural effusions. Suspect pain 2/2 fluid as improved with topical nitro.
She is transitioned from Eliquis to coumadin for afib.
Accepted to [facility] given MELD of [address] Beatris Austin
Time spent on discharge was 40 minutes.
Important imaging findings :
TTE 05/22/24
CONCLUSIONS
Left ventricle is mildly dilated. Normal left ventricular wall thickness and
systolic function. No regional wall motion abnormalities are seen. LV ejection
fraction is 60-65% by Townsend's method of discs. Stage II diastolic dysfunction
suggestive of abnormal relaxation and increased filling pressures.
Normal right ventricular size and function.
Indexed LA volume is moderately abnormal (42-48 mL/m2).
Mild mitral regurgitation.
Mild aortic stenosis. Peak/mean gradients across the aortic valve are 29/16
mmHg. Using an LVOT diameter of 1.9 cm the aortic valve by the Continuity
equation is calculated at 1.0-1.1 cm2. No aortic regurgitation is seen.
Moderate tricuspid regurgitation. Estimated pulmonary artery pressure of 44
mmHg assuming a right atrial pressure of 3 mmHg.
Compared to previous echo 11/21/23, the LV is now mildly dilated and the
tricuspid vegetation has increased from mild to moderate. Otherwise no
significant change.
CHEST CT 05/20/24
IMPRESSION:
Small right and trace left pleural effusions with associated right greater than left bibasilar atelectasis.
Moderate hiatal hernia, similar to prior.
Cirrhotic morphology with perihepatic free fluid.
Abdominal US 05/21/24
IMPRESSION:
Small volume of ascites not sufficient for percutaneous drainage.
Procedure findings :
Discharge Plan
-
Patient Disposition: Acute Care Hospital
Condition: Fair
Discharge Orders:
Discharge Patient (As Directed); Ordered 05/23/24
Ordered By: Beckie Leahy
Discharge Date and Time
Print Language: THAI
[2024-05-23 17:03] LABS: Glucose - Point of Care 164 mg/dl (70-99)
[2024-05-23] MEDS: NOVOLOG FLEXPEN-LOW RESISTANCE 1 UNITS SC (17:27)
[2024-05-23] MEDS: COUMADIN 2 MG PO (17:28)
[2024-05-23] MEDS: CIPRO 500 MG PO (17:31)
[2024-05-23 19:40] VITALS: BP 120/53
[2024-05-23] MEDS: DESENEX/MITRAZOL/ZEASORB TOPICAL (21:25)
[2024-05-23] MEDS: LIPITOR 20 MG PO (21:29)
[2024-05-23] MEDS: SEROQUEL 25 MG PO (21:30)
[2024-05-23 21:50] LABS: Glucose - Point of Care 80 mg/dl (70-99)
[2024-05-23] MEDS: ZOFRAN 4 MG IV (23:11)
[2024-05-23 23:40] VITALS: BP 124/76
[2024-05-24] MEDS: NITRO-BID 0.5 INCH TOPICAL (00:02)
[2024-05-24] MEDS: DUPHALAC/CHRONULAC PO (00:08)
[2024-05-24 00:56] VITALS: BP 124/76
== END 2024-05-23 23:50 | disposition short-term general hospital (02) | DRG 432 ==
LOC: 3 WEST ACU 01:21
PROVIDERS: Emergency Medicine; Nurse Practitioner Adult Health; Nurse Practitioner Family; Radiology Vascular & Interventional Radiology; ADMITTING PHYSICIAN Internal Medicine; ATTENDING PHYSICIAN Student in an Organized Health Care Education/Training Program; CONSULT PHYSICIAN Internal Medicine Gastroenterology; CONSULT PHYSICIAN Specialist; EMERGENCY PHYSICIAN Emergency Medicine; FAMILY PHYSICIAN Internal Medicine
PROC: 0W9G3ZZ Drainage of Peritoneal Cavity, Percutaneous Approach (ICD-10-PCS; 2024-05-19)
PROC: 30243N1 Transfusion of Nonautologous Red Blood Cells into Central Vein, Percutaneous Approach (ICD-10-PCS; 2024-05-21)
DX: K74.69 Other cirrhosis of liver (principal); I50.31 Acute diastolic (congestive) heart failure; K72.00 Acute and subacute hepatic failure without coma; I13.0 Hypertensive heart and chronic kidney disease with heart failure and stage 1 through stage 4 chronic kidney disease, or unspecified chronic kidney disease; F03.93 Unspecified dementia, unspecified severity, with mood disturbance; D68.4 Acquired coagulation factor deficiency; F03.94 Unspecified dementia, unspecified severity, with anxiety; D84.821 Immunodeficiency due to drugs; K76.6 Portal hypertension; D61.818 Other pancytopenia; I42.9 Cardiomyopathy, unspecified; N17.9 Acute kidney failure, unspecified; R18.8 Other ascites; K75.81 Nonalcoholic steatohepatitis (NASH); G89.4 Chronic pain syndrome; E11.22 Type 2 diabetes mellitus with diabetic chronic kidney disease; E78.00 Pure hypercholesterolemia, unspecified; F32.A Depression, unspecified; E11.43 Type 2 diabetes mellitus with diabetic autonomic (poly)neuropathy; E11.36 Type 2 diabetes mellitus with diabetic cataract; I48.0 Paroxysmal atrial fibrillation; I07.1 Rheumatic tricuspid insufficiency; E03.9 Hypothyroidism, unspecified; K31.84 Gastroparesis; G43.909 Migraine, unspecified, not intractable, without status migrainosus; N18.32 Chronic kidney disease, stage 3b; M79.7 Fibromyalgia; M54.2 Cervicalgia; K21.9 Gastro-esophageal reflux disease without esophagitis; B00.1 Herpesviral vesicular dermatitis; K76.82 Hepatic encephalopathy; N81.4 Uterovaginal prolapse, unspecified; Z76.82 Awaiting organ transplant status; Z87.891 Personal history of nicotine dependence; Q43.0 Meckel's diverticulum (displaced) (hypertrophic); Z90.710 Acquired absence of both cervix and uterus; Z98.84 Bariatric surgery status; Z90.49 Acquired absence of other specified parts of digestive tract; Z79.52 Long term (current) use of systemic steroids; Z79.890 Hormone replacement therapy; Z79.01 Long term (current) use of anticoagulants; Z88.1 Allergy status to other antibiotic agents; Z91.030 Bee allergy status; Z91.040 Latex allergy status; Z88.0 Allergy status to penicillin; Z88.2 Allergy status to sulfonamides; Z88.8 Allergy status to other drugs, medicaments and biological substances; Z91.018 Allergy to other foods; Z91.048 Other nonmedicinal substance allergy status; Z91.148 Patient's other noncompliance with medication regimen for other reason
CPT/HCPCS: 49083; 71250; 74176; 76705; 80048; 80053; 81003; 82042; 82140; 82570; 82728; 82962; 83540; 83550; 84300; 84484; 85014; 85018; 85025; 85027; 85610; 86850; 86900; 86901; 86920; 87015; 87040; 87070; 87205; 89051; 93005; 93306; 96360; 96361; 99285; P9016; P9047; Q9957

== ENCOUNTER → 2024-05-30 07:43 | Outpatient (REF) | payer MEDICARE, OTHER, SELFPAY ==
[2024-05-30 07:45] VITALS: BP 165/68; BP_SYST 68
== END ==
LOC: RADI 07:43
PROVIDERS: ATTENDING PHYSICIAN Internal Medicine Transplant Hepatology
DX: R18.8 Other ascites (principal); Z53.8 Procedure and treatment not carried out for other reasons
CPT/HCPCS: 76705

== ENCOUNTER → 2024-06-18 06:55 | Outpatient (REF) | payer MEDICARE, OTHER, SELFPAY | LOC: RADI 06:55 | PROVIDERS: ATTENDING PHYSICIAN Internal Medicine Transplant Hepatology; FAMILY PHYSICIAN Internal Medicine | DX: R18.8 Other ascites (principal); R14.0 Abdominal distension (gaseous); Z53.8 Procedure and treatment not carried out for other reasons | CPT/HCPCS: 76705 ==

== ENCOUNTER 2024-06-27 03:25 | Inpatient (IN) | payer MEDICARE, OTHER, SELFPAY ==
[2024-06-26 23:27] VITALS: BP 98/59
[2024-06-26 23:36] LABS: Glucose - Point of Care 150 mg/dl (70-99)
[2024-06-26 23:54] LABS: Glucose - Point of Care 171 mg/dl (70-99)
[2024-06-26 23:55] VITALS: BMI 26.3
[2024-06-26 23:56] VITALS: BP 124/46
[2024-06-27] VITALS (15 sets, daily range): BP systolic 93–154; BP diastolic 47–72; BMI 27.4
[2024-06-27] MEDS: NSS 500 IV (00:04)
[2024-06-27] MEDS: ZOFRAN 4 MG IV (00:05)
[2024-06-27 00:20] LABS: % Basophils 0.7 % (0-2); % Immature Granulocytes 0.7 % (0-0.5); % Lymphocytes 13.4 % (20.5-51.1); % Monocytes 9.3 % (1.7-9.3); % Neutrophils 74.9 % (42.2-75.2); Absolute Lymphocytes 0.4 10^3/uL (1.2-3.4); Absolute Monocytes 0.3 10^3/uL (0.1-0.6); Absolute Neutrophils 2.2 10^3/uL (1.4-6.5); Hemoglobin 8.8 g/dL (12.0-16.0); Mean Corp Hgb Conc. 35.2 g/dL (33.0-37.0); Mean Corpuscular Hgb 31.1 pg (27.0-31.0); Mean Corpuscular Volume 88.3 fL (81.0-99.0); Mean Platelet Volume 11.1 fL (7.4-10.4); Nucleated Red Blood Cells % 0 %; Platelet Count 65 10^3/uL (130-400); Red Blood Cell Count 2.83 10^6/uL (4.20-5.40); Red Cell Dist. Width 18.5 % (11.5-14.5); White Blood Cell Count 2.9 10^3/uL (4.8-10.8)
[2024-06-27 00:29] LABS: PT 31.6 Sec (11.4-14.6)
[2024-06-27 00:32] LABS: ALT (SGPT) 29 U/L (0-35); AST (SGOT) 50 U/L (14-36); Albumin 3.4 g/dl (3.5-5.0); Alkaline Phosphatase 155 U/L (38-126); Blood Urea Nitrogen 38 mg/dl (7-17); Calcium 9.2 mg/dl (8.4-10.2); Carbon Dioxide 22 mmol/L (22-30); Chloride 102 mmol/L (98-107); Estimated Creatinine Clearance 19 ml/min; Glucose 156 mg/dl (70-99); Magnesium 2.1 mg/dl (1.6-2.3); Potassium 4.8 mmol/L (3.5-5.1); Sodium 137 mmol/L (135-145); Total Bilirubin 1.8 mg/dl (0.2-1.3); Total Protein 6.7 g/dl (6.3-8.2)
[2024-06-27 00:40] LABS: Ammonia 362 umol/L (9-30)
[2024-06-27 00:50] LABS: Lactic Acid 3.2 mmol/L (0.7-2.0)
[2024-06-27 01:11] LABS: Lipase 242 U/L (23-300)
--- NOTE | 2024-06-27 01:29 | ED.GENMED ---
History of Present Illness
General
Chief Complaint: Abdominal Symptoms
Source: patient, records and spouse
Exam Limitations: altered mental status
Time Seen by Provider: 06/26/24 23:56
Nursing documentation reviewed up to this point in time: agreed with
History of Present Illness
History of Present Illness:
Patient is a 68-year-old female with past medical history of atrial fibrillation, chronic kidney disease, nonalcoholic steatohepatitis with cirrhosis and subsequent hepatic encephalopathy and on the transplant list at [facility] her
phyllis wanted to come to the hospital. Patient was having nausea and vomiting and felt terrible. And patient was brought to the hospital she had increasing lethargy and unresponsiveness. Patient denies fever but admits to chills. Patient denies
shortness of breath. Patient denies chest pain. Patient paracentesis used to be once a week but over the past 3 weeks she has not required it. Patient did develop nausea and vomiting with abdominal pain. Patient has her normal diarrhea secondary
to lactulose. Patient has not complained of any symptoms.
Past History
Past History
ED Past Medical History: Arrthythmia (Paroxysmal atrial fibrillation), Fibromyalgia, GERD, HTN, Hypercholesterolemia, NIDDM, Hypothyroidism, Psychiatric (Anxiety), Other (Gastroparesis, chronic gastritis, ZAVALETA, esophageal dysmotility/achalasia,
Ulcerative colitis, Migraines, neck pain, IBS, anemia, Dizziness Hepatic encephalopathy. Cirrhosis of the liver, IBS, ) and Other (Portal vein thrombosis); Negative CAD
ED Past Surgical History: Appendectomy, Bowel resection, Cholecystectomy, Gynecological (Total Hysterectomy, Oophorectomy), Orthopedic (right wrist surgery, Left ankle surgery) and Other (Meckel's diverticulum, gastric bypass Jun 27, 2021,
cataracts,)
Patient has exhibited threatening behavior?: No
PSI?: No
Social History
Tobacco: Former smoker
Alcohol: None
Drug: None
Personal:
Living: with family
Employment: Retired
Family History
Family History: Other ([place])
Review of Systems
Review of Systems
Other source history: family
All Other Systems: ROS reviewed and negative except as documented in HPI and ROS
Constitutional: Reports fatigue; Denies fever
EENT: Reports no symptoms
Respiratory: Reports no symptoms
Cardiac: Reports no symptoms
ABD/GI: Reports abdominal pain, nausea, vomiting, diarrhea and anorexia
: Reports no symptoms
Musculoskeletal: Reports no symptoms
Skin: Reports no symptoms
Neurological: Reports other (Increased lethargy)
Hematologic/Lymphatic: Denies bleeding or bruising
Phy Exam
Physical Exam
Physical Exam:
Physical Exam
General: significant distress, alert to painful stimuli, well nourished but appears chronically ill, mildly dry mucous membranes
HENT: Normocephalic and atraumatic, supple with no lymphadenopathy, no thyromegaly
Eyes: Clear sclera, conjuctiva without injection
Heart: Regular rhythm and rate. No S3, S4. No murmur. No NVD
Lungs: No respiratory distress, no stridor, lung sounds clear and equal bilaterally, chest wall symmetrical and nontender
Abdomen: Soft, upper abdominal tenderness without guarding or rebound and apparent hepatomegaly, no CVA tenderness, BS good
Neuro: Alert to strong verbal stimuli and painful stimuli and there does not appear to be any focality
Skin: no rash
Psychiatric: well kept. interactive and cooperative
Extremities: No edema, cyanosis, tenderness
Course
Orders/Labs/Results
Orders:
Orders
06/26/24 23:31
IV Insert/Care/Rem.- Treatment PRN
Complete Blood Count/With Diff Urgent
Comprehensive Metabolic Panel Urgent
Lipase Urgent
Magnesium Urgent
06/26/24 23:56
Ammonia Urgent
06/26/24 23:57
Prothrombin Time Urgent
TSH Reflex To Free T4 Urgent
Urinalysis Reflex To Culture Urgent
0.9% Sodium Chloride 500 ml [Nss] 500 ml IV BOLUS
Ondansetron Injectable [Zofran] 4 mg IV NOW STA
06/27/24 00:14
Electrocardiogram (*1) Urgent
Reason for Study: Other
Other Reason for Exam: ams
06/27/24 00:15
EKG- Treatment ONCE
06/27/24 00:16
Lactic Acid Urgent
06/27/24 01:24
Blood Culture Urgent
SHAUNA Source: Blood/Venous
Specimen Description:
0.9% Sodium Chloride 1000 ml [Nss] 1,000 ml IV BOLUS
Vancomycin [Vancocin] 2,000 mg 0.9% Sodium Chloride 500 ml [Nss] 500 ml IV NOW
06/27/24 01:27
Aztreonam [Azactam] 2,000 mg IV NOW STA
06/27/24 01:54
Blood Culture Routine
SHAUNA Source: Blood/Venous
Specimen Description:
Abnormal Lab Results
06/26/24 06/26/24 06/27/24
23:34 23:52 00:08
WBC 2.9 L 10^3/uL
(4.8-10.8)
RBC 2.83 L 10^6/uL
(4.20-5.40)
Hgb 8.8 L g/dL
(12.0-16.0)
Hct 25.0 L %
(37.0-47.0)
MCH 31.1 H pg
(27.0-31.0)
RDW 18.5 H %
(11.5-14.5)
Plt Count 65 L 10^3/uL
(130-400)
MPV 11.1 H fL
(7.4-10.4)
Absolute Lymphs (auto) 0.4 L 10^3/uL
(1.2-3.4)
Immature Gran % 0.7 H %
(0-0.5)
Lymphocytes % 13.4 L %
(20.5-51.1)
PT 31.6 H Sec
(11.4-14.6)
BUN 38 H mg/dl
(7-17)
Creatinine 2.4 H mg/dL
(0.6-1.0)
Glucose 156 H mg/dl
(70-99)
Lactic Acid
Total Bilirubin 1.8 H mg/dl
(0.2-1.3)
AST 50 H U/L
(14-36)
Alkaline Phosphatase 155 H U/L
(38-126)
Ammonia 362 H umol/L
(9-30)
Albumin 3.4 L g/dl
(3.5-5.0)
POC Glucose 150 H mg/dl 171 H mg/dl
(70-99) (70-99)
06/27/24
00:16
WBC
RBC
Hgb
Hct
MCH
RDW
Plt Count
MPV
Absolute Lymphs (auto)
Immature Gran %
Lymphocytes %
PT
BUN
Creatinine
Glucose
Lactic Acid 3.2 H mmol/L
(0.7-2.0)
Total Bilirubin
AST
Alkaline Phosphatase
Ammonia
Albumin
POC Glucose
06/27/24 00:08
06/27/24 00:08
Vital Signs
Initial and Last Documented VS:
Initial Vital Signs
Temp Pulse Resp BP Pulse Ox
98.3 F 92 20 98/59 98
06/26/24 23:27 06/26/24 23:27 06/26/24 23:27 06/26/24 23:27 06/26/24 23:27
Last Documented Vital Signs
Temp Pulse Resp BP Pulse Ox
98.3 F 72 15 105/49 95
06/26/24 23:27 06/27/24 01:15 06/27/24 01:15 06/27/24 01:00 06/27/24 01:15
*Pulse Oximetry
Patient hypoxic: no
*EKG
Interpreted by ED Provider?: Yes
EKG Intrepretation Date: 06/27/24
EKG Intrepretation Time: 01:40
Interpretation: normal
Comparison EKG: no changes
Heart Rate: 77
Rate: normal
Rhythm: sinus
Roe: normal axis
QRS Pattern: normal QRS
Ischemia: no ischemia
*Dry [employer] Cabinet Attendant Interpretation
Rate: normal
Interpretation: normal
Heart Rate: 72
Rhythm: sinus
*Critical Care Note
Total Time (30-74mins, 75-104mins- exclusive of procedures): 45 minutes
Update Note
Update Note:
Patient significant change in her mental status tonight with vomiting. Patient's ammonia is extremely high. In addition the patient's lactic acid is 3.2. Not really sure the significance of that or whether is related to hypoperfusion due to
intravascular dehydration or sepsis. Will cover the patient with antibiotics. Patient's renal numbers are close to her baseline but somewhat worse. According to the patient's she was fine earlier in the evening.
ED Attending Note
-
Portions of this chart may have been created with voice recognition software.� Occasional wrong word or��sound alike� substitutions may have occurred due to the inherent limitations of voice recognition software.
Discharge Plan
Departure
Patient Disposition: Admit
Date of Disposition: 06/27/24
Time of Disposition: 01:43
Admit to: ICU
Admit to doctor: Hospitalist
Presentation/result/management discussed w/ accepting MD/DO: Hospitalist
Patient with high blood pressure during this ER visit?: No
Condition: Critical
Covid-19: Not Applicable
Discharge Problem:
Acute hepatic encephalopathy, Liver cirrhosis secondary to ZAVALETA (nonalcoholic steatohepatitis), Acidosis, lactic
Prescriptions:
No Action
atorvastatin 20 mg tablet
20 mg PO HS
levothyroxine 25 mcg tablet
25 mcg PO DAILY
pantoprazole [Protonix] 40 mg Tablet,Delayed Release (Dr/Ec)
40 mg PO DAILY
prednisone 5 mg tablet
5 mg PO DAILY
ondansetron HCl 8 mg tablet
8 mg PO TID
quetiapine [Seroquel] 25 mg Tablet
25 mg PO HS
rifaximin 550 mg Tablet
550 mg PO BID
spironolactone 50 mg Tablet
50 mg PO BID
memantine 5 mg Tablet
5 mg PO BID
lactulose 10 gram/15 mL solution
45 ml PO TID
buspirone 10 mg Tablet
10 mg PO BID
ergocalciferol (vitamin D2) 1,250 mcg (50,000 unit) Capsule
1,250 mcg PO WHITE
oxycodone 10 mg Tablet
10 mg PO TIDPRN PRN (Reason: severe pain)
torsemide 20 mg Tablet
20 mg PO BID
ciprofloxacin HCl 500 mg Tablet
500 mg PO QPM
famotidine 20 mg Tablet
20 mg PO DAILY
Eliquis 5 mg Tablet
5 mg PO BID
ferrous sulfate 325 mg (65 mg iron) Tablet
325 mg PO DAILY
(DME) insulin syringe needleless [Easy Touch Luer Lock Insulin] 1 mL Syringe
MISCELLANEOUS
Rx Instructions:
Three times a day
Referrals:
Amenta,Malu L., DO [Family Provider] -
Interventions
Interventions:
*Risk Screen - Suicide Last Done: 06/26/24 23:27
*General Assessment Last Done: 06/26/24 23:27
*Neglect/Abuse Screening Last Done: 06/26/24 23:27
ED- Fall Risk Assessment Last Done: 06/26/24 23:27
*ED COVID-19 Vaccine History Last Done: 06/26/24 23:27
ED- Neurological Assessment Last Done: 06/27/24 00:07
EC-Qapybl-Smjzzeqxto Assessment Last Done: 06/27/24 00:07
Discharge Date and Time
Print Language: SLOVAK
[2024-06-27] MEDS: NSS 1000 IV ×2 (01:50→11:20)
--- NOTE | 2024-06-27 02:44 | HPS.HSE ---
Family Physician
-
Family Physician: Malu Wilson
Chief Complaint
-
Altered mental status
History of Present Illness
This is a 68-year-old with history of nonalcoholic liver disease complicated by cirrhosis with recurrent ascites requiring frequent large-volume paracentesis and also complicated by hepatic encephalopathy who presents to the emergency department
with a rapid decline in mental status over the last 24 hours.
Patient unable to provide history and family not by bedside or available at this time. According to initial evaluation by ED patient presented with acute onset of change in mental status and nausea and vomiting. She been doing much better earlier
in the day into the evening but currently deteriorated rather rapidly. She apparently had been in usual state of health getting weekly tabs for ascites but has not had 1 or required 1 in 3 weeks. She had no fevers or chills. She started vomiting
this evening and became less and less responsive on the way to the hospital. For me she is able to answer yes and no questions but otherwise was sleepy. Her ammonia level was over 300 with lactic acid level of around 3. Patient endorsed that she
has not been compliant with her medications.
Other vital signs in the ED showed a blood pressure of 150s over 66 pulse of 96. Oxygen saturation was normal on room air. ECG showed a normal sinus rhythm with a rate of 77. White count was 2.9 globin 8.8 platelet count 63, INR 3. Sodium 137
potassium 4.8 bicarb 22 BUN 39 creatinine 2.4. Bilirubin was 1.8. Ammonia level was 362.
Medical History
Past Medical History
Past Medical History: Reports Other (Liver cirrhosis complicated by hepatic encephalopathy, no history of varices)
Past Surgical History: Reports Other
Social History
Unable to obtain full social history at this time due to: Acuity
Family History
Family History: Not pertinent
Allergies / Home Medications
Allergies reflects when Allergies were last updated in [employer].
Home Medications with original date entered in [employer]
Allergy/Medication List:
Allergies
Allergy/AdvReac Type Severity Reaction Status Date / Time
adhesive Allergy Rash Verified 06/26/24 23:26
ampicillin Allergy Anaphylaxis Verified 06/26/24 23:26
bee pollen Allergy Swelling Verified 06/26/24 23:26
Cephalosporins Allergy Swelling Verified 06/26/24 23:26
diphenhydramine Allergy HYPERACTIVI Verified 06/26/24 23:26
[From Benadryl] TY
honey Allergy Swelling Verified 06/26/24 23:26
latex Allergy HIVES AND Verified 06/26/24 23:26
SWELLS UP
penicillin G Allergy Anaphylaxis Verified 06/26/24 23:26
Penicillins Allergy Anaphylaxis Verified 06/26/24 23:26
prochlorperazine Allergy Unknown Verified 06/26/24 23:26
[From Compazine]
promethazine HCl Allergy THROAT Verified 06/26/24 23:26
[From Phenergan] SWELLING/PANIC
ATTACKS
Sulfa (Sulfonamide Allergy Swelling Verified 06/26/24 23:26
Antibiotics)
sulfisoxazole Allergy Swelling Verified 06/26/24 23:26
trimethobenzamide Allergy Unknown Verified 06/26/24 23:26
venom-honey bee Allergy BEE Verified 06/26/24 23:26
STING/SWELLING
Home Medications
atorvastatin 20 mg tablet 20 mg PO HS High cholesterol 06/14/22
levothyroxine 25 mcg tablet 25 mcg PO DAILY Thyroid 06/14/22
pantoprazole 40 mg tablet,delayed release (Protonix) 40 mg PO DAILY Gastrointestinal issue 12/09/22
prednisone 5 mg tablet 5 mg PO DAILY Anti-Inflammatory 06/05/23
ondansetron HCl 8 mg tablet 8 mg PO TID nausea 06/25/23
quetiapine 25 mg tablet (Seroquel) 25 mg PO HS mental health/sleep 07/15/23
rifaximin 550 mg tablet 550 mg PO BID Liver Issues 10/01/23
spironolactone 50 mg tablet 50 mg PO BID Fluid Retention/Swelling 11/19/23
memantine 5 mg tablet 5 mg PO BID dementia 12/26/23
lactulose 10 gram/15 mL oral solution 45 ml PO TID Liver Issues 01/21/24
buspirone 10 mg tablet 10 mg PO BID Anxiety 04/18/24
ergocalciferol (vitamin D2) 1,250 mcg (50,000 unit) capsule 1,250 mcg PO WHITE Supplement 04/18/24
oxycodone 10 mg tablet 10 mg PO TIDPRN PRN severe pain 04/18/24
apixaban 5 mg tablet (Eliquis) 5 mg PO BID Blood Clot Prevention/Tx 05/18/24
ciprofloxacin HCl 500 mg tablet 500 mg PO QPM prophylaxis 05/18/24
famotidine 20 mg tablet 20 mg PO DAILY Gastrointestinal Issue 05/18/24
ferrous sulfate 325 mg (65 mg iron) tablet 325 mg PO DAILY Supplement 05/18/24
torsemide 20 mg tablet 20 mg PO BID Fluid Retention/Swelling 05/18/24
insulin syringe needleless 1 mL (Easy Touch Luer Lock Insulin) 05/30/24
Review of Systems
-
Unable to obtain full review of systems at this time due to: Acuity
Physical Exam
Vital Signs
Vital Signs
Temp Pulse Resp BP Pulse Ox
98.3 F 115 20 152/66 96
06/26/24 23:27 06/27/24 02:01 06/27/24 02:01 06/27/24 02:01 06/27/24 02:01
Physical Exam
General: No Apparent Distress
HEENT: NormoCephalic, Anicteric, Atraumatic and PERRLA
Respiratory: Clear
Cardiac: S1/S2 and Regular Rhythm
Breast: Deferred by me
GI: Soft, Non Tender, Non Distended and Normal Bowel Sounds
Rectal: Deferred by Provider
Genito-urinary: No costovertebral tender
Musculoskeletal: No Clubbing, No Cyanosis and No Edema
Skin: Warm
Neuro: Other (sleepy but arousable and able to answer simple questions only. Cannot elicit focal movements.)
Hematologic/Lymphatic: No Lymphadenopathy
Psych: Other (obtunded.)
Laboratory Results
-
06/27/24 00:08
06/27/24 00:08
Laboratory Results
PT 31.6 Sec (11.4-14.6) H 06/27/24 00:08
INR 3.00 06/27/24 00:08
Lactic Acid 3.2 mmol/L (0.7-2.0) H 06/27/24 00:16
Total Bilirubin 1.8 mg/dl (0.2-1.3) H 06/27/24 00:08
AST 50 U/L (14-36) H 06/27/24 00:08
ALT 29 U/L (0-35) 06/27/24 00:08
Alkaline Phosphatase 155 U/L (38-126) H 06/27/24 00:08
Lipase 242 U/L (23-300) 06/27/24 00:08
Data Reviewed
-
Medical Tests (Nuc Med, Echo, EKG etc): Image Personally Visualized and interpreted
Lab Data: Labs Reviewed by me
Old Records: Reviewed
Impression/Plan
-
IMPRESSION:
This is a 68-year-old with nonalcoholic fatty liver disease complicated by cirrhosis, hepatic encephalopathy and ascites comes in with acute worsening of mental status that decline rapidly over the last 24 hours according to history.
PLAN:
1. Hepatic Encephalopathy -patient with acute hepatic encephalopathy and ammonia level of 362. No known history of varices. No evidence of GI bleed. No evidence of tense ascites. LFTs and T bilirubin not markedly changed. Hemoglobin also
similar to prior. No obvious signs of acute infection. Compliance cannot be evaluated at this time. She is arousable and protecting airways. Not obtunded. Vomiting resolved with a dose of zofran
- admit to IMU
- lactulose 200 g enema x 1
- start lactulose 20mg q 2 hours to induce 2 soft bms then titrate 2 to 4 times daily.
- RUQ u/s for ascites, last tap 3 weeks ago for 1 L
- presumed decompensation possibly due to SBP w/o evidence of GI bleed. Aztreonam 2 g q8 (cephalosporin allergy and previously on cipro ppx)
- albumin 100g x 1 now
- continue rifaxamin
- hold prednisone, oxycodone for now
- GI consultation
2. SARI - Mild worsening of renal function
- Albumin 100g x 1 as above
- monitor i/o
- hold torsemide/sprionalctone for now
3. Paroxysmal afib - rate controlled
- continue eliquis
4. GERD
-Continue famotidine, Protonix, sucralfate
- Esophageal dysmotility status post Kevin-en-Y bypass
5. Dementia
-Continue memantine
DVT PPX - on apixaban
Code Status
[2024-06-27] MEDS: AZACTAM 2000 MG IV (03:10)
[2024-06-27] MEDS: VANCOCIN 540 MG IV (03:11)
[2024-06-27 03:26] LABS: TSH Reflex To Free T4 4.43 uIU/ml (0.47-4.68)
[2024-06-27] MEDS: LACTULOSE ENEMA 300 ML RECTAL (04:34)
[2024-06-27] MEDS: FLEXBUMIN 100 IV ×3 (05:17→17:22)
[2024-06-27] MEDS: SYNTHROID PO (05:56)
[2024-06-27 05:59] LABS: Blood Urea Nitrogen 37 mg/dl (7-17); Calcium 8.4 mg/dl (8.4-10.2); Carbon Dioxide 21 mmol/L (22-30); Chloride 108 mmol/L (98-107); Estimated Creatinine Clearance 23 ml/min; Glucose 152 mg/dl (70-99); Magnesium 1.8 mg/dl (1.6-2.3); Potassium 4.3 mmol/L (3.5-5.1); Sodium 142 mmol/L (135-145); eGFR 23.97
[2024-06-27 06:00] LABS: Hematocrit 22.9 % (37.0-47.0); Mean Corp Hgb Conc. 34.9 g/dL (33.0-37.0); Mean Corpuscular Hgb 32.1 pg (27.0-31.0); Mean Platelet Volume 12.1 fL (7.4-10.4); Platelet Count 52 10^3/uL (130-400); Red Blood Cell Count 2.49 10^6/uL (4.20-5.40); Red Cell Dist. Width 18.7 % (11.5-14.5); White Blood Cell Count 2.4 10^3/uL (4.8-10.8)
--- NOTE | 2024-06-27 06:15 | PTCARENOTE ---
Received patient from ED, patient is uncooperative, confused and not following commands due to this patient was unable to take morning medications, see MAR.
[2024-06-27 06:21] LABS: Ammonia 161 umol/L (9-30)
[2024-06-27 06:39] LABS: Lactic Acid 2.4 mmol/L (0.7-2.0)
--- NOTE | 2024-06-27 07:30 | PTCARENOTE ---
Cannot verify VS captured from prior shift.
[2024-06-27] MEDS: FEOSOL PO (09:10)
[2024-06-27] MEDS: BUSPAR PO (09:10)
[2024-06-27] MEDS: NAMENDA PO (09:10)
[2024-06-27] MEDS: XIFAXAN PO (09:10)
[2024-06-27] MEDS: AZACTAM 1000 MG IV (09:38)
[2024-06-27] MEDS: STERILE WATER FOR INJECTION 10 ML IV ×2 (09:38→17:21)
--- NOTE | 2024-06-27 09:49 | CON.GI ---
Addendum entered and electronically signed by Bunny Foss MD 06/27/24 19:05:
I saw and examined the patient.
The PA's note was reviewed and I agree with the note.
Comment:
68 year old female with complex h/o decompensated MASH cirrhosis with ascites, hepatic encephalopathy, hepatic hydrothorax requiring paracentesis and thoracentesis in the past who p/w altered mental status.
Impression / Rec:
1. HE - obtunded. Ammonia 362 downtrending to 155. Lactulose is being given as enema. Minimal ascites (no drainable) thus doubt SBP. Continue with lactulose enema and will convert to oral once her mental status improves. Will follow.
Addendum entered and electronically signed by DIALLO Ibanez 06/27/24 13:34:
Discussed with Kamala Jackson (Stained Glass Artist at [facility]) and updated her on patient.
Original Note:
Consultation
-
Date/Time Consultation Requested: 06/27/24 0633
Date/Time Consultation Performed: 06/27/24 0800
Requesting Provider: Dr. Kent
Performing Provider: Dr. Foss/DIALLO Izaguirre
Reason for Consultation: ESLD, change in mental status, N/V
Medical History
Chief Complaint / HPI
Chief Complaint: AMS, lethargy/confusion, N/V
History of Present Illness:
68-year-old female well-known to my group with complex history including decompensated MASH cirrhosis decompensated with ascites, hepatic encephalopathy, hepatic hydrothorax requiring paracentesis and thoracentesis in the past. Most recently has
not required paracentesis in 3 weeks. Followed by [facility] by Dr. Bradley. Currently awaiting relisting for liver transplant as she needs to have another stress test this coming Sunday to be reinstated. History of SBP on
chronic antibiotics who had recurrent episode of SBP 04/2024, SARI on CKD with baseline creatinine around 1.7, PVT, paroxysmal A-fib currently on Eliquis (initially they were going to transition her to Coumadin at [place] however decided against
this for the time being), gastroparesis, esophageal dysmotility status post RYGB, hyperlipidemia, hypothyroidism, chronic GERD who we last saw on hospitalization on 05/23/2024 when we transferred her for evaluation for liver transplant. I spoke to
her who states that she improved during that hospitalization. She is undergoing the last portion of her relisting which includes a stress test next Sunday. I did reach out to her discharge coordinator Kamala Jackson [phone] and left a
message for her to update her as well as her import and export clerk at [place] Dr. Bradley. He made me aware that the physician on-call for them today is Dr. Sonal Lopez. I also did speak to her Timi Sanchez to [phone] as patient cannot provide
history leading to her admission. According to him he states that Lavonne has been taking her medications. He states that in the morning he calls her at 9 AM to take her medications. He also then called her at noon to remind her. And he then
comes home and makes dinner around 5:30 PM. He states that last evening he came homemade dinner she did not really want to eat. She did take her evening medications. This was including lactulose. She started retching and was nauseous. She did
go to the bathroom and states that she had nausea and vomiting to him. She went to the bedroom to lay down. He states that he went in there around 830. He then states that she woke up at 10:00 abruptly and started screaming help me take me to the ""hospital. He states usually when that occurs she is encephalopathic. He states that recently she was hot and cold. She was also sweaty. He states recently she has been evaluated for a vaginal prolapse at [facility]. She presented to the ""hospital confused and obtunded. She was afebrile. She still remains afebrile. She was given a lactulose enema WBC 2.9, hemoglobin 8.8, hematocrit 25.0, platelets 65, PT 31.6, INR 3.0, sodium 137, potassium 4.8, chloride 102, CO2 22, BUN 38,
creatinine 2.4, (which has gone down to 37 and 2.2 this morning) glucose 156, lactic acid 3.2 which has gone down to 2.4 this morning, magnesium 1.8, total bilirubin 1.8, AST 50, ALT 29, alk phos 155, ammonia currently 161 down from 362, albumin
3.4, lipase 242 TSH 4.43. Awaiting urinalysis. Awaiting chest x-ray. Blood cultures drawn and pending. Ultrasound of the abdomen performed in all 4 quadrants with small amount of ascites identified however the amount was considered too small or
safe for paracentesis.
Past Medical History
Past Medical History: Arrhythmias, CHF, Fibromyalgia, HTN, Hypercholesterolemia, Hypothyroidism and Other (ZAVALETA cirrhosis with ascites, hepatic hydrothorax, hepatic encephalopathy, CKD, PVT, chronic anemia, esophageal dysmotility, SBP)
Past Surgical History: Other (Appendectomy, bowel resection (Meckel's diverticulum, LUMA with small bowel resection), cholecystectomy, , SIMONA, Kevin-en-Y gastric bypass)
Social History
Tobacco: Non-Smoker
Alcohol: None
Drug: None
Personal:
Living: With Family
Employment: Not Employed
Family History
Family History: Other (No family history of gastrointestinal malignancies, granddaughter with lupus, mother breast cancer, grandmother with ulcerative colitis)
Allergies / Home Medications
Allergy/AdvReac Type Severity Reaction Status Date / Time
adhesive Allergy Rash Verified 06/26/24 23:26
ampicillin Allergy Anaphylaxis Verified 06/26/24 23:26
bee pollen Allergy Swelling Verified 06/26/24 23:26
Cephalosporins Allergy Swelling Verified 06/26/24 23:26
diphenhydramine Allergy HYPERACTIVI Verified 06/26/24 23:26
[From Benadryl] TY
honey Allergy Swelling Verified 06/26/24 23:26
latex Allergy HIVES AND Verified 06/26/24 23:26
SWELLS UP
penicillin G Allergy Anaphylaxis Verified 06/26/24 23:26
Penicillins Allergy Anaphylaxis Verified 06/26/24 23:26
prochlorperazine Allergy Unknown Verified 06/26/24 23:26
[From Compazine]
promethazine HCl Allergy THROAT Verified 06/26/24 23:26
[From Phenergan] SWELLING/PANIC
ATTACKS
Sulfa (Sulfonamide Allergy Swelling Verified 06/26/24 23:26
Antibiotics)
sulfisoxazole Allergy Swelling Verified 06/26/24 23:26
trimethobenzamide Allergy Unknown Verified 06/26/24 23:26
venom-honey bee Allergy BEE Verified 06/26/24 23:26
STING/SWELLING
�Medication �Instructions �Recorded
atorvastatin 20 mg tablet 20 mg PO HS High cholesterol 06/14/22
levothyroxine 25 mcg tablet 25 mcg PO DAILY Thyroid 06/14/22
pantoprazole 40 mg tablet,delayed 40 mg PO DAILY Gastrointestinal 12/09/22
release (Protonix) issue
prednisone 5 mg tablet 5 mg PO DAILY Anti-Inflammatory 06/05/23
ondansetron HCl 8 mg tablet 8 mg PO TID nausea 06/25/23
quetiapine 25 mg tablet (Seroquel) 25 mg PO HS mental health/sleep 07/15/23
rifaximin 550 mg tablet 550 mg PO BID Liver Issues 10/01/23
spironolactone 50 mg tablet 50 mg PO BID Fluid 11/19/23
Retention/Swelling
memantine 5 mg tablet 5 mg PO BID dementia 12/26/23
lactulose 10 gram/15 mL oral 45 ml PO TID Liver Issues 01/21/24
solution
buspirone 10 mg tablet 10 mg PO BID Anxiety 04/18/24
ergocalciferol (vitamin D2) 1,250 1,250 mcg PO WHITE Supplement 04/18/24
mcg (50,000 unit) capsule
oxycodone 10 mg tablet 10 mg PO TIDPRN PRN severe pain 04/18/24
apixaban 5 mg tablet (Eliquis) 5 mg PO BID Blood Clot 05/18/24
Prevention/Tx
ciprofloxacin HCl 500 mg tablet 500 mg PO QPM prophylaxis 05/18/24
famotidine 20 mg tablet 20 mg PO DAILY Gastrointestinal 05/18/24
Issue
ferrous sulfate 325 mg (65 mg 325 mg PO DAILY Supplement 05/18/24
iron) tablet
torsemide 20 mg tablet 20 mg PO BID Fluid 05/18/24
Retention/Swelling
insulin syringe needleless 1 mL 05/30/24
(Easy Touch Luer Lock Insulin)
Review of Systems
-
Unable to obtain full review of systems at this time due to: Other (Patient with change of mental status)
Vital Signs
Temp Pulse Resp BP Pulse Ox
97.8 F 115 20 152/66 97
06/27/24 07:15 06/27/24 02:01 06/27/24 02:01 06/27/24 02:01 06/27/24 05:31
Physical Exam
Exam
General: Other (Somnolent, second visit patient awake however not oriented, confused)
HEENT: Anicteric
Respiratory: Clear
Cardiac: Regular Rhythm
GI: Soft, Non Tender, Non Distended and Normal Bowel Sounds
Musculoskeletal: No Edema
Skin: Warm, Dry and Other (Few areas of ecchymosis on arms)
Neuro: Other (Confusion, mild jerking movement)
Psych: Confused and Other (Somnolent first visit, second visit awake however confused)
Results
WBC 2.4 10^3/uL (4.8-10.8) L* 06/27/24 05:16
Hgb 8.0 g/dL (12.0-16.0) L 06/27/24 05:16
Hct 22.9 % (37.0-47.0) L 06/27/24 05:16
MCV 92.0 fL (81.0-99.0) 06/27/24 05:16
Plt Count 52 10^3/uL (130-400) L 06/27/24 05:16
Absolute Neuts (auto) 2.2 10^3/uL (1.4-6.5) 06/27/24 00:08
PT 31.6 Sec (11.4-14.6) H 06/27/24 00:08
INR 3.00 06/27/24 00:08
Sodium 142 mmol/L (135-145) 06/27/24 05:16
Potassium 4.3 mmol/L (3.5-5.1) 06/27/24 05:16
Chloride 108 mmol/L (98-107) H 06/27/24 05:16
Carbon Dioxide 21 mmol/L (22-30) L 06/27/24 05:16
BUN 37 mg/dl (7-17) H 06/27/24 05:16
Creatinine 2.2 mg/dL (0.6-1.0) H 06/27/24 05:16
Calcium 8.4 mg/dl (8.4-10.2) 06/27/24 05:16
Total Bilirubin 1.8 mg/dl (0.2-1.3) H 06/27/24 00:08
AST 50 U/L (14-36) H 06/27/24 00:08
ALT 29 U/L (0-35) 06/27/24 00:08
Alkaline Phosphatase 155 U/L (38-126) H 06/27/24 00:08
Lipase 242 U/L (23-300) 06/27/24 00:08
Diagnostic Image Results:
Ultrasound abdomen:Ultrasound was performed in all 4 quadrants of the abdomen. A small amount of ascites was identified, however the amount was considered too small for safe paracentesis. Therefore, paracentesis was not performed.
Prior GI Procedures:
EGD:� 11/16/22 Dr. Bunny Foss: No gross lesions in the entire esophagus. Gastric bypass with a small-sized pouch and intact staple line. Gastrojejunal anastomosis characterized by healthy appearing mucosa. Normal examined jejunum. Biopsies were
taken with a cold forceps for evaluation of eosinophilic esophagitis. bx showing mild chronic inflammation, otherwise negative.
Colonoscopy:� 03/2018 - [facility]: Hemorrhoids found on perianal exam. Non-bleeding external and internal hemorrhoids. Erythematous mucosa in the rectum. Biopsied. Diverticulosis in the left colon. Four small polyps in the sigmoid colon, in the descending
colon and in the ascending colon, removed with a jumbo cold forceps. Resected and retrieved. Biopsies were taken with a cold forceps for histology in the sigmoid colon, in the descending colon and in the transverse colon. Path showing AC TA polyp,
DC hyperplastic polyp, SC hyperplastic polyp, random bx colon negative. Rectal bx showing colorectal mucosa with nodular submucosal lymphoid aggregate and mild crypt architectural distortion, negative for active colitis.
Assessment / Plan
-
68-year-old female well-known to my group with complex history including decompensated MASH cirrhosis decompensated with ascites, hepatic encephalopathy, hepatic hydrothorax requiring paracentesis and thoracentesis in the past. Most recently has
not required paracentesis in 3 weeks. Followed by [facility] by Dr. Bradley. Currently awaiting relisting for liver transplant as she needs to have another stress test this coming Sunday to be reinstated. History of SBP on
chronic antibiotics who had recurrent episode of SBP 04/2024, SARI on CKD with baseline creatinine around 1.7, PVT, paroxysmal A-fib currently on Eliquis (initially they were going to transition her to Coumadin at [place] however decided against
this for the time being), gastroparesis, esophageal dysmotility status post RYGB, hyperlipidemia, hypothyroidism, chronic GERD who we last saw on hospitalization on 05/23/2024 when we transferred her for evaluation for liver transplant. Who presents
to the hospital with change in mental status. Her states that she went to bed after dinner. Prior to that she was sweaty cold and had nausea and vomiting as well as retching. She woke up approximately 10 PM screaming to him taken to the
hospital. She was obtunded when she came to the emergency room. She did have an elevated ammonia level of 362 was given 1 lactulose enema and went down to 155. When I saw her she was still obtunded. She also did have a lactic acid of 3.2 which
is down to 2.4 this morning. Blood cultures were drawn and pending. Ultrasound of the abdomen did not show any ascites safe to tap. She is on Cipro for SBP prophylaxis. She did have SBP back in April 2024. She was placed on Azactam last
evening. She is afebrile. She did have 1 large bowel movement this morning. She could not provide any meaningful history. I did speak to her . I also did place a call to liver discharge coordinator at [place] left a message. I spoke
to Dr. Bradley to make him aware she was hospitalized. He gave me the phone number of the import and export clerk on-call today at [place] should we need her assistance. MELD 3.0 =29
[place] discharge coordinator Kamala Jackson [phone]
[place] import and export clerk on-call Dr. Sonal Lopez
Patient's Timi Lyn [phone]
Impression:
Change in mental status
Lactic acidosis
Hepatic encephalopathy -> Ammonia 362-> 155
Decompensated MASH cirrhosis MELD 3.0 = 29
History of ascites (small amount too little to tap)
History of SBP (was on Cipro as outpatient)
SARI on CKD
Pancytopenia
A-fib on Eliquis
Chronic anemia
History of right-sided hepatic hydrothorax
Plan:
Await blood cultures
Straight cath for UA/culture
Obtain chest x-ray
Oral dose of lactulose able to be given x 1 since patient was awake with RN present. Orders written for lactulose enema Q4 until 6 PM. If patient is awake will change to oral during the day. Have to convert to oral this evening.
Repeat ammonia level at 3 PM. Repeat ammonia level in a.m.
Xifaxan 550 p.o. twice daily if awake
CBC, CMP, direct bilirubin, PT/INR in a.m.
Patient is on prednisone 5 mg daily. This is being held.
Diuretics on hold for SARI on CKD (baseline creatinine 1.7)
Currently on Azactam, infectious disease consult pending.
No ascites to tap.
Continue pantoprazole and Pepcid, if patient awake oral. If obtunded by this afternoon we will switch to IV push.
Further recommendations to be forthcoming
-
-
Thank you for consultation and allowing me to participate in the patient's care. Please call the land lease information clerk GI physician during the after hours with any questions or concerns.
[2024-06-27] MEDS: DUPHALAC/CHRONULAC 20 GRAMS PO ×2 (10:03→22:07)
--- NOTE | 2024-06-27 10:21 | PTCARENOTE ---
Pt ordered one time straight cath for urine sample by GI SPORTS COMMENTATOR. Straight cathed for 850cc clear urine. Urine sample and lactic sent to lab.
[2024-06-27 10:32] LABS: Lactic Acid 2.6 mmol/L (0.7-2.0)
[2024-06-27 10:41] LABS: Urine Albumin Negative (Neg - Trace); Urine Bilirubin Negative (Negative); Urine Character Clear (Clear); Urine Color Yellow; Urine Glucose Negative (Negative); Urine Ketone Negative (Negative); Urine Leukocyte Negative (Negative); Urine Nitrite Negative (Negative); Urine Occult Blood Negative (Negative); Urine Urobilinogen Negative (Neg - 1+)
--- NOTE | 2024-06-27 10:57 | W.PN.HOSP.TC ---
Addendum entered and electronically signed by Silvia Childress MD 06/27/24 16:33:
I saw and evaluated the patient independently. I reviewed the resident�s note and agree with findings and plan as documented by Dr. Carter.
GENERAL:chronically ill appearing female difficult to arouse in no apparent distress
HEENT: NC/AT
HEART: regular rate and rhythm, +S1, +S2, ESTEFANI
LUNGS : faint wheezes bilaterally
ABDOM: soft, nontender, nondistended, + bowel sounds
EXT: no cyanosis, clubbing, or edema
NEUROLOGIC: obtunded, protecting airway
Hepatic encephalopathy secondary to noncompliance with medication for ZAVALETA with cirrhosis with lactic acidosis--ammonia level 300s on admission, still over 100--apprec GI--cont lactulose--follow ammonia levels and mental status--ABX for SBP
prophylaxis--consult ID for assistance--no paracentesis so no need for albumin at this point--Abdominal ultrasound showed small amt of ascites, not enough to tap at this point--cont Xifaxin--cont low rate IVF resuscitation--await cultures--Hold oral
meds, prednisone, oxycodone
SARI on CKD stage 3 presumed (baseline 1.5�1.7)--Creatinine 2.2 on admit--Hold oral meds torsemide, spironolactone
Paroxysmal atrial fibrillation--Hold oral meds, although rate controlled at least until taking PO--INR 3 (auto anticoagulated due to liver failure)
GERD--IV Protonix
Anxiety/depression/Dementia--Holding all oral meds
DVT proph -- INR 3--SCDs
code status -- FULL CODE
Original Note:
Today's Communication/Plan
-
.
Assessment / Plan
Assessment / Plan
Assessment/plan
Hepatic encephalopathy secondary to noncompliance with medication
ZAVALETA with cirrhosis
-Ammonia level 362 on presentation, now 161
-Evidence of ascites
-Started on lactulose/20 mg every 2 hours.
-Abdominal ultrasound -A very small volume of ascites is present. Volume is insufficient for ultrasound-guided paracentesis at this time.
-Patient with multiple medication allergies, will consult ID for SBP prophylaxis.
-Continue albumin for now, although no evidence of ascites. Will not renew
-Continue rifaximin
-Hold oral meds, prednisone, oxycodone
-GI consulted, input appreciated
-Lactic acid trending down 3.2>> 2.4, trend lactate levels q6
-Blood cultures pending
SARI on CKD
-Creatinine 2.2 on admit; baseline 1.5�1.7
-Hold oral meds torsemide, spironolactone
-Continue IV fluids
-Monitor creatinine
Paroxysmal atrial fibrillation
-Hold oral meds, although rate controlled
-Hold Eliquis
-INR 3.0
GERD
-IV Protonix
Anxiety/depression
Dementia
-Holding all oral meds
Anticipated Discharge: > 48 hours
Subjective/Interval History
-
Patient seen and examined at bedside. Patient sleepy. arousable.
Objective Data
-
Labs:
Laboratory Results
06/27/24 06/27/24
00:08 05:16
WBC 2.9 L 2.4 L*
Hgb 8.8 L 8.0 L
Hct 25.0 L 22.9 L
Plt Count 65 L 52 L
PT 31.6 H
INR 3.00
Sodium 137 142
Potassium 4.8 4.3
Chloride 102 108 H
Carbon Dioxide 22 21 L
BUN 38 H 37 H
Creatinine 2.4 H 2.2 H
Glucose 156 H 152 H
Calcium 9.2 8.4
Total Bilirubin 1.8 H
AST 50 H
ALT 29
Alkaline Phosphatase 155 H
Vital Signs:
Vital Signs
Temp Pulse Resp BP Pulse Ox
97.8 F 115 20 152/66 97
06/27/24 07:15 06/27/24 02:01 06/27/24 02:01 06/27/24 02:01 06/27/24 05:31
I&O
06/26/24 06/27/24 06/28/24
06:59 06:59 06:59
Output Total 850 / 850
Balance -850 / -850
Review of Systems
-
All other systems: Reviewed and negative (Except as documented)
Physical Exam
-
General: No Apparent Distress
Respiratory: Wheezes (Mild)
Cardiac: S1/S2 and Murmur
GI: Soft and Nondistended
Musculoskeletal: No Edema
Skin: Other (Ecchymosis on left knee)
Neuro: Other (Sleepy, arousable, unable to answer questions, confused)
--- NOTE | 2024-06-27 14:39 | CON.ID ---
Addendum entered and electronically signed by Sharon Hinojosa MD 06/27/24 16:56:
I personally performed a history and physical exam of the patient and discussed management with the resident. I reviewed the resident's note and agree with the documented findings and plan of care HPI/CC with the following comments:
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
vomiting and decline in mental status with confusion. Most recent paracentesis 3 weeks ago. Not responding appropriately to questions. Note she is listed for transplant.
Physical Exam
Constitutional: Chronically Ill
Head/neckNo neck stiffness or photophobia
Eyes: Sclera Anicteric
Oral: No Thrush
Cardiovascular: Irregular Rate and S1/S2; Negative Murmur, Rub or Gallop
Pulmonary: Clear; No Wheezes, Rales or Rhonchi
Gastrointestinal: Soft, Mild tenderness across all abdominal quadrants, no peritoneal signs, mildly distended and Normal Bowel Sounds
Extremities: Asterixis present, Negative Edema
Skin: Warm, bruise on the leg
Neurological: easily arousable, but not responding to most questions
DLOA: port in place, no erythema, warmth or drainage - functional
A&P
AMS
Gastroenteritis
Sepsis - resolved
Lactic acidosis
Cirrhosis
H/o SBP
H/o hepatic hydrothorax (resolved)
Allergies: Penicillin: anaphylaxis, cephalosporin: swelling, bactrim: swelling, latex: swelling and hives
- no meningeal signs
- blood cultures x2 in progress
- UA negatie, CXR without infiltrates
- covid ag and influenza pcr - note that influenza is beginning to transmit this season
- minimal ascites on US: unlikely to have sbp though she has some abdominal tenderness
- note persistent lactic acidosis - improving
- repeat CXR in the AM
- switch to meropenem for now, if no source is found may consider stopping
AW
Original Note:
Consultation
-
Date/Time Consultation Requested: 06/27/24, 10:28am
Date/Time Consultation Performed: 06/27/24, 3.00pm
Requesting Provider: Cyndi Carter MD
Performing Provider: Ashely Borges MD for Sharon Hinojosa MD,
Reason for Consultation: Concern for spontaneous bacterial peritonitis.
Chief Complaint / Past History
Chief Complaint
Nausea, vomiting, and reduced mental status x 1 day.
History of Present Illness
Patient nonverbal today. Responds to her name but not oriented to time person and place. History obtained from review of medical records.
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
bacterial peritonitis, on prophylaxis with ciprofloxacin 500 twice daily, most recent episode-04/2024, CKD secondary to hepatorenal syndrome-SARI on CKD, gastroparesis, esophageal dysmotility s/p Reji-en-Y gastric bypass presented to the hospital with
rapidly declining mental status. She was in normal functional status prior to this episode, never misses a medication dose and was under tight supervision for medications by her . The day prior to admission, patient did not eat her dinner
and stated that she was nauseous and retching, and had an episode of vomiting that was unwitnessed but heard by her . Then she went to bed to sleep and started screaming for around 10 PM in the night when she was brought to the hospital.
Her most recent paracentesis was about 3 weeks ago and she did not require any paracentesis after that. She has been complaining of what sounds like chills and rigors and diaphoresis. Unclear of timeline.
Of note she is listed for transplant, and is followed by Dr. Bradley at [facility] she is currently due for getting a repeat stress test to be reinstated for transplant.
Upon presentation to the hospital she is found to have altered mental status. She was afebrile with varying blood pressures-not hypotensive upon arrival but hypotensive when I last saw her. In ER, her vital signs were stable, she has a WBC count
of 2.9,-2.4 now, hemoglobin of 8.8-8 now, normocytic anemia, platelets of 65-57 now, elevated PTH at 31.6 and INR at 3.0, electrolytes within normal limits, CO2 of 22, BUN of 38, creatinine of 2.4-improved to 37 and 2.2, lactic acid of
3.2-hnpnrxnvfdvk-6.6 currently, total bilirubin of 1.8, AST of 50, ALT of 29, alk phos at 155, ammonia at 362 upon arrival currently at 161, albumin at 3.4, TSH 4.43. Her urine analysis was negative, her chest x-ray showed some evidence for
cardiomegaly and she received lactulose enema in the ER. Awaiting blood cultures. Her ultrasound of the abdomen showed small amounts of ascites which is too small for tap.
Past History
Past Medical History: Other (Arrhythmias, CHF, Fibromyalgia, HTN, Hypercholesterolemia, Hypothyroidism and Other (ZAVALETA cirrhosis with ascites, hepatic hydrothorax, hepatic encephalopathy, CKD, PVT, chronic anemia, esophageal dysmotility, SBP)
Past Surgical History: Other (Appendectomy, bowel resection (Meckel's diverticulum, LUMA with small bowel resection), cholecystectomy, , SIMONA, Reji-en-Y gastric bypass)
Allergy History:
ampicillin Allergy (Severe, Verified 06/27/24 10:32)
Anaphylaxis
Penicillins Allergy (Severe, Verified 06/27/24 10:32)
Anaphylaxis
adhesive Allergy (Verified 06/26/24 23:26)
Rash
bee pollen Allergy (Verified 06/26/24 23:26)
Swelling
Cephalosporins Allergy (Verified 06/26/24 23:26)
Swelling
diphenhydramine [From Benadryl] Allergy (Verified 06/26/24 23:26)
HYPERACTIVITY
honey Allergy (Verified 06/26/24 23:26)
Swelling
latex Allergy (Verified 06/26/24 23:26)
HIVES AND SWELLS UP
prochlorperazine [From Compazine] Allergy (Verified 06/26/24:26)
Unknown
promethazine HCl [From Phenergan] Allergy (Verified 06/26/24:)
THROAT SWELLING/PANIC ATTACKS
Sulfa (Sulfonamide Antibiotics) Allergy (Verified 06/26/24 23:)
Swelling
sulfisoxazole Allergy (Verified 06/26/24:)
Swelling
trimethobenzamide Allergy (Verified 06/26/24:)
Unknown
venom-honey bee Allergy (Verified 06/26/24:)
BEE STING/SWELLING
Medications Reviewed: Yes
Social History
Tobacco: Non-Smoker
Alcohol: None
Drug: None
Personal:
Living: With Family
Employment: Not Employed
Family History
Family History: Other (Mother has breast cancer grandmother has ulcerative colitis. No history of colorectal cancer.)
Review of Systems
Review of Systems
Unable to obtain review of systems at this point of time due to acuity
Vital Signs
Temp Pulse Resp BP Pulse Ox
97.8 F 53 14 93/47 96
06/27/24 07:15 06/27/24 14:00 06/27/24 14:00 06/27/24 12:00 06/27/24 14:02
Physical Exam
Physical Exam
Constitutional: Chronically Ill and Other
Head: Other (No neck stiffness.)
Eyes: Pupils Equal, Pupils Round and Sclera Anicteric
Oral: No Thrush
Cardiovascular: Irregular Rate and S1/S2; Negative Murmur, Rub or Gallop
Pulmonary: Clear; Negative Wheezes, Rales or Rhonchi
Gastrointestinal: Soft, Tender (Mild tenderness across all abdominal quadrants.), Distended and Normal Bowel Sounds
Extremities: Other (Asterixis present.); Negative Edema
Skin: Warm
Neurological: Alert; Negative Awake (Easily arousable.) or Oriented
Psychological: Calm
Lab / Diagnostic Study Results
06/27/24 05:16
06/27/24 05:16
Abs Immat Gran (auto) 0.0 10^3/uL (0-0.05) 06/27/24 00:08
Absolute Neuts (auto) 2.2 10^3/uL (1.4-6.5) 06/27/24 00:08
Absolute Lymphs (auto) 0.4 10^3/uL (1.2-3.4) L 06/27/24 00:08
Absolute Monos (auto) 0.3 10^3/uL (0.1-0.6) 06/27/24 00:08
Absolute Basos (auto) 0.0 10^3/uL (0-0.2) 06/27/24 00:08
Immature Gran % 0.7 % (0-0.5) H 06/27/24 00:08
Neutrophils % 74.9 % (42.2-75.2) 06/27/24 00:08
Lymphocytes % 13.4 % (20.5-51.1) L 06/27/24 00:08
Monocytes % 9.3 % (1.7-9.3) 06/27/24 00:08
Eosinophils % 1.0 % (0-6) 06/27/24 00:08
Basophils % 0.7 % (0-2) 06/27/24 00:08
PT 31.6 Sec (11.4-14.6) H 06/27/24 00:08
INR 3.00 06/27/24 00:08
Lactic Acid 2.6 mmol/L (0.7-2.0) H 06/27/24 10:11
Microbiology Results
Micro:
06/27/24 02:11 Blood Culture - Pending
Blood/Venous
06/27/24 01:55 Blood Culture - Pending
Blood/Venous
Chest x-ray portable-06/27/20240939-[id number]-gghd cardiomegaly which is new.
Abdominal ultrasound-06/27/2024-a very small amount of ascites present volume insufficient for ultrasound-guided paracentesis at this time.
Assessment / Plan
Assessment-
Subjective-altered mental status, not oriented to time person and place. Easily arousable.
Objective- WBC count of 2.9,-2.4 now, hemoglobin of 8.8-8 now, normocytic anemia, platelets of 65-57 now, elevated PTH at 31.6 and INR at 3.0, electrolytes within normal limits, CO2 of 22, BUN of 38, creatinine of 2.4-improved to 37 and 2.2, lactic
acid of 3.8-ykssjremoxew-2.6 currently, total bilirubin of 1.8, AST of 50, ALT of 29, alk phos at 155, ammonia at 362 upon arrival currently at 161, albumin at 3.4, TSH 4.43. Her urine analysis was negative, her chest x-ray showed some evidence for
cardiomegaly
Impression-unclear if this episode is spontaneous bacterial peritonitis.
Plan-
Blood cultures x 2 pending.
Lactic acid-downtrending.
Ammonia levels-downtrending.
Repeat chest x-ray in the a.m. tomorrow.
Stop aztreonam. Start meropenem 500 mg twice daily.
Will reevaluate in the a.m. tomorrow. Suspect if vomiting is secondary to gastroenteritis versus gastroparesis.
--- NOTE | 2024-06-27 14:46 | PTCARENOTE ---
Pt Aox1, self only. Drowsy and lethargic with periods of alertness. NPO at this time d/t mental status and lethargy. Able to administer PO Lactulose safely with HOUSE PRINCIPAL [place] at bedside. IVF infusing as ordered. Bed alarm and medsitter in place for
safety.
[2024-06-27 15:02] LABS: Ammonia 39 umol/L (9-30); Lactic Acid 1.4 mmol/L (0.7-2.0)
[2024-06-27] MEDS: AZACTAM IV (15:25)
[2024-06-27] MEDS: STERILE WATER FOR INJECTION IV (15:25)
--- NOTE | 2024-06-27 16:04 | CM ---
Patient with Dx Hepatic encephalopathy. Room air. Receiving IV Abx. Per nurse assessment; confused. Medsitter.
Met with patient who was sleeping.
Spoke with patient's Timi;
the patient resides with her in a 2 story house with 1 [address] and first floor bedroom/bath.
The patient has been independent in ADLs and ambulation.
She was mentally clear until the day of admission.
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
She has a chest Port in place.
No housing/food/utility/transport insecurity.
DME - rollator, SPC, w/c
VN - prior [facility]
SNF - prior [facility]
PCP - Malu Wilson
Pharmacy - [facility]
states patient is usually compliant with her medications. He calls her during his work day to remind her to take her meds, and he fills out her pill box for the week. He says she only missed some of her meds on one day, the day prior to
admission, due to vomiting. The only med he cannot monitor is her lactulose as it's liquid - suggested he pour out a dose for her before he leaves for work. 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
No CM d/c needs identified.
Plan home.
[2024-06-27 17:02] LABS: COVID-19 Antigen Negative (Negative)
[2024-06-27] MEDS: MERREM 500 MG IV (17:20)
[2024-06-27] MEDS: NSS (PRESERVATIVE FREE) 10 ML IV (17:20)
[2024-06-27] MEDS: PROTONIX IV 40 MG IV (17:21)
--- NOTE | 2024-06-27 17:45 | PTCARENOTE ---
Pt now awake and alert. Oriented x2, not time. Pt updated on plan of care. Assisted to call her .
[2024-06-27] MEDS: BUSPAR 10 MG PO (20:00)
[2024-06-27] MEDS: XIFAXAN 550 MG PO (20:00)
[2024-06-27] MEDS: NAMENDA 5 MG PO (20:00)
[2024-06-27] MEDS: LIPITOR 20 MG PO (22:07)
[2024-06-28] VITALS (8 sets, daily range): BP systolic 112–134; BP diastolic 42–74
--- NOTE | 2024-06-28 00:10 | PTCARENOTE ---
Assumed care of patient from previous RN. Patient stated her name, current year and knew she was in [facility], but patient did not remember her birthday. Patient is alert and holding conversations appropriately. Patient stated she was
hungry but was NPO so I performed a swallow screen which was negative and contacted OPERATOR AND TRUCK DRIVER via TT for a diet order. Regular diet ordered and patient tolerated it well. Patient resting in bed with call lay in reach.
[2024-06-28] MEDS: MERREM 500 MG IV (04:11)
[2024-06-28] MEDS: STERILE WATER FOR INJECTION 10 ML IV (04:18)
[2024-06-28 04:51] LABS: INR 2.66; PT 28.3 Sec (11.4-14.6)
[2024-06-28 04:54] LABS: % Basophils 1.3 % (0-2); % Eosinophils 2.7 % (0-6); % Lymphocytes 21.5 % (20.5-51.1); % Monocytes 12.1 % (1.7-9.3); % Neutrophils 62.4 % (42.2-75.2); Absolute Eosinophils 0.1 10^3/uL (0-0.7); Absolute Lymphocytes 0.5 10^3/uL (1.2-3.4); Absolute Monocytes 0.3 10^3/uL (0.1-0.6); Absolute Neutrophils 1.4 10^3/uL (1.4-6.5); Hematocrit 22.2 % (37.0-47.0); Hemoglobin 7.6 g/dL (12.0-16.0); Mean Corp Hgb Conc. 34.2 g/dL (33.0-37.0); Mean Corpuscular Hgb 31.9 pg (27.0-31.0); Mean Corpuscular Volume 93.3 fL (81.0-99.0); Mean Platelet Volume 12.3 fL (7.4-10.4); Nucleated Red Blood Cells % 0 %; Platelet Count 53 10^3/uL (130-400); Red Blood Cell Count 2.38 10^6/uL (4.20-5.40); Red Cell Dist. Width 19.3 % (11.5-14.5); White Blood Cell Count 2.2 10^3/uL (4.8-10.8)
[2024-06-28 05:04] LABS: Lactic Acid 1.4 mmol/L (0.7-2.0)
[2024-06-28 05:06] LABS: Ammonia 29 umol/L (9-30)
[2024-06-28 05:26] LABS: ALT (SGPT) 24 U/L (0-35); AST (SGOT) 42 U/L (14-36); Albumin 3.3 g/dl (3.5-5.0); Alkaline Phosphatase 96 U/L (38-126); Blood Urea Nitrogen 37 mg/dl (7-17); Calcium 9.1 mg/dl (8.4-10.2); Carbon Dioxide 23 mmol/L (22-30); Chloride 112 mmol/L (98-107); Direct Bilirubin 0.6 mg/dl (0.0-0.4); Estimated Creatinine Clearance 24 ml/min; Glucose 95 mg/dl (70-99); Potassium 4.2 mmol/L (3.5-5.1); Sodium 146 mmol/L (135-145); Total Bilirubin 2.3 mg/dl (0.2-1.3); Total Protein 5.9 g/dl (6.3-8.2); eGFR 25.35
[2024-06-28] MEDS: SYNTHROID 25 MCG PO (06:00)
[2024-06-28] MEDS: NAMENDA 5 MG PO (07:56)
[2024-06-28] MEDS: NSS (PRESERVATIVE FREE) 10 ML IV (07:56)
[2024-06-28] MEDS: XIFAXAN 550 MG PO (07:56)
[2024-06-28] MEDS: PROTONIX IV 40 MG IV (07:56)
[2024-06-28] MEDS: PEPCID 20 MG PO (07:57)
[2024-06-28] MEDS: BUSPAR 10 MG PO (07:57)
[2024-06-28] MEDS: FEOSOL 325 MG PO (07:57)
[2024-06-28] MEDS: DUPHALAC/CHRONULAC 20 GRAMS PO (07:57)
--- NOTE | 2024-06-28 08:01 | W.PN.HOSP.TC ---
Today's Communication/Plan
-
await GI input
restarted meds
Assessment / Plan
Assessment / Plan
pt is a 68 year old female
Hepatic encephalopathy presumed secondary to noncompliance with medication (although pt denies) for ZAVALETA with cirrhosis with lactic acidosis (resolved)--ammonia level 300s on admission now down to 29-apprec GI--cont lactulose---ABX for SBP
prophylaxis, apprec ID, possible d/c?---no paracentesis--Abdominal ultrasound showed small amt of ascites, not enough to tap at this point--cont Xifaxin--stop IVF --cultures negative--restart oral meds, prednisone, oxycodone
SARI on CKD stage 3 presumed (baseline 1.5�1.7)--Creatinine 2.2 on admit, s/p IVF x 1 bag now 2.1--restart oral meds torsemide, spironolactone
Paroxysmal atrial fibrillation--restart oral meds, although rate controlled at least until taking PO--INR 3 (auto anticoagulated due to liver failure)
GERD--IV Protonix
Anxiety/depression/Dementia--Holding all oral meds
DVT proph -- INR 3--SCDs
code status -- FULL CODE
possible d/c pending GI input
transfer to tele if no d/c
Anticipated Discharge: Within 24 hours
Subjective/Interval History
-
Date of Service: June 28, 2024
pt awake--reports compliance with meds--says took double lactulose as told her to
Objective Data
-
Labs:
Laboratory Results
06/28/24 06/28/24
04:24 04:25
WBC 2.2 L*
Hgb 7.6 L
Hct 22.2 L
Plt Count 53 L
PT 28.3 H
INR 2.66
Sodium 146 H
Potassium 4.2
Chloride 112 H
Carbon Dioxide 23
BUN 37 H
Creatinine 2.1 H
Glucose 95
Calcium 9.1
Total Bilirubin 2.3 H
AST 42 H
ALT 24
Alkaline Phosphatase 96
Vital Signs:
Selected Entries
06/27/24
23:06
Temp 98.7 F
Vital Signs
Temp Pulse Resp BP Pulse Ox
98.5 F 64 14 126/67 99
06/28/24 07:41 06/28/24 06:00 06/28/24 06:00 06/28/24 06:00 06/28/24 04:00
I&O
06/27/24 06/28/24 06/29/24
06:59 06:59 06:59
Intake Total 480 / 480
Output Total 1350 / 1350
Balance -870 / -870
Review of Systems
-
All other systems: Reviewed and negative
Abdomen/GI: Reports Abdominal Pain
Physical Exam
-
General: No Apparent Distress and Appears Chronically Ill
HEENT: Normocephalic and Atraumatic; Negative Oxygen
Respiratory: Clear to Auscultation; Negative Wheezes or Rhonchi
Cardiac: Regular Rhythm, S1/S2 and Murmur
GI: Soft, Nontender, Nondistended and Normal Bowel Sounds
Musculoskeletal: No Clubbing, No Cyanosis and No Edema
Neuro: Awake and Alert
Psych: Calm
--- NOTE | 2024-06-28 08:30 | PTCARENOTE ---
Patient received from restaurant shift leader. Patient resting comfortably in bed. AAO, VSS. No events noted overnight. Medsitter in room, to get removed. Some complaints of pain at this time in the abdomen, will get PO Tylenol ordered. Currently on Room
Air. Patient to resume home medications. Continuing IV ABX, IVF to be stopped. No test scheduled. Downgrade today. Call lay in reach.
[2024-06-28] MEDS: DELTASONE 5 MG PO (08:45)
[2024-06-28] MEDS: ALDACTONE 50 MG PO (08:45)
[2024-06-28] MEDS: DEMADEX 20 MG PO (08:45)
[2024-06-28] MEDS: TYLENOL 650 MG PO (08:45)
--- NOTE | 2024-06-28 09:31 | W.PN.ID1 ---
Date of Service
Date of Service: June 28, 2024
Today's Communication
- DC meropenem
-Can resume cipro for SBP prophylaxis.
Assessment / Plan
AMS - resolved
Gastroenteritis
Sepsis - resolved
Lactic acidosis
Cirrhosis
H/o SBP
H/o hepatic hydrothorax (resolved)
Allergies: Penicillin: anaphylaxis, cephalosporin: swelling, bactrim: swelling, latex: swelling and hives
- blood cultures x2 negative to date
- UA negative, CXR without infiltrates
- covid ag and influenza pcr - negative
- minimal ascites on US: unlikely to have sbp though she has some abdominal tenderness
- note persistent lactic acidosis - improving
- repeat CXR without infiltrates
- DC meropenem
-Can resume cipro for SBP prophylaxis.
Chief Complaint
-: Other (Change in mental status)
Subjective / Review of Systems
Chronic abd pain stable.
Awake and alert.
Vital Signs / Physical Exam
Vital Signs
Vital Signs
Temp Pulse Resp BP Pulse Ox
98.5 F 60 14 126/42 99
06/28/24 07:41 06/28/24 08:45 06/28/24 06:00 06/28/24 08:45 06/28/24 04:00
Physical Exam
Constitutional: No Acute Distress and Comfortable
Cardiovascular: Regular Rate and S1/S2
Pulmonary: Clear
Gastrointestinal: Soft, Tender (mild diffusse) and Distended (mild )
Extremities: Negative Edema
Neurological: AO x 3
Objective Data
Lab Data
Lab Results
06/28/24 04:24
06/28/24 04:25
PT 28.3 Sec (11.4-14.6) H 06/28/24 04:24
INR 2.66 06/28/24 04:24
Estimated Creat Clear 24 ml/min 06/28/24 04:25
Lactic Acid 1.4 mmol/L (0.7-2.0) 06/28/24 04:24
Total Bilirubin 2.3 mg/dl (0.2-1.3) H 06/28/24 04:25
AST 42 U/L (14-36) H 06/28/24 04:25
ALT 24 U/L (0-35) 06/28/24 04:25
Alkaline Phosphatase 96 U/L (38-126) 06/28/24 04:25
Most recent labs reviewed.
Micro Results:
06/28/24 04:25 Influenza Types A & B ([facility]LER) - Final
Nasal Swab Negative for Influenza A & B, NAAT
Negative results must be combined with clinical observations
and patient history.
Nucleic Acid Amplification test (NAAT)performed on the
[employer] platform.
06/27/24 02:11 Blood Culture - Preliminary
Blood/Venous No Growth in 24 hours- Final report to follow
06/27/24 01:55 Blood Culture - Preliminary
Blood/Venous No Growth in 24 hours- Final report to follow
Chest x-ray portable-06/27/20242092-[id number]-rgcm cardiomegaly which is new.
Abdominal ultrasound-06/27/2024-a very small amount of ascites present volume insufficient for ultrasound-guided paracentesis at this time.
--- NOTE | 2024-06-28 12:18 | W.PN.GI.CBS2 ---
Today's Communication / Plan
-
ok to d/c home
Assessment / Plan
-
68-year-old female well-known to my group with complex history including decompensated MASH cirrhosis decompensated with ascites, hepatic encephalopathy, hepatic hydrothorax requiring paracentesis and thoracentesis in the past. Most recently has
not required paracentesis in 3 weeks. Followed by [facility] by Dr. Bradley. Currently awaiting relisting for liver transplant as she needs to have another stress test this coming Sunday to be reinstated. History of SBP on
chronic antibiotics who had recurrent episode of SBP 04/2024, SARI on CKD with baseline creatinine around 1.7, PVT, paroxysmal A-fib currently on Eliquis (initially they were going to transition her to Coumadin at [facility] however decided against
this for the time being), gastroparesis, esophageal dysmotility status post RYGB, hyperlipidemia, hypothyroidism, chronic GERD who we last saw on hospitalization on 05/23/2024 when we transferred her for evaluation for liver transplant. Who presents
to the hospital with change in mental status. Her states that she went to bed after dinner. Prior to that she was sweaty cold and had nausea and vomiting as well as retching. She woke up approximately 10 PM screaming to him taken to the ""hospital. She was obtunded when she came to the emergency room. She did have an elevated ammonia level of 362 was given 1 lactulose enema and went down to 155. When I saw her she was still obtunded. She also did have a lactic acid of 3.2 which
is down to 2.4 this morning. Blood cultures were drawn and pending. Ultrasound of the abdomen did not show any ascites safe to tap. She is on Cipro for SBP prophylaxis. She did have SBP back in April 2024. She was placed on Azactam last
evening. She is afebrile. She did have 1 large bowel movement this morning. She could not provide any meaningful history. I did speak to her . I also did place a call to liver hr payroll coordinator at [facility] left a message. I spoke
to Dr. Bradley to make him aware she was hospitalized. He gave me the phone number of the accounting representative on-call today at [facility] should we need her assistance. MELD 3.0 =29
[facility] hr payroll coordinator Kamala Jackson [phone]
[facility] accounting representative on-call Dr. Sonal Lopez
Patient's Timi Lyn [phone]
HE improving with lactulose, conversant and following commands, back to her baseline. Getting lactulose TID, should continue with her Rifaxamin 550 BID. Her Cr is 2.1 today, which has improved from her admission lab 2.4. Can d/c home with close
f/u.
Total Time Spent with Patient (in minutes): 35
Subjective
Subjective
Date of Service: June 28, 2024
Awake, following commands, conversant today.
Objective
Data Reviewed
Laboratory Data:
Laboratory Results
06/28/24 04:24
06/28/24 04:25
Laboratory Results
PT 28.3 Sec (11.4-14.6) H 06/28/24 04:24
INR 2.66 06/28/24 04:24
Magnesium 1.8 mg/dl (1.6-2.3) 06/27/24 05:16
Total Bilirubin 2.3 mg/dl (0.2-1.3) H 06/28/24 04:25
AST 42 U/L (14-36) H 06/28/24 04:25
ALT 24 U/L (0-35) 06/28/24 04:25
Alkaline Phosphatase 96 U/L (38-126) 06/28/24 04:25
Lipase 242 U/L (23-300) 06/27/24 00:08
Vital Signs and I&O:
Vital Signs
Temp Pulse Resp BP Pulse Ox
98.6 F 60 14 126/42 99
06/28/24 11:25 06/28/24 08:45 06/28/24 06:00 06/28/24 08:45 06/28/24 12:08
I&O
06/27/24 06/28/24 06/29/24
06:59 06:59 06:59
Intake Total 480 / 480
Output Total 1350 / 1350
Balance -870 / -870
--- NOTE | 2024-06-28 17:07 | CM ---
Patient with Dx Hepatic encephalopathy.
Met with patient who was preparing for d/c today. The patient says she feels ready for discharge home today. IMM completed. Her will provide a ride home.
No CM d/c needs identified.
Plan home today.
--- NOTE | 2024-06-28 17:10 | PTCARENOTE ---
Patient discharged home with all known belongings. Discharge paper work discussed and all questions answered. Patient left with .
--- NOTE | 2024-06-29 16:02 | W.DCSUMMARY ---
Discharge Summary
Discharge Data
Date of Admission: 06/27/24
Date of Discharge: 06/28/24
-
Pending Results: No
Hospital Course
Primary care physician : Malu Wilson
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
Chronic Discharge diagnosis : Paroxysmal atrial fibrillation, gastroesophageal reflux disease, anxiety/depression/dementia
Hospital Course : Patient is a 68-year-old female with a history of nonalcoholic liver disease complicated by cirrhosis with recurrent ascites who also requires frequent large-volume paracentesis on the transplant list at [place] who presented
with a rapid decline in mental status over the last day prior to admission. She was unable to provide history. She did start with nausea and vomiting on the day prior to admission. Patient stated that she has not been compliant with her
medications. Ammonia level was over 300 with a lactate level of 3 and the patient was admitted.
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 Patient was admitted and started on lactulose enemas as well as being seen by GI. Ammonia level came down to 29 on the day of discharge.
She was started on antibiotics for spontaneous bacterial peritonitis prophylaxis and ID was consulted. She did not have paracentesis done as ultrasound did not show a significant amount of ascites.. Antibiotics were stopped. She was continued on
Xifaxan. Her outpatient ciprofloxacin was resumed for spontaneous bacterial peritonitis prophylaxis. Cultures were negative. Oral medications were restarted. Patient was tolerating her diet. Patient related to me personally that she has been
compliant with her medications and denied being noncompliant.
Problem #2: Acute kidney injury on chronic kidney disease stage III presumed. Patient was given small dose of IV fluids since the patient was unable to eat and drink on admission. Baseline creatinine is 1.5-1.7 but does fluctuate. Patient was 2.2
on admission with her creatinine and down to 2.1 on the day of discharge. She has been cleared for discharge by GI.
Problem #3: All other medical issues. These include Paroxysmal atrial fibrillation, gastroesophageal reflux disease, anxiety/depression/dementia. These medical issues were stable during her hospitalization. Medications were continued as able.
Patient is stable for discharge home at this time. If there are any questions regarding this dictation or her hospital stay, please and hesitate to call. Our office number is [phone].
Discharge Plan
-
Patient Disposition: Home (Routine Discharge)
Discharge Diagnosis/Procedures: Hepatic encephalopathy secondary to nonalcoholic steatohepatitis with cirrhosis and lactic acidosis, acute kidney injury on chronic kidney disease stage III presumed, paroxysmal atrial fibrillation, gastroesophageal
reflux disease, anxiety/depression/dementia
Condition: Fair
Diet: 2 Gram Sodium and Other diet
Additional Diets: 2 gm potassium
Activity: As tolerated
Driving Restrictions: As prior to admission
Bathing Restrictions: None
Activity Restrictions/Additional Instructions:
follow up with your liver doctor as soon as able
Referrals:
Malu Wilson, DO [Family Provider] - in less than 1 week
Prescriptions:
Continued
atorvastatin 20 mg tablet
20 mg PO HS
levothyroxine 25 mcg tablet
25 mcg PO DAILY
pantoprazole [Protonix] 40 mg Tablet,Delayed Release (Dr/Ec)
40 mg PO DAILY
prednisone 5 mg tablet
5 mg PO DAILY
ondansetron HCl 8 mg tablet
8 mg PO TID
quetiapine [Seroquel] 25 mg Tablet
25 mg PO HS
rifaximin 550 mg Tablet
550 mg PO BID
spironolactone 50 mg Tablet
50 mg PO BID
memantine 5 mg Tablet
5 mg PO BID
lactulose 10 gram/15 mL solution
45 ml PO TID
buspirone 10 mg Tablet
10 mg PO BID
ergocalciferol (vitamin D2) 1,250 mcg (50,000 unit) Capsule
1,250 mcg PO WHITE
oxycodone 10 mg Tablet
10 mg PO TIDPRN PRN (Reason: severe pain)
torsemide 20 mg Tablet
20 mg PO BID
ciprofloxacin HCl 500 mg Tablet
500 mg PO QPM
famotidine 20 mg Tablet
20 mg PO DAILY
Eliquis 5 mg Tablet
5 mg PO BID
ferrous sulfate 325 mg (65 mg iron) Tablet
325 mg PO DAILY
Discontinued
(DME) insulin syringe needleless [Easy Touch Luer Lock Insulin] 1 mL Syringe
MISCELLANEOUS
Rx Instructions:
Three times a day
Discharge Orders:
Discharge Patient (As Directed); Ordered 06/28/24
Ordered By: Silvia Childress
Discharge Date and Time
Discharge Date/Time: 06/28/24 15:45
Print Language: [id number]
== END 2024-06-28 15:45 | disposition home or self-care (01) | DRG 442 ==
LOC: IMU 03:25
PROVIDERS: Nurse Practitioner; Student in an Organized Health Care Education/Training Program; ADMITTING PHYSICIAN Internal Medicine; ATTENDING PHYSICIAN Internal Medicine; CONSULT PHYSICIAN Internal Medicine Gastroenterology; CONSULT PHYSICIAN Student in an Organized Health Care Education/Training Program; EMERGENCY PHYSICIAN Emergency Medicine; FAMILY PHYSICIAN Internal Medicine
DX: K75.81 Nonalcoholic steatohepatitis (NASH) (principal); D61.818 Other pancytopenia; E87.20 Acidosis, unspecified; I13.0 Hypertensive heart and chronic kidney disease with heart failure and stage 1 through stage 4 chronic kidney disease, or unspecified chronic kidney disease; R18.8 Other ascites; N17.9 Acute kidney failure, unspecified; F03.94 Unspecified dementia, unspecified severity, with anxiety; F03.93 Unspecified dementia, unspecified severity, with mood disturbance; Z87.891 Personal history of nicotine dependence; N18.30 Chronic kidney disease, stage 3 unspecified; K74.60 Unspecified cirrhosis of liver; K76.82 Hepatic encephalopathy; E11.22 Type 2 diabetes mellitus with diabetic chronic kidney disease; K21.9 Gastro-esophageal reflux disease without esophagitis; I48.0 Paroxysmal atrial fibrillation; F32.A Depression, unspecified; I50.9 Heart failure, unspecified; Z11.52 Encounter for screening for COVID-19
CPT/HCPCS: 51701; 71045; 76705; 80048; 80053; 81003; 82140; 82248; 82962; 83605; 83690; 83735; 84443; 85025; 85027; 85610; 87040; 87502; 87811; 93005; 96361; 96374; 99291; P9047

== ENCOUNTER 2024-09-01 21:35 | Observation (INO) | payer MEDICARE, OTHER, SELFPAY ==
[2024-09-01 14:57] VITALS: BP 143/60
--- NOTE | 2024-09-01 17:13 | ED.GENMED ---
History of Present Illness
<Rodolfo Gonzalez DO, Resident - Last Filed: 09/02/24 18:02>
General
Chief Complaint: Skin Problem
Source: patient and spouse
Exam Limitations: none
Time Seen by Provider: 09/01/24 16:51
History of Present Illness
History of Present Illness:
68-year-old female past medical history of liver cirrhosis, paroxysmal atrial fibrillation, GERD, anxiety/depression/dementia with a recent admission for hepatic encephalopathy secondary to nonalcoholic hepatosteatosis requiring frequent
paracenteses, on transplant list at [place]. 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 Yesterday she was noted to have hot, red painful erythema of the left leg, more so than the right. She recently
finished a 30-day course of doxycycline 1 week ago. And she also started on prophylactic ciprofloxacin 1 week prior, which she is currently taking.
Past History
<Rodolfo Gonzalez DO, Resident - Last Filed: 09/02/24 18:02>
Past History
ED Past Medical History: Arrthythmia (Paroxysmal atrial fibrillation), Fibromyalgia, GERD, HTN, Hypercholesterolemia, NIDDM, Hypothyroidism, Psychiatric (Anxiety), Other (Gastroparesis, chronic gastritis, HENDERSON, esophageal dysmotility/achalasia,
Ulcerative colitis, Migraines, neck pain, IBS, anemia, Dizziness Hepatic encephalopathy. Cirrhosis of the liver, IBS, ) and Other (Portal vein thrombosis); Negative CAD
ED Past Surgical History: Appendectomy, Bowel resection, Cholecystectomy, Gynecological (Total Hysterectomy, Oophorectomy), Orthopedic (right wrist surgery, Left ankle surgery) and Other (Meckel's diverticulum, gastric bypass Jun 27, 2021,
cataracts,)
Patient has exhibited threatening behavior?: No
PSI?: No
Social History
Tobacco: Former smoker
Alcohol: None
Drug: None
Personal:
Living: with family
Employment: Retired
Family History
Family History: Other ([place])
Review of Systems
<Rodolfo Gonzalez DO, Resident - Last Filed: 09/02/24 18:02>
Review of Systems
Constitutional: Reports weight gain; Denies fever
Respiratory: Reports no symptoms
Cardiac: Reports no symptoms
ABD/GI: Reports abdominal pain, nausea and vomiting
Musculoskeletal: Reports joint pain
Skin: Reports rash
Neurological: Reports no symptoms
Phy Exam
<Rodolfo Gonzalez DO, Resident - Last Filed: 09/02/24 18:02>
General Physical Exam
General Presentation: no apparent distress
General Skin: warm, dry, feels hot (Left lower extremity) and other (Left lower extremity warm, hot and painful)
General Habitus: debilitated
General Mental: alert
Gastrointestinal Exam
Gastrointestinal Exam: soft, distended and other (Abdominal fluid wave present, slightly tender to palpation diffusely. Abdomen distended and asterixis present on exam.)
Liver Exam: ascites and edema of legs
Neurological Exam
Neurological Exam: alert, oriented x3 and other (asterixis present on exam.)
Musculoskeletal Exam
Musculoskeletal Exam: edema
Skin Exam
Skin Exam: erythema, redness, tenderness, warmth and other (Symptoms on left lower extremity)
Course
<Rodolfo Gonzalez DO, Resident - Last Filed: 09/02/24 18:02>
Orders/Labs/Results
Orders:
Orders
09/01/24 17:17
Ondansetron HCl [Zofran] 4 mg PO NOW STA
09/01/24 17:31
US Periph Venous LOWER Ext Yemi Urgent
Comment:
Reason For Exam: swelling
09/01/24 17:33
Ammonia Urgent
Complete Blood Count/With Diff Urgent
Comprehensive Metabolic Panel Urgent
09/01/24 21:03
Admit/Transfer Patient As Directed
Co-Sign Provider:
Level of Care: Observation services
Assign to:: Medical/Surgical
Physician / Group: yenni riggs
Diagnosis: LLE venous stasis 2/2 fluid retention due 2 decreased diuretics from nano
Code Status As Directed
Resuscitation Status: Full Code
09/01/24 21:07
PRN Pain Medication Management As Directed
May give lesser potent ordered pain med per pt: Yes
preference::
Protocol:: Medication orders for pain may be administered in a
manner that supports deferring to patient preference
when the pt is:
- Requesting an ordered lesser potent pain medication.
Least to most potent pain medications are defined
as: acetaminophen < NSAID < tramadol < opioids
(morphine, oxycodone, hydromorphone).
- Requesting a lesser dose of the same medication IF
ORDERED.
- Requesting a less intrusive route of administration
if both routes are prescribed by the provider (PO <
IV).
09/02/24 00:34
Activity As Directed
Activity Level: As Tolerated
Intake/ Output As Directed
Frequency: Per unit guidelines
Old Records Request [Obtain Records] As Directed
Dates of Information to be Released: jul 2024
Type of Information Requested: Entire Record
Consults
Obtain Records from: [facility] eliqu[facility] stopped
Vital Signs As Directed
Frequency: Per unit guidelines
Weight As Directed
Frequency: Daily
Ot Eval And Treat Routine
Pt Eval And Treat Routine
Activity Level: As Tolerated
DX Deep Vein Thrombosis Video Routine
09/02/24 05:31
Basic Metabolic Panel IN AM
Complete Blood Count/With Diff IN AM
09/02/24 08:00
Heparin 5,000 units SC Q12
Abnormal Lab Results
09/01/24
17:33
WBC 2.9 L 10^3/uL
(4.8-10.8)
RBC 2.24 L 10^6/uL
(4.20-5.40)
Hgb 7.2 L g/dL
(12.0-16.0)
Hct 21.9 L %
(37.0-47.0)
MCH 32.1 H pg
(27.0-31.0)
MCHC 32.9 L g/dL
(33.0-37.0)
RDW 19.4 H %
(11.5-14.5)
Plt Count 63 L 10^3/uL
(130-400)
MPV 11.0 H fL
(7.4-10.4)
Absolute Lymphs (auto) 0.5 L 10^3/uL
(1.2-3.4)
Lymphocytes % 16.7 L %
(20.5-51.1)
Monocytes % 14.7 H %
(1.7-9.3)
Sodium 134 L mmol/L
(135-145)
BUN 27 H mg/dl
(7-17)
Creatinine 2.2 H mg/dL
(0.6-1.0)
Glucose 137 H mg/dl
(70-99)
Calcium 8.3 L mg/dl
(8.4-10.2)
Total Bilirubin 1.5 H mg/dl
(0.2-1.3)
AST 46 H U/L
(14-36)
Ammonia 73 H umol/L
(9-30)
Total Protein 5.6 L g/dl
(6.3-8.2)
Albumin 2.7 L g/dl
(3.5-5.0)
09/01/24 17:33
09/01/24 17:33
Vital Signs
Initial and Last Documented VS:
Initial Vital Signs
Temp Pulse Resp BP Pulse Ox
98.4 F 70 18 143/60 97
09/01/24 14:57 09/01/24 14:57 09/01/24 14:57 09/01/24 14:57 09/01/24 14:57
Last Documented Vital Signs
Temp Pulse Resp BP Pulse Ox
97.8 F 93 18 116/86 96
09/02/24 15:00 09/02/24 15:00 09/02/24 15:00 09/02/24 15:00 09/02/24 15:00
<Isaac Fajardo, DO - Last Filed: 09/01/24 17:27>
Orders/Labs/Results
Orders:
Orders
09/01/24 17:17
Ondansetron HCl [Zofran] 4 mg PO NOW STA
09/01/24 17:31
US Periph Venous LOWER Ext Yemi Urgent
Comment:
Reason For Exam: swelling
09/01/24 17:33
Ammonia Urgent
Complete Blood Count/With Diff Urgent
Comprehensive Metabolic Panel Urgent
09/01/24 21:03
Admit/Transfer Patient As Directed
Co-Sign Provider:
Level of Care: Observation services
Assign to:: Medical/Surgical
Physician / Group: yenni riggs
Diagnosis: LLE venous stasis 2/2 fluid retention due 2 decreased diuretics from nano
Code Status As Directed
Resuscitation Status: Full Code
09/01/24 21:07
PRN Pain Medication Management As Directed
May give lesser potent ordered pain med per pt: Yes
preference::
Protocol:: Medication orders for pain may be administered in a
manner that supports deferring to patient preference
when the pt is:
- Requesting an ordered lesser potent pain medication.
Least to most potent pain medications are defined
as: acetaminophen < NSAID < tramadol < opioids
(morphine, oxycodone, hydromorphone).
- Requesting a lesser dose of the same medication IF
ORDERED.
- Requesting a less intrusive route of administration
if both routes are prescribed by the provider (PO <
IV).
09/02/24 00:34
Activity As Directed
Activity Level: As Tolerated
Intake/ Output As Directed
Frequency: Per unit guidelines
Old Records Request [Obtain Records] As Directed
Dates of Information to be Released: jul 2024
Type of Information Requested: Entire Record
Consults
Obtain Records from: [facility] eliquis stopped
Vital Signs As Directed
Frequency: Per unit guidelines
Weight As Directed
Frequency: Daily
Ot Eval And Treat Routine
Pt Eval And Treat Routine
Activity Level: As Tolerated
DX Deep Vein Thrombosis Video Routine
09/02/24 05:31
Basic Metabolic Panel IN AM
Complete Blood Count/With Diff IN AM
09/02/24 08:00
Heparin 5,000 units SC Q12
Abnormal Lab Results
09/01/24
17:33
WBC 2.9 L 10^3/uL
(4.8-10.8)
RBC 2.24 L 10^6/uL
(4.20-5.40)
Hgb 7.2 L g/dL
(12.0-16.0)
Hct 21.9 L %
(37.0-47.0)
MCH 32.1 H pg
(27.0-31.0)
MCHC 32.9 L g/dL
(33.0-37.0)
RDW 19.4 H %
(11.5-14.5)
Plt Count 63 L 10^3/uL
(130-400)
MPV 11.0 H fL
(7.4-10.4)
Absolute Lymphs (auto) 0.5 L 10^3/uL
(1.2-3.4)
Lymphocytes % 16.7 L %
(20.5-51.1)
Monocytes % 14.7 H %
(1.7-9.3)
Sodium 134 L mmol/L
(135-145)
BUN 27 H mg/dl
(7-17)
Creatinine 2.2 H mg/dL
(0.6-1.0)
Glucose 137 H mg/dl
(70-99)
Calcium 8.3 L mg/dl
(8.4-10.2)
Total Bilirubin 1.5 H mg/dl
(0.2-1.3)
AST 46 H U/L
(14-36)
Ammonia 73 H umol/L
(9-30)
Total Protein 5.6 L g/dl
(6.3-8.2)
Albumin 2.7 L g/dl
(3.5-5.0)
09/01/24 17:33
09/01/24 17:33
Vital Signs
Initial and Last Documented VS:
Initial Vital Signs
Temp Pulse Resp BP Pulse Ox
98.4 F 70 18 143/60 97
09/01/24 14:57 09/01/24 14:57 09/01/24 14:57 09/01/24 14:57 09/01/24 14:57
Last Documented Vital Signs
Temp Pulse Resp BP Pulse Ox
97.8 F 93 18 116/86 96
09/02/24 15:00 09/02/24 15:00 09/02/24 15:00 09/02/24 15:00 09/02/24 15:00
edwar;Rodolfo Gonzalez DO, Resident - Last Filed: 09/02/24 18:02>
MDM/Problems Addressed
Differential Diagnosis Includes:
Acute left lower extremity cellulitis versus DVT versus venous stasis dermatitis
MDM/Problems Addressed:
#Acute left lower extremity cellulitis versus DVT
Rash present on left lower extremity, leg is warm and tender
Patient is afebrile, WBC count, low
Patient recently completed 30-day oral course of doxycycline, and 1 week ago was initiated on oral ciprofloxacin for GI prophylaxis
Patient also has history of liver dysfunction with hepatic encephalopathy requiring serial paracenteses, last paracentesis was in June. Asterixis was present on exam
Will check ammonia level, CBC, CMP
P.o. Zofran ordered as patient is nauseous, will consider IV Zofran if patient cannot tolerate p.o.
Will check bilateral venous Doppler to rule out DVT, patient is high risk for clots as she has immobility secondary to a a right ankle fracture in a boot as well as liver disease
Venous Doppler negative for DVT
Will admit to inpatient services as patient is medically complex with elevated ammonia levels on labs
<Rodolfo Gonzalez DO, Resident - Last Filed: 09/02/24 18:02>
*Critical Care Note
Total Time (30-74mins, 75-104mins- exclusive of procedures): Not Applicable
ED Attending Note
<Rodolfo Gonzalez DO, Resident - Last Filed: 09/02/24 18:02>
-
Portions of this chart may have been created with voice recognition software.� Occasional wrong word or��sound alike� substitutions may have occurred due to the inherent limitations of voice recognition software.
<Isaac Fajardo DO - Last Filed: 09/01/24 17:27>
ED Attending Note
Patient seen and examined by attending physician: Yes
I performed a history and physical exam of patient and discussed management with resident, I reviewed resident's note and agree with documented findings and plan of care.: Yes
ED Attending Note:
Seen with resident examined independently 68-year-old female [place] followed by Dr. Mirna Rosales on the transplant list just finished a course of Doxy now on Cipro sent here for cellulitis left greater than right no fever has been vomiting has been
slightly increased has had increased lactulose
Discharge Plan
Departure
Patient Disposition: Admit
Date of Disposition: 09/01/24
Time of Disposition: 19:49
Admit to: Med/Surg
Presentation/result/management discussed w/ accepting MD/DO: Hospitalist
Patient with high blood pressure during this ER visit?: No
Condition: Fair
Covid-19: Not Applicable
Discharge Problem:
Anemia, History of gastric bypass, Liver cirrhosis secondary to HENDERSON (nonalcoholic steatohepatitis), Portal vein thrombosis, Ascites, Liver failure, Opioid dependence, Chronic kidney disease, stage 3b
Interventions
Interventions:
*Risk Screen - Suicide Last Done: 09/01/24 14:57
*General Assessment Last Done: 09/01/24 14:57
*Neglect/Abuse Screening Last Done: 09/01/24 14:57
ED- Fall Risk Assessment Last Done: 09/01/24 16:33
*ED COVID-19 Vaccine History Last Done: 09/01/24 15:00
*Nursing Disposition Last Done: 09/02/24 00:42
ED-Skin Assessment Last Done: 09/01/24 16:32
[2024-09-01] MEDS: ZOFRAN 4 MG PO (17:31)
[2024-09-01 18:02] LABS: % Eosinophils 3.1 % (0-6); % Immature Granulocytes 0.3 % (0-0.5); % Lymphocytes 16.7 % (20.5-51.1); % Monocytes 14.7 % (1.7-9.3); % Neutrophils 64.2 % (42.2-75.2); Absolute Eosinophils 0.1 10^3/uL (0-0.7); Absolute Lymphocytes 0.5 10^3/uL (1.2-3.4); Absolute Monocytes 0.4 10^3/uL (0.1-0.6); Absolute Neutrophils 1.9 10^3/uL (1.4-6.5); Hematocrit 21.9 % (37.0-47.0); Hemoglobin 7.2 g/dL (12.0-16.0); Mean Corp Hgb Conc. 32.9 g/dL (33.0-37.0); Mean Corpuscular Hgb 32.1 pg (27.0-31.0); Mean Corpuscular Volume 97.8 fL (81.0-99.0); Nucleated Red Blood Cells % 0 %; Platelet Count 63 10^3/uL (130-400); Red Blood Cell Count 2.24 10^6/uL (4.20-5.40); Red Cell Dist. Width 19.4 % (11.5-14.5); White Blood Cell Count 2.9 10^3/uL (4.8-10.8)
[2024-09-01 18:07] LABS: ALT (SGPT) 19 U/L (0-35); AST (SGOT) 46 U/L (14-36); Albumin 2.7 g/dl (3.5-5.0); Alkaline Phosphatase 118 U/L (38-126); Blood Urea Nitrogen 27 mg/dl (7-17); Calcium 8.3 mg/dl (8.4-10.2); Carbon Dioxide 28 mmol/L (22-30); Chloride 101 mmol/L (98-107); Glucose 137 mg/dl (70-99); Potassium 4.9 mmol/L (3.5-5.1); Sodium 134 mmol/L (135-145); Total Bilirubin 1.5 mg/dl (0.2-1.3); Total Protein 5.6 g/dl (6.3-8.2); eGFR 23.97
[2024-09-01 18:08] LABS: Ammonia 73 umol/L (9-30)
[2024-09-01 19:28] VITALS: BP 114/55
[2024-09-01 19:33] VITALS: BMI 30.9
--- NOTE | 2024-09-01 19:58 | HPS.HSE ---
Family Physician
-
Family Physician: Malu Wilson
Chief Complaint
-
Left lower extremity edema/erythema ongoing x 1 month
History of Present Illness
68-year-old female presents from her certified hearing instrument dispenser office for concerns of bilateral cellulitis left leg greater than right. She recently finished a 30-day course of doxycycline 1 week ago she was also on prior prophylactic ciprofloxacin for SBP due
to chronic ascites. Her states she resumed ciprofloxacin 500 mg approximately 1 week ago. Her states that her left lower extremity has been red and swollen for approximately 1 month despite 30 days of doxycycline. He reports her
kidney function was elevating and her spironolactone was decreased from 50 mg twice a day to 25 mg once a day along with her torsemide 20 mg bid to 20 mg once a day approximately 3 weeks ago by her slab miller operator at [facility]. Since her
diuretic adjustments she has had double size of her left lower extremity with other day some weeping. She has some lower extremity circumferential erythema with slight warmth and some medial aspect of the right knee and distal thigh with erythema
and tenderness on palpation. Her Eliquis she was also taken off of 1 month ago at [facility] her believes she was on it for portal vein thrombosis however her history states that she has paroxysmal A-fib. On 07/26/24 she fell with
her rollator sustaining a bimalleolar fracture of her right ankle she was placed in a cam boot as the alignment was fairly intact according to her she is due to follow-up with [facility] on August 30. She is wearing a compressive
sock to that leg and a cam boot and does not currently have any erythema or edema. She does not wear any OG stockings or Tubigrip's at home I discussed this with her he needs to obtain some to help the fluid retention in her legs and
prevent weeping and ulcerations. she denies fever, chills, chest pain, palpitations, shortness of breath, cough, abdominal pain, nausea, vomiting, diarrhea, urinary symptoms.
The patient had a hospitalization 06/27 - 06/28/2024 secondary to hepatic encephalopathy due to nonalcoholic steatohepatitis with cirrhosis and lactic acidosis. She had elevated ammonia level over 300 which was treated with lactulose enemas came
down to level of 29. She was started on prophylactic antibiotics for SBP however she did not require paracentesis due to not out of fluid volume. She was continued on Xifaxan and her chronic outpatient Cipro was resumed for prophylactic
peritonitis patient's past medical history of nonalcoholic liver disease complicated with cirrhosis/recurrent ascites who requires frequent large-volume paracentesis, currently on transplant list at [place], portal vein thrombosis, chronic
pancytopenia paroxysmal A-fib, GERD, anxiety/depression, dementia, hepatic encephalopathy, CKD 3 presumed, hypothyroidism, gastroparesis, chronic gastritis, esophageal dysmotility/achalasia, ulcerative colitis, migraines.
Medical History
Past Medical History
Past Medical History: Reports Other
Additional Past Medical History:
Right ankle bimalleolar fracture 08/08/2024 at [facility] treated with cam boot only follows at [facility]
history of nonalcoholic liver disease complicated with cirrhosis/recurrent ascites who requires frequent large-volume paracentesis
currently on transplant list at [place]
hepatic encephalopathy
portal vein thrombosis
chronic pancytopenia
paroxysmal A-fib
CKD 3 presumed baseline creatinine 1.3�1.5
GERD
gastroparesis,
chronic gastritis
esophageal dysmotility/achalasia
anxiety/depression
dementia
hypothyroidism
ulcerative colitis
migraines
Former smoker
Past Surgical History: Reports Other
Additional Past Surgical History:
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
Appendectomy
Bowel resection secondary to ulcerative colitis
Meckel's diverticulum
Gastric bypass June 27, 2021
Right wrist surgery left ankle surgery
Cholecystectomy
Total hysterectomy with bilateral oophorectomy
Social History
Tobacco: Former Smoker
Alcohol: None
Personal:
Living: With Family
Employment: Retired
Family History
Family History: Unable to Obtain
Allergies / Home Medications
Allergies reflects when Allergies were last updated in [employer].
Home Medications with original date entered in [facility]
Allergy/Medication List:
Allergies
Allergy/AdvReac Type Severity Reaction Status Date / Time
ampicillin Allergy Severe Anaphylaxis Verified 09/01/24 14:56
Penicillins Allergy Severe Anaphylaxis Verified 09/01/24 14:56
adhesive Allergy Rash Verified 09/01/24 14:56
bee pollen Allergy Swelling Verified 09/01/24 14:56
Cephalosporins Allergy Swelling Verified 09/01/24 14:56
diphenhydramine Allergy HYPERACTIVI Verified 09/01/24 14:56
[From Benadryl] TY
honey Allergy Swelling Verified 09/01/24 14:56
latex Allergy HIVES AND Verified 09/01/24 14:56
SWELLS UP
prochlorperazine Allergy Unknown Verified 09/01/24 14:56
[From Compazine]
promethazine HCl Allergy THROAT Verified 09/01/24 14:56
[From Phenergan] SWELLING/PANIC
ATTACKS
Sulfa (Sulfonamide Allergy Swelling Verified 09/01/24 14:56
Antibiotics)
sulfisoxazole Allergy Swelling Verified 09/01/24 14:56
trimethobenzamide Allergy Unknown Verified 09/01/24 14:56
venom-honey bee Allergy BEE Verified 09/01/24 14:56
STING/SWELLING
Home Medications
atorvastatin 20 mg tablet 20 mg PO HS High cholesterol 06/14/22
levothyroxine 25 mcg tablet 25 mcg PO DAILY Thyroid 06/14/22
pantoprazole 40 mg tablet,delayed release (Protonix) 40 mg PO DAILY Gastrointestinal issue 12/09/22
ondansetron HCl 8 mg tablet 8 mg PO TID nausea 06/25/23
quetiapine 25 mg tablet (Seroquel) 25 mg PO HS mental health/sleep 07/15/23
rifaximin 550 mg tablet 550 mg PO BID Liver Issues 10/01/23
memantine 5 mg tablet 5 mg PO BID dementia 12/26/23
lactulose 10 gram/15 mL oral solution 45 ml PO TID Liver Issues 01/21/24
buspirone 10 mg tablet 10 mg PO TID Anxiety 04/18/24
ergocalciferol (vitamin D2) 1,250 mcg (50,000 unit) capsule 1,250 mcg PO WE Supplement 04/18/24
oxycodone 10 mg tablet 10 mg PO TIDPRN PRN severe pain 04/18/24
ciprofloxacin HCl 500 mg tablet 500 mg PO NOON prophylaxis 05/18/24
ferrous sulfate 325 mg (65 mg iron) tablet 325 mg PO DAILY Supplement 05/18/24
torsemide 20 mg tablet 20 mg PO DAILY Fluid Retention/Swelling 05/18/24
famotidine 40 mg tablet 40 mg PO DAILY 09/01/24
spironolactone 25 mg tablet 25 mg PO DAILY 09/01/24
Review of Systems
-
History Source: Patient and Family ( Bill at bedside)
A 12 point ROS was completed and negative except as noted: Yes
Constitutional: Denies Fever, Fatigue or Chills
EENT: Denies Sore Throat or Runny Nose
Respiratory: Denies Cough or Trouble Breathing
Cardiac: Denies Chest Pain, Diaphoresis, Palpitations or Syncope
Abdomen/GI: Denies Abdominal Pain, Nausea, Vomiting, Diarrhea, Constipated, Bloody Stools or Black Stools
: Denies Dysuria, Frequency, Flank Pain, Incontinence or Urgency
Musculoskeletal: Reports Joint Pain (Right ankle secondary to bimalleolar fracture 08/05/2022 is currently in cam boot), Edema (+2 left lower extremity edema with erythema mid tib-fib to just above ankle and also small area on medial aspect of inner
knee) and Other (Current cam boot in place to right lower extremity due to bimalleolar fracture when Velcro undone leg is not swollen there is no underlying erythema rash or skin breakdown)
Skin: Denies Itching or Rash
Neurological: Denies Dizzy, Headache or Weakness
Endocrine: Reports No Symptoms
Hematologic/Lymphatic: Reports No Symptoms
Psych: Reports Calm
Physical Exam
Vital Signs
Vital Signs
Temp Pulse Resp BP Pulse Ox
98.4 F 73 18 114/55 99
09/01/24 14:57 09/01/24 19:28 09/01/24 19:28 09/01/24 19:28 09/01/24 19:28
Physical Exam
General: Comfortable and Conversant; No Fever or Chills
HEENT: NormoCephalic, Anicteric, Moist mucous membranes, PERRLA, Arco Conjunctivae and No Ptosis
Respiratory: Clear; No Wheezes, Rales or Rhonchi
Cardiac: S1/S2, Regular Rhythm and Peripheral Edema (Left lower extremity +2, right lower extremity none due to compressive stocking and Velcro Cam boot x 1 month); No Murmur, Rub, Gallop or Calf Tenderness
Breast: Deferred by me
GI: Soft, Non Tender, Non Distended and Normal Bowel Sounds
Rectal: Deferred by Provider
Genito-urinary: Deferred by me
Musculoskeletal: No Clubbing, No Cyanosis, Edema, Right Lower Extremity (Right ankle bimalleolar fracture) and Other (+2 left lower extremity edema with erythema mid tib-fib to just above ankle and also small area on medial aspect of inner knee); No
Edema, Left Upper Extremity or Edema, Right Upper Extremity
Skin: Warm and Dry; No Jaundice or Ulcers
Neuro: AO x 3 (But forgetful with history of dementia), Nonfocal/grossly intact, Cranial Nerves Intact, No Sensory Deficits and Other (Has current cam boot in place right lower extremity secondary to bimalleolar fracture 08/05/2024 at [facility]); No Slurred Speech, Facial Droop, Tremors or Sedated
Psych: Calm
Laboratory Results
-
09/01/24 17:33
09/01/24 17:33
Laboratory Results
Total Bilirubin 1.5 mg/dl (0.2-1.3) H 09/01/24 17:33
AST 46 U/L (14-36) H 09/01/24 17:33
ALT 19 U/L (0-35) 09/01/24 17:33
Alkaline Phosphatase 118 U/L (38-126) 09/01/24 17:33
Impression/Plan
-
Impression/plan:
Observation MedSurg
Left lower extremity venous stasis dermatitis secondary to decreased diuretic dosage and development of edema
Patient completed 1 month of doxycycline with no improvement in slight erythema to left lower leg above ankle to mid tib-fib and separate area on the medial aspect of the inner knee
-She had stopped her Eliquis approximately 1 month ago by [facility] for unclear reasons
-Ultrasound of left lower extremity is negative for DVT
-She has been wearing a cam boot to her right lower extremity with compressive sock x 1 month due to fracture of the ankle there is no swelling to this leg due to compressive therapy
-Discussed we will apply a Tubigrip size G to help with compression of fluid retention in her left lower extremity and she needs to wear these daily, patient's Bill was advised where to purchase Tubigrip's
-I recorded a video on patient's phone of how to put on Tubigrip's since her will be placing them and he went home for the evening
-Patient reports relief of tension in her left leg once Tubigrip was applied
#Current Right ankle bimalleolar fracture 08/05/2024 [facility]
-Is in current cam boot 24 hours with compressive sock underneath
-Has appointment September 09 8:30 AM with Sanjeev Adams at [facility]
#Hx of ZAVALETA cirrhosis
#Hx hepatic encephalopathy secondary to noncompliance with medication for ZAVALETA with cirrhosis with lactic acidosis-06/2024
-Continue Xifaxan 550 mg p.o. twice daily, ciprofloxacin 500 mg at bedtime SBP prophylaxis
#Hyperammonemia
Ammonia 73 > from 29 on 06/28/2024-was as high as 300 06/27/2024
-Continue lactulose 45 mL p.o. 3 times daily patient missed 2 doses today reports has been taking daily and not missing
#Chronic pancytopenia due to Zavaleta cirrhosis
WBC 2.9, Hgb 7.2, PLT 63-all near baseline since June
Absolute neutrophil count 1.8
Hgb 7.2 was 7.6 on 06/28/2024 prior 8-8.8 May and June 2024
-Patient denies any hematuria or rectal bleeding
#SARI on CKD 3 presumed
Creat 2.2 reported baseline 1.5�1.7 per medical records
-Patient had spironolactone decreased from 50bid to 25 mg daily and torsemide 20 mg twice daily to 20 mg daily 3 weeks ago by nephrology at [facility]
-Follow BMP
-Recommend follow-up with nephrology at [facility]
#GERD
-Continue Protonix 40 mg daily
#Paroxysmal A-fib
-Patient is no longer on Eliquis as of 1 month ago states it was stopped at [place] he believes she was on it for prior portal vein thrombosis
#Portal vein thrombosis Hx
-Was on prior Eliquis 5 mg twice daily until July 2024 when it was stopped at [facility] for unclear reasons
-Obtain records from [facility] July 2024 admission including consults reason for Eliquis being stopped
#Hx dementia
-Continue memantine 5 mg twice daily
#Anxiety/depression
-Continue Seroquel 25 mg at bedtime
#Hypothyroidism-continue levothyroxine 25 mcg p.o. daily
#Chronic ambulatory dysfunction uses walker at baseline
PT/OT consult
#Class I obesity due to excess calorie consumption�BMI 30.9
-Affects all aspects of care
-Weight loss recommended
DVT prophylaxis
Subcu heparin
Full code
--- NOTE | 2024-09-01 21:05 | W.PN.UPDATE ---
Update Note
Progress Note Update
This is an addendum to the H&P written by Adriana Correa on 09/01/2024. Patient seen and examined independently with DIRECTOR SERVICE.
68-year-old female past medical history of Henderson cirrhosis on transplant list at [place], esophageal dysmotility/achalasia, ulcerative colitis, hepatic encephalopathy, CKD, paroxysmal atrial fibrillation, portal vein thrombosis, hypertension, GERD,
anxiety/depression, dementia, fibromyalgia, diabetes, hypothyroidism, presenting for bilateral cellulitis. She was treated with doxycycline for 1 month.
Few weeks ago her diuretics were decreased due to worsening kidney disease. Since then she has had increased lower extremity edema. Compression stockings recommended. No further antibiotics recommended. Patient should follow-up with her
outpatient anesthesiologist and critical care for kidney disease.
Patient broke her ankle on August 05 and is wearing CAM boot.
[2024-09-01 21:54] VITALS: BP 122/50
[2024-09-02 00:39] VITALS: BP 138/58; BMI 30.2
[2024-09-02 00:42] VITALS: BP 138/78; BMI 30.2
--- NOTE | 2024-09-02 00:51 | PTCARENOTE ---
Addendum entered by Kai Valdez RN 09/02/24 00:54:
oriented to room- pt agrees to use call lay for assistance
Original Note:
admitted to 1142-2- ax3 clear lungs hr regular with a murmer- vitals pox wnl- wearing a cast on her rt leg due to fx in July- b/l legs are red/warm plus 1 edema-
[2024-09-02] MEDS: ROXICODONE 10 MG PO (06:02)
[2024-09-02 06:21] LABS: % Basophils 0.7 % (0-2); % Immature Granulocytes 0.3 % (0-0.5); % Lymphocytes 22.7 % (20.5-51.1); % Monocytes 16.1 % (1.7-9.3); % Neutrophils 57.2 % (42.2-75.2); Absolute Eosinophils 0.1 10^3/uL (0-0.7); Absolute Lymphocytes 0.7 10^3/uL (1.2-3.4); Absolute Monocytes 0.5 10^3/uL (0.1-0.6); Absolute Neutrophils 1.7 10^3/uL (1.4-6.5); Hematocrit 23.5 % (37.0-47.0); Hemoglobin 7.7 g/dL (12.0-16.0); Mean Corp Hgb Conc. 32.8 g/dL (33.0-37.0); Mean Corpuscular Hgb 32.1 pg (27.0-31.0); Mean Corpuscular Volume 97.9 fL (81.0-99.0); Mean Platelet Volume 11.4 fL (7.4-10.4); Nucleated Red Blood Cells % 0 %; Platelet Count 75 10^3/uL (130-400); Red Cell Dist. Width 19.4 % (11.5-14.5)
[2024-09-02 06:33] LABS: Blood Urea Nitrogen 26 mg/dl (7-17); Calcium 8.4 mg/dl (8.4-10.2); Carbon Dioxide 28 mmol/L (22-30); Chloride 104 mmol/L (98-107); Estimated Creatinine Clearance 24 ml/min; Glucose 90 mg/dl (70-99); Potassium 4.4 mmol/L (3.5-5.1); Sodium 137 mmol/L (135-145); eGFR 23.97
[2024-09-02 07:00] VITALS: BP 131/78
[2024-09-02] MEDS: HEPARIN 5000 UNITS SC (08:34)
--- NOTE | 2024-09-02 08:35 | W.PN.HOSP.TC ---
Today's Communication/Plan
-
Discharge today
Assessment / Plan
Assessment / Plan
68-year-old female past medical history of Zavaleta cirrhosis on transplant list at [place], esophageal dysmotility/achalasia, ulcerative colitis, hepatic encephalopathy, CKD, paroxysmal atrial fibrillation, portal vein thrombosis, hypertension, GERD,
anxiety/depression, dementia, fibromyalgia, diabetes, hypothyroidism, presenting for bilateral cellulitis. She was treated with doxycycline for 1 month.
Few weeks ago her diuretics were decreased due to worsening kidney disease. Since then she has had increased lower extremity edema. Compression stockings recommended. No further antibiotics recommended. Patient should follow-up with her
outpatient base cloth inspector for kidney disease.
Patient broke her ankle on August 05 and is wearing CAM boot.
Left lower extremity venous stasis dermatitis secondary to decreased diuretic dosage and development of edema
Patient completed 1 month of doxycycline with no improvement in slight erythema to left lower leg above ankle to mid tib-fib and separate area on the medial aspect of the inner knee
-She had stopped her Eliquis approximately 1 month ago by [facility] for unclear reasons
-Ultrasound of left lower extremity is negative for DVT
-She has been wearing a cam boot to her right lower extremity with compressive sock x 1 month due to fracture of the ankle there is no swelling to this leg due to compressive therapy
-Continue Tubigrip size G to help with compression of fluid retention in her left lower extremity and she needs to wear these daily, patient's Bill was advised where to purchase Tubigrip's
-Medically stable for discharge today
#Current Right ankle bimalleolar fracture 08/05/2024 [facility]
-Is in current cam boot 24 hours with compressive sock underneath
-Has appointment September 09 8:30 AM with [facility] Ortho at [facility]
#Hx of ZAVALETA cirrhosis
#Hx hepatic encephalopathy secondary to noncompliance with medication for ZAVALETA with cirrhosis with lactic acidosis-06/2024
-Continue Xifaxan 550 mg p.o. twice daily, ciprofloxacin 500 mg at bedtime SBP prophylaxis
#Hyperammonemia
Ammonia 73 > from 29 on 06/28/2024-was as high as 300 06/27/2024
-Continue lactulose 45 mL p.o. 3 times daily
#Chronic pancytopenia due to Zavaleta cirrhosis
WBC 2.9, Hgb 7.2, PLT 63-all near baseline since June
Absolute neutrophil count 1.8
Hgb 7.2 was 7.6 on 06/28/2024 prior 8-8.8 May and June 2024
-Patient denies any hematuria or rectal bleeding
#SARI on CKD 3 presumed
Creat 2.2 reported baseline 1.5�1.7 per medical records
-Patient had spironolactone decreased from 50 mg bid to 25 mg daily and torsemide 20 mg twice daily to 20 mg daily 3 weeks ago by nephrology at [facility]
-Recommend follow-up with nephrology at [facility]
#GERD
-Continue Protonix 40 mg daily
#Paroxysmal A-fib
-Patient is no longer on Eliquis as of 1 month ago states it was stopped at [place] he believes she was on it for prior portal vein thrombosis
#Portal vein thrombosis Hx
-Was on prior Eliquis 5 mg twice daily until July 2024 when it was stopped at [facility] for unclear reasons
#Hx dementia
-Continue memantine 5 mg twice daily
#Anxiety/depression
-Continue Seroquel 25 mg at bedtime
#Hypothyroidism-continue levothyroxine 25 mcg p.o. daily
#Chronic ambulatory dysfunction uses walker at baseline
PT/OT -patient is independent
#Class I obesity due to excess calorie consumption�BMI 30.9
-Affects all aspects of care
-Weight loss recommended
DVT prophylaxis - Subcu heparin
Full code
Physical Exam
General: No acute distress
HEENT: Normocephalic, Atraumatic, EOMI, MMM
Respiratory: Clear to Auscultation bilaterally
Cardiac: Normal S1/S2, Regular Rate and Rhythm
GI: Soft, Nontender, Nondistended, Normal Bowel Sounds
Extremities: No Clubbing, Cyanosis, or Edema
Neuro: Nonfocal/Grossly Intact
Psych: Calm, Cooperative
Derm: No Visible lesions
Anticipated Discharge: Today
Subjective/Interval History
-
Date of Service: September 02, 2024
Patient complains of feeling itchy. She denies chest pain, denies shortness of breath. She has chronic abdominal pain. Had some nausea, no vomiting. No fever.
Objective Data
-
Labs:
Laboratory Results
09/02/24
05:31
WBC 3.0 L
Hgb 7.7 L
Hct 23.5 L
Plt Count 75 L
Sodium 137
Potassium 4.4
Chloride 104
Carbon Dioxide 28
BUN 26 H
Creatinine 2.2 H
Glucose 90
Calcium 8.4
Vital Signs:
Vital Signs
Temp Pulse Resp BP Pulse Ox
98.0 F 74 18 131/78 96
09/02/24 07:00 09/02/24 07:00 09/02/24 07:00 09/02/24 07:00 09/02/24 07:00
I&O
09/01/24 09/02/24 09/03/24
06:59 06:59 06:59
Intake Total 700 / 700
Balance 700 / 700
[2024-09-02 09:45] VITALS: BP 113/46; PULSE 81; O2SAT 96
[2024-09-02] MEDS: FEOSOL 325 MG PO (10:14)
[2024-09-02] MEDS: XIFAXAN 550 MG PO (10:14)
[2024-09-02] MEDS: PROTONIX 40 MG PO (10:14)
[2024-09-02] MEDS: BUSPAR 10 MG PO (10:15)
[2024-09-02] MEDS: DUPHALAC/CHRONULAC 45 GRAMS PO (10:15)
[2024-09-02] MEDS: ALDACTONE 25 MG PO (10:15)
[2024-09-02] MEDS: DEMADEX 20 MG PO (10:16)
[2024-09-02 11:02] VITALS: BP 113/46; PULSE 81; O2SAT 96
--- NOTE | 2024-09-02 11:15 | W.DCSUMMARY ---
Discharge Summary
Discharge Data
Date of Admission: 09/01/24
Date of Discharge: 09/02/24
-
Pending Results: No
Hospital Course
Discharge diagnosis:
Bilateral lower extremity venous stasis dermatitis and edema secondary to decreased diuretic dosage, left greater than right
Right ankle fracture on 08/05/2024 using compressive sock and CAM boot
Cirrhosis
Chronic pancytopenia
Stage III chronic kidney disease
Gastroesophageal reflux disease
Paroxysmal atrial fibrillation no longer on Eliquis for unclear reasons
History of portal vein thrombosis
Dementia, unclear type
Anxiety/depression
Hypothyroidism
Chronic ambulatory dysfunction
B/l LE US:
No evidence of right or left lower extremity deep venous thrombosis.
Hospital course:
68-year-old female with a past medical history of Henderson cirrhosis on transplant list at [place], esophageal dysmotility/achalasia, ulcerative colitis, hepatic encephalopathy, CKD, paroxysmal atrial fibrillation, portal vein thrombosis,
hypertension, GERD, anxiety/depression, dementia, fibromyalgia, diabetes, and hypothyroidism, presented with concerns for bilateral cellulitis. She was treated with doxycycline for 1 month without improvement. Patient recently broke her right
ankle and is currently wearing a compression sock and CAM boot on the right side. She has bilateral lower extremity edema, worse on the left since she is using the compressive sock and CAM boot on the right. She also has gravity dependent rubor
and venous stasis dermatitis. Her diuretics were recently decreased secondary to worsening chronic kidney disease. She does not have cellulitis. She was afebrile, there was no leukocytosis. She was treated with Tubigrips on the left side.
Of note, patient used to be on Eliquis for portal vein thrombosis and paroxysmal atrial fibrillation. She was recently hospitalized at [facility] in July 2024, and her Eliquis was discontinued. It is unclear why.
Patient was counseled to wear Tubigrips on her left leg, and as well as the compressive sock on the right leg. Patient was seen in conjunction with PT, and is independent. She is medically stable for discharge. She needs to follow-up with her
primary care doctor in 1 week.
Disposition: Home self-care
Discharge planning: Required 40 minutes
Discharge Plan
-
Patient Disposition: Home with Home Care
Discharge Diagnosis/Procedures: Bilateral lower extremity edema, left greater than right, cirrhosis, chronic kidney disease
Condition: Fair
Diet: 2 Gram Sodium and Restrict fluids to 64 oz
Additional Diets: Protein shakes
Activity Restrictions/Additional Instructions:
Please eat more protein, you may drink a protein shake twice a day.
Increasing your protein will decrease your swelling.
Continue to use compression stockings to help with your leg swelling.
Also continue taking all your medications including your lactulose as scheduled.
Please avoid all [id number] NSAID medications such as ibuprofen, naproxen, Aleve, Motrin, Advil.
These medications will worsen your kidney function.
Follow-up with your primary care doctor in 1 week.
Referrals:
Malu Wilson DO [Family Provider] - in one week
Prescriptions:
Continued
atorvastatin 20 mg tablet
20 mg PO HS
levothyroxine 25 mcg tablet
25 mcg PO DAILY
pantoprazole [Protonix] 40 mg Tablet,Delayed Release (Dr/Ec)
40 mg PO DAILY
ondansetron HCl 8 mg tablet
8 mg PO TID
quetiapine [Seroquel] 25 mg Tablet
25 mg PO HS
rifaximin 550 mg Tablet
550 mg PO BID
memantine 5 mg Tablet
5 mg PO BID
lactulose 10 gram/15 mL solution
45 ml PO TID
buspirone 10 mg Tablet
10 mg PO TID
ergocalciferol (vitamin D2) 1,250 mcg (50,000 unit) Capsule
1,250 mcg PO WE
oxycodone 10 mg Tablet
10 mg PO TIDPRN PRN (Reason: severe pain)
torsemide 20 mg Tablet
20 mg PO DAILY
ciprofloxacin HCl 500 mg Tablet
500 mg PO NOON
ferrous sulfate 325 mg (65 mg iron) Tablet
325 mg PO DAILY
famotidine 40 mg Tablet
40 mg PO DAILY
spironolactone 25 mg Tablet
25 mg PO DAILY
Discharge Orders:
Discharge Patient (As Directed); Ordered 09/02/24
Ordered By: Miguel Pa
Discharge Date and Time
Discharge Date/Time: 09/02/24 16:21
Print Language: ROMANSH
[2024-09-02] MEDS: CIPRO 500 MG PO (11:17)
[2024-09-02] MEDS: ATARAX 25 MG PO (11:17)
--- NOTE | 2024-09-02 12:02 | PTOTSP ---
Patient demonstrates safe and independent mobility with her own rollator, wearing CAM boot due to recent R ankle fx, no skilled physical therapy needs at this time.
[2024-09-02 12:04] LABS: Glucose - Point of Care 182 mg/dl (70-99)
[2024-09-02 15:00] VITALS: BP 116/86
== END 2024-09-02 16:21 | disposition home health service (06) ==
LOC: 1 ACUTE 21:35
PROVIDERS: Clinical Nurse Specialist Family Health; ADMITTING PHYSICIAN Hospitalist; ATTENDING PHYSICIAN Family Medicine; EMERGENCY PHYSICIAN Emergency Medicine; FAMILY PHYSICIAN Internal Medicine
DX: M79.605 Pain in left leg (principal); K74.60 Unspecified cirrhosis of liver; I48.0 Paroxysmal atrial fibrillation; K21.9 Gastro-esophageal reflux disease without esophagitis; E78.00 Pure hypercholesterolemia, unspecified; M79.7 Fibromyalgia; I81 Portal vein thrombosis; K31.84 Gastroparesis; E11.43 Type 2 diabetes mellitus with diabetic autonomic (poly)neuropathy; E03.9 Hypothyroidism, unspecified; I12.9 Hypertensive chronic kidney disease with stage 1 through stage 4 chronic kidney disease, or unspecified chronic kidney disease; E11.36 Type 2 diabetes mellitus with diabetic cataract; K51.90 Ulcerative colitis, unspecified, without complications; I87.2 Venous insufficiency (chronic) (peripheral); N17.9 Acute kidney failure, unspecified; E66.09 Other obesity due to excess calories; E11.22 Type 2 diabetes mellitus with diabetic chronic kidney disease; N18.32 Chronic kidney disease, stage 3b; K75.81 Nonalcoholic steatohepatitis (NASH); D61.818 Other pancytopenia; E66.811 Obesity, class 1; R18.8 Other ascites; F11.20 Opioid dependence, uncomplicated; Z76.82 Awaiting organ transplant status; Z87.891 Personal history of nicotine dependence; Z90.710 Acquired absence of both cervix and uterus; Z90.721 Acquired absence of ovaries, unilateral; Z90.49 Acquired absence of other specified parts of digestive tract; Z98.84 Bariatric surgery status; Z88.1 Allergy status to other antibiotic agents; Z91.030 Bee allergy status; Z91.040 Latex allergy status; Z88.0 Allergy status to penicillin; Z88.2 Allergy status to sulfonamides; Z88.8 Allergy status to other drugs, medicaments and biological substances; Z91.018 Allergy to other foods; Z79.890 Hormone replacement therapy; Z68.30 Body mass index [BMI] 30.0-30.9, adult
CPT/HCPCS: 80048; 80053; 82140; 82962; 85025; 93970; 97161; 97165; 99285; G0378

== ENCOUNTER 2024-12-21 21:52 | Emergency (ER) | payer MEDICARE, OTHER, SELFPAY ==
[2024-12-21 21:52] VITALS: BMI 30.9
[2024-12-21 21:55] VITALS: BP 92/63
[2024-12-21 22:49] VITALS: BP 116/50
[2024-12-21 22:59] LABS: Hematocrit 20.5 % (37.0-47.0); Hemoglobin 7.1 g/dL (12.0-16.0); Mean Corp Hgb Conc. 34.6 g/dL (33.0-37.0); Mean Corpuscular Hgb 32.3 pg (27.0-31.0); Mean Corpuscular Volume 93.2 fL (81.0-99.0); Red Cell Dist. Width 19.1 % (11.5-14.5); White Blood Cell Count 3.8 10^3/uL (4.8-10.8)
[2024-12-21 23:00] VITALS: BP 109/50
[2024-12-21 23:00] LABS: % Basophils 0.5 % (0-2); % Eosinophils 3.7 % (0-6); % Immature Granulocytes 0.5 % (0-0.5); % Lymphocytes 11.4 % (20.5-51.1); % Monocytes 10.8 % (1.7-9.3); % Neutrophils 73.1 % (42.2-75.2); Absolute Eosinophils 0.1 10^3/uL (0-0.7); Absolute Lymphocytes 0.4 10^3/uL (1.2-3.4); Absolute Monocytes 0.4 10^3/uL (0.1-0.6); Absolute Neutrophils 2.8 10^3/uL (1.4-6.5); Nucleated Red Blood Cells % 0 %
[2024-12-21 23:03] LABS: INR 1.97; PT 22.6 Sec (11.4-14.6)
[2024-12-21 23:09] LABS: ALT (SGPT) 27 U/L (0-35); AST (SGOT) 41 U/L (14-36); Albumin 2.8 g/dl (3.5-5.0); Alkaline Phosphatase 100 U/L (38-126); Blood Urea Nitrogen 50 mg/dl (7-17); Calcium 8.8 mg/dl (8.4-10.2); Carbon Dioxide 19 mmol/L (22-30); Chloride 111 mmol/L (98-107); Estimated Creatinine Clearance 19 ml/min; Glucose 156 mg/dl (70-99); Lipase 85 U/L (23-300); Potassium 4.3 mmol/L (3.5-5.1); Sodium 138 mmol/L (135-145); Total Protein 5.6 g/dl (6.3-8.2); eGFR 18.63
--- NOTE | 2024-12-21 23:56 | ED.GENMED ---
History of Present Illness
General
Chief Complaint: Swelling
Source: patient
Exam Limitations: none
Time Seen by Provider: 12/21/24 23:27
History of Present Illness
History of Present Illness:
Patient here primarily for concern of increased leg swelling and bruising. Started 2 to 3 days ago. She stopped her Aldactone about a month ago because of renal issues. She denies chest pain shortness of breath fever abdominal pain or any other
complaints. She feels well otherwise. She has a history of Zavaleta cirrhosis. She is on the transplant list but they feel she would need a live donor and also need a renal transplant at this time
Past History
Past History
ED Past Medical History: Arrthythmia (Paroxysmal atrial fibrillation), Fibromyalgia, GERD, HTN, Hypercholesterolemia, NIDDM, Hypothyroidism, Psychiatric (Anxiety), Other (Gastroparesis, chronic gastritis, ZAVALETA, esophageal dysmotility/achalasia,
Ulcerative colitis, Migraines, neck pain, IBS, anemia, Dizziness Hepatic encephalopathy. Cirrhosis of the liver, IBS, ) and Other (Portal vein thrombosis); Negative CAD
ED Past Surgical History: Appendectomy, Bowel resection, Cholecystectomy, Gynecological (Total Hysterectomy, Oophorectomy), Orthopedic (right wrist surgery, Left ankle surgery) and Other (Meckel's diverticulum, gastric bypass Jun 27, 2021,
cataracts,)
Patient has exhibited threatening behavior?: No
PSI?: No
Social History
Tobacco: Former smoker
Alcohol: None
Drug: None
Personal:
Living: with family
Employment: Retired
Family History
Family History: Other ([place])
Review of Systems
Review of Systems
All Other Systems: Not applicable
Constitutional: Denies fever or chills
Respiratory: Reports no symptoms
Cardiac: Reports no symptoms
Phy Exam
Physical Exam
Physical Exam:
GENERAL: Alert and oriented in no apparent distress
EYE: Orbits normal.
NECK: Supple, no significant adenopathy.
CARDIAC: Regular rate and rhythm without any obvious murmurs.
LUNGS: Clear breath sounds,normal
ABDOMEN: Soft, without focal tenderness or distention
NEUROLOGICAL: Alert and oriented , grossly non-focal
SKIN: Warm and dry. No upper extremity bruising or other abnormal bruising
MUSCULOSKELETAL: Moderate bilateral lower extremity edema. Isolated areas of ecchymosis near the toes to the left foot and left lateral calf. No severe ecchymosis no petechia or purpura
PSYCH: Normal and appropriate interaction.
Scores
Heart Failure Risk
Heart Failure Risk Score: Not Applicable
Course
Orders/Labs/Results
Orders:
Orders
12/21/24 22:44
IV Insert/Care/Rem.- Treatment PRN
12/21/24 22:47
Complete Blood Count/With Diff Urgent
Comprehensive Metabolic Panel Urgent
INR [Prothrombin Time] Urgent
Lipase Urgent
12/21/24 23:35
CXR2 [CR Chest - 2 Views ] Urgent
Comment:
Reason For Exam: edema
Abnormal Lab Results
12/21/24
22:47
WBC 3.8 L 10^3/uL
(4.8-10.8)
RBC 2.20 L 10^6/uL
(4.20-5.40)
Hgb 7.1 L g/dL
(12.0-16.0)
Hct 20.5 L* %
(37.0-47.0)
MCH 32.3 H pg
(27.0-31.0)
RDW 19.1 H %
(11.5-14.5)
Plt Count 64 L 10^3/uL
(130-400)
MPV 11.3 H fL
(7.4-10.4)
Absolute Lymphs (auto) 0.4 L 10^3/uL
(1.2-3.4)
Lymphocytes % 11.4 L %
(20.5-51.1)
Monocytes % 10.8 H %
(1.7-9.3)
PT 22.6 H Sec
(11.4-14.6)
Chloride 111 H mmol/L
(98-107)
Carbon Dioxide 19 L mmol/L
(22-30)
BUN 50 H mg/dl
(7-17)
Creatinine 2.7 H mg/dL
(0.6-1.0)
Glucose 156 H mg/dl
(70-99)
Total Bilirubin 2.0 H mg/dl
(0.2-1.3)
AST 41 H U/L
(14-36)
Total Protein 5.6 L g/dl
(6.3-8.2)
Albumin 2.8 L g/dl
(3.5-5.0)
12/21/24 22:47
12/21/24 22:47
Vital Signs
Initial and Last Documented VS:
Initial Vital Signs
Temp Pulse Resp BP Pulse Ox
98.2 F 88 20 92/63 99
12/21/24 21:55 12/21/24 21:55 12/21/24 21:55 12/21/24 21:55 12/21/24 21:55
Last Documented Vital Signs
Temp Pulse Resp BP Pulse Ox
98.2 F 73 14 119/55 98
12/21/24 21:55 12/22/24 00:15 12/22/24 00:15 12/22/24 00:00 12/22/24 00:15
MDM/Problems Addressed
Differential Diagnosis Includes:
Patient here primarily for bilateral leg edema and concern for bruising. Bruising appears to be simple ecchymosis. She has no other abnormal acute bleeding issues. No melena no bloody stools no petechia or purpura no unusual upper extremity
bruising. Platelet count is pending. Hemoglobin is low but stable. White count is reasonable. Slight bump in creatinine. No respiratory distress. Chest x-ray is negative. Full review with the GI physicians at [facility]
*Radiology
Radiology exam reviewed: preliminary read by ED provider (neg)
*Critical Care Note
Total Time (30-74mins, 75-104mins- exclusive of procedures): Not Applicable
ED Attending Note
-
Portions of this chart may have been created with voice recognition software.� Occasional wrong word or��sound alike� substitutions may have occurred due to the inherent limitations of voice recognition software.
Discharge Plan
Departure
Patient Disposition: Home (Routine Discharge)
Date of Disposition: 12/22/24
Time of Disposition: 00:32
Patient with high blood pressure during this ER visit?: No
Discharge Problem:
Lower extremity edema, Renal insufficiency, Chronic anemia, Thrombocytopenia, History of Zavaleta
Instructions: Dependent Edema (DC)
Prescriptions:
No Action
atorvastatin 20 mg tablet
20 mg PO HS
levothyroxine 25 mcg tablet
25 mcg PO DAILY
pantoprazole [Protonix] 40 mg Tablet,Delayed Release (Dr/Ec)
40 mg PO DAILY
ondansetron HCl 8 mg tablet
8 mg PO TID
quetiapine [Seroquel] 25 mg Tablet
25 mg PO HS
rifaximin 550 mg Tablet
550 mg PO BID
memantine 5 mg Tablet
5 mg PO BID
lactulose 10 gram/15 mL solution
45 ml PO TID
buspirone 10 mg Tablet
10 mg PO TID
ergocalciferol (vitamin D2) 1,250 mcg (50,000 unit) Capsule
1,250 mcg PO WE
oxycodone 10 mg Tablet
10 mg PO TIDPRN PRN (Reason: severe pain)
torsemide 20 mg Tablet
20 mg PO DAILY
ciprofloxacin HCl 500 mg Tablet
500 mg PO NOON
ferrous sulfate 325 mg (65 mg iron) Tablet
325 mg PO DAILY
famotidine 40 mg Tablet
40 mg PO DAILY
spironolactone 25 mg Tablet
25 mg PO DAILY
Referrals:
NONE,* [Family Provider] -
Activity Restrictions/Additional Instructions:
Call your specialist in the morning.
Issues to discuss or whether to start a diuretic for your leg edema. Your creatinine has bumped up slightly based on our last labs.
Your hemoglobin is stable but near needing a transfusion. I would recommend getting a repeat hemoglobin checked in 3 to 4 days
Return sooner with any concerns including increased swelling pain fever shortness of breath or any other concerning symptoms
Interventions
Interventions:
*General Assessment Last Done: 12/21/24 21:55
ED- Cardiac Assessment Last Done: 12/21/24 22:39
ED- Pulmonary Assessment Last Done: 12/21/24 22:39
ED-Skin Assessment Last Done: 12/21/24 22:39
Discharge Date and Time
Print Language: UPPER SORBIAN
[2024-12-22] VITALS: BP 119/55
[2024-12-22 00:12] LABS: Mean Platelet Volume 11.3 fL (7.4-10.4); Platelet Count 64 10^3/uL (130-400)
[2024-12-22 00:13] LABS: Normal RBC Morphology No
[2024-12-22 00:14] LABS: Anisocytosis 1+; Hypochromasia 1+; Ovalocytes 1+; Target Cells 1+; Tear Drop Red Blood Cells Slight
[2024-12-22 00:15] LABS: Rouleaux Slight
== END 2024-12-22 01:19 | disposition home or self-care (01) ==
LOC: EMR 21:52
PROVIDERS: EMERGENCY PHYSICIAN Emergency Medicine
DX: R60.0 Localized edema (principal); N28.9 Disorder of kidney and ureter, unspecified; D64.9 Anemia, unspecified; D69.6 Thrombocytopenia, unspecified; Z87.19 Personal history of other diseases of the digestive system; E03.9 Hypothyroidism, unspecified; E78.00 Pure hypercholesterolemia, unspecified; I10 Essential (primary) hypertension; E11.9 Type 2 diabetes mellitus without complications; K74.60 Unspecified cirrhosis of liver; Z87.891 Personal history of nicotine dependence; Z90.49 Acquired absence of other specified parts of digestive tract; Z90.710 Acquired absence of both cervix and uterus; Z98.84 Bariatric surgery status; Z98.890 Other specified postprocedural states
CPT/HCPCS: 99284; 71046; 80053; 83690; 85025; 85610

== ENCOUNTER 2024-12-25 16:35 | Inpatient (IN) | payer MEDICARE, OTHER, SELFPAY ==
[2024-12-25] VITALS (25 sets, daily range): BP systolic 110–135; BP diastolic 49–83; BMI 30.6
[2024-12-25 10:07] LABS: Glucose - Point of Care 326 mg/dl (70-99)
--- NOTE | 2024-12-25 11:06 | ED.GENMED ---
History of Present Illness
General
Chief Complaint: Swelling
Source: patient
Exam Limitations: none
Time Seen by Provider: 12/25/24 11:03
Nursing documentation reviewed up to this point in time: agreed with
History of Present Illness
History of Present Illness:
Patient is a 61-year-old female with past medical history of chronic kidney disease stage III, cirrhosis reflux paroxysmal A-fib followed by at [facility] presents to the ER for evaluation. Patient lives at home with and daughter
pariss patient was very weak and confused today. Patient feels that she is confused and generally weak. She felt fine yesterday. Daughter reports she did give her an extra dose of lactulose last night but that has not helped. Patient denies any
fever or chills. She denies any abdominal pain. She is on prophylactic Cipro to prevent spontaneous bacterial peritonitis. She denies any urinary frequency or urgency. She denies black or dark stools. She does complain of increasing swelling to
lower extremities.
Past History
Past History
ED Past Medical History: Arrthythmia (Paroxysmal atrial fibrillation), Fibromyalgia, GERD, HTN, Hypercholesterolemia, NIDDM, Hypothyroidism, Psychiatric (Anxiety), Other (Gastroparesis, chronic gastritis, ZAVALETA, esophageal dysmotility/achalasia,
Ulcerative colitis, Migraines, neck pain, IBS, anemia, Dizziness Hepatic encephalopathy. Cirrhosis of the liver, IBS, ) and Other (Portal vein thrombosis); Negative CAD
ED Past Surgical History: Appendectomy, Bowel resection, Cholecystectomy, Gynecological (Total Hysterectomy, Oophorectomy), Orthopedic (right wrist surgery, Left ankle surgery) and Other (Meckel's diverticulum, gastric bypass Jun 27, 2021,
cataracts,)
Patient has exhibited threatening behavior?: No
PSI?: No
Social History
Tobacco: Former smoker
Alcohol: None
Drug: None
Personal:
Living: with family
Employment: Retired
Family History
Family History: Other ([place])
Review of Systems
Review of Systems
Allergies reviewed?: Yes
Other source history: family
All Other Systems: ROS reviewed and negative except as documented in HPI and ROS
Constitutional: Reports fatigue; Denies fever or chills
EENT: Reports no symptoms
Respiratory: Reports no symptoms
Cardiac: Reports no symptoms; Denies palpitations
ABD/GI: Reports no symptoms; Denies abdominal pain, nausea or vomiting
: Reports no symptoms
Musculoskeletal: Reports no symptoms
Skin: Reports no symptoms
Neurological: Reports no symptoms
Psychiatric: Reports no symptoms
Phy Exam
General Physical Exam
General Presentation: no apparent distress
General age: appears stated age
General Skin: warm and dry
General Habitus: normal
General Mental: alert
General Hydration: dry mucous membranes
Cardiovascular Exam
Cardiovascular Exam: regular rate/rhythm, no murmur and normal peripheral pulses
Pulmonary Exam
Pulmonary Exam: lungs clear and no respiratory distress
Gastrointestinal Exam
Gastrointestinal Exam: normal bowel sounds, non tender, soft and other (abd soft non tender : brown stool heme negative )
Neurological Exam
Neurological Exam: alert and oriented x3
Musculoskeletal Exam
Musculoskeletal Exam: full ROM
Skin Exam
Skin Exam: normal color and warm/dry
Psychiatric Exam
Psychiatric Exam: normal mood/affect
Scores
Heart Failure Risk
Heart Failure Risk Score: Not Applicable
Course
Orders/Labs/Results
Orders:
Orders
12/25/24 11:24
CT Head W/o Iv Contrast Urgent
Comment:
Reason For Exam: confusion
12/25/24 11:25
IV Insert/Care/Rem.- Treatment PRN
0.9% Sodium Chloride 500 ml [Nss] 500 ml IV BOLUS
12/25/24 11:26
Electrocardiogram (*1) Stat
Reason for Study: Other
Other Reason for Exam: chest pain
Cardiac Monitoring- Treatment ONCE
EKG- Treatment ONCE
12/25/24 11:46
Ammonia Urgent
Complete Blood Count/With Diff Urgent
12/25/24 11:47
Comprehensive Metabolic Panel Urgent
12/25/24 11:48
COVID-19 Antigen Urgent
Source: Nasal Swab
Influenza A+B Rapid Molecular Urgent
SHAUNA Source: Nasal Swab
Specimen Description:
12/25/24 12:17
Heparin Pf [Heparin Lock Flush] 500 unit .ROUTE .STK-MED ONE
12/25/24 12:20
* Blood Bank Products Urgent
's Orders: Carole/zhanna
Blood Bank Products: *Packed RBC Leuko(PRBC's)
Quantity: 2
Transfuse Today: Yes
Reason: Anemia
12/25/24 12:24
Type+Screen Urgent
PTT Urgent
Prothrombin Time Urgent
12/25/24 13:46
UA Reflex to Culture [Urinalysis Reflex To Culture] Urgent
Date Specimen was Collected: 12/25/24
Time Specimen was Collected: 13:43
Urine Creatinine Urgent
Date Specimen was Collected: 12/25/24
Time Specimen was Collected: 13:43
Comment: ADD ON
Urine Microscopic Reflex Cult Urgent
Urine Sodium Urgent
Date Specimen was Collected: 12/25/24
Time Specimen was Collected: 13:43
Comment: ADD ON
Urine Culture Urgent
SHAUNA Source: U
Specimen Description:
Date Specimen was Collected: 12/25/24
Time Specimen was Collected: 13:43
12/25/24 15:58
Admit/Transfer Patient As Directed
Co-Sign Provider:
Level of Care: Inpatient admission
Assign to:: Telemetry
Physician / Group: Jasiel Austin
Diagnosis: UTI, SARI on CKD, anemia, GI bleed
Reason for Telemetry: Arrhythmia
Date to Stop Telemetry: 12/28/24
Time to Stop Telemetry: 11:00
Reason for Hospitalization: UTI, SARI on CKD, anemia, GI bleed
Expected length of stay greater than two midnights?: Yes
ELOS- Estimated Length of Stay in days: 3
I certify the patient meets the requirements for IP care: Yes
PRN Pain Medication Management As Directed
May give lesser potent ordered pain med per pt: Yes
preference::
Protocol:: Medication orders for pain may be administered in a
manner that supports deferring to patient preference
when the pt is:
- Requesting an ordered lesser potent pain medication.
Least to most potent pain medications are defined
as: acetaminophen < NSAID < tramadol < opioids
(morphine, oxycodone, hydromorphone).
- Requesting a lesser dose of the same medication IF
ORDERED.
- Requesting a less intrusive route of administration
if both routes are prescribed by the provider (PO <
IV).
12/25/24 16:00
Code Status As Directed
Resuscitation Status: Full Code
12/25/24 16:14
PRN Pain Medication Management As Directed
May give lesser potent ordered pain med per pt: Yes
preference::
Protocol:: Medication orders for pain may be administered in a
manner that supports deferring to patient preference
when the pt is:
- Requesting an ordered lesser potent pain medication.
Least to most potent pain medications are defined
as: acetaminophen < NSAID < tramadol < opioids
(morphine, oxycodone, hydromorphone).
- Requesting a lesser dose of the same medication IF
ORDERED.
- Requesting a less intrusive route of administration
if both routes are prescribed by the provider (PO <
IV).
12/25/24 18:49
H&H Q6H
Oxycodone [Roxicodone] 10 mg PO TIDPRN PRN
Torsemide [Demadex] 20 mg PO QPM
12/25/24 18:49
GASTROINTESTINAL CONSULT Routine
Consulting Provider: Dilia Delacruz
Was physician already notified: Yes
IRAD CONSULT Routine
Consulting Provider: Cuauhtemoc Beck
Was physician already notified: Yes
Reason for Consult/Procedure: paracentesis
Acknowledgement that appropriate orders are entered: Yes
NEPHROLOGY CONSULT Routine
Consulting Provider: Tawana Hopkins
Was physician already notified: Yes
Body Fluid Albumin Routine
Fluid Source: Peritoneal (Ascites)
Body Fluid Amylase Routine
Fluid Source: Peritoneal (Ascites)
Body Fluid Cell Count Routine
What is the Body Fluid: peritoneal fluid
Comment: post procedure
Body Fluid LDH Routine
Fluid Source: Peritoneal (Ascites)
Body Fluid Protein Routine
Fluid Source: Peritoneal (Ascites)
Fluid Culture with Gram Stain Routine
SHAUNA Source: Peritoneal Fluid
Specimen Description:
Comment: Post Procedure
Gram Stain Routine
SHAUNA Source: Peritoneal Fluid
Specimen Description:
Comment: Post Procedure
Activity As Directed
Activity Level: Out of Bed-Early Mobility
INT (Intravenous Needle Therapy) As Directed
Comment: Place 2 IV catheters of the largest bore possible until stable
Orthostatic Vital Signs As Directed
Orthostatic VS Frequency: Now
Comment: then every four hours for twenty-four hours
Pneumatic Compression Sleeves As Directed
Type: Knee high
Vital Signs As Directed
Frequency: Per unit guidelines
Pt Eval And Treat Routine
Activity Level: Out of Bed-Early Mobility
DX Deep Vein Thrombosis Video Routine
12/25/24 20:00
Ferrous Sulfate [Feosol] 325 mg PO BID
Lactulose [Duphalac/Chronulac] 20 grams PO BID
Pantoprazole [Protonix IV] 40 mg IV BID
Pantoprazole [Protonix] 40 mg PO BID
Rifaximin [Xifaxan] 550 mg PO BID
12/25/24 22:00
Atorvastatin [Lipitor] 20 mg PO HS
Buspirone [Buspar] 10 mg PO TID
Methocarbamol 750 mg PO HS
Quetiapine Fumarate [Seroquel] 100 mg PO HS
12/26/24 00:49
H&H Q6H
12/26/24 06:00
Basic Metabolic Panel IN AM
Complete Blood Count/No Diff IN AM
Levothyroxine [Synthroid] 75 mcg PO DAILY @ 0600
12/26/24 08:00
LevoFLOXacin [Levaquin] 250 mg PO DAILY
12/26/24 12:00
Memantine HCl [Namenda] 5 mg PO BID@1200,1900
12/27/24 08:00
Famotidine [Pepcid] 20 mg PO Q48H
12/28/24 11:00
DC Protocol for Telemetry ONCE
12/31/24 19:00
Ergocalciferol [Drisdol (Vitamin D2)] 50,000 units PO WE@1900
Abnormal Lab Results
12/25/24 12/25/24 12/25/24
10:06 11:46 11:47
WBC 3.7 L 10^3/uL
(4.8-10.8)
RBC 2.12 L 10^6/uL
(4.20-5.40)
Hgb 6.9 L* g/dL
(12.0-16.0)
Hct 20.1 L* %
(37.0-47.0)
MCH 32.5 H pg
(27.0-31.0)
RDW 20.0 H %
(11.5-14.5)
Plt Count 67 L 10^3/uL
(130-400)
MPV 11.1 H fL
(7.4-10.4)
Absolute Lymphs (auto) 0.3 L 10^3/uL
(1.2-3.4)
Lymphocytes % 8.8 L %
(20.5-51.1)
Monocytes % 12.6 H %
(1.7-9.3)
PT
APTT
Potassium 5.3 H mmol/L
(3.5-5.1)
Chloride 108 H mmol/L
(98-107)
Carbon Dioxide 19 L mmol/L
(22-30)
BUN 49 H mg/dl
(7-17)
Creatinine 2.7 H mg/dL
(0.6-1.0)
Glucose 187 H mg/dl
(70-99)
Total Bilirubin 1.8 H mg/dl
(0.2-1.3)
AST 47 H U/L
(14-36)
Total Protein 5.7 L g/dl
(6.3-8.2)
Albumin 2.8 L g/dl
(3.5-5.0)
Leukocyte Esterase Rfl
Urine RBC
Urine WBC (Reflex)
Urine Bacteria (Reflex)
Urine Yeast
Urine Sodium
POC Glucose 326 H mg/dl
(70-99)
Crossmatch IS Only
12/25/24 12/25/24
12:24 13:46
WBC
RBC
Hgb
Hct
MCH
RDW
Plt Count
MPV
Absolute Lymphs (auto)
Lymphocytes %
Monocytes %
PT 23.2 H Sec
(11.4-14.6)
APTT 38.7 H Sec
(23.4-35.0)
Potassium
Chloride
Carbon Dioxide
BUN
Creatinine
Glucose
Total Bilirubin
AST
Total Protein
Albumin
Leukocyte Esterase Rfl 3+ A
(Negative)
Urine RBC 3-6 A /HPF
(0-2)
Urine WBC (Reflex) 26-30 A /HPF
(0-5)
Urine Bacteria (Reflex) Moderate A
(Negative)
Urine Yeast Moderate A
(Negative)
Urine Sodium 12 L mmol/L
(30-90)
POC Glucose
Crossmatch IS Only See Detail
12/25/24 11:46
12/25/24 11:47
Vital Signs
Initial and Last Documented VS:
Initial Vital Signs
Temp Pulse Resp BP Pulse Ox
98.3 F 95 16 135/55 100
12/25/24 10:08 12/25/24 10:08 12/25/24 10:08 12/25/24 10:08 12/25/24 10:08
Last Documented Vital Signs
Temp Pulse Resp BP Pulse Ox
98.3 F 74 18 134/59 96
12/25/24 18:42 12/25/24 18:42 12/25/24 18:42 12/25/24 18:42 12/25/24 18:42
MDM/Problems Addressed
Differential Diagnosis Includes:
Not limited to elevate ammonia, infection, anemia, dehydration
MDM/Problems Addressed:
Patient is a 69-year-old male with end-stage liver disease presents for increasing weakness confusion as per daughter. Patient feels very weak she does feel little confused and disoriented. She does have a history of SBP however has no symptoms at
this time. She is on prophylactic Cipro. She denies any abdominal pain there is no tenderness on exam she is afebrile. Denies any fevers. Her white count low at 3.7 her hemoglobin is low at 6.9 rectal exam shows brown stool trace heme positive.
Her INR is 2.0. Her renal function is elevated which is baseline her potassium is 5.3. CT head neg; ammonia level is normal. Patient will need transfusion consent done transfusion ordered.
Urine appears infected we will treat with IV levaquin( ordered by hospitalist ) Patient is on prophylactic Cipro for prevention of SBP however has multiple allergies.
*Radiology
Radiology exam reviewed: radiology read reviewed
*Pulse Oximetry
Patient hypoxic: no
*EKG
Interpretation: normal
Heart Rate: 80
Rate: normal
Rhythm: sinus
Ischemia: no ischemia
*Critical Care Note
Total Time (30-74mins, 75-104mins- exclusive of procedures): Not Applicable
ED Attending Note
-
Portions of this chart may have been created with voice recognition software.� Occasional wrong word or��sound alike� substitutions may have occurred due to the inherent limitations of voice recognition software.
Discharge Plan
Departure
Patient Disposition: Admit
Date of Disposition: 12/25/24
Time of Disposition: 14:52
Admit to: Telemetry
Admit to doctor: hospitalist
Presentation/result/management discussed w/ accepting MD/DO: Hospitalist
Patient with high blood pressure during this ER visit?: No
Condition: Fair
Covid-19: Not Applicable
Discharge Problem:
Anemia, Acute UTI
Interventions
Interventions:
*Risk Screen - Suicide Last Done: 12/25/24 10:10
*General Assessment Last Done: 12/25/24 11:06
*Neglect/Abuse Screening Last Done: 12/25/24 10:10
*ED- Fall Risk Assessment Last Done: 12/25/24 11:06
*ED COVID-19 Vaccine History Last Done: 12/25/24 11:06
*Nursing Disposition Last Done: 12/25/24 18:12
ED- Cardiac Assessment Last Done: 12/25/24 11:08
ED- Pulmonary Assessment Last Done: 12/25/24 12:11
ED-Skin Assessment Last Done: 12/25/24 11:14
Discharge Date and Time
Discharge Date/Time: 12/25/24 18:31
[2024-12-25] MEDS: NSS 500 IV (11:49)
[2024-12-25 12:12] LABS: % Basophils 0.8 % (0-2); % Eosinophils 2.5 % (0-6); % Immature Granulocytes 0.3 % (0-0.5); % Lymphocytes 8.8 % (20.5-51.1); % Monocytes 12.6 % (1.7-9.3); Absolute Eosinophils 0.1 10^3/uL (0-0.7); Absolute Lymphocytes 0.3 10^3/uL (1.2-3.4); Absolute Monocytes 0.5 10^3/uL (0.1-0.6); Absolute Neutrophils 2.7 10^3/uL (1.4-6.5); Ammonia 16 umol/L (9-30); Hematocrit 20.1 % (37.0-47.0); Hemoglobin 6.9 g/dL (12.0-16.0); Mean Corp Hgb Conc. 34.3 g/dL (33.0-37.0); Mean Corpuscular Hgb 32.5 pg (27.0-31.0); Mean Corpuscular Volume 94.8 fL (81.0-99.0); Mean Platelet Volume 11.1 fL (7.4-10.4); Nucleated Red Blood Cells % 0 %; Platelet Count 67 10^3/uL (130-400); Red Blood Cell Count 2.12 10^6/uL (4.20-5.40); White Blood Cell Count 3.7 10^3/uL (4.8-10.8)
--- NOTE | 2024-12-25 12:14 | EDRN ---
Provider notified of critical value HGB/HCT
[2024-12-25 12:24] LABS: ALT (SGPT) 30 U/L (0-35); AST (SGOT) 47 U/L (14-36); Albumin 2.8 g/dl (3.5-5.0); Alkaline Phosphatase 122 U/L (38-126); Blood Urea Nitrogen 49 mg/dl (7-17); Calcium 8.6 mg/dl (8.4-10.2); Carbon Dioxide 19 mmol/L (22-30); Chloride 108 mmol/L (98-107); Estimated Creatinine Clearance 20 ml/min; Glucose 187 mg/dl (70-99); Potassium 5.3 mmol/L (3.5-5.1); Sodium 136 mmol/L (135-145); Total Bilirubin 1.8 mg/dl (0.2-1.3); Total Protein 5.7 g/dl (6.3-8.2); eGFR 18.63
[2024-12-25 12:28] LABS: COVID-19 Antigen Negative (Negative)
[2024-12-25 13:14] LABS: APTT 38.7 Sec (23.4-35.0); PT 23.2 Sec (11.4-14.6)
[2024-12-25 14:43] LABS: Urine Albumin Negative (Neg - Trace); Urine Bilirubin Negative (Negative); Urine Character Slightly Cloudy (Clear); Urine Color Yellow; Urine Glucose Negative (Negative); Urine Ketone Negative (Negative); Urine Leukocyte 3+ (Negative); Urine Nitrite Negative (Negative); Urine Occult Blood Negative (Negative); Urine Urobilinogen Negative (Neg - 1+)
[2024-12-25 15:04] LABS: Urine Squamous Cell >30 /LPF (Few)
[2024-12-25 15:06] LABS: Urine Bacteria Moderate (Negative); Urine White Cell 26-30 /HPF (0-5); Urine Yeast Moderate (Negative)
--- NOTE | 2024-12-25 15:10 | HPS.HSE ---
Addendum entered and electronically signed by Jasiel Austin MD 12/25/24 16:25:
I saw and examined the patient.
The [facility] or PA's note was reviewed and I agree with the note.
Comment: 69-year-old female with past medical history of nonalcoholic liver disease complicated by cirrhosis, recurrent ascites with frequent paracentesis twice weekly, approximately fibrillation, CKD, anxiety/depression, hypothyroidism came to the
hospital with weakness and change in mental status. Hemoglobin 6.9 on admission. Has required blood transfusion in the past per at bedside. She has been on liver transplant list. Consult nephrology for worsening renal disease, she had an
appointment with nephrology today. Consult GI. Consult IR for paracentesis tomorrow. Possible UTI. Start levofloxacin. Monitor for hyperkalemia. Full code.
General: Well Developed, Well Nourished, No Apparent Distress and Appears Chronically Ill
HEENT: NormoCephalic, Moist mucous membranes, Atraumatic, Nose Appears Normal and Ears Appear Normal
Respiratory: Clear and Non Labored Respirations
Cardiac: S1/S2, Regular Rhythm and Peripheral Edema (bilateral lower extremities )
GI: Soft, Non Tender, Normal Bowel Sounds and Distended; No Organomegaly
Musculoskeletal: No Clubbing, No Cyanosis, Edema, Left Lower Extremity and Edema, Right Lower Extremity
Skin: Lesions (laceration to LLE with dry bandage in place )
Neuro: Awake, Alert and Nonfocal/grossly intact
Psych: Calm and Intact Judgment/Insight
I spent a total of 78 minutes with the patient or on the floor. More than 50% of this time involved counseling and coordination of care.
Original Note:
Family Physician
-
Family Physician: Malu Wilson
Chief Complaint
-
change in mental status
History of Present Illness
Patient is a 69-year-old female with past medical history significant for nonalcoholic liver disease complicated with cirrhosis/recurrent ascites who requires frequent large-volume paracentesis, paroxysmal A-fib, CKD 3 presumed baseline creatinine
1.3�1.5, GERD, anxiety/depression, dementia and hypothyroidism who presented to [facility] for evaluation of change in mental status. Patient is poor historian, daughter at bedside stated that the patient was confused and anything she said this morning
did not make sense. She also noted increased weakness with a fall yesterday and laceration to LLE. Patient this morning also had observed increased weakness with legs starting to buckle, although she did not fall today. Patient is on transplant list
for a liver. She requires paracentesis twice a week as of recent, last done Sunday at [facility]. Patient has also been following with renal for AKD and discussions about possibly starting dialysis. Patient denies any fever, chills, cough, chest
pain, nausea, vomiting or urinary symptoms.
Medical History
Past Medical History
Past Medical History: Reports Other
Additional Past Medical History:
Right ankle bimalleolar fracture 08/08/[address] [facility] treated with cam boot only follows at [facility]
history of nonalcoholic liver disease complicated with cirrhosis/recurrent ascites who requires frequent large-volume paracentesis
currently on transplant list at [place]
hepatic encephalopathy
portal vein thrombosis
chronic pancytopenia
paroxysmal A-fib
CKD 3 presumed baseline creatinine 1.3�1.5
GERD
gastroparesis,
chronic gastritis
esophageal dysmotility/achalasia
anxiety/depression
dementia
hypothyroidism
ulcerative colitis
migraines
Former smoker
Past Surgical History: Reports Other
Additional Past Surgical History:
Multiple paracentesis secondary to ascites from [place] cirrhosis
Appendectomy
Bowel resection secondary to ulcerative colitis
Meckel's diverticulum
Gastric bypass June 27, 2021
Right wrist surgery left ankle surgery
Cholecystectomy
Total hysterectomy with bilateral oophorectomy
Social History
Tobacco: Former Smoker
Alcohol: None
Personal:
Living: With Family
Employment: Retired
Family History
Family History: Unable to Obtain
Allergies / Home Medications
Allergies reflects when Allergies were last updated in [employer].
Home Medications with original date entered in [employer]
Allergy/Medication List:
Allergies
Allergy/AdvReac Type Severity Reaction Status Date / Time
ampicillin Allergy Severe Anaphylaxis Verified 12/21/24 21:55
Penicillins Allergy Severe Anaphylaxis Verified 12/21/24 21:55
adhesive Allergy Rash Verified 12/21/24 21:55
bee pollen Allergy Swelling Verified 12/21/24 21:55
Cephalosporins Allergy Swelling Verified 12/21/24 21:55
diphenhydramine Allergy HYPERACTIVI Verified 12/21/24 21:55
[From Benadryl] TY
honey Allergy Swelling Verified 12/21/24 21:55
latex Allergy HIVES AND Verified 12/21/24 21:55
SWELLS UP
prochlorperazine Allergy Unknown Verified 12/21/24 21:55
[From Compazine]
promethazine HCl Allergy THROAT Verified 12/21/24 21:55
[From Phenergan] SWELLING/PANIC
ATTACKS
Sulfa (Sulfonamide Allergy Swelling Verified 12/21/24 21:55
Antibiotics)
sulfisoxazole Allergy Swelling Verified 12/21/24 21:55
trimethobenzamide Allergy Unknown Verified 12/21/24 21:55
venom-honey bee Allergy BEE Verified 12/21/24 21:55
STING/SWELLING
Home Medications
atorvastatin 20 mg tablet 20 mg PO HS High cholesterol 06/14/22
pantoprazole 40 mg tablet,delayed release (Protonix) 40 mg PO BID Gastrointestinal issue 12/09/22
ondansetron HCl 8 mg tablet 8 mg PO TID nausea 06/25/23
rifaximin 550 mg tablet 550 mg PO BID Liver Issues 10/01/23
memantine 5 mg tablet 5 mg PO BID@1200,1900 dementia 12/26/23
lactulose 10 gram/15 mL oral solution 30 ml PO BID Liver Issues 01/21/24
buspirone 10 mg tablet 10 mg PO TID Anxiety 04/18/24
ergocalciferol (vitamin D2) 1,250 mcg (50,000 unit) capsule 1,250 mcg PO WE@1900 Supplement 04/18/24
oxycodone 10 mg tablet 10 mg PO TIDPRN PRN severe pain 04/18/24
ciprofloxacin HCl 500 mg tablet 500 mg PO NOON prophylaxis 05/18/24
ferrous sulfate 325 mg (65 mg iron) tablet 325 mg PO BID Supplement 05/18/24
torsemide 20 mg tablet 20 mg PO QPM Fluid Retention/Swelling 05/18/24
famotidine 40 mg tablet 40 mg PO BID Gastrointestinal Issue 09/01/24
levothyroxine 75 mcg tablet (Synthroid) 75 mcg PO DAILY 12/25/24
methocarbamol 750 mg tablet 750 mg PO HS 12/25/24
quetiapine 100 mg tablet (Seroquel) 100 mg PO HS 12/25/24
Review of Systems
-
History Source: Patient and Family
Constitutional: Reports Fatigue
Neurological: Reports Weakness and Other (confusion )
Physical Exam
Vital Signs
Vital Signs
Temp Pulse Resp BP Pulse Ox
97.9 F 80 12 121/62 100
12/25/24 14:58 12/25/24 14:58 12/25/24 14:58 12/25/24 14:58 12/25/24 14:58
Physical Exam
General: Well Developed, Well Nourished, No Apparent Distress and Appears Chronically Ill
HEENT: NormoCephalic, Moist mucous membranes, Atraumatic, Nose Appears Normal and Ears Appear Normal
Respiratory: Clear and Non Labored Respirations
Cardiac: S1/S2, Regular Rhythm and Peripheral Edema (bilateral lower extremities )
Breast: Deferred by me
GI: Soft, Non Tender, Normal Bowel Sounds and Distended; No Organomegaly
Rectal: Deferred by Provider
Genito-urinary: Deferred by me
Musculoskeletal: No Clubbing, No Cyanosis, Edema, Left Lower Extremity and Edema, Right Lower Extremity
Skin: Lesions (laceration to LLE with dry bandage in place )
Neuro: Awake, Alert and Nonfocal/grossly intact
Psych: Calm and Intact Judgment/Insight
Laboratory Results
-
12/25/24 11:46
12/25/24 11:47
Laboratory Results
PT 23.2 Sec (11.4-14.6) H 12/25/24 12:24
INR 2.00 12/25/24 12:24
APTT 38.7 Sec (23.4-35.0) H 12/25/24 12:24
Total Bilirubin 1.8 mg/dl (0.2-1.3) H 12/25/24 11:47
AST 47 U/L (14-36) H 12/25/24 11:47
ALT 30 U/L (0-35) 12/25/24 11:47
Alkaline Phosphatase 122 U/L (38-126) 12/25/24 11:47
Data Reviewed
-
CT Scan: Report Reviewed by me (Head: 1. No acute intracranial abnormalities appreciated. 2. Mild cerebral atrophy. 3. No significant change compared to prior study.)
Lab Data: Labs Reviewed by me (hgb 6.9, hct 20.1, plt 67, K+ 5.3, BUN 49, Creat 2.7)
Impression/Plan
-
IMPRESSION/PLAN:
#change in mental status
#UTI
Head CT: 1. No acute intracranial abnormalities appreciated.
2. Mild cerebral atrophy.
3. No significant change compared to prior study.
UA: suggestive of UTI
- Admit to telemetry
- Start Levaquin
- hold Cipro while on Levaquin
#anemia
#GI bleed
hgb 6.9, hct 20.1, plt 67
Hemoccult positive
- Consult GI
- transfuse for Hgb < 7.0
- iron studies
- continue ferrous sulfate
- Protonix daily
#nonalcoholic liver disease
complicated with cirrhosis/recurrent ascites who requires frequent large-volume paracentesis
last paracentesis Sunday at [facility]
- consult IR
- paracentesis labs
- continue lactulose and rifaximin
#acute kidney injury
#CKD 3
presumed baseline creatinine 1.3�1.5
BUN 49, Creat 2.7, K+ 5.3
- consult Nephrology
- monitor BMP
#HLD
- continue atorvastatin
#GERD
- continue famotidine
#anxiety/depression
- continue buspirone and quetiapine
#dementia
- continue memantine
#hypothyroidism
- continue levothyroxine
#paroxysmal A-fib
EKG: NORMAL SINUS RHYTHM
POSSIBLE ANTEROLATERAL INFARCT , AGE UNDETERMINED
Code status: full code
DVT prophylaxis: SCDs
--- NOTE | 2024-12-25 16:30 | W.CON.NEPH ---
Consultation
-
Date/Time Consultation Requested: 12/25/24 1617
Date/Time Consultation Performed: 12/25/24 1630
Requesting Provider: Jasiel Austin MD
Performing Provider: Tawana Marcus
Reason for Consultation: SAIR with CKD 3b
Medical History
-
Chief Complaint: Gen weakness and AMS
History of Present Illness:
69-year-old female with past medical history significant for nonalcoholic liver disease complicated with cirrhosis/recurrent ascites who requires frequent large-volume paracentesis twice weekly on Torsemide therapy, lactulose and RIfaximin for h/o
Hepatic encephalopathy, chr abx PPX with cipro for SBP, paroxysmal A-fib, CKD 4 last cr 2.3 in 09/2024 lost f/u with Dr Salmeron, GERD on PPI, anxiety/depression on seroquel, dementia on memantine and hypothyroidism on levothyroxine who presented to
ED for evaluation of change in mental status. Patient is poor historian, daughter and at bedside provided more details. Reportedly patient had fall last night has skin cut of left leg, today she became very weak and could not handle
herself and was buckling and noted to be confused. family reports that she has not urinated much today despite drinking fluids. No fever or abd pain. No cp or sob. Does report possible dysuria with h/o bladder prolapse which she supposed to see
urology out pt. She has been into different hospitals recently [facility] and [facility], her Spironolactone was discontinued for possible SARI with in [id number]. She had coronary cath done on 12/09 at [facility] with PCWP of 10 and pt weight at
160lbs. Patient is on transplant list for a liver and follows Dr Hagan closely. She is due paracentesis tomorrow.
On arrival hb noted low at 6.9, cr at 2.7 higher than baseline hence nephrology consulted. She received 500cc of NS and 1 unit of PRBC.
She supposed to see Dr Carmichael today however since feeling sick came to hospital. Stool occult reportedly +ve ini ER.
She was in ER on 12/21 also for increasing edema and bruising, cr was at 2.7.
Past Medical History
Right ankle bimalleolar fracture 08/08/2024 at [facility] treated with cam boot only follows at [facility]
history of nonalcoholic liver disease complicated with cirrhosis/recurrent ascites who requires frequent large-volume paracentesis
currently on transplant list at [facility]
hepatic encephalopathy
portal vein thrombosis
chronic pancytopenia
paroxysmal A-fib
CKD4 cr 2.3 09/2024
GERD
gastroparesis,
chronic gastritis
esophageal dysmotility/achalasia
anxiety/depression
dementia
hypothyroidism
ulcerative colitis
migraines
Former smoker
Past Surgical History: Other (Multiple paracentesis secondary to ascites from [place] cirrhosis Appendectomy Bowel resection secondary to ulcerative colitis Meckel's diverticulum Gastric bypass June 27, 2021 Right wrist surgery left ankle surgery
Cholecystectomy Total hysterectomy with bilateral oophorectomy)
Social History
Tobacco: Non-Smoker
Alcohol: None
Personal:
Living: With Family
Employment: Retired
Family History
no ckd
Allergies / Home Medications
Allergy/AdvReac Type Severity Reaction Status Date / Time
ampicillin Allergy Severe Anaphylaxis Verified 12/21/24 21:55
Penicillins Allergy Severe Anaphylaxis Verified 12/21/24 21:55
adhesive Allergy Rash Verified 12/21/24 21:55
bee pollen Allergy Swelling Verified 12/21/24 21:55
Cephalosporins Allergy Swelling Verified 12/21/24 21:55
diphenhydramine Allergy HYPERACTIVI Verified 12/21/24 21:55
[From Benadryl] TY
honey Allergy Swelling Verified 12/21/24 21:55
latex Allergy HIVES AND Verified 12/21/24 21:55
SWELLS UP
prochlorperazine Allergy Unknown Verified 12/21/24 21:55
[From Compazine]
promethazine HCl Allergy THROAT Verified 12/21/24 21:55
[From Phenergan] SWELLING/PANIC
ATTACKS
Sulfa (Sulfonamide Allergy Swelling Verified 12/21/24 21:55
Antibiotics)
sulfisoxazole Allergy Swelling Verified 12/21/24 21:55
trimethobenzamide Allergy Unknown Verified 12/21/24 21:55
venom-honey bee Allergy BEE Verified 12/21/24 21:55
STING/SWELLING
�Medication �Instructions �Recorded �Confirmed �Type
atorvastatin 20 mg tablet 20 mg PO HS High cholesterol 06/14/22 12/25/24 History
pantoprazole 40 mg tablet,delayed 40 mg PO BID Gastrointestinal issue 12/09/22 12/25/24 History
release (Protonix)
ondansetron HCl 8 mg tablet 8 mg PO TID nausea 06/25/23 12/25/24 History
rifaximin 550 mg tablet 550 mg PO BID Liver Issues 10/01/23 12/25/24 History
memantine 5 mg tablet 5 mg PO BID@1200,1900 dementia 12/26/23 12/25/24 History
lactulose 10 gram/15 mL oral 30 ml PO BID Liver Issues 01/21/24 12/25/24 History
solution
buspirone 10 mg tablet 10 mg PO TID Anxiety 04/18/24 12/25/24 History
ergocalciferol (vitamin D2) 1,250 1,250 mcg PO WE@1900 Supplement 04/18/24 12/25/24 History
mcg (50,000 unit) capsule
oxycodone 10 mg tablet 10 mg PO TIDPRN PRN severe pain 04/18/24 12/25/24 History
ciprofloxacin HCl 500 mg tablet 500 mg PO NOON prophylaxis 05/18/24 12/25/24 History
ferrous sulfate 325 mg (65 mg 325 mg PO BID Supplement 05/18/24 12/25/24 History
iron) tablet
torsemide 20 mg tablet 20 mg PO QPM Fluid 05/18/24 12/25/24 History
Retention/Swelling
famotidine 40 mg tablet 40 mg PO BID Gastrointestinal Issue 09/01/24 12/25/24 History
levothyroxine 75 mcg tablet 75 mcg PO DAILY 12/25/24 12/25/24 History
(Synthroid)
methocarbamol 750 mg tablet 750 mg PO HS 12/25/24 12/25/24 History
quetiapine 100 mg tablet (Seroquel) 100 mg PO HS 12/25/24 12/25/24 History
Review of Systems
-
All other systems: Negative unless noted
Physical Exam
Vital Signs
Vital Signs
Temp Pulse Resp BP Pulse Ox
97.9 F 80 10 121/62 100
12/25/24 14:58 12/25/24 15:00 12/25/24 15:00 12/25/24 14:58 12/25/24 15:00
Lab Results
WBC 3.7 10^3/uL (4.8-10.8) L 12/25/24 11:46
RBC 2.12 10^6/uL (4.20-5.40) L 12/25/24 11:46
Hgb 6.9 g/dL (12.0-16.0) L* 12/25/24 11:46
Hct 20.1 % (37.0-47.0) L* 12/25/24 11:46
Plt Count 67 10^3/uL (130-400) L 12/25/24 11:46
Sodium 136 mmol/L (135-145) 12/25/24 11:47
Potassium 5.3 mmol/L (3.5-5.1) H 12/25/24 11:47
Chloride 108 mmol/L (98-107) H 12/25/24 11:47
Carbon Dioxide 19 mmol/L (22-30) L 12/25/24 11:47
BUN 49 mg/dl (7-17) H 12/25/24 11:47
Creatinine 2.7 mg/dL (0.6-1.0) H 12/25/24 11:47
eGFR 18.63 12/25/24 11:47
Glucose 187 mg/dl (70-99) H 12/25/24 11:47
Calcium 8.6 mg/dl (8.4-10.2) 12/25/24 11:47
Albumin 2.8 g/dl (3.5-5.0) L 12/25/24 11:47
Physical Exam
General: Awake, Alert, Oriented, No Distress and Nontoxic
HEENT: EOMI, Anicteric, Facial Symmetry and Neck Supple
Respiratory: Clear, Normal Excursion and Nonlabored Respirations
Cardiac: S1/S2, Regular Rate/Rhythm and Murmur
Abdomen: Soft, Nontender and Other (distended)
Musculoskeletal: No Cyanosis and Edema (3+)
Skin: No Rash and Other (bandage left leg for skin cut)
Neuro: Nonfocal/Grossly Intact
Psych: Mood/afflect pleasant and Appropriate
Data Reviewed
-
Radiology: Report Reviewed by me, Discussed with Patient and Discussed with Family
Labs: Labs Reviewed by me, Discussed with Patient and Discussed with Family
Assessment/Plan
-
Impression:
SARI with CKD4-cr 2.3 09/2024(pt phone at [facility])
change in mental status
UTI
Anemia
GI bleed
nonalcoholic liver disease
complicated with cirrhosis/recurrent ascites who requires frequent large-volume paracentesis
HLD
GERD
Anxiety/depression
Dementia
Hypothyroidism
paroxysmal A-fib
History of recent SBP on chr cipro
Plan:
A/w AMS, gen weakness, suspected UTI
SARI-last cr was 2.3 at [facility] labs in sep -suspect this is her new baseline
current cr slightly elevated 2.7, monitor and check bladder scan with h/o bladder prolapse per family, consider eval
there could be progression of CKD too
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
hold Torsemide today, low threshold to resume
her PCWP was at 10mmhg at weight of 160lbs/72kg on 12/09/24
mild hyperkalemia-low k diet
mild non gap met acidosis -stable monitor
family reports that recently discontinued Aldactone at [facility] in last 1m
PRBC today, GI consulted for heme +ve stool
BP stable no further IVF
likely paracentesis tomorrow
labs in am
daily wts
d/w pt, family at bedside
[2024-12-25 18:05] LABS: Urine Sodium 12 mmol/L (30-90)
[2024-12-25] MEDS: FEOSOL 325 MG PO (20:34)
[2024-12-25] MEDS: PROTONIX IV 40 MG IV (20:34)
[2024-12-25] MEDS: NSS (PRESERVATIVE FREE) 10 ML IV (20:34)
[2024-12-25] MEDS: DEMADEX 20 MG PO (20:34)
[2024-12-25] MEDS: DUPHALAC/CHRONULAC 20 GRAMS PO (20:35)
[2024-12-25] MEDS: XIFAXAN 550 MG PO (20:35)
[2024-12-25] MEDS: METHOCARBAMOL 750 MG PO (21:55)
[2024-12-25] MEDS: LIPITOR 20 MG PO (21:55)
[2024-12-25] MEDS: BUSPAR 10 MG PO (21:55)
[2024-12-25] MEDS: SEROQUEL 100 MG PO (21:55)
[2024-12-26] VITALS (13 sets, daily range): BP systolic 12–128; BP diastolic 50–63; PULSE 75–81; BMI 30.5
[2024-12-26 01:59] LABS: Hematocrit 24.1 % (37.0-47.0); Hemoglobin 8.4 g/dL (12.0-16.0)
[2024-12-26 02:15] LABS: Blood Urea Nitrogen 48 mg/dl (7-17); Calcium 8.7 mg/dl (8.4-10.2); Carbon Dioxide 20 mmol/L (22-30); Chloride 110 mmol/L (98-107); Estimated Creatinine Clearance 21 ml/min; Glucose 113 mg/dl (70-99); Potassium 5.1 mmol/L (3.5-5.1); Sodium 138 mmol/L (135-145); eGFR 20.44
[2024-12-26] MEDS: SYNTHROID 75 MCG PO (06:32)
[2024-12-26] MEDS: DUPHALAC/CHRONULAC 20 GRAMS PO ×2 (10:27→21:34)
[2024-12-26] MEDS: LEVAQUIN 250 MG PO (10:27)
[2024-12-26 10:28] LABS: Body Fluid Albumin < 1.0 g/dl; Body Fluid Amylase < 30 U/L; Body Fluid LDH 51 U/L; Body Fluid Protein < 2.0 g/dl
[2024-12-26] MEDS: XIFAXAN 550 MG PO ×2 (10:28→21:35)
[2024-12-26] MEDS: FEOSOL 325 MG PO ×2 (10:28→21:35)
[2024-12-26] MEDS: BUSPAR 10 MG PO ×3 (10:28→21:35)
[2024-12-26] MEDS: NSS (PRESERVATIVE FREE) 10 ML IV ×2 (10:28→21:34)
[2024-12-26] MEDS: PROTONIX IV 40 MG IV ×2 (10:29→21:34)
[2024-12-26 10:45] LABS: Body Fluid Mononuclear 44.9 %; Body Fluid Polymorphonuclear 55.1 %; Body Fluid WBC 89 /CUMM
[2024-12-26 10:51] LABS: Hematocrit 24.8 % (37.0-47.0); Hemoglobin 8.5 g/dL (12.0-16.0); Mean Corp Hgb Conc. 34.3 g/dL (33.0-37.0); Mean Corpuscular Hgb 31.6 pg (27.0-31.0); Mean Corpuscular Volume 92.2 fL (81.0-99.0); Mean Platelet Volume 10.8 fL (7.4-10.4); Platelet Count 59 10^3/uL (130-400); Red Blood Cell Count 2.69 10^6/uL (4.20-5.40); White Blood Cell Count 3.1 10^3/uL (4.8-10.8)
[2024-12-26 11:05] LABS: Body Fluid Second Tech EM
--- NOTE | 2024-12-26 11:32 | CON.GI ---
Addendum entered and electronically signed by Winifred Rivera Do, MD 12/27/24 12:24:
I saw and examined the patient.
The AREA INTELLIGENCE TECHNICIAN's note was reviewed and I agree with the note.
Comment: Delayed entry she was seen though 12/26 along with DIALLO and I did do her EGD with report dated 12/26. Reference to that
Original Note:
Consultation
-
Date/Time Consultation Requested: 12/25/24 1635
Date/Time Consultation Performed: 12/26/24 1030
Requesting Provider: DIALLO Blood
Performing Provider: Dr. Pa/DIALLO Izaguirre
Reason for Consultation: anemia, OB pos stool
Medical History
Chief Complaint / HPI
Chief Complaint: weakness change in mental status
History of Present Illness:
69-year-old female with complex history including MASH cirrhosis (followed by Dr. Bradley and now currently by Dr. Restrepo at [facility]) currently listed for transplant at [facility] per her , MELD
calculated from yesterday's labs of 28, decompensated with ascites, hepatic encephalopathy, hepatic hydrothorax requiring paracentesis and thoracentesis in the past, SBP on chronic antibiotics, SARI on CKD chronic baseline last known to us around
1.7, (currently creatinine 2.5), portal vein thrombosis, paroxysmal A-fib on Eliquis Eliquis in the past no longer on AC (initially they were going to transition her to Coumadin at [place] however decided against this for the time being),
gastroparesis, esophageal dysmotility status post RYGB, hyperlipidemia, hypothyroidism, chronic GERD who we last saw on hospitalization on 06/28/2024 when we transferred her for evaluation for liver transplant. I spoke to her Timi Sanchez
to [phone] who states that she completed her listing process. That she is currently on the transplant list however was told that she will likely need a living donor and is not a candidate for donor. I did reach out to her transplant
coordinator Kamaal Jackson [phone] who was not in the office today, it forwarded me to another coordinator Radha at [phone]. I left a message for her today and left a message for her to update her. The patient is able to give a significant
amount of history. She states she came in because of progressive weakness and falls. I did confirm this with her . He says that she has been weak in her legs as well as her hands and unable to hold things. The patient herself says that
for the past week that she has been having coughing, reflux and vomiting bile as well as brown liquid. Her stools have been brown however noted in the ER they were positive for occult blood. She also was found to have anemia. We are asked to
evaluate for the same. She tells me that at [facility] she has been getting twice weekly paracentesis. She states that she continues on lactulose twice a day. She states that she was taken off of spironolactone and she was placed on torsemide.
She does have significant bilateral lower extremity edema. She states she weighs herself daily and follows a 2 g sodium diet. She did receive a 4 L paracentesis this morning. Her ammonia is normal. She does have some asterixis on exam. She
denies any fevers, chills, melena, hematochezia, dysphagia or odynophagia. She denies any abdominal pain however she states that she does get distended and develops shortness of breath with increased fluid in her abdomen. Patient presented with a
hemoglobin of 6.9.she was transfused 2 units of packed red blood cells with a hemoglobin increase up to 8.5. She is NPO. She is agreeable to EGD. I also discussed with with her . He is also agreeable for EGD. He does not think that the
patient had EGD between time at [place] and [facility] and her last admission here at [facility]. Her last EGD at [place] was 11/16/2022.
Past Medical History
Past Medical History: Arrhythmias, CHF, Fibromyalgia, HTN, Hypercholesterolemia, Hypothyroidism and Other (ZAVALETA cirrhosis with ascites, hepatic hydrothorax, hepatic encephalopathy, CKD, PVT, chronic anemia, esophageal dysmotility, SBP)
Past Surgical History: Other (Appendectomy, bowel resection (Meckel's diverticulum, LUMA with small bowel resection), cholecystectomy, , SIMONA, Kevin-en-Y gastric bypass)
Social History
Tobacco: Non-Smoker
Alcohol: None
Drug: None
Personal:
Living: With Family
Employment: Not Employed
Family History
Family History: Other (No family history of gastrointestinal malignancies, granddaughter with lupus, mother breast cancer, grandmother with ulcerative colitis)
Allergies / Home Medications
Allergy/AdvReac Type Severity Reaction Status Date / Time
ampicillin Allergy Severe Anaphylaxis Verified 12/21/24 21:55
Penicillins Allergy Severe Anaphylaxis Verified 12/21/24 21:55
adhesive Allergy Rash Verified 12/21/24 21:55
bee pollen Allergy Swelling Verified 12/21/24 21:55
Cephalosporins Allergy Swelling Verified 12/21/24 21:55
diphenhydramine Allergy HYPERACTIVI Verified 12/21/24 21:55
[From Benadryl] TY
honey Allergy Swelling Verified 12/21/24 21:55
latex Allergy HIVES AND Verified 12/21/24 21:55
SWELLS UP
prochlorperazine Allergy Unknown Verified 12/21/24 21:55
[From Compazine]
promethazine HCl Allergy THROAT Verified 12/21/24 21:55
[From Phenergan] SWELLING/PANIC
ATTACKS
Sulfa (Sulfonamide Allergy Swelling Verified 12/21/24 21:55
Antibiotics)
sulfisoxazole Allergy Swelling Verified 12/21/24 21:55
trimethobenzamide Allergy Unknown Verified 12/21/24 21:55
venom-honey bee Allergy BEE Verified 12/21/24 21:55
STING/SWELLING
�Medication �Instructions �Recorded
atorvastatin 20 mg tablet 20 mg PO HS High cholesterol 06/14/22
pantoprazole 40 mg tablet,delayed 40 mg PO BID Gastrointestinal issue 12/09/22
release (Protonix)
ondansetron HCl 8 mg tablet 8 mg PO TID nausea 06/25/23
rifaximin 550 mg tablet 550 mg PO BID Liver Issues 10/01/23
memantine 5 mg tablet 5 mg PO BID@1200,1900 dementia 12/26/23
lactulose 10 gram/15 mL oral 30 ml PO BID Liver Issues 01/21/24
solution
buspirone 10 mg tablet 10 mg PO TID Anxiety 04/18/24
ergocalciferol (vitamin D2) 1,250 1,250 mcg PO WE@1900 Supplement 04/18/24
mcg (50,000 unit) capsule
oxycodone 10 mg tablet 10 mg PO TIDPRN PRN severe pain 04/18/24
ciprofloxacin HCl 500 mg tablet 500 mg PO NOON prophylaxis 05/18/24
ferrous sulfate 325 mg (65 mg 325 mg PO BID Supplement 05/18/24
iron) tablet
torsemide 20 mg tablet 20 mg PO QPM Fluid 05/18/24
Retention/Swelling
famotidine 40 mg tablet 40 mg PO BID Gastrointestinal Issue 09/01/24
levothyroxine 75 mcg tablet 75 mcg PO DAILY 12/25/24
(Synthroid)
methocarbamol 750 mg tablet 750 mg PO HS 12/25/24
quetiapine 100 mg tablet (Seroquel) 100 mg PO HS 12/25/24
Review of Systems
-
All other systems: A 12 pt ROS was Negative except as stated above in HPI
Vital Signs
Temp Pulse Resp BP Pulse Ox
98.1 F 74 16 123/58 99
12/26/24 09:05 12/26/24 09:34 12/26/24 09:34 12/26/24 09:34 12/26/24 09:34
Physical Exam
Exam
General: No Apparent Distress
HEENT: Anicteric
Respiratory: Clear
Cardiac: Regular Rhythm and Murmur
GI: Soft, Non Tender, Non Distended and Normal Bowel Sounds
Rectal: Hem Positive (Brown OB positive stool by ER)
Musculoskeletal: Edema (+3 bilateral lower extremity edema)
Skin: Warm, Dry and Other (Multiple areas of ecchymosis on skin)
Neuro: AO x 3 and Other (Positive asterixis)
Psych: Calm
Results
WBC 3.1 10^3/uL (4.8-10.8) L 12/26/24 10:35
Hgb 8.5 g/dL (12.0-16.0) L 12/26/24 10:35
Hct 24.8 % (37.0-47.0) L 12/26/24 10:35
MCV 92.2 fL (81.0-99.0) 12/26/24 10:35
Plt Count 59 10^3/uL (130-400) L 12/26/24 10:35
Absolute Neuts (auto) 2.7 10^3/uL (1.4-6.5) 12/25/24 11:46
PT 23.2 Sec (11.4-14.6) H 12/25/24 12:24
INR 2.00 12/25/24 12:24
APTT 38.7 Sec (23.4-35.0) H 12/25/24 12:24
Sodium 138 mmol/L (135-145) 12/26/24 01:48
Potassium 5.1 mmol/L (3.5-5.1) 12/26/24 01:48
Chloride 110 mmol/L (98-107) H 12/26/24 01:48
Carbon Dioxide 20 mmol/L (22-30) L 12/26/24 01:48
BUN 48 mg/dl (7-17) H 12/26/24 01:48
Creatinine 2.5 mg/dL (0.6-1.0) H 12/26/24 01:48
Calcium 8.7 mg/dl (8.4-10.2) 12/26/24 01:48
Total Bilirubin 1.8 mg/dl (0.2-1.3) H 12/25/24 11:47
AST 47 U/L (14-36) H 12/25/24 11:47
ALT 30 U/L (0-35) 12/25/24 11:47
Alkaline Phosphatase 122 U/L (38-126) 12/25/24 11:47
Diagnostic Image Results:
CTA head 12/25/2024:
1. No acute intracranial abnormalities appreciated.
2. Mild cerebral atrophy.
3. No significant change compared to prior study.
Prior GI Procedures:
EGD:� 11/16/22 Dr. Bunny Foss: No gross lesions in the entire esophagus. Gastric bypass with a small-sized pouch and intact staple line. Gastrojejunal anastomosis characterized by healthy appearing mucosa. Normal examined jejunum. Biopsies were
taken with a cold forceps for evaluation of eosinophilic esophagitis. bx showing mild chronic inflammation, otherwise negative.
Colonoscopy:� 03/2018 - [facility]: Hemorrhoids found on perianal exam. Non-bleeding external and internal hemorrhoids. Erythematous mucosa in the rectum. Biopsied. Diverticulosis in the left colon. Four small polyps in the sigmoid colon, in the descending
colon and in the ascending colon, removed with a jumbo cold forceps. Resected and retrieved. Biopsies were taken with a cold forceps for histology in the sigmoid colon, in the descending colon and in the transverse colon. Path showing AC TA polyp,
DC hyperplastic polyp, SC hyperplastic polyp, random bx colon negative. Rectal bx showing colorectal mucosa with nodular submucosal lymphoid aggregate and mild crypt architectural distortion, negative for active colitis.
Assessment / Plan
-
69-year-old female with complex history including MASH cirrhosis (followed by Dr. Bradley and now currently by Dr. Restrepo at [facility]) currently listed for transplant at [facility] per her , MELD
calculated from yesterday's labs of 28, decompensated with ascites, hepatic encephalopathy, hepatic hydrothorax requiring paracentesis and thoracentesis in the past, SBP on chronic antibiotics, SARI on CKD chronic baseline last known to us around
1.7, (currently creatinine 2.5), portal vein thrombosis, paroxysmal A-fib on Eliquis in the past no longer on AC (initially they were going to transition her to Coumadin at [place] however decided against this for the time being), gastroparesis,
esophageal dysmotility status post RYGB, hyperlipidemia, hypothyroidism, chronic GERD who we last saw on hospitalization on 06/28/2024 when we transferred her for evaluation for liver transplant. I spoke to her Timi Sanchez to [phone]
who states that she completed her listing process. That she is currently on the transplant list however was told that she will likely need a living donor and is not a candidate for donor. I did reach out to her member services coordinator
Kamalazafar Jackson [phone] who was not in the office today, it forwarded me to another coordinator Radha at [phone]. I left a message for her today and left a message for her to update her. The patient is able to give a significant amount of
history. She states she came in because of progressive weakness and falls. I did confirm this with her . He says that she has been weak in her legs as well as her hands and unable to hold things. The patient herself says that for the past
week that she has been having coughing, reflux and vomiting bile as well as brown liquid. Her stools have been brown however noted in the ER they were positive for occult blood. She also was found to have anemia. We are asked to evaluate for the
same. Hemoglobin was 6.9 with brown OB positive stool in the setting of patient with recent increase in reflux, vomiting of brown liquid. Last EGD 2022, decompensated cirrhosis. Status post 2 units packed red blood cells with hemoglobin up to
8.5. Platelet count 59. Patient is listed for transplant at [facility]. MELD is 28. I did reach out to transplant coordinators listed above. Awaiting callback.
Impression:
Anemia, OB positive stool hemoglobin was 6.9 status post 2 units packed red blood cells up to 8.5
Decompensated MASH cirrhosis MELD 3.0 = 28 listed for transplant at [facility].
Weakness/falls
Pancytopenia
Ascites, status post 4 L paracentesis today
History of SBP, on chronic Cipro
CKD
Pancytopenia
History of right-sided hepatic hydrothorax
History Kevin-en-Y gastric bypass
Plan:
- EGD today
- Continue Cipro 500 mg daily (chronic prophylaxis) for SBP
- Continue lactulose 30 mL p.o. twice daily
- Continue Xifaxan 550 mg p.o. twice daily
- Continue pantoprazole 40 mg IV twice daily
- Phone call placed to [place] member services coordinator
- Trend hemoglobin, daily labs
- Await fluid studies from paracentesis
-Further recommendations to be forthcoming
-
-
Thank you for consultation and allowing me to participate in the patient's care. Please call the marble installation helper GI physician during the after hours with any questions or concerns.
--- NOTE | 2024-12-26 12:16 | W.PN.NEPH.PH ---
Today's Communication / Plan
-
IV albumin
Assessment/Plan
-
Impression:
SARI with CKD4-cr 2.3 09/2024(pt phone at [place])
change in mental status
UTI
Anemia
GI bleed
nonalcoholic liver disease
complicated with cirrhosis/recurrent ascites who requires frequent large-volume paracentesis
HLD
GERD
Anxiety/depression
Dementia
Hypothyroidism
paroxysmal A-fib
History of recent SBP on chr cipro
Plan:
Follow BMP
IV albumin
Restart torsemide today
Maintain low potassium fluid restricted diet
d/w pt, family at bedside
-
-
Date of Service: December 26, 2024
CC / HPI / ROS
-
Chief Complaint:
SARI
History of Present Illness:
SARI/Cr lower at 2.5
Potassium normal 5.1
Blood pressure stable
Status post paracentesis 4 L 12/26/24
Review of Systems:
No chest pain or shortness of breath
Complains of lower extremity edema
Labs
-
Labs:
WBC 3.1 10^3/uL (4.8-10.8) L 12/26/24 10:35
RBC 2.69 10^6/uL (4.20-5.40) L 12/26/24 10:35
Hgb 8.5 g/dL (12.0-16.0) L 12/26/24 10:35
Hct 24.8 % (37.0-47.0) L 12/26/24 10:35
Plt Count 59 10^3/uL (130-400) L 12/26/24 10:35
Sodium 138 mmol/L (135-145) 12/26/24 01:48
Potassium 5.1 mmol/L (3.5-5.1) 12/26/24 01:48
Chloride 110 mmol/L (98-107) H 12/26/24 01:48
Carbon Dioxide 20 mmol/L (22-30) L 12/26/24 01:48
BUN 48 mg/dl (7-17) H 12/26/24 01:48
Creatinine 2.5 mg/dL (0.6-1.0) H 12/26/24 01:48
eGFR 20.44 12/26/24 01:48
Glucose 113 mg/dl (70-99) H 12/26/24 01:48
Calcium 8.7 mg/dl (8.4-10.2) 12/26/24 01:48
Albumin 2.8 g/dl (3.5-5.0) L 12/25/24 11:47
Physical Exam
-
Vital Signs:
Vital Signs
Temp Pulse Resp BP Pulse Ox
98 F 75 18 115/56 98
12/26/24 11:45 12/26/24 11:45 12/26/24 11:45 12/26/24 11:45 12/26/24 11:45
Cardiovascular:: Regular rate and rhythm
Respiratory:: Bilateral: Coarse
Lung Excursion:: Normal
Abdomen:: Nontender and Soft
Bowel Sounds:: Normal
Extremity Edema:: +2: Bilateral:
--- NOTE | 2024-12-26 12:20 | PN.CDI ---
CDI
- -
CDI:
Physician Documentation Request
Admit Date: 12/25/24 16:35
Dear Doctor Norman,
Please review the following and provide your response in the progress notes.
Clinical Indicators:
Pt admitted with AMS /UT/ SARI /GI bleed
Documented per ED. ' patient was very weak and confused today. Patient feels that she is confused and generally weak. She felt fine yesterday....she did give her an extra dose of lactulose last night but that has not helped. ....end-stage liver
disease presents for increasing weakness confusion as per daughter. Patient feels very weak she does feel little confused and disoriented....'
Documented per H&P,' #change in mental status #UTI...'
Based on the above, could you clarify in the Progress Notes and Discharge Summary which, if any of the following, is the most likely etiology of the confusion/altered mental status.
Metabolic Encephalopathy
Dementia with acute delirium
Other ( please specify)
Use of terms such as suspected, likely, concern for, or probable (associated with a specific diagnosis that is being evaluated, monitored, or treated as if it exists) are acceptable and can be coded in the inpatient setting, when documented at the
time of discharge.
Thank you,
Lauren Encarnacion RN
CDI Specialist
[facility] [facility]
Please use your independent medical judgment in providing your response.
--- NOTE | 2024-12-26 12:26 | CM ---
CM following re: discharge planning.
Reviewed pt's chart, met with pt and pt's daughter in law at bedside.
Pt is a 69 year old female, admitted with primary dx of UTI, SARI
Pt reports she lives with in an apartment 1st floor, 3 steps to enter, has 3 supportive children. Pt reports she ambulates with a walker, known to [facility]. No SNF history. Pt expressed her desire to return back home at discharge with
[facility] and family support.
PCP: Malu Wilson
Pharmacy: [facility]
D/c plan: most likely home with [facility] and family support.
CM will follow with discharge plan updates as hospitalization progresses
[2024-12-26] MEDS: FLEXBUMIN 100 IV (12:27)
[2024-12-26] MEDS: NAMENDA 5 MG PO ×2 (12:30→21:35)
--- NOTE | 2024-12-26 13:52 | W.PN.HOSP.TC ---
Today's Communication/Plan
-
monitor vitals
see plan
EGD today
Status post para
Give albumin
Monitor renal function
PT evaluation
Antibiotic
Assessment / Plan
Assessment / Plan
General: Well Developed, Well Nourished, No Apparent Distress and Appears Chronically Ill
HEENT: NormoCephalic, Moist mucous membranes, Atraumatic, Nose Appears Normal and Ears Appear Normal
Respiratory: Clear and Non Labored Respirations
Cardiac: S1/S2, Regular Rhythm and Peripheral Edema (bilateral lower extremities )
GI: Soft, Non Tender, Normal Bowel Sounds and Distended; No Organomegaly
Musculoskeletal: Edema, Left Lower Extremity and Edema, Right Lower Extremity
Skin: Lesions (laceration to LLE with dry bandage in place )
Neuro: Awake, Alert and Nonfocal/grossly intact
Psych: Calm and Intact Judgment/Insight
change in mental status suspect TME secondary to worsening renal function and liver cirrhosis; mental status appears to be improving
#UTI
Head CT: 1. No acute intracranial abnormalities appreciated.
2. Mild cerebral atrophy.
3. No significant change compared to prior study.
UA: suggestive of UTI
- Started Levaquin
- hold Cipro while on Levaquin
#anemia likely multifactorial secondary to acute blood loss with underlying chronic anemia due to liver cirrhosis
#GI bleed
hgb 6.9, hct 20.1, plt 67
Hemoccult positive; s/p 2 units on admssion
GI following, EGD 12/26
- transfuse for Hgb < 7.0
- iron studies
- continue ferrous sulfate
Continue with PPI
History of recent SBP on chronic Cipro
#nonalcoholic liver disease
complicated with cirrhosis/recurrent ascites who requires frequent large-volume paracentesis
last paracentesis [facility] at [facility]
IR following
Status post para 4/11, follow para lab
- continue lactulose and rifaximin
SARI with CKD 4, baseline creatinine around 2.3
Nephrology following
Mild hyperkalemia on admission
Monitor
#HLD
- continue atorvastatin
#GERD
- continue famotidine
#anxiety/depression
- continue buspirone and quetiapine
#dementia
- continue memantine
#hypothyroidism
- continue levothyroxine
#paroxysmal A-fib
EKG: NORMAL SINUS RHYTHM
POSSIBLE ANTEROLATERAL INFARCT , AGE UNDETERMINED
Code status: full code
DVT prophylaxis: SCDs
I spent a total of 52 minutes with the patient or on the floor. More than 50% of this time involved counseling and coordination of care.
Anticipated Discharge: > 48 hours
Subjective/Interval History
-
Date of Service: December 26, 2024
Denies pain
Objective Data
-
Labs:
Laboratory Results
12/26/24 12/26/24
01:48 10:35
WBC 3.1 L
Hgb 8.4 L D 8.5 L
Hct 24.1 L 24.8 L
Plt Count 59 L
Sodium 138
Potassium 5.1
Chloride 110 H
Carbon Dioxide 20 L
BUN 48 H
Creatinine 2.5 H
Glucose 113 H
Calcium 8.7
Vital Signs:
Vital Signs
Temp Pulse Resp BP Pulse Ox
98 F 75 18 115/56 98
12/26/24 11:45 12/26/24 11:45 12/26/24 11:45 12/26/24 11:45 12/26/24 11:45
I&O
12/25/24 12/26/24 12/27/24
06:59 06:59 06:59
Intake Total 500 / 500
Output Total 300 / 300
Balance 200 / 200
[2024-12-26] MEDS: FLEXBUMIN 50 IV ×2 (14:30→21:33)
[2024-12-26] MEDS: DEMADEX 20 MG PO (17:36)
[2024-12-26] MEDS: ZOFRAN 4 MG IV (17:37)
[2024-12-26] MEDS: SEROQUEL 100 MG PO (21:35)
[2024-12-26] MEDS: LIPITOR 20 MG PO (21:35)
[2024-12-26] MEDS: METHOCARBAMOL 750 MG PO (21:35)
[2024-12-27] VITALS (9 sets, daily range): BP systolic 111–124; BP diastolic 52–73; PULSE 82
[2024-12-27] MEDS: FLEXBUMIN 50 IV (05:08)
[2024-12-27] MEDS: SYNTHROID 75 MCG PO (05:09)
[2024-12-27 06:56] LABS: % Basophils 0.9 % (0-2); % Eosinophils 2.8 % (0-6); % Immature Granulocytes 0.5 % (0-0.5); % Monocytes 15.2 % (1.7-9.3); % Neutrophils 62.6 % (42.2-75.2); Absolute Eosinophils 0.1 10^3/uL (0-0.7); Absolute Lymphocytes 0.4 10^3/uL (1.2-3.4); Absolute Monocytes 0.3 10^3/uL (0.1-0.6); Absolute Neutrophils 1.4 10^3/uL (1.4-6.5); Hematocrit 22.5 % (37.0-47.0); Hemoglobin 7.7 g/dL (12.0-16.0); Mean Corp Hgb Conc. 34.2 g/dL (33.0-37.0); Mean Corpuscular Hgb 31.8 pg (27.0-31.0); Mean Platelet Volume 11.4 fL (7.4-10.4); Nucleated Red Blood Cells % 0 %; Platelet Count 60 10^3/uL (130-400); Red Blood Cell Count 2.42 10^6/uL (4.20-5.40); Red Cell Dist. Width 19.4 % (11.5-14.5); White Blood Cell Count 2.2 10^3/uL (4.8-10.8)
[2024-12-27 07:02] LABS: INR 2.18; PT 24.4 Sec (11.4-14.6)
[2024-12-27 07:23] LABS: ALT (SGPT) 24 U/L (0-35); AST (SGOT) 36 U/L (14-36); Albumin 3.1 g/dl (3.5-5.0); Alkaline Phosphatase 110 U/L (38-126); Blood Urea Nitrogen 43 mg/dl (7-17); Calcium 8.7 mg/dl (8.4-10.2); Carbon Dioxide 19 mmol/L (22-30); Chloride 110 mmol/L (98-107); Direct Bilirubin 0.8 mg/dl (0.0-0.4); Estimated Creatinine Clearance 22 ml/min; Glucose 87 mg/dl (70-99); Potassium 4.4 mmol/L (3.5-5.1); Sodium 139 mmol/L (135-145); Total Bilirubin 2.4 mg/dl (0.2-1.3); Total Protein 5.6 g/dl (6.3-8.2); eGFR 21.46
[2024-12-27] MEDS: DUPHALAC/CHRONULAC 20 GRAMS PO ×2 (09:38→20:37)
[2024-12-27] MEDS: NSS (PRESERVATIVE FREE) 10 ML IV ×2 (09:38→21:33)
[2024-12-27] MEDS: PROTONIX IV 40 MG IV ×2 (09:38→21:33)
[2024-12-27] MEDS: XIFAXAN 550 MG PO ×2 (09:38→20:35)
[2024-12-27] MEDS: FEOSOL 325 MG PO ×2 (09:39→20:35)
[2024-12-27] MEDS: PEPCID 20 MG PO (09:39)
[2024-12-27] MEDS: LEVAQUIN 250 MG PO (09:39)
[2024-12-27] MEDS: BUSPAR 10 MG PO ×3 (09:40→23:29)
--- NOTE | 2024-12-27 10:06 | W.PN.NEPH.PH ---
Today's Communication / Plan
-
follow BMP
Assessment/Plan
-
Impression:
SARI with CKD4(2.3) 09/2024 (at [place])
change in mental status
UTI
Anemia
GI bleed
nonalcoholic liver disease
complicated with cirrhosis/recurrent ascites who requires frequent large-volume paracentesis
HLD
GERD
Anxiety/depression
Dementia
Hypothyroidism
paroxysmal A-fib
History of recent SBP on chr cipro
Plan:
Follow BMP
back on torsemide
Maintain low potassium fluid restricted diet
-
-
Date of Service: December 27, 2024
CC / HPI / ROS
-
Chief Complaint:
SARI
History of Present Illness:
SARI/Cr lower at 2.4 slightly
Potassium normal 5.1
Blood pressure stable
Status post paracentesis 4 L 12/26/24
WBC lower 2.2
Hgb lower 7.7
Review of Systems:
No chest pain or shortness of breath
Complains of lower extremity edema
Labs
-
Labs:
WBC 2.2 10^3/uL (4.8-10.8) L* 12/27/24 06:14
RBC 2.42 10^6/uL (4.20-5.40) L 12/27/24 06:14
Hgb 7.7 g/dL (12.0-16.0) L 12/27/24 06:14
Hct 22.5 % (37.0-47.0) L 12/27/24 06:14
Plt Count 60 10^3/uL (130-400) L 12/27/24 06:14
Sodium 139 mmol/L (135-145) 12/27/24 06:14
Potassium 4.4 mmol/L (3.5-5.1) 12/27/24 06:14
Chloride 110 mmol/L (98-107) H 12/27/24 06:14
Carbon Dioxide 19 mmol/L (22-30) L 12/27/24 06:14
BUN 43 mg/dl (7-17) H 12/27/24 06:14
Creatinine 2.4 mg/dL (0.6-1.0) H 12/27/24 06:14
eGFR 21.46 12/27/24 06:14
Glucose 87 mg/dl (70-99) 12/27/24 06:14
Calcium 8.7 mg/dl (8.4-10.2) 12/27/24 06:14
Albumin 3.1 g/dl (3.5-5.0) L 12/27/24 06:14
Physical Exam
-
Vital Signs:
Vital Signs
Temp Pulse Resp BP Pulse Ox
98.5 F 73 18 113/58 96
12/27/24 07:45 12/27/24 07:45 12/27/24 07:45 12/27/24 07:45 12/27/24 07:45
Cardiovascular:: Regular rate and rhythm
Respiratory:: Bilateral: Coarse
Lung Excursion:: Normal
Abdomen:: Nontender and Soft
Bowel Sounds:: Normal
Extremity Edema:: +2: Bilateral:
--- NOTE | 2024-12-27 12:25 | W.PN.GI.CBS2 ---
Today's Communication / Plan
-
OOB to chair/PT juan jose (she has longstanding h/o falls)
c/w all chronic meds
Close FU with Dr Restrepo/GI [facility]. [facility] transplant program updated 12/26
She colon OP paracentesis weekly prearranged
GI will sign off please call for ?
Assessment / Plan
-
69-year-old female with complex history including MASH cirrhosis (followed by Dr. Bradley and now currently by Dr. Restrepo at [facility]) currently listed for transplant at [facility] per her , MELD
calculated from yesterday's labs of 28, decompensated with ascites, hepatic encephalopathy, hepatic hydrothorax requiring paracentesis and thoracentesis in the past, SBP on chronic antibiotics, SARI on CKD chronic baseline last known to us around
1.7, (currently creatinine 2.5), portal vein thrombosis, paroxysmal A-fib on Eliquis in the past no longer on AC (initially they were going to transition her to Coumadin at [place] however decided against this for the time being), gastroparesis,
esophageal dysmotility status post RYGB, hyperlipidemia, hypothyroidism, chronic GERD who we last saw on hospitalization on 06/28/2024 when we transferred her for evaluation for liver transplant. I spoke to her Timi Sanchez to [phone]
who states that she completed her listing process. That she is currently on the transplant list however was told that she will likely need a living donor and is not a candidate for donor. I did reach out to her clinical rehabilitation coordinator
Kamalazafar Jackson [phone] who was not in the office today, it forwarded me to another coordinator Radha at [phone]. I left a message for her today and left a message for her to update her. The patient is able to give a significant amount of
history. She states she came in because of progressive weakness and falls. I did confirm this with her . He says that she has been weak in her legs as well as her hands and unable to hold things. The patient herself says that for the past
week that she has been having coughing, reflux and vomiting bile as well as brown liquid. Her stools have been brown however noted in the ER they were positive for occult blood. She also was found to have anemia. We are asked to evaluate for the
same. Hemoglobin was 6.9 with brown OB positive stool in the setting of patient with recent increase in reflux, vomiting of brown liquid. Last EGD 2022, decompensated cirrhosis. Status post 2 units packed red blood cells with hemoglobin up to
8.5. Platelet count 59. Patient is listed for transplant at [facility]. MELD is 28. I did reach out to transplant coordinators listed above. Awaiting callback.
Impression:
Anemia, OB positive stool hemoglobin was 6.9 status post 2 units packed red blood cells up to 8.5
Decompensated MASH cirrhosis MELD 3.0 = 28 listed for transplant at [facility].
Weakness/falls
Pancytopenia
Ascites, status post 4 L paracentesis today
History of SBP, on chronic Cipro
CKD
Pancytopenia
History of right-sided hepatic hydrothorax
History Kevin-en-Y gastric bypass
Plan:
- EGD 12/26 with AVMs s/p clips x2
- Today's Hbg drop in setting of pancytopenia
- Stools are brown
- C/w all her chronic meds: Cipro 500 mg daily (chronic prophylaxis) for SBP, lactulose 30 mL p.o. twice daily, Xifaxan 550 mg p.o. twice daily, Pantoprazole 40 mg IV twice daily
- She is LISTED at [facility] transplant and transplant center updated.
- She gets paracentesis twice weekly outpatient at [facility]. This is already been pre-arranged for her through [facility] Restrepo GI at [facility]
- OBB to chair and PT
At this juncture no new GI recs. Will sign off please call ?
Subjective
Subjective
Date of Service: December 27, 2024
Stools are brown. She is tolerating diet. Denies nausea/vomiting or abd pain.
Objective
Data Reviewed
Laboratory Data:
Laboratory Results
12/27/24 06:14
12/27/24 06:14
Laboratory Results
PT 24.4 Sec (11.4-14.6) H 12/27/24 06:14
INR 2.18 12/27/24 06:14
APTT 38.7 Sec (23.4-35.0) H 12/25/24 12:24
Total Bilirubin 2.4 mg/dl (0.2-1.3) H 12/27/24 06:14
AST 36 U/L (14-36) 12/27/24 06:14
ALT 24 U/L (0-35) 12/27/24 06:14
Alkaline Phosphatase 110 U/L (38-126) 12/27/24 06:14
Vital Signs and I&O:
Vital Signs
Temp Pulse Resp BP Pulse Ox
97.9 F 71 18 114/52 100
12/27/24 11:34 12/27/24 11:34 12/27/24 11:34 12/27/24 11:34 12/27/24 11:34
I&O
12/26/24 12/27/24 12/28/24
06:59 06:59 06:59
Intake Total 500 / 500 600 / 600
Output Total 300 / 300
Balance 200 / 200 600 / 600
Physical Exam
Physical Exam
GEN: No acute distress, conversant, pleasant bitemporal wasting
HEENT: anicteric, extraocular movements intact, clear oropharynx without exudates
GI: soft, obese mildly distended, not tender to palpation, normal active bowel sounds, no hepatosplenomegaly
EXT: warm, well perfused, trace edema bilaterally
NEURO: AAOx3, non-focal
--- NOTE | 2024-12-27 12:43 | W.PN.HOSP.TC ---
Today's Communication/Plan
-
Monitor vital signs see plan
Monitor hemoglobin
Continue with PPI
PT evaluation
Monitor mental status
Assessment / Plan
Assessment / Plan
General: Well Developed, Well Nourished, No Apparent Distress and Appears Chronically Ill
HEENT: NormoCephalic, Moist mucous membranes, Atraumatic, Nose Appears Normal and Ears Appear Normal
Respiratory: Clear and Non Labored Respirations
Cardiac: S1/S2, Regular Rhythm and Peripheral Edema (bilateral lower extremities )
GI: Soft, Non Tender, Normal Bowel Sounds and Distended; No Organomegaly
Musculoskeletal: Edema, Left Lower Extremity and Edema, Right Lower Extremity
Skin: Lesions (laceration to LLE with dry bandage in place )
Neuro: Awake, Alert and Nonfocal/grossly intact
Psych: Calm and Intact Judgment/Insight
change in mental status suspect TME secondary to worsening renal function and liver cirrhosis; mental status appears to be improving
#UTI
Head CT: 1. No acute intracranial abnormalities appreciated.
2. Mild cerebral atrophy.
3. No significant change compared to prior study.
UA: suggestive of UTI, however urine culture probable contamination
- Started Levaquin
- hold Cipro while on Levaquin
#anemia likely multifactorial secondary to acute blood loss with underlying chronic anemia due to liver cirrhosis
#GI bleed
hgb 6.9 on admission
Hemoccult positive; s/p 2 units on admssion
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
- transfuse for Hgb < 7.0
- continue ferrous sulfate
Continue with PPI
History of recent SBP on chronic Cipro
#nonalcoholic liver disease
complicated with cirrhosis/recurrent ascites who requires frequent large-volume paracentesis
Gets routine paracentesis Sunday and Sunday at [facility]
IR following
Status post para 12/26
- continue lactulose and rifaximin
SARI with CKD 4, baseline creatinine around 2.3
Nephrology following
Mild hyperkalemia on admission
Monitor
#HLD
- continue atorvastatin
#GERD
- continue famotidine
#anxiety/depression
- continue buspirone and quetiapine
#dementia
- continue memantine
#hypothyroidism
- continue levothyroxine
#paroxysmal A-fib
Monitor
Code status: full code
DVT prophylaxis: SCDs
Anticipated Discharge: Within 24 hours
Subjective/Interval History
-
Date of Service: December 27, 2024
denies pain
Objective Data
-
Labs:
Laboratory Results
12/27/24
06:14
WBC 2.2 L*
Hgb 7.7 L
Hct 22.5 L
Plt Count 60 L
PT 24.4 H
INR 2.18
Sodium 139
Potassium 4.4
Chloride 110 H
Carbon Dioxide 19 L
BUN 43 H
Creatinine 2.4 H
Glucose 87
Calcium 8.7
Total Bilirubin 2.4 H
AST 36
ALT 24
Alkaline Phosphatase 110
Vital Signs:
Vital Signs
Temp Pulse Resp BP Pulse Ox
97.9 F 71 18 114/52 100
12/27/24 11:34 12/27/24 11:34 12/27/24 11:34 12/27/24 11:34 12/27/24 11:34
I&O
12/26/24 12/27/24 12/28/24
06:59 06:59 06:59
Intake Total 500 / 500 600 / 600
Output Total 300 / 300
Balance 200 / 200 600 / 600
[2024-12-27] MEDS: NAMENDA PO (15:19)
[2024-12-27] MEDS: DEMADEX 20 MG PO (17:35)
[2024-12-27] MEDS: NAMENDA 5 MG PO (17:36)
[2024-12-27] MEDS: ROXICODONE 10 MG PO (20:33)
[2024-12-27] MEDS: FLUSH (NSS) 1 FLUSH IV ×2 (21:33→21:34)
[2024-12-27] MEDS: METHOCARBAMOL 750 MG PO (21:47)
[2024-12-27] MEDS: SEROQUEL 100 MG PO (21:47)
[2024-12-27] MEDS: LIPITOR 20 MG PO (21:47)
[2024-12-28 03:49] VITALS: BP 108/58
[2024-12-28 04:51] LABS: INR 2.16; PT 24.2 Sec (11.4-14.6)
[2024-12-28 04:58] LABS: % Basophils 0.9 % (0-2); % Eosinophils 3.1 % (0-6); % Immature Granulocytes 0.9 % (0-0.5); % Lymphocytes 16.8 % (20.5-51.1); % Monocytes 17.3 % (1.7-9.3); Absolute Eosinophils 0.1 10^3/uL (0-0.7); Absolute Lymphocytes 0.4 10^3/uL (1.2-3.4); Absolute Monocytes 0.4 10^3/uL (0.1-0.6); Absolute Neutrophils 1.4 10^3/uL (1.4-6.5); Hematocrit 23.5 % (37.0-47.0); Hemoglobin 7.8 g/dL (12.0-16.0); Mean Corp Hgb Conc. 33.2 g/dL (33.0-37.0); Mean Corpuscular Volume 93.3 fL (81.0-99.0); Nucleated Red Blood Cells % 0 %; Platelet Count 61 10^3/uL (130-400); Red Blood Cell Count 2.52 10^6/uL (4.20-5.40); Red Cell Dist. Width 19.3 % (11.5-14.5); White Blood Cell Count 2.3 10^3/uL (4.8-10.8)
[2024-12-28 05:02] LABS: ALT (SGPT) 22 U/L (0-35); AST (SGOT) 35 U/L (14-36); Albumin 2.7 g/dl (3.5-5.0); Alkaline Phosphatase 99 U/L (38-126); Blood Urea Nitrogen 44 mg/dl (7-17); Calcium 8.5 mg/dl (8.4-10.2); Carbon Dioxide 21 mmol/L (22-30); Chloride 112 mmol/L (98-107); Estimated Creatinine Clearance 24 ml/min; Glucose 137 mg/dl (70-99); Potassium 3.9 mmol/L (3.5-5.1); Sodium 141 mmol/L (135-145); Total Bilirubin 1.9 mg/dl (0.2-1.3); Total Protein 5.2 g/dl (6.3-8.2); eGFR 23.82
[2024-12-28] MEDS: SYNTHROID 75 MCG PO (05:16)
[2024-12-28 06:00] VITALS: BMI 30.4
[2024-12-28 07:35] VITALS: BP 117/53
[2024-12-28] MEDS: LEVAQUIN 250 MG PO (09:09)
[2024-12-28] MEDS: DUPHALAC/CHRONULAC 20 GRAMS PO (09:09)
[2024-12-28] MEDS: XIFAXAN 550 MG PO (09:09)
[2024-12-28] MEDS: BUSPAR 10 MG PO (09:09)
[2024-12-28] MEDS: PROTONIX IV 40 MG IV (09:09)
[2024-12-28] MEDS: FEOSOL 325 MG PO (09:09)
[2024-12-28] MEDS: FLUSH (NSS) 1 FLUSH IV (09:10)
[2024-12-28] MEDS: NSS (PRESERVATIVE FREE) 10 ML IV (09:10)
--- NOTE | 2024-12-28 11:08 | W.PN.HOSP.TC ---
Today's Communication/Plan
-
monitor vitals
see plan
hgb stable
no further bleeding
cw PPI
dc today
Discussed with over the phone
Time of discharge 38 minutes
Assessment / Plan
Assessment / Plan
General: Well Developed, Well Nourished, No Apparent Distress and Appears Chronically Ill
HEENT: NormoCephalic, Moist mucous membranes, Atraumatic, Nose Appears Normal and Ears Appear Normal
Respiratory: Clear and Non Labored Respirations
Cardiac: S1/S2, Regular Rhythm and Peripheral Edema (bilateral lower extremities )
GI: Soft, Non Tender, Normal Bowel Sounds and Distended; No Organomegaly
Musculoskeletal: Edema, Left Lower Extremity and Edema, Right Lower Extremity
Skin: Lesions (laceration to LLE with dry bandage in place )
Neuro: Awake, Alert and Nonfocal/grossly intact
Psych: Calm and Intact Judgment/Insight
change in mental status suspect TME secondary to worsening renal function and liver cirrhosis; mental status appears to be improving
#UTI
Head CT: 1. No acute intracranial abnormalities appreciated.
2. Mild cerebral atrophy.
3. No significant change compared to prior study.
UA: suggestive of UTI, however urine culture probable contamination
- Finish Levaquin after today dose, discharged on ciprofloxacin which she was on before
- hold Cipro while on Levaquin
#anemia likely multifactorial secondary to acute blood loss with underlying chronic anemia due to liver cirrhosis
#GI bleed
hgb 6.9 on admission
Hemoccult positive; s/p 2 units on admission
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
- transfuse for Hgb < 7.0. Hemoglobin stable 7.8. No further bleeding. Will discharge patient with outpatient follow-up
- continue ferrous sulfate
Continue with PPI
History of recent SBP on chronic Cipro
#nonalcoholic liver disease
complicated with cirrhosis/recurrent ascites who requires frequent large-volume paracentesis
Gets routine paracentesis Sunday and Sunday at [facility]
IR following
Status post para 4/11
- continue lactulose and rifaximin
SARI with CKD 4, baseline creatinine around 2.3
Nephrology following
Mild hyperkalemia on admission
Monitor
#HLD
- continue atorvastatin
#GERD
- continue famotidine
#anxiety/depression
- continue buspirone and quetiapine
#dementia
- continue memantine
#hypothyroidism
- continue levothyroxine
#paroxysmal A-fib
Monitor
Code status: full code
DVT prophylaxis: SCDs
Anticipated Discharge: Today
Subjective/Interval History
-
Date of Service: December 28, 2024
denies pain
Objective Data
-
Labs:
Laboratory Results
12/28/24
04:02
WBC 2.3 L*
Hgb 7.8 L
Hct 23.5 L
Plt Count 61 L
PT 24.2 H
INR 2.16
Sodium 141
Potassium 3.9
Chloride 112 H
Carbon Dioxide 21 L
BUN 44 H
Creatinine 2.2 H
Glucose 137 H
Calcium 8.5
Total Bilirubin 1.9 H
AST 35
ALT 22
Alkaline Phosphatase 99
Vital Signs:
Vital Signs
Temp Pulse Resp BP Pulse Ox
98.1 F 79 16 117/53 94
12/28/24 07:35 12/28/24 07:35 12/28/24 07:35 12/28/24 07:35 12/28/24 10:42
I&O
12/27/24 12/28/24 12/29/24
06:59 06:59 06:59
Intake Total 600 / 600 960 / 960
Balance 600 / 600 960 / 960
--- NOTE | 2024-12-28 11:15 | W.DCSUMMARY ---
Discharge Summary
Discharge Data
Date of Admission: 12/25/24
Date of Discharge: 12/28/24
-
Pending Results: Yes
Hospital Course
69-year-old female with past medical history of nonalcoholic liver disease complicated by cirrhosis, recurrent ascites with frequent paracentesis, atrial fibrillation, CKD, anxiety/depression, hypothyroidism came to the hospital with weakness and
change in mental status. Patient symptoms were likely thought was secondary to anemia. Patient required blood transfusion on this hospitalization. Patient was seen by gastroenterology and was taken for endoscopy which showed AVM status post clip.
Patient was also put on PPI. Over time patient hemoglobin continue to improve and she did not had any further bleeding. While patient was in the hospital she also required routine paracentesis. She was also seen by nephrology for worsening renal
disease. Patient renal function continue to improve over time. She also had urinary tract infection which was treated with Levaquin. Patient was also evaluated by PT who recommended home health. Once patient symptoms continue to improve and her
hemoglobin and renal function were stable, she was then discharged home with instructions to follow-up with all her physicians outpatient.
Discharge Plan
-
Patient Disposition: Home (Routine Discharge)
Discharge Diagnosis/Procedures: Change in mental status suspect TME secondary to worsening renal function and liver cirrhosis
Anemia likely multifactorial secondary to acute blood loss with underlying chronic anemia due to liver cirrhosis
SARI with CKD 4
Diet: Low Residue
Activity: As tolerated
Driving Restrictions: Not until seen by your Dr
Blood Work: CBC and CMP next week with primary care provider
Activity Restrictions/Additional Instructions:
Follow-up with your hepatology outpatient
Referrals:
Malu Wilson DO [Family Provider] - in less than 1 week
Carrington Carmichael MD [Active] -
Dilia Delacruz DO [Active] -
Prescriptions:
Continued
atorvastatin 20 mg tablet
20 mg PO HS
rifaximin 550 mg Tablet
550 mg PO BID
memantine 5 mg Tablet
5 mg PO BID@1200,1900
lactulose 10 gram/15 mL solution
30 ml PO BID
buspirone 10 mg Tablet
10 mg PO TID
ergocalciferol (vitamin D2) 1,250 mcg (50,000 unit) Capsule
1,250 mcg PO WE@1900
oxycodone 10 mg Tablet
10 mg PO TIDPRN PRN (Reason: severe pain)
torsemide 20 mg Tablet
20 mg PO QPM
ciprofloxacin HCl 500 mg Tablet
500 mg PO NOON
ferrous sulfate 325 mg (65 mg iron) Tablet
325 mg PO BID
famotidine 40 mg Tablet
40 mg PO BID
levothyroxine [Synthroid] 75 mcg Tablet
75 mcg PO DAILY
quetiapine [Seroquel] 100 mg Tablet
100 mg PO HS
methocarbamol 750 mg Tablet
750 mg PO HS
pantoprazole [Protonix] 40 mg Tablet,Delayed Release (Dr/Ec)
40 mg PO BID Qty: 60 0RF
Changed
ondansetron HCl 8 mg tablet
8 mg PO TID PRN (Reason: nausea) Qty: 0 0RF
Discharge Orders:
Discharge Patient (As Directed); Ordered 12/28/24
Ordered By: Jasiel Austin
Discharge Date and Time
Discharge Date/Time: 12/28/24 14:17
Print Language: [place]
[2024-12-28 11:51] VITALS: BP 119/50
--- NOTE | 2024-12-28 11:52 | CM ---
Md entered order for discharge.
Spoke with pt in room she said she was ready for discharge . IMM reviewed copy given IMM signed on chart.
Pt said her will drive her home.
Offered VN she requested [facility] Referral in care port.
PLAN Home with [facility]
[2024-12-28] MEDS: NAMENDA 5 MG PO (12:09)
--- NOTE | 2024-12-28 12:54 | W.PN.NEPH.PH ---
Today's Communication / Plan
-
DC planning
Assessment/Plan
-
Impression:
SARI with CKD4(2.3) 09/2024 (at [place])
change in mental status
UTI
Anemia
GI bleed
nonalcoholic liver disease
complicated with cirrhosis/recurrent ascites who requires frequent large-volume paracentesis
HLD
GERD
Anxiety/depression
Dementia
Hypothyroidism
paroxysmal A-fib
History of recent SBP on chr cipro
Plan:
Follow BMP
back on torsemide
Maintain low potassium fluid restricted diet
Will need blood work within 1 or 2 weeks time to follow potassium levels
-
-
Date of Service: December 28, 2024
CC / HPI / ROS
-
Chief Complaint:
SARI
History of Present Illness:
SARI/Cr lower at 2. 2 slightly
Potassium normal 3.9
Blood pressure stable
Status post paracentesis 4 L 12/26/24
Remains pancytopenic
Review of Systems:
No chest pain or shortness of breath
Labs
-
Labs:
WBC 2.3 10^3/uL (4.8-10.8) L* 12/28/24 04:02
RBC 2.52 10^6/uL (4.20-5.40) L 12/28/24 04:02
Hgb 7.8 g/dL (12.0-16.0) L 12/28/24 04:02
Hct 23.5 % (37.0-47.0) L 12/28/24 04:02
Plt Count 61 10^3/uL (130-400) L 12/28/24 04:02
Sodium 141 mmol/L (135-145) 12/28/24 04:02
Potassium 3.9 mmol/L (3.5-5.1) 12/28/24 04:02
Chloride 112 mmol/L (98-107) H 12/28/24 04:02
Carbon Dioxide 21 mmol/L (22-30) L 12/28/24 04:02
BUN 44 mg/dl (7-17) H 12/28/24 04:02
Creatinine 2.2 mg/dL (0.6-1.0) H 12/28/24 04:02
eGFR 23.82 12/28/24 04:02
Glucose 137 mg/dl (70-99) H 12/28/24 04:02
Calcium 8.5 mg/dl (8.4-10.2) 12/28/24 04:02
Albumin 2.7 g/dl (3.5-5.0) L 12/28/24 04:02
Physical Exam
-
Vital Signs:
Vital Signs
Temp Pulse Resp BP Pulse Ox
98 F 83 18 119/50 98
12/28/24 11:51 12/28/24 11:51 12/28/24 11:51 12/28/24 11:51 12/28/24 11:51
Cardiovascular:: Regular rate and rhythm
Respiratory:: Bilateral: Coarse
Lung Excursion:: Normal
Abdomen:: Nontender and Soft
Bowel Sounds:: Normal
Extremity Edema:: +1: Bilateral:
== END 2024-12-28 14:17 | disposition home health service (06) | DRG 377 ==
LOC: 4 EAST ACU 16:35
PROVIDERS: Nurse Practitioner; Nurse Practitioner Family; Radiology Vascular & Interventional Radiology; ADMITTING PHYSICIAN Internal Medicine; CONSULT PHYSICIAN Internal Medicine; EMERGENCY PHYSICIAN Student in an Organized Health Care Education/Training Program; FAMILY PHYSICIAN Internal Medicine; OTHER PHYSICIAN Internal Medicine Gastroenterology
PROC: 30243N1 Transfusion of Nonautologous Red Blood Cells into Central Vein, Percutaneous Approach (ICD-10-PCS; 2024-12-25)
PROC: 0W9G3ZZ Drainage of Peritoneal Cavity, Percutaneous Approach (ICD-10-PCS; 2024-12-26)
PROC: 0W3P8ZZ Control Bleeding in Gastrointestinal Tract, Via Natural or Artificial Opening Endoscopic (ICD-10-PCS; 2024-12-26)
DX: K55.21 Angiodysplasia of colon with hemorrhage (principal); G92.8 Other toxic encephalopathy; D61.818 Other pancytopenia; D62 Acute posthemorrhagic anemia; N17.9 Acute kidney failure, unspecified; N18.4 Chronic kidney disease, stage 4 (severe); I13.0 Hypertensive heart and chronic kidney disease with heart failure and stage 1 through stage 4 chronic kidney disease, or unspecified chronic kidney disease; Q39.9 Congenital malformation of esophagus, unspecified; N39.0 Urinary tract infection, site not specified; R18.8 Other ascites; F03.94 Unspecified dementia, unspecified severity, with anxiety; F03.93 Unspecified dementia, unspecified severity, with mood disturbance; E87.20 Acidosis, unspecified; K51.911 Ulcerative colitis, unspecified with rectal bleeding; K74.60 Unspecified cirrhosis of liver; E11.22 Type 2 diabetes mellitus with diabetic chronic kidney disease; I50.9 Heart failure, unspecified; Z98.84 Bariatric surgery status; K22.81 Esophageal polyp; E03.9 Hypothyroidism, unspecified; K75.81 Nonalcoholic steatohepatitis (NASH); I48.0 Paroxysmal atrial fibrillation; F32.A Depression, unspecified; Z76.82 Awaiting organ transplant status; S81.812A Laceration without foreign body, left lower leg, initial encounter; W19.XXXA Unspecified fall, initial encounter; K21.9 Gastro-esophageal reflux disease without esophagitis; E11.43 Type 2 diabetes mellitus with diabetic autonomic (poly)neuropathy; K29.50 Unspecified chronic gastritis without bleeding; K22.0 Achalasia of cardia; G43.909 Migraine, unspecified, not intractable, without status migrainosus; Z87.891 Personal history of nicotine dependence; Q43.0 Meckel's diverticulum (displaced) (hypertrophic); Z90.710 Acquired absence of both cervix and uterus; Z88.0 Allergy status to penicillin; Z88.1 Allergy status to other antibiotic agents; Z91.040 Latex allergy status; Z88.2 Allergy status to sulfonamides; E78.00 Pure hypercholesterolemia, unspecified; Z79.890 Hormone replacement therapy; Z11.52 Encounter for screening for COVID-19; Z86.0100 Personal history of colon polyps, unspecified; M79.7 Fibromyalgia; Z79.899 Other long term (current) drug therapy
CPT/HCPCS: 36430; 49083; 70450; 80048; 80053; 81003; 81015; 82042; 82140; 82150; 82248; 82570; 82962; 83615; 84157; 84300; 85014; 85018; 85025; 85027; 85610; 85730; 86850; 86900; 86901; 86920; 87015; 87070; 87086; 87205; 87502; 87811; 89051; 93005; 96360; 97162; 99285; P9016; P9047